=== PATIENT | female | born 1955 | race African-American/Black ===

== ENCOUNTER 2018-04-21 11:24 | Inpatient (IN) | payer OTHER ==
[2018-04-21 11:59] VITALS: BMI 33.6
[2018-04-21] MEDS ORDERED: SODIUM CHLORIDE 1,000 ML IV ONE (12:22)
--- NOTE | 2018-04-21 12:26 | PDOC ---
History of Present Illness - General History Source: Patient Exam Limitations: No Limitations - History of Present Illness Initial Comments: 04/21/18 12:44 The patient is a 63 year old female from brought in by EMS from [facility], with a past medical history of hypertension, hypothyroidism, gastroesophageal reflux disease, chronic obstructive pulmonary disease (not on oxygen), urinary tract infections, bipolar disorder, schizophrenia, pressure ulcers, and varicose veins who presents to the emergency department for evaluation of hypoxia and generalized weakness. As per EMS, patient was found to have an oxygen saturation in the 70s on room air in the field, and was subsequently given oxygen at 3L via nasal cannula. As per facility, patient has been refusing gastrostomy tube and has had worsening weakness. At presentation, patient is non-verbal. History limited secondary to current clinical condition. Allergies: Haloperidol, sulfacetamide sodium Social History: No reported alcohol, cigarette, or drug use. PCP: Dr. Julio César Pereira ([phone]) <Olivia Vallejo - Last Filed: 04/21/18 14:46> <Jan Vanegas - Last Filed: 04/21/18 16:35> - General Chief Complaint: Shortness of Breath Stated Complaint: Shortness of Breath Time Seen by Provider: 04/21/18 11:50 Past History <Olivia Vallejo - Last Filed: 04/21/18 14:46> - Past Medical History COPD: No CHF: No GI Disorders: Yes (reflux, obesity) HTN: Yes Psychiatric Problems: Yes (bipolar,schizo, depression extrapyramidal and movement disorder) Thyroid Disease: Yes (hypo) - Surgical History Orthopedic Surgery: Yes (left knee replacement) - Suicide/Smoking/Psychosocial Hx Smoking History: Unknown if ever smoked Have you smoked in the past 12 months: No Information on smoking cessation initiated: No Hx Alcohol Use: No Drug/Substance Use Hx: No <Jan Vanegas - Last Filed: 04/21/18 16:35> - Past Medical History Allergies/Adverse Reactions: Allergies Allergy/AdvReac Type Severity Reaction Status Date / Time haloperidol Allergy Unknown Verified 04/21/18 11:38 sulfacetamide sodium Allergy Unknown Verified 04/21/18 11:38 [From Sulfamide] Home Medications: Ambulatory Orders Acetaminophen [Non-Aspirin Pain Relief] 650 mg PO BID 01/14/15 Albuterol 0.083% Nebulizer Renuka [Ventolin 0.083% Nebulizer Soln -] 1 neb NEB Q6H PRN 01/14/15 Benztropine Mesylate 1 mg PO BID 01/14/15 Depakote ER 1,000 mg PO BID 01/14/15 Divalproex [Depakote -] 250 mg PO BID 01/14/15 Docusate Sodium [Colace -] 100 mg PO DAILY 01/14/15 Folic Acid 1 mg PO DAILY 01/14/15 Furosemide [Lasix -] 40 mg PO BID 01/14/15 Gabapentin [Neurontin -] 300 mg PO Q8H 01/14/15 Lamotrigine 200 mg PO BID 01/14/15 Levetiracetam [Keppra] 1,000 mg PO BID 01/14/15 Levothyroxine [Synthroid -] 75 mcg PO DAILY 01/14/15 Metoprolol Tartrate 25 mg PO BID 01/14/15 Olanzapine [Zyprexa] 20 mg PO HS 01/14/15 Risperidone [Risperdal] 1 mg PO HS 01/14/15 Risperidone [Risperdal] 2 mg PO DAILY 01/14/15 Review of Systems - Review of Systems Able to Perform ROS?: No (nonverbal) <Jan Vanegas - Last Filed: 04/21/18 16:35> *Physical Exam - Vital Signs Last Vital Signs Temp Pulse Resp BP Pulse Ox 98.4 F 88 24 H 92/50 L 96 04/21/18 11:25 04/21/18 11:25 04/21/18 11:25 04/21/18 11:25 04/21/18 11:25 - Physical Exam Comments: GENERAL: (+)Asleep, responds to verbal stimuli. Obeys commands, nonverbal ? baseline. HEAD: Normal with no signs of trauma. EYES: Pupils equal, round and reactive to light, extraocular movements intact, sclera anicteric, conjunctiva clear with no pallor. ENT: Ears normal, nares patent. NECK: Normal range of motion, supple without lymphadenopathy, JVD, or masses. LUNGS: (+)decreased breath sounds at bases, left worse than right. No wheeze/ crackles. HEART: Regular rate and rhythm, normal S1 and S2 without murmur or rub. ABDOMEN: Soft, non distended, no guarding, rebound, or grimace upon palpation. GENITOURINARY: (+)Peralta placed with cloudy urine. EXTREMITIES: (+)edema to dorsum of feet bilaterally. (+)Chronic venous stasis, hyperpigmentation in both lower extremities. Normal range of motion, no edema. No clubbing or cyanosis. No cords, erythema, or tenderness. SKIN: Warm, Dry, normal turgor, no rashes or lesions noted. <Olivia Vallejo - Last Filed: 04/21/18 14:46> - Vital Signs Last Vital Signs Temp Pulse Resp BP Pulse Ox 98.4 F 88 24 H 92/50 L 96 04/21/18 11:25 04/21/18 11:25 04/21/18 11:25 04/21/18 11:25 04/21/18 11:25 <Jan Vanegas - Last Filed: 04/21/18 16:35> Moderate Sedation - Procedure Monitoring Vital Signs: Procedure Monitoring Vital Signs Temperature 98.4 F 04/21/18 11:25 Pulse Rate 88 04/21/18 11:25 Respiratory Rate 24 H 04/21/18 11:25 Blood Pressure 92/50 L 04/21/18 11:25 O2 Sat by Pulse Oximetry (%) 96 04/21/18 11:25 <Olivia Vallejo - Last Filed: 04/21/18 14:46> - Procedure Monitoring Vital Signs: Procedure Monitoring Vital Signs Temperature 98.4 F 04/21/18 11:25 Pulse Rate 88 04/21/18 11:25 Respiratory Rate 24 H 04/21/18 11:25 Blood Pressure 92/50 L 04/21/18 11:25 O2 Sat by Pulse Oximetry (%) 96 04/21/18 11:25 <Jan Vanegas - Last Filed: 04/21/18 16:35> Heart Score/ECG Review #1 ECG reviewed & interpreted by me at: 12:02 General ECG Interpretation: Sinus Rhythm, Normal Rate (85), Normal Intervals ( RBBB, LAFB, QTC 502), No acute ischemic changes <Jan Vanegas - Last Filed: 04/21/18 16:35> ED Treatment Course - LABORATORY CBC & Chemistry Diagram: 04/21/18 13:20 04/21/18 12:50 <[email or web address] - Last Filed: 04/21/18 14:46> - LABORATORY CBC & Chemistry Diagram: 04/21/18 13:20 04/21/18 12:50 - RADIOLOGY Radiology Studies Ordered: Category Date Time Status CHEST X-RAY PORTABLE* [RAD] Stat Radiology 04/21/18 12:13 Ordered <Jan Vanegas - Last Filed: 04/21/18 16:35> Medical Decision Making - Medical Decision Making 04/21/18 14:[address] Chavez at 14:44 <Olivia Vallejo - Last Filed: 04/21/18 14:46> - Critical Care Time Total Critical Care Time (minutes): 75 Critical Care Statement: The care of this patient involved high complexity decision making to prevent further life threatening deterioration of the patient 's condition and/or to evaluate & treat vital organ system(s) failure or risk of failure. - Medical Decision Making 04/21/18 12:24 63-year-old female with history of hypertension, bipolar/schizophrenia from [facility] with worsening generalized weakness and failure to thrive and acute hypoxia noted today. EMS found patient setting in the 70s, improved on nasal cannula and without. Blood pressure was 80s systolic in the field improved to 116 systolic after IV fluids. Patient presents here with acute hypoxia improving with nonrebreather, satting 96%. Afebrile here but borderline blood pressure, suggestive of SIRS/sepsis. Sepsis protocol initiated IV fluid resuscitation Chest x-ray, EKG Admission - mental status improved with oxygenation, protecting airway, no indication for emergent intubation 04/21/18 14:32 hyper-Na, slight Cr elevation 1.4. CBC wnl with wbc 9.9 and normal diff. Awaiting baseline labs from [place]. UA with evidence of infection, empirically covered with vanco/ceftriaxone for sepsis and presumed UTI. CXR without clear infiltrate. Given acute hypoxia and no obvious pneumonia, will perform CTA chest to r/o PE despite slight Cr bump given high risk for PE. On bedside sono, no notable RV dilatation or strain. on review of recent labs, pt has had progressive hyper-Na: 155 on 04/04, 151 on . baseline Cr normal at 1, suggestive of slight EVIN. Will proceed with admission. Accepted for inpatient tele by Dr. Chavez, covering regency. 04/21/18 15:00 sister discussed case with [facility], expressed request for G-tube for feeding. Aware of admission and agrees. Michelle Alan, can be reached at [phone] or [phone]. 04/21/18 16:34 much more alert and still following commands with improved oxygenation/ respirations, but required ativan for CTA. awaiting admission bed <Jan Vanegas - Last Filed: 04/21/18 16:35> *DC/Admit/Observation/Transfer - Attestations Scribe Attestion: Documentation prepared by Olivia Vallejo, acting as emergency medical technician basic for Jan Vanegas MD. <Olivia Vallejo - Last Filed: 04/21/18 14:46> - Discharge Dispostion Decision to Admit order: Yes <Jan Vanegas - Last Filed: 04/21/18 16:35> Diagnosis at time of Disposition: Acute respiratory failure with hypoxia, Hypernatremia UTI (urinary tract infection) Qualifiers: Urinary tract infection type: site unspecified Hematuria presence: without hematuria Qualified Code(s): N39.0 - Urinary tract infection, site not specified - Discharge Dispostion Condition at time of disposition: Fair
[2018-04-21 13:30] LABS: BASO % 0.2 % (0-2.0); HEMATOCRIT 33.7 % (32.4-45.2); HEMOGLOBIN 10.5 GM/dL (10.7-15.3); MCH 33.4 pg (25.7-33.7); MCHC 31.3 g/dl (32.0-36.0); MEAN CELL VOLUME 106.7 fl (80-96); MEAN PLT VOLUME 7.2 fl (7.5-11.1); MONO % 5.5 % (3.8-10.2); NEUT % 69.3 % (42.8-82.8); PLATELET COUNT 144 K/MM3 (134-434); RBC 3.16 M/mm3 (3.60-5.2); RDW 17.5 % (11.6-15.6); WHITE BLOOD COUNT 9.9 K/mm3 (4.0-10.0)
[2018-04-21 13:36] LABS: VENOUS PC02 68.4 mmHg (38-52); VENOUS PH 7.37 (7.32-7.42); VENOUS PO2 34.6 mmHg (28-48)
[2018-04-21 13:42] LABS: ALBUMIN 2.3 g/dl (3.4-5.0); ALK PHOS 102 U/L (45-117); ANION GAP 3 MMOL/L (8-16); BILIRUBIN,TOTAL 0.4 mg/dL (0.2-1); BLOOD UREA NITROGEN 35 mg/dL (7-18); CALCIUM 9.1 mg/dL (8.5-10.1); CHLORIDE 124 mmol/L (98-107); CO2 39 mmol/L (21-32); CREATININE 1.4 mg/dL (0.55-1.3); GLUCOSE,RANDOM 85 mg/dL (74-106); POTASSIUM 4.3 mmol/L (3.5-5.1); SGOT/AST 9 U/L (15-37); SGPT/ALT 7 U/L (13-61); TOT PROT 7.2 g/dl (6.4-8.2)
[2018-04-21 13:43] LABS: URINE APPEARANCE TURBID; URINE BILIRUBIN NEGATIVE (<2.0 mg/dL); URINE COLOR AMBER; URINE GLUCOSE (UA) NEGATIVE (NEGATIVE); URINE KETONE TRACE (NEGATIVE); URINE LEUK ESTERASE 2+ (NEGATIVE); URINE NITRITE POSITIVE (NEGATIVE); URINE PROTEIN 2+ (NEGATIVE); URINE UROBILINOGEN 4.0 E.U/dl mg/dL (0.2-1.0)
[2018-04-21 13:43] LABS: INR 1.04 (0.83-1.09); PROTHROMBIN TIME (PATIENT) 12.3 SEC (9.7-13.0)
[2018-04-21 13:46] LABS: ACTIVATED PTT 30.5 SECONDS (25.2-36.5)
[2018-04-21 13:54] LABS: SODIUM 165 mmol/L (136-145)
[2018-04-21 14:02] LABS: EPI CELLS FEW /HPF (FEW); URINE BACTERIA MANY /hpf (NONE SEEN); URINE MUCUS RARE
[2018-04-21] MEDS ORDERED: VANCOMYCIN 1 GM in D5W (PRE-DOCKED) 1,000 MG/250 ML IVPB ONE (14:09)
[2018-04-21] MEDS ORDERED: CEFTRIAXONE 1,000 MG in DEXTROSE 5%-WATER - 50 ML IVPB ONE (14:09)
[2018-04-21] MEDS ORDERED: LORazepam 2 MG/ML SDV VIAL ONE ×2 (14:33→15:08)
[2018-04-21] MEDS ORDERED: VANCOMYCIN 1 GRAM (PRE-DOCKED) 1,000 MG/250 ML BAG IVPB ONE (14:33)
[2018-04-21] MEDS ORDERED: CEFTRIAXONE 1 GM/50 ML BAG ONE (14:34)
[2018-04-21 15:55] LABS: ANISOCYTOSIS 1+; MACROCYTOSIS 1+; PLATELET ESTIMATE DECREASED
[2018-04-21] MEDS ORDERED: ALBUTEROL SO4 0.083% IH SOL 2.5 MG/3 ML VIAL.NEB. NEB PRN (21:37)
--- NOTE | 2018-04-21 22:13 | HP ---
CHIEF COMPLAINT: Hypoxia, Generalized Weakness, Failure to Thrive PCP: Dr. Julio César Pereira ([facility]) HISTORY OF PRESENT ILLNESS: This is a 63 y/o woman from [facility] with a past medical history of : Hypertension, Hypothyroidism, GERD, COPD (not on O2), frequent UTIs, Bipolar Disorder, Schizophrenia, Pressure Ulcers, Varicose Veins. Who presents to the ED for evaluation of hypoxia, generalized weakness and failure to thrive. Per ED and SNF records- patient was found with a Spo2 in 70's placed on 3LNC and transported to the ED. Per SNF records, patient has been refusing GT placement and has been increasing weak. ER course was notable for: (1) Na 165 (2) BUN 35, Cr 1.4 (3) UA- +2 protein, +2 blood, +2 leukocyte esterase, +nitrate, 627 WBC (4) CT Chest- atelectasis with consolidation, probable pneumonia LLL Recent Travel: None PAST MEDICAL HISTORY: See HPI PAST SURGICAL HISTORY: Social History: Smoking: Unknown Alcohol: Unknown Drugs: Unknown Resides in [facility] Family History: Unable to Obtain Allergies haloperidol Allergy (Unknown, Verified 04/21/18 11:38) sulfacetamide sodium [From Sulfamide] Allergy (Unknown, Verified 04/21/18 11:38) HOME MEDICATIONS: Home Medications Medication Instructions Recorded Acetaminophen [Non-Aspirin Pain 650 mg PO BID 01/14/15 Relief] Albuterol 0.083% Nebulizer Renuka 1 neb NEB Q6H PRN 01/14/15 [Ventolin 0.083% Nebulizer Soln -] Benztropine Mesylate 1 mg PO BID 01/14/15 Depakote ER 1,000 mg PO BID 01/14/15 Divalproex [Depakote -] 250 mg PO BID 01/14/15 Docusate Sodium [Colace -] 100 mg PO DAILY 01/14/15 Folic Acid 1 mg PO DAILY 01/14/15 Furosemide [Lasix -] 40 mg PO BID 01/14/15 Gabapentin [Neurontin -] 300 mg PO Q8H 01/14/15 Lamotrigine 200 mg PO BID 01/14/15 Levetiracetam [Keppra] 1,000 mg PO BID 01/14/15 Levothyroxine [Synthroid -] 75 mcg PO DAILY 01/14/15 Metoprolol Tartrate 25 mg PO BID 01/14/15 Olanzapine [Zyprexa] 20 mg PO HS 01/14/15 Risperidone [Risperdal] 1 mg PO HS 01/14/15 Risperidone [Risperdal] 2 mg PO DAILY 01/14/15 REVIEW OF SYSTEMS Non-Verbal CONSTITUTIONAL: Absent: fever, chills, diaphoresis, generalized weakness, malaise, loss of appetite, weight change HEENT: Absent: rhinorrhea, nasal congestion, throat pain, throat swelling, difficulty swallowing, mouth swelling, ear pain, eye pain, visual changes CARDIOVASCULAR: Absent: chest pain, syncope, palpitations, irregular heart rate, lightheadedness , peripheral edema RESPIRATORY: Absent: cough, shortness of breath, dyspnea with exertion, orthopnea, wheezing, stridor, hemoptysis GASTROINTESTINAL: Absent: abdominal pain, abdominal distension, nausea, vomiting, diarrhea, constipation, melena, hematochezia GENITOURINARY: Absent: dysuria, frequency, urgency, hesitancy, hematuria, flank pain, genital pain MUSCULOSKELETAL: Absent: myalgia, arthralgia, joint swelling, back pain, neck pain SKIN: Absent: rash, itching, pallor HEMATOLOGIC/IMMUNOLOGIC: Absent: easy bleeding, easy bruising, lymphadenopathy, frequent infections ENDOCRINE: Absent: unexplained weight gain, unexplained weight loss, heat intolerance, cold intolerance NEUROLOGIC: Absent: headache, focal weakness or paresthesias, dizziness, unsteady gait, seizure, mental status changes, bladder or bowel incontinence PSYCHIATRIC: Absent: anxiety, depression, suicidal or homicidal ideation, hallucinations. PHYSICAL EXAMINATION Vital Signs - 24 hr 04/21/18 04/21/18 04/21/18 11:25 12:00 13:40 Temperature 98.4 F 98.4 F Pulse Rate 88 Pulse Rate [ 102 H Apical] Respiratory 24 H 15 Rate Blood Pressure 92/50 L Blood Pressure 124/96 [Right Arm] O2 Sat by Pulse 96 99 Oximetry (%) 04/21/18 04/21/18 04/21/18 14:45 18:18 18: Temperature 98.1 F Pulse Rate Pulse Rate [ 88 86 Apical] Respiratory 20 24 H Rate Blood Pressure Blood Pressure 109/87 110/63 [Right Arm] O2 Sat by Pulse 99 100 95 Oximetry (%) 04/21/18 20:25 Temperature Pulse Rate Pulse Rate [ 98 H Apical] Respiratory 17 Rate Blood Pressure Blood Pressure 112/70 [Right Arm] O2 Sat by Pulse 99 Oximetry (%) GENERAL:Lethargic, minimal response to verbal/tactile stimulus, in no acute distress. HEAD: Normal with no signs of trauma. EYES: Pupils equal, round and reactive to light, sclera anicteric, conjunctiva clear. No lid lag. EARS, NOSE, THROAT: Ears normal, nares patent, oropharynx clear without exudates. Dry mucous membranes. NECK: Normal range of motion, supple without lymphadenopathy, JVD, or masses. LUNGS: Decreased breath sounds to L- base. No wheezes, and no crackles. No accessory muscle use. HEART: Regular rate and rhythm, normal S1 and S2 without murmur, rub or gallop. ABDOMEN: Soft, nontender, not distended, normoactive bowel sounds, no guarding, no rebound, no masses. No hepatomegaly or splenomegaly. MUSCULOSKELETAL: Normal range of motion at all joints. No bony deformities or tenderness. No CVA tenderness. UPPER EXTREMITIES: 2+ pulses, warm, well-perfused. No cyanosis. No clubbing. No peripheral edema. LOWER EXTREMITIES: 2+ pulses, warm, well-perfused. No calf tenderness. No peripheral edema. NEUROLOGICAL: Cranial nerves II-XII intact. Non-verbal. Gait not observed. PSYCHIATRIC: Non-verbal, lethargic unable to assess. SKIN: Poor skin turgor. Warm, dry, no rashes or lesions noted, normal capillary refill. Laboratory Results - last 24 hr 04/21/18 04/21/18 04/21/18 12:10 12:50 13:20 WBC 9.9 RBC 3.16 L Hgb 10.5 L Hct 33.7 MCV 106.7 H MCH 33.4 MCHC 31.3 L RDW 17.5 H Plt Count 144 MPV 7.2 L Absolute Neuts (auto) 6.9 Neutrophils % 69.3 Neutrophils % (Manual) 59.6 Band Neutrophils % 7.7 Lymphocytes % 25.0 Lymphocytes % (Manual) 25.0 Monocytes % 5.5 Monocytes % (Manual) 7 Eosinophils % 0.0 Eosinophils % (Manual) 0.0 Basophils % 0.2 Basophils % (Manual) 0.0 Myelocytes % (Man) 0 Promyelocytes % (Man) 0 Blast Cells % (Manual) 0 Nucleated RBC % 1 H Metamyelocytes 0 Hypochromia 0 Platelet Estimate Decreased Polychromasia 0 Poikilocytosis 0 Anisocytosis 1+ Microcytosis 0 Macrocytosis 1+ PT with INR INR PTT (Actin FS) VBG pH POC VBG pCO2 POC VBG pO2 Mixed VBG HCO3 Sodium 165 H* Potassium 4.3 Chloride 124 H Carbon Dioxide 39 H Anion Gap 3 L BUN 35 H Creatinine 1.4 H Creat Clearance w eGFR 38.23 Random Glucose 85 Lactic Acid Calcium 9.1 Total Bilirubin 0.4 AST 9 L ALT 7 L Alkaline Phosphatase 102 Troponin I Total Protein 7.2 Albumin 2.3 L Urine Color [place] Urine Appearance Turbid Urine pH 5.0 Ur Specific [place] 1.021 Urine Protein 2+ H Urine Glucose (UA) Negative Urine Ketones Trace H Urine Blood 2+ H Urine Nitrite Positive Urine Bilirubin Negative Urine Urobilinogen 4.0 e.u/dl H Ur Leukocyte Esterase 2+ H Urine WBC (Auto) 627 Urine RBC (Auto) 18 Ur Epithelial Cells Few Urine Bacteria Many Urine Mucus Rare 04/21/18 04/21/18 04/21/18 13:20 13:20 13:20 WBC RBC Hgb Hct MCV MCH MCHC RDW Plt Count MPV Absolute Neuts (auto) Neutrophils % Neutrophils % (Manual) Band Neutrophils % Lymphocytes % Lymphocytes % (Manual) Monocytes % Monocytes % (Manual) Eosinophils % Eosinophils % (Manual) Basophils % Basophils % (Manual) Myelocytes % (Man) Promyelocytes % (Man) Blast Cells % (Manual) Nucleated RBC % Metamyelocytes Hypochromia Platelet Estimate Polychromasia Poikilocytosis Anisocytosis Microcytosis Macrocytosis PT with INR 12.30 INR 1.04 PTT (Actin FS) 30.5 VBG pH 7.37 POC VBG pCO2 68.4 H* POC VBG pO2 34.6 Mixed VBG HCO3 38.7 H Sodium Potassium Chloride Carbon Dioxide Anion Gap BUN Creatinine Creat Clearance w eGFR Random Glucose Lactic Acid 1.6 Calcium Total Bilirubin AST ALT Alkaline Phosphatase Troponin I Total Protein Albumin Urine Color Urine Appearance Urine pH Ur Specific [place] Urine Protein Urine Glucose (UA) Urine Ketones Urine Blood Urine Nitrite Urine Bilirubin Urine Urobilinogen Ur Leukocyte Esterase Urine WBC (Auto) Urine RBC (Auto) Ur Epithelial Cells Urine Bacteria Urine Mucus 04/21/18 13:20 WBC RBC Hgb Hct MCV MCH MCHC RDW Plt Count MPV Absolute Neuts (auto) Neutrophils % Neutrophils % (Manual) Band Neutrophils % Lymphocytes % Lymphocytes % (Manual) Monocytes % Monocytes % (Manual) Eosinophils % Eosinophils % (Manual) Basophils % Basophils % (Manual) Myelocytes % (Man) Promyelocytes % (Man) Blast Cells % (Manual) Nucleated RBC % Metamyelocytes Hypochromia Platelet Estimate Polychromasia Poikilocytosis Anisocytosis Microcytosis Macrocytosis PT with INR INR PTT (Actin FS) VBG pH POC VBG pCO2 POC VBG pO2 Mixed VBG HCO3 Sodium Potassium Chloride Carbon Dioxide Anion Gap BUN Creatinine Creat Clearance w eGFR Random Glucose Lactic Acid Calcium Total Bilirubin AST ALT Alkaline Phosphatase Troponin I < 0.02 Total Protein Albumin Urine Color Urine Appearance Urine pH Ur Specific [place] Urine Protein Urine Glucose (UA) Urine Ketones Urine Blood Urine Nitrite Urine Bilirubin Urine Urobilinogen Ur Leukocyte Esterase Urine WBC (Auto) Urine RBC (Auto) Ur Epithelial Cells Urine Bacteria Urine Mucus ASSESSMENT/PLAN: This is a 63 y/o from [facility] PMHx of: HTN, Hypothyroidism, GERD, COPD, UTI, Bipolar Disorder, Schizophrenia, Pressure Ulcers. Admitted ti Telemetry for Acute Respiratory Failure with Hypoxia, Hypernatremia, Pneumonia, UTI, and Failure to Thrive for further evaluation of their emergent condition. Plan: See Problem List FEN D51/2NS@42ml/hr Replete lytes prn Na, Diabetic Diet DVT ppx OOB SCDs Heparin SQ Code Status: Full Code Dispo: Requires Inpatient Care Addendum Was notified at 21:30 by RN, that the patient was on the floor without orders. Decision to admit had been placed at 14:46. [facility] [place] was not aware of admission until 21:30. Problem List - Problem (1) Acute respiratory failure with hypoxia Assessment/Plan: Likely secondary to Pneumonia CT Chest-atelectasis with consolidationn probable LLL Pneumonia O2 Appreciate Pulmonology consult Duonebs Code(s): J96.01 - ACUTE RESPIRATORY FAILURE WITH HYPOXIA (2) Hypernatremia Assessment/Plan: Likely secondary to Dehydration Cardiac monitoring Na 165 Serial BMPs Free water deficit 7.9L stat BMP Appreciate Nephrology consult- discussed with Dr. Montgomery Will start D51/2NS Seizure Precautions Fall Precautions Code(s): E87.0 - HYPEROSMOLALITY AND HYPERNATREMIA (3) Pneumonia Assessment/Plan: Likely Aspirate vs HAP CURB65 Score 3 CT Chest- consolidation, probable LLL pneumonia Blood Cultures-pending Given Vancomycin, Ceftriaxone in ED Will continue Zosyn for HAP Appreciate ID consult Monitor CBC Monitor vitals Aspiration Precautions Code(s): J18.9 - PNEUMONIA, UNSPECIFIED ORGANISM (4) UTI (urinary tract infection) Assessment/Plan: UA- +nitrate, +2 leukocyte esterase, +2 blood, 627 WBC, +2 protein, +trace ketones Urine Culture-pending Ceftriaxone given in ED Will start Zosyn for UTI and HAP Monitor CBC Monitor vitals Code(s): N39.0 - URINARY TRACT INFECTION, SITE NOT SPECIFIED Qualifiers: Urinary tract infection type: site unspecified Hematuria presence: without hematuria Qualified Code(s): N39.0 - Urinary tract infection, site not specified (5) Adult failure to thrive Assessment/Plan: Albumin 2.3 Would benefit with PEG Consider IR consult RD Consult Primary team should f/u with pt's family for discussion Continue gentle IVF Monitor CBC, BMP Monitor INOs Monitor vitals Code(s): R62.7 - ADULT FAILURE TO THRIVE (6) HTN (hypertension) Assessment/Plan: Hold BP meds secondary to hypotension Monitor BP Monitor renal function Code(s): I10 - ESSENTIAL (PRIMARY) HYPERTENSION (7) Hypothyroidism Assessment/Plan: continue Levothyroxine Code(s): E03.9 - HYPOTHYROIDISM, UNSPECIFIED (8) GERD (gastroesophageal reflux disease) Assessment/Plan: Continue PPI Code(s): K21.9 - GASTRO-ESOPHAGEAL REFLUX DISEASE WITHOUT ESOPHAGITIS (9) COPD (chronic obstructive pulmonary disease) Assessment/Plan: stable No acute flares Continue home meds Code(s): J44.9 - CHRONIC OBSTRUCTIVE PULMONARY DISEASE, UNSPECIFIED (10) Bipolar disorder Assessment/Plan: Continue home med Code(s): F31.9 - BIPOLAR DISORDER, UNSPECIFIED (11) Schizophrenia Assessment/Plan: Continue home med Code(s): F20.9 - SCHIZOPHRENIA, UNSPECIFIED Visit type - Emergency Visit Emergency Visit: Yes ED Registration Date: 04/21/18 Care time: The patient presented to the Emergency Department on the above date and was hospitalized for further evaluation of their emergent condition. - New Patient This patient is new to me today: Yes Date on this admission: 04/21/18 - Critical Care Critical Care patient: No
[2018-04-21 23:10] LABS: ALBUMIN 2.4 g/dl (3.4-5.0); ALK PHOS 110 U/L (45-117); ANION GAP 4 MMOL/L (8-16); BILIRUBIN,TOTAL 0.3 mg/dL (0.2-1); BLOOD UREA NITROGEN 33 mg/dL (7-18); CHLORIDE 122 mmol/L (98-107); CO2 38 mmol/L (21-32); CREATININE 1.3 mg/dL (0.55-1.3); GLUCOSE,RANDOM 78 mg/dL (74-106); MAGNESIUM 3.5 mg/dL (1.8-2.4); POTASSIUM 4.1 mmol/L (3.5-5.1); SGOT/AST 11 U/L (15-37); SGPT/ALT < 6 U/L (13-61); TOT PROT 7.4 g/dl (6.4-8.2)
[2018-04-21 23:18] LABS: SODIUM 164 mmol/L (136-145)
[2018-04-21] MEDS ORDERED: DEXTROSE 5%-0.45% SALINE 1,000 ML IV SCH (23:45)
[2018-04-22] MEDS: METOPROLOL TARTRATE 25 MG TABLET (FP) PO SCH ×3 (01:30→13:51)
[2018-04-22 07:01] LABS: BASO % 0.3 % (0-2.0); HEMATOCRIT 31.4 % (32.4-45.2); HEMOGLOBIN 9.5 GM/dL (10.7-15.3); LYMPH % 18.3 % (8-40); MCH 32.6 pg (25.7-33.7); MCHC 30.2 g/dl (32.0-36.0); MEAN CELL VOLUME 107.8 fl (80-96); MEAN PLT VOLUME 7.4 fl (7.5-11.1); MONO % 5.5 % (3.8-10.2); NEUT % 75.9 % (42.8-82.8); PLATELET COUNT 122 K/MM3 (134-434); RBC 2.91 M/mm3 (3.60-5.2); RDW 18.1 % (11.6-15.6); WHITE BLOOD COUNT 11.4 K/mm3 (4.0-10.0)
[2018-04-22 07:30] LABS: ALBUMIN 2.2 g/dl (3.4-5.0); ALK PHOS 101 U/L (45-117); ANION GAP 5 MMOL/L (8-16); BILIRUBIN,TOTAL 0.2 mg/dL (0.2-1); BLOOD UREA NITROGEN 31 mg/dL (7-18); CALCIUM 8.7 mg/dL (8.5-10.1); CHLORIDE 123 mmol/L (98-107); CO2 39 mmol/L (21-32); CREATININE 1.2 mg/dL (0.55-1.3); GLUCOSE,RANDOM 88 mg/dL (74-106); POTASSIUM 3.8 mmol/L (3.5-5.1); SGOT/AST 6 U/L (15-37); SGPT/ALT < 6 U/L (13-61)
[2018-04-22 07:49] LABS: SODIUM 167 mmol/L (136-145)
[2018-04-22] MEDS ORDERED: PIPERACILLIN/TAZOBACTAM 4.5 GM VIAL IVPB ONE ×2 (09:11→17:20)
[2018-04-22] MEDS ORDERED: DEXTROSE 5%-WATER 100 ML IVPB ONE ×2 (09:11→17:20)
[2018-04-22] MEDS: PIPERACILLIN/TAZOB 4.5 GM 4.5 GM in DEXTROSE 5%-WATER 100 ML IVPB SCH ×2 (09:25→15:34)
[2018-04-22] MEDS ORDERED: ALBUTEROL SO4 0.083% IH SOL 2.5 MG/3 ML VIAL.NEB. NEB PRN (11:22)
[2018-04-22] MEDS ORDERED: DEXTROSE 5%-0.45% SALINE 1,000 ML IV SCH (11:22)
[2018-04-22 11:25] LABS: ANISOCYTOSIS 1+; MACROCYTOSIS 1+; PLATELET ESTIMATE DECREASED
--- NOTE | 2018-04-22 12:06 | CONSULT ---
Consult Consult Specialty:: Nephrology Referred by:: Марина Alvarez Reason for Consultation:: Hypernatremia - History of Present Illness Chief Complaint: Generalized weakness History of Present Illness: The Pt is a 63 y/o F from [facility] with a PMHx of HTN, Hypothyroidism, GERD, COPD (not on O2), frequent UTIs, Bipolar Disorder (not on lithium), Schizophrenia, Pressure Ulcers, Varicose Vein, presenting with hypoxia, generalized weakness poor intake and failure to thrive and found to be hypernatremic 165 >>167, positive UA for infection with likely PNA. Pt's baseline difficult to assess. Pt denies hematuria, flank pain.n/v. - History Source History Provided By: Patient, Medical Record Limitations to Obtaining History: Poor Historian - Alcohol/Substance Use Hx Alcohol Use: No - Smoking History Smoking history: Unknown if ever smoked Have you smoked in the past 12 months: No Home Medications - Allergies Allergies/Adverse Reactions: Allergies Allergy/AdvReac Type Severity Reaction Status Date / Time haloperidol Allergy Unknown Verified 04/21/18 11:38 sulfacetamide sodium Allergy Unknown Verified 04/21/18 11:38 [From Sulfamide] - Home Medications Home Medications: Ambulatory Orders Acetaminophen [Non-Aspirin Pain Relief] 650 mg PO Q6H PRN 01/14/15 Albuterol 0.083% Nebulizer Renuka [Ventolin 0.083% Nebulizer Soln -] 1 neb NEB Q6H PRN 01/14/15 Benztropine Mesylate 1 mg PO TID 01/14/15 Divalproex [Depakote -] 250 mg PO BID 01/14/15 Lamotrigine 200 mg PO BID 01/14/15 Levetiracetam [Keppra] 1,000 mg PO BID 01/14/15 Levothyroxine [Synthroid -] 75 mcg PO DAILY 01/14/15 Metoprolol Tartrate 25 mg PO BID 01/14/15 Ammonium Lactate Cream [Lac-Hydrin 12% *Cream*] 1 applic TP BID 04/22/18 Aripiprazole [Abilify] 20 mg PO DAILY 04/22/18 Aspirin [ASA -] 81 mg PO DAILY 04/22/18 Carbidopa/Levodopa [Sinemet -] 1 each PO BID 04/22/18 Magnesium Hydroxide [Milk of Magnesia] 400 mg PO Q48H PRN 04/22/18 Mineral Oil/Pet Hy-Phl [Aquaphor] 1 applic TP BID 04/22/18 Vit A/Vitamin D3/E/Aloe V/Zinc [Periguard Ointment] 15 gm TP BID 04/22/18 Family Disease History - Family Disease History Family History: Unable to Obtain Physical Exam Vital Signs: Vital Signs Temperature 98.2 F 04/22/18 02:00 Pulse Rate 86 04/22/18 06:00 Respiratory Rate 20 04/22/18 10:00 Blood Pressure 92/46 L 04/22/18 06:00 O2 Sat by Pulse Oximetry (%) 96 04/22/18 09:00 Constitutional: Yes: Calm, Obese Eyes: Yes: EOM Intact HENT: Yes: Atraumatic, Other (Dry mucous mebranes) Neck: Yes: Supple Cardiovascular: Yes: Regular Rate and Rhythm, S1, S2 Respiratory: Yes: CTA Bilaterally Gastrointestinal: Yes: Abdomen, Obese Renal/: Yes: [place] Present Edema: No Neurological: Yes: Alert, Oriented Psychiatric: Yes: Alert Labs: CBC, BMP 04/22/18 05:30 04/22/18 05:30 Assessment/Plan The Pt is a 63 y/o F from [facility] with a PMHx of HTN, Hypothyroidism, GERD, COPD (not on O2), frequent UTIs, Bipolar Disorder (not on lithium), Schizophrenia, Pressure Ulcers, Varicose Vein, presenting with hypoxia, generalized weakness poor intake and failure to thrive and found to be hypernatremic 165 >>167, positive UA for infection with likely PNA. HTN, Hypothyroidism, GERD, COPD (not on O2), frequent UTIs, Bipolar Disorder (not on lithium), Schizophrenia, Pressure Ulcers, Varicose Vein, hypoxia, generalized weakness, poor intake failure to thrive hypernatremic 165 >>167, positive UA likely PNA. Plan: Hypernatremia likely due to poor oral intake, with dry mucous membranes and pt altered at baseline Total free water deficit is 8.5L Free water deficit- 2.8L to bring sodium from 167 to 157 in 24hrs 116cc/hr will cont D5 @100cc/hr Urinary and plasma osmoles Follow BMP Avoid nephrotoxic drugs Free water per mouth D/W Dr Montgomery Visit type - Emergency Visit Emergency Visit: Yes ED Registration Date: 04/21/18 Care time: The patient presented to the Emergency Department on the above date and was hospitalized for further evaluation of their emergent condition. - New Patient This patient is new to me today: Yes Date on this admission: 04/22/18 - Critical Care Critical Care patient: No
--- NOTE | 2018-04-22 12:24 | PN ---
Progress Note (short form) - Note Progress Note: PULMONARY CONSULTATION DICTATED 04/22/18 IMP ACUTE HYPOXEMIC RESPIRATORY FAILURE ACUTE ON CHRONIC HYPERCAPNEIC RESPIRATORY FAILURE LLL PNEUMONIA COPD HYPERNATREMIA HTN HLD BIPOLAR SCHIZOPHRENIA PLAN IVF ABX INHALED BRONCHODILATORS SUPPLEMENTAL O2 MONITOR EMERY PEÑALOZA F/U CHEST X-RAYS LEGIONELLA URINARY ANTIGEN DR TEIXEIRA Problem List - Problems (1) Acute and chronic respiratory failure with hypercapnia Code(s): J96.22 - ACUTE AND CHRONIC RESPIRATORY FAILURE WITH HYPERCAPNIA (2) Acute respiratory failure with hypoxia Code(s): J96.01 - ACUTE RESPIRATORY FAILURE WITH HYPOXIA (3) Bipolar disorder Code(s): F31.9 - BIPOLAR DISORDER, UNSPECIFIED (4) COPD (chronic obstructive pulmonary disease) Code(s): J44.9 - CHRONIC OBSTRUCTIVE PULMONARY DISEASE, UNSPECIFIED (5) GERD (gastroesophageal reflux disease) Code(s): K21.9 - GASTRO-ESOPHAGEAL REFLUX DISEASE WITHOUT ESOPHAGITIS (6) Hypernatremia Code(s): E87.0 - HYPEROSMOLALITY AND HYPERNATREMIA (7) Pneumonia Code(s): J18.9 - PNEUMONIA, UNSPECIFIED ORGANISM (8) Schizophrenia Code(s): F20.9 - SCHIZOPHRENIA, UNSPECIFIED (9) UTI (urinary tract infection) Code(s): N39.0 - URINARY TRACT INFECTION, SITE NOT SPECIFIED Qualifiers: Urinary tract infection type: site unspecified Hematuria presence: without hematuria Qualified Code(s): N39.0 - Urinary tract infection, site not specified
[2018-04-22] MEDS: LEVOTHYROXINE NA 75 MCG TABLET (FP) PO SCH ×2 (12:29→12:43)
[2018-04-22] MEDS: levETIRAcetam 500 MG TABLET (FP) PO SCH ×3 (12:30→22:35)
--- NOTE | 2018-04-22 12:34 | PN ---
Progress Note (short form) - Note Progress Note: Awake agitated at times poor oral intake Vital Signs - 24 hr 04/21/18 04/21/18 04/21/18 13:40 14:45 18:18 Temperature 98.1 F Pulse Rate Pulse Rate [ 102 H 88 86 Apical] Respiratory 15 20 24 H Rate Blood Pressure Blood Pressure 124/96 109/87 110/63 [Right Arm] O2 Sat by Pulse 99 100 Oximetry (%) 04/21/18 04/21/18 04/21/18 18:19 20:25 20:30 Temperature 98.3 F Pulse Rate 96 H Pulse Rate [ 98 H Apical] Respiratory 17 20 Rate Blood Pressure 112/58 L Blood Pressure 112/70 [Right Arm] O2 Sat by Pulse 95 99 96 Oximetry (%) 04/22/18 04/22/18 04/22/18 02:00 06:00 09:00 Temperature 98.2 F Pulse Rate 88 86 Pulse Rate [ Apical] Respiratory 20 20 20 Rate Blood Pressure 126/54 L 92/46 L Blood Pressure [Right Arm] O2 Sat by Pulse 96 Oximetry (%) 04/22/18 10:00 Temperature Pulse Rate Pulse Rate [ Apical] Respiratory 20 Rate Blood Pressure Blood Pressure [Right Arm] O2 Sat by Pulse Oximetry (%) Current Medications Generic Name Dose Route Start Last Admin Trade Name Freq PRN Reason Stop Dose Admin Albuterol Sulfate 1 amp 04/21/18 21:37 Ventolin 0.083% Nebulizer Soln - NEB Q6H PRN SHORT OF BREATH/WHEEZING Arformoterol Tartrate 1 amp 04/22/18 20:00 Brovana (Restricted To Pulmonology/Resp) - NEB RBID ANNA Carbidopa/Levodopa 1 each 04/22/18 11:30 Sinemet 10/100 - PO BID ANNA Divalproex Sodium 250 mg 04/22/18 11:30 Depakote - PO BID ANNA Piperacillin Sod/Tazobactam 100 mls @ 200 mls/hr 04/23/18 09:00 Sod 4.5 gm/ Dextrose IVPB Q6H-IV ANNA Protocol Piperacillin Sod/Tazobactam 100 mls @ 200 mls/hr 04/22/18 09:00 04/22/18 09: 25 Sod 4.5 gm/ Dextrose IVPB 04/23/18 03:29 200 mls/hr Q6H-IV ANNA Administration Protocol Dextrose/Sodium Chloride 1,000 mls @ 100 mls/hr 04/22/18 11:22 04/22/18 11:30 D5-1/2ns - IV 100 mls/hr ASDIR ANNA Administration Lamotrigine 200 mg 04/22/18 11:30 Lamictal - PO BID ANNA Levetiracetam 1,000 mg 04/22/18 11:30 04/22/18 12:30 Keppra - PO 1,000 mg BID ANNA Administration Levothyroxine Sodium 75 mcg 04/22/18 11:30 04/22/18 12:29 Synthroid - PO 75 mcg 0700 ANNA Administration Metoprolol Tartrate 25 mg 04/22/18 11:30 04/22/18 12:30 Lopressor - PO 25 mg BID ANNA Administration Laboratory Results - last 24 hr 04/21/18 04/21/18 04/21/18 12:10 12:50 13:20 WBC 9.9 RBC 3.16 L Hgb 10.5 L Hct 33.7 MCV 106.7 H MCH 33.4 MCHC 31.3 L RDW 17.5 H Plt Count 144 MPV 7.2 L Absolute Neuts (auto) 6.9 Neutrophils % 69.3 Neutrophils % (Manual) 59.6 Band Neutrophils % 7.7 Lymphocytes % 25.0 Lymphocytes % (Manual) 25.0 Monocytes % 5.5 Monocytes % (Manual) 7 Eosinophils % 0.0 Eosinophils % (Manual) 0.0 Basophils % 0.2 Basophils % (Manual) 0.0 Myelocytes % (Man) 0 Promyelocytes % (Man) 0 Blast Cells % (Manual) 0 Nucleated RBC % 1 H Metamyelocytes 0 Hypochromia 0 Platelet Estimate Decreased Polychromasia 0 Poikilocytosis 0 Anisocytosis 1+ Microcytosis 0 Macrocytosis 1+ Stomatocytes PT with INR INR PTT (Actin FS) VBG pH POC VBG pCO2 POC VBG pO2 Mixed VBG HCO3 Sodium 165 H* Potassium 4.3 Chloride 124 H Carbon Dioxide 39 H Anion Gap 3 L BUN 35 H Creatinine 1.4 H Creat Clearance w eGFR 38.23 Random Glucose 85 Lactic Acid Calcium 9.1 Phosphorus Magnesium Total Bilirubin 0.4 AST 9 L ALT 7 L Alkaline Phosphatase 102 Troponin I Total Protein 7.2 Albumin 2.3 L Urine Color [place] Urine Appearance Turbid Urine pH 5.0 Ur Specific [place] 1.021 Urine Protein 2+ H Urine Glucose (UA) Negative Urine Ketones Trace H Urine Blood 2+ H Urine Nitrite Positive Urine Bilirubin Negative Urine Urobilinogen 4.0 e.u/dl H Ur Leukocyte Esterase 2+ H Urine WBC (Auto) 627 Urine RBC (Auto) 18 Ur Epithelial Cells Few Urine Bacteria Many Urine Mucus Rare 04/21/18 04/21/18 04/21/18 13:20 13:20 13:20 WBC RBC Hgb Hct MCV MCH MCHC RDW Plt Count MPV Absolute Neuts (auto) Neutrophils % Neutrophils % (Manual) Band Neutrophils % Lymphocytes % Lymphocytes % (Manual) Monocytes % Monocytes % (Manual) Eosinophils % Eosinophils % (Manual) Basophils % Basophils % (Manual) Myelocytes % (Man) Promyelocytes % (Man) Blast Cells % (Manual) Nucleated RBC % Metamyelocytes Hypochromia Platelet Estimate Polychromasia Poikilocytosis Anisocytosis Microcytosis Macrocytosis Stomatocytes PT with INR 12.30 INR 1.04 PTT (Actin FS) 30.5 VBG pH 7.37 POC VBG pCO2 68.4 H* POC VBG pO2 34.6 Mixed VBG HCO3 38.7 H Sodium Potassium Chloride Carbon Dioxide Anion Gap BUN Creatinine Creat Clearance w eGFR Random Glucose Lactic Acid 1.6 Calcium Phosphorus Magnesium Total Bilirubin AST ALT Alkaline Phosphatase Troponin I Total Protein Albumin Urine Color Urine Appearance Urine pH Ur Specific [place] Urine Protein Urine Glucose (UA) Urine Ketones Urine Blood Urine Nitrite Urine Bilirubin Urine Urobilinogen Ur Leukocyte Esterase Urine WBC (Auto) Urine RBC (Auto) Ur Epithelial Cells Urine Bacteria Urine Mucus 04/21/18 04/21/18 04/22/18 13:20 22:09 05:30 WBC 11.4 H RBC 2.91 L Hgb 9.5 L Hct 31.4 L MCV 107.8 H MCH 32.6 MCHC 30.2 L RDW 18.1 H Plt Count 122 L MPV 7.4 L Absolute Neuts (auto) 8.6 H Neutrophils % 75.9 Neutrophils % (Manual) 61.2 Band Neutrophils % 5.8 Lymphocytes % 18.3 D Lymphocytes % (Manual) 23.3 Monocytes % 5.5 Monocytes % (Manual) 5 Eosinophils % 0.0 Eosinophils % (Manual) 0.0 Basophils % 0.3 Basophils % (Manual) 1.0 D Myelocytes % (Man) 4 H D Promyelocytes % (Man) 0 Blast Cells % (Manual) 0 Nucleated RBC % 0 Metamyelocytes 0 Hypochromia 0 Platelet Estimate Decreased Polychromasia 0 Poikilocytosis 1+ Anisocytosis 1+ Microcytosis 0 Macrocytosis 1+ Stomatocytes 2+ PT with INR INR PTT (Actin FS) VBG pH POC VBG pCO2 POC VBG pO2 Mixed VBG HCO3 Sodium 164 H* Potassium 4.1 Chloride 122 H Carbon Dioxide 38 H Anion Gap 4 L BUN 33 H Creatinine 1.3 Creat Clearance w eGFR 41.64 Random Glucose 78 Lactic Acid Calcium 9.0 Phosphorus 4.0 Magnesium 3.5 H Total Bilirubin 0.3 AST 11 L ALT < 6 L Alkaline Phosphatase 110 Troponin I < 0.02 Total Protein 7.4 Albumin 2.4 L Urine Color Urine Appearance Urine pH Ur Specific [place] Urine Protein Urine Glucose (UA) Urine Ketones Urine Blood Urine Nitrite Urine Bilirubin Urine Urobilinogen Ur Leukocyte Esterase Urine WBC (Auto) Urine RBC (Auto) Ur Epithelial Cells Urine Bacteria Urine Mucus 04/22/18 05:30 WBC RBC Hgb Hct MCV MCH MCHC RDW Plt Count MPV Absolute Neuts (auto) Neutrophils % Neutrophils % (Manual) Band Neutrophils % Lymphocytes % Lymphocytes % (Manual) Monocytes % Monocytes % (Manual) Eosinophils % Eosinophils % (Manual) Basophils % Basophils % (Manual) Myelocytes % (Man) Promyelocytes % (Man) Blast Cells % (Manual) Nucleated RBC % Metamyelocytes Hypochromia Platelet Estimate Polychromasia Poikilocytosis Anisocytosis Microcytosis Macrocytosis Stomatocytes PT with INR INR PTT (Actin FS) VBG pH POC VBG pCO2 POC VBG pO2 Mixed VBG HCO3 Sodium 167 H* Potassium 3.8 Chloride 123 H Carbon Dioxide 39 H Anion Gap 5 L BUN 31 H Creatinine 1.2 Creat Clearance w eGFR 45.67 Random Glucose 88 Lactic Acid Calcium 8.7 Phosphorus Magnesium Total Bilirubin 0.2 AST 6 L ALT < 6 L Alkaline Phosphatase 101 Troponin I Total Protein 7.0 Albumin 2.2 L Urine Color Urine Appearance Urine pH Ur Specific [place] Urine Protein Urine Glucose (UA) Urine Ketones Urine Blood Urine Nitrite Urine Bilirubin Urine Urobilinogen Ur Leukocyte Esterase Urine WBC (Auto) Urine RBC (Auto) Ur Epithelial Cells Urine Bacteria Urine Mucus S1 s2 RRR Lungs decreased Abd- soft, obese, NT rt arm edema-- iv infiltrated No leg edema PLAN IV fluids increased encourage po restart psych meds ID and renal consult ativan prn Problem List - Problems (1) Acute and chronic respiratory failure with hypercapnia Code(s): J96.22 - ACUTE AND CHRONIC RESPIRATORY FAILURE WITH HYPERCAPNIA (2) Acute respiratory failure with hypoxia Code(s): J96.01 - ACUTE RESPIRATORY FAILURE WITH HYPOXIA (3) Adult failure to thrive Code(s): R62.7 - ADULT FAILURE TO THRIVE (4) Bipolar disorder Code(s): F31.9 - BIPOLAR DISORDER, UNSPECIFIED (5) COPD (chronic obstructive pulmonary disease) Code(s): J44.9 - CHRONIC OBSTRUCTIVE PULMONARY DISEASE, UNSPECIFIED (6) GERD (gastroesophageal reflux disease) Code(s): K21.9 - GASTRO-ESOPHAGEAL REFLUX DISEASE WITHOUT ESOPHAGITIS (7) HTN (hypertension) Code(s): I10 - ESSENTIAL (PRIMARY) HYPERTENSION (8) Hypernatremia Code(s): E87.0 - HYPEROSMOLALITY AND HYPERNATREMIA (9) Hypothyroidism Code(s): E03.9 - HYPOTHYROIDISM, UNSPECIFIED (10) Schizophrenia Code(s): F20.9 - SCHIZOPHRENIA, UNSPECIFIED
--- NOTE | 2018-04-22 12:59 | CONS ---
DATE OF CONSULTATION: 04/22/2018 REFERRING PHYSICIAN: Debora Osei MD The patient is a 63-year-old black female, resident of [facility], with a past medical history significant for hypothyroidism, hypertension, gastroesophageal reflux, COPD, not on O2, recurrent UTIs, bipolar, schizophrenia, pressure ulcers, varicose veins, admitted to [facility] with generalized weakness and hypoxemia. Apparently EMS was called to [facility] with the above complaints. She was noted to have O2 saturation of 70s on room air in the field, placed on supplemental O2. Patient presented to the emergency room with the above. In the ER, she underwent a CTA of the chest, revealed no evidence of pulmonary emboli but left lower lobe consolidation. She was started on antibiotic therapy. She was also noted to be hyponatremic, with a serum sodium of 165. No further history is available at this time. Patient is a poor historian. Past medical history, again, includes hypertension, hypothyroidism, schizophrenia, bipolar, gastroesophageal reflux disease, COPD, UTIs, pressure ulcers, varicose veins. Apparently the patient has decreased p.o. intake, has been refusing GT tube. Current medications include Zosyn, Depakote, Lamictal, Keppra, albuterol, Lopressor, normal saline, D5 half normal 100 mL an hour, Sinemet, and Synthroid. PHYSICAL EXAMINATION: General: The patient is a well-developed, well-nourished female, awake, nonverbal, in no acute distress. Vital Signs: She is afebrile. Blood pressure is 92/46. Respiratory rate 20. O2 saturation is 96% on 2 L. HEENT: Normocephalic, atraumatic. Neck: Supple. Heart: Regular, S1, S2. Chest: Diminished breath sounds bilaterally, a few crackles at the left base. Abdomen: Soft. Bowel sounds positive. Extremities: No cyanosis, edema. LABORATORY DATA: WBC is 11.4, hemoglobin 9.5, hematocrit 31.4, with platelet count of 122,000. INR is 1.04. Venous blood gas: pH 7.37, pCO2 of 68, a pO2 of 34, bicarbonate of 38. Sodium is 167, BUN 31, creatinine 1.2. Chest CT: Left basal consolidation, no pulmonary emboli. IMPRESSION: Acute on chronic hypoxemic hypercapnic respiratory failure, likely secondary to: 1. Pneumonia, left lower lobe. 2. Chronic obstructive pulmonary disease. 3. Hypernatremia. 4. Schizophrenia. 5. Bipolar. 6. Hypothyroidism. 7. Hypertension. PLAN: IV antibiotics, inhaled bronchodilators, supplemental O2. Check arterial blood gas. Obtain cultures. IV fluids. Monitor serum sodium. ELODIA TEIXEIRA M.D. [id number]
[2018-04-22 13:25] LABS: ALBUMIN 2.2 g/dl (3.4-5.0); ALK PHOS 102 U/L (45-117); ANION GAP 2 MMOL/L (8-16); BILIRUBIN,TOTAL 0.3 mg/dL (0.2-1); BLOOD UREA NITROGEN 32 mg/dL (7-18); CALCIUM 8.8 mg/dL (8.5-10.1); CHLORIDE 122 mmol/L (98-107); CO2 41 mmol/L (21-32); CREATININE 1.3 mg/dL (0.55-1.3); GLUCOSE,RANDOM 93 mg/dL (74-106); POTASSIUM 3.8 mmol/L (3.5-5.1); SGOT/AST 9 U/L (15-37); SGPT/ALT < 6 U/L (13-61); TOT PROT 7.1 g/dl (6.4-8.2)
[2018-04-22 13:44] LABS: SODIUM 165 mmol/L (136-145)
[2018-04-22] MEDS: DIVALPROEX SODIUM 250 MG TABLET E.C. PO SCH ×2 (13:50→22:25)
[2018-04-22] MEDS: lamoTRIgine 100 MG TABLET (FP) PO SCH ×2 (13:51→22:35)
[2018-04-22] MEDS: CARBIDOPA/LEVODOPA 10/100 TABLET (FP) PO SCH ×2 (13:51→22:35)
[2018-04-22 14:03] LABS: RATIO URIN PROTEIN/URIN CREAT 1.46 MG/DL
[2018-04-22 14:08] LABS: ARTERIAL BLD GAS O2 SATURATION 90.2 % (90-98.9); ARTERIAL BLOOD GAS BASE EXCESS 11.5 meq/l (-2-2)
[2018-04-22 14:14] LABS: ALLENS TEST POSITIVE
[2018-04-22] MEDS: LORazepam 2 MG/ML SDV VIAL IVPUSH PRN (14:20)
--- NOTE | 2018-04-22 16:55 | EKG ---
Test Reason : Blood Pressure : / mmHG Vent. Rate : 085 BPM Atrial Rate : 085 BPM P-R Int : 146 ms QRS Dur : 138 ms QT Int : 422 ms P-R-T Axes : 067 -52 115 degrees QTc Int : 502 ms NORMAL SINUS RHYTHM RIGHT BUNDLE BRANCH BLOCK LEFT ANTERIOR FASCICULAR BLOCK BIFASCICULAR BLOCK T WAVE ABNORMALITY, CONSIDER LATERAL ISCHEMIA ABNORMAL ECG NO PREVIOUS ECGS AVAILABLE Confirmed by MD LUDIN, JEMIMA ([id number]) on 04/22/2018 4:55:00 PM Referred By: Confirmed By:JEMIMA NOLAND MD
--- NOTE | 2018-04-22 17:15 | PN ---
Teaching Attending Note Name of Resident: Sabiha Love (Nephrology) ATTENDING PHYSICIAN STATEMENT I saw and evaluated the patient. I reviewed the resident's note and discussed the case with the resident. I agree with the resident's findings and plan as documented. Nephrology Pt is a 63 year old female with pmhx of HTN, hypothyroidism, GERD, copd, pressure ulcers and bipolar who was sent in for weakness and fatigue. She was also found to be hypoxinc. Pt was found to be hypernatremic and I was called to evalaute her. She has had poor po intake. Pt is not able to give much history. pmhx htn bipolar hypothyroid gerd allergies haloperidol, sulfacetamide sodium social lives in wa ros see hpi Current Medications Generic Name Dose Route Start Last Admin Trade Name Freq PRN Reason Stop Dose Admin Albuterol Sulfate 1 amp 04/21/18 21:37 Ventolin 0.083% Nebulizer Soln - NEB Q6H PRN SHORT OF BREATH/WHEEZING Arformoterol Tartrate 1 amp 04/22/18 20:00 Brovana (Restricted To Pulmonology/Resp) - NEB RBID ANNA Carbidopa/Levodopa 1 each 04/22/18 11:30 04/22/18 13:51 Sinemet 10/100 - PO Not Given BID ANNA Divalproex Sodium 250 mg 04/22/18 11:30 04/22/18 13:50 Depakote - PO Not Given BID ANNA Piperacillin Sod/Tazobactam 100 mls @ 200 mls/hr 04/23/18 09:00 Sod 4.5 gm/ Dextrose IVPB Q6H-IV ANNA Protocol Piperacillin Sod/Tazobactam 100 mls @ 200 mls/hr 04/22/18 09:00 04/22/18 09: 25 Sod 4.5 gm/ Dextrose IVPB 04/23/18 03:29 200 mls/hr Q6H-IV ANNA Administration Protocol Dextrose/Sodium Chloride 1,000 mls @ 100 mls/hr 04/22/18 11:22 04/22/18 11:30 D5-1/2ns - IV 100 mls/hr ASDIR ANNA Administration Lamotrigine 200 mg 04/22/18 11:30 04/22/18 13:51 Lamictal - PO Not Given BID ANNA Levetiracetam 1,000 mg 04/22/18 11:30 04/22/18 13:50 Keppra - PO Not Given BID [facility] Levothyroxine Sodium 75 mcg 04/22/18 11:30 04/22/18 12:43 Synthroid - PO Not Given 0700 [facility] Lorazepam 1 mg 04/22/18 12:37 04/22/18 14:20 Ativan Injection - IVPUSH 1 mg Q6H PRN Administration ANXIETY Metoprolol Tartrate 25 mg 04/22/18 11:30 04/22/18 13:51 Lopressor - PO Not Given BID [facility] Laboratory Tests 04/21/18 04/21/18 04/21/18 12:10 13:20 22:09 WBC Hgb 10.5 L ABG pH Sodium 164 H* Serum Osmolality Urine Protein 2+ H Urine Blood 2+ H Urine Osmolality 04/22/18 04/22/18 04/22/18 05:30 05:30 12:00 WBC 11.4 H Hgb 9.5 L ABG pH Sodium 167 H* Serum Osmolality Urine Protein Urine Blood Urine Osmolality 637 04/22/18 04/22/18 04/22/18 12:20 12:20 13:58 WBC Hgb ABG pH 7.40 Sodium 165 H* Serum Osmolality 352 H Urine Protein Urine Blood Urine Osmolality Last Vital Signs Temp Pulse Resp BP Pulse Ox 98.0 F 98 H 20 101/63 96 04/22/18 14:00 04/22/18 14:00 04/22/18 10:00 04/22/18 14:00 04/22/18 09:00 cardio s1s2 reg pulm decreased at base gi soft ext right arm edema neuro confused skin neg rash Imperssion 1. hypernatremia 2. bipilar 3. azotemia 4. htn 5. hypothyroidism 6. copd 7. gerd Plan - change fluids to d5w - pt has a total free water deficit of about 8.7 liters - avoid a change of greater than 10meq - monitor serium sodium - monitor mental statu - monitor urine ouput - will follow Dr Montgomery
[2018-04-22] MEDS ORDERED: DEXTROSE 5%-WATER - 1,000 ML IV SCH ×2 (17:30→21:00)
[2018-04-22 19:41] LABS: ALK PHOS 97 U/L (45-117); ANION GAP 5 MMOL/L (8-16); BILIRUBIN,TOTAL 0.9 mg/dL (0.2-1); BLOOD UREA NITROGEN 31 mg/dL (7-18); CALCIUM 8.7 mg/dL (8.5-10.1); CHLORIDE 123 mmol/L (98-107); CO2 39 mmol/L (21-32); CREATININE 1.4 mg/dL (0.55-1.3); GLUCOSE,RANDOM 91 mg/dL (74-106); POTASSIUM 3.8 mmol/L (3.5-5.1); SGOT/AST 8 U/L (15-37); SGPT/ALT < 6 U/L (13-61); TOT PROT 6.6 g/dl (6.4-8.2)
[2018-04-22 19:44] LABS: SODIUM 167 mmol/L (136-145)
--- NOTE | 2018-04-22 19:47 | PN ---
Progress Note (short form) - Note Progress Note: ID CONSULT DICTATED UTI/POSSIBLE SEPSIS SECONDARY TO UTI LLL PNEUMONIA +BC GPCCL X 1 BOTTLE ? SIGNIFICANCE REPEAT BC VANCOMYCIN X1 CONTINUE ZOSYN
[2018-04-22] MEDS: ARFORMOTEROL TARTRATE 15 MCG/2 ML VIAL NEB SCH (21:10)
[2018-04-23] MEDS ORDERED: DEXTROSE 5%-WATER - 50 ML IVPB ONE ×2 (02:14→11:57)
[2018-04-23] MEDS ORDERED: PIPERACILLIN/TAZOBACTAM 3.375 GM VIAL IVPB ONE ×2 (02:14→11:57)
[2018-04-23] MEDS: PIPERACILLIN/TAZOB 3.375 GM 3.375 GM in DEXTROSE 5%-WATER - 50 ML IVPB SCH ×2 (02:21→12:02)
--- NOTE | 2018-04-23 03:20 | HOSP ---
Subjective - Review of Symptoms Events since last encounter: Hospitalist Encounter Notified by the primary RN, that he was unsuccessful with NGT placement Subjective: Arrived to bedside, patient is lethargic but arousable to verbal and painful stimulus. Patient is non-verbal at baseline 16Fr NGT placed in R- Nare Patient was agitated attempting to pull out NGT, but tolerated placement. No respiratory distress, Spo2 96% on 3LNC NGT, confirmed with swoosh of air in all abdominal quadrants Plan Chest Xray- pending Wrist restraints Continue with current regimen Physical Examination Vital Signs: Vital Signs Temperature 98.1 F 04/23/18 02:00 Pulse Rate 85 04/23/18 02:00 Respiratory Rate 20 04/23/18 02:00 Blood Pressure 105/68 04/23/18 02:00 O2 Sat by Pulse Oximetry (%) 96 04/22/18 21:00 Constitutional: Yes: No Distress, Calm, Obese Eyes: Yes: Conjunctiva Clear, PERRL HENT: Yes: WNL, Atraumatic, Normocephalic Neck: Yes: WNL, Supple, Trachea Midline Cardiovascular: Yes: Regular Rate and Rhythm, S1, S2 Respiratory: Yes: Diminished, On Nasal O2. No: SOB, SOB on Exertion, Tachypnea Gastrointestinal: Yes: Normal Bowel Sounds, Soft, Abdomen, Obese Peripheral Pulses WNL: Yes Neurological: Yes: Lethargy ...Motor Strength: WNL Psychiatric: Yes: Agitated Labs: CBC, BMP 04/22/18 05:30 04/22/18 18:40
[2018-04-23 06:38] LABS: BASO % 0.5 % (0-2.0); HEMATOCRIT 26.8 % (32.4-45.2); HEMOGLOBIN 8.4 GM/dL (10.7-15.3); LYMPH % 33.5 % (8-40); MCH 33.4 pg (25.7-33.7); MCHC 31.4 g/dl (32.0-36.0); MEAN CELL VOLUME 106.4 fl (80-96); MEAN PLT VOLUME 7.5 fl (7.5-11.1); MONO % 5.3 % (3.8-10.2); NEUT % 60.7 % (42.8-82.8); PLATELET COUNT 117 K/MM3 (134-434); RBC 2.52 M/mm3 (3.60-5.2); RDW 17.4 % (11.6-15.6); WHITE BLOOD COUNT 8.2 K/mm3 (4.0-10.0)
[2018-04-23 08:02] LABS: ALK PHOS 92 U/L (45-117); ANION GAP 6 MMOL/L (8-16); BILIRUBIN,TOTAL 0.4 mg/dL (0.2-1); BLOOD UREA NITROGEN 30 mg/dL (7-18); CALCIUM 8.6 mg/dL (8.5-10.1); CHLORIDE 119 mmol/L (98-107); CO2 36 mmol/L (21-32); CREATININE 1.4 mg/dL (0.55-1.3); GLUCOSE,RANDOM 99 mg/dL (74-106); POTASSIUM 3.5 mmol/L (3.5-5.1); SGOT/AST 7 U/L (15-37); SGPT/ALT < 6 U/L (13-61); TOT PROT 6.4 g/dl (6.4-8.2)
[2018-04-23] MEDS: ARFORMOTEROL TARTRATE 15 MCG/2 ML VIAL NEB SCH ×2 (08:08→20:54)
[2018-04-23 08:37] LABS: SODIUM 161 mmol/L (136-145)
[2018-04-23] MEDS ORDERED: PIPERACILLIN/TAZOB 4.5 GM 4.5 GM in DEXTROSE 5%-WATER 100 ML IVPB SCH (09:00)
--- NOTE | 2018-04-23 10:15 | PN ---
Physical Exam: SUBJECTIVE: Patient seen and examined. Per nurse, more awake today. Able to obey simple commands. Pt started on D5W OBJECTIVE: Vital Signs Period Temp Pulse Resp BP Sys/Meyers Pulse Ox Last 24 Hr 98.0 F-98.3 F 78-98 20-20 101-120/40-70 96 Vital Signs Temp 98.1 F 04/23/18 09:20 Pulse 85 04/23/18 09:20 Resp 20 04/23/18 09:20 BP 106/40 L 04/23/18 09:20 Pulse Ox 96 04/22/18 21:00 Intake & Output 04/22/18 04/22/18 04/23/18 11:59 23:59 11:59 Intake Total 252 1325 925 Output Total 500 400 300 Balance -248 925 625 Intake: IV 252 1200 875 D5-1/2Ns - 1,000 ml @ 100 1200 875 mls/hr IV ASDIR ANNA Rx#: [id number] D5-1/2Ns - 1,000 ml @ 42 252 mls/hr IV ASDIR ANNA Rx#: [id number] IVPB 100 50 Oral 0 25 Output: Urine 500 400 300 Peralta 500 400 300 Other: Voiding Method Indwelling Catheter Indwelling Catheter Bowel Movement No No GENERAL: The patient is awake, obeys commands. ENT: Dry mucous membranes, NC. LUNGS: Breath sounds equal, clear to auscultation bilaterally HEART: Regular rate and rhythm, S1, S2 ABDOMEN: Soft, nontender, nondistended, normoactive bowel sounds, EXTREMITIES: 2+ pulses, warm, well-perfused, no edema. NEUROLOGICAL: Cranial nerves II through XII grossly intact. gait not observed. CBC, BMP 04/23/18 05:30 04/23/18 05:30 Laboratory Results - last 24 hr 04/22/18 04/22/18 04/22/18 05:30 12:00 12:00 WBC RBC Hgb Hct MCV MCH MCHC RDW Plt Count MPV Absolute Neuts (auto) Neutrophils % Neutrophils % (Manual) 61.2 Band Neutrophils % 5.8 Lymphocytes % Lymphocytes % (Manual) 23.3 Monocytes % Monocytes % (Manual) 5 Eosinophils % Eosinophils % (Manual) 0.0 Basophils % Basophils % (Manual) 1.0 D Myelocytes % (Man) 4 H D Promyelocytes % (Man) 0 Blast Cells % (Manual) 0 Nucleated RBC % Metamyelocytes 0 Hypochromia 0 Platelet Estimate Decreased Polychromasia 0 Poikilocytosis 1+ Anisocytosis 1+ Microcytosis 0 Macrocytosis 1+ Stomatocytes 2+ Puncture Site ABG pH ABG pCO2 at Pt Temp ABG pO2 at Pt Temp ABG HCO3 ABG O2 Sat (Measured) ABG O2 Content ABG Base Excess Wei Test O2 Delivery Device Oxygen Flow Rate Sodium Potassium Chloride Carbon Dioxide Anion Gap BUN Creatinine Creat Clearance w eGFR Random Glucose Serum Osmolality Calcium Total Bilirubin AST ALT Alkaline Phosphatase Total Protein Albumin TSH Urine Osmolality U Random Total Protein Ur Random Sodium Cancelled Ur Random Potassium Cancelled Ur Random Chloride Cancelled Urine Creatinine Cancelled Protein/Creatinin Ratio 04/22/18 04/22/18 04/22/18 12:00 12:00 12:00 WBC RBC Hgb Hct MCV MCH MCHC RDW Plt Count MPV Absolute Neuts (auto) Neutrophils % Neutrophils % (Manual) Band Neutrophils % Lymphocytes % Lymphocytes % (Manual) Monocytes % Monocytes % (Manual) Eosinophils % Eosinophils % (Manual) Basophils % Basophils % (Manual) Myelocytes % (Man) Promyelocytes % (Man) Blast Cells % (Manual) Nucleated RBC % Metamyelocytes Hypochromia Platelet Estimate Polychromasia Poikilocytosis Anisocytosis Microcytosis Macrocytosis Stomatocytes Puncture Site ABG pH ABG pCO2 at Pt Temp ABG pO2 at Pt Temp ABG HCO3 ABG O2 Sat (Measured) ABG O2 Content ABG Base Excess Wei Test O2 Delivery Device Oxygen Flow Rate Sodium Potassium Chloride Carbon Dioxide Anion Gap BUN Creatinine Creat Clearance w eGFR Random Glucose Serum Osmolality Calcium Total Bilirubin AST ALT Alkaline Phosphatase Total Protein Albumin TSH Urine Osmolality 637 U Random Total Protein 228.8 H 219.4 H Ur Random Sodium 36 L Ur Random Potassium 40.0 Ur Random Chloride 39 L Urine Creatinine 156.0 H 157.0 H Protein/Creatinin Ratio 1.460 04/22/18 04/22/18 04/22/18 12:20 12:20 13:58 WBC RBC Hgb Hct MCV MCH MCHC RDW Plt Count MPV Absolute Neuts (auto) Neutrophils % Neutrophils % (Manual) Band Neutrophils % Lymphocytes % Lymphocytes % (Manual) Monocytes % Monocytes % (Manual) Eosinophils % Eosinophils % (Manual) Basophils % Basophils % (Manual) Myelocytes % (Man) Promyelocytes % (Man) Blast Cells % (Manual) Nucleated RBC % Metamyelocytes Hypochromia Platelet Estimate Polychromasia Poikilocytosis Anisocytosis Microcytosis Macrocytosis Stomatocytes Puncture Site Right radial ABG pH 7.40 ABG pCO2 at Pt Temp 63.0 H* ABG pO2 at Pt Temp 63.0 L ABG HCO3 38.0 H ABG O2 Sat (Measured) 90.2 ABG O2 Content 12.4 L ABG Base Excess 11.5 H Wei Test Positive O2 Delivery Device Nasal cannula Oxygen Flow Rate 3l Sodium 165 H* Potassium 3.8 Chloride 122 H Carbon Dioxide 41 H Anion Gap 2 L BUN 32 H Creatinine 1.3 Creat Clearance w eGFR 41.64 Random Glucose 93 Serum Osmolality 352 H Calcium 8.8 Total Bilirubin 0.3 AST 9 L ALT < 6 L Alkaline Phosphatase 102 Total Protein 7.1 Albumin 2.2 L TSH Urine Osmolality U Random Total Protein Ur Random Sodium Ur Random Potassium Ur Random Chloride Urine Creatinine Protein/Creatinin Ratio 04/22/18 04/23/18 04/23/18 18:40 05:30 05:30 WBC 8.2 RBC 2.52 L Hgb 8.4 L Hct 26.8 L MCV 106.4 H MCH 33.4 MCHC 31.4 L RDW 17.4 H Plt Count 117 L MPV 7.5 Absolute Neuts (auto) 5.0 Neutrophils % 60.7 D Neutrophils % (Manual) Band Neutrophils % Lymphocytes % 33.5 D Lymphocytes % (Manual) Monocytes % 5.3 Monocytes % (Manual) Eosinophils % 0.0 Eosinophils % (Manual) Basophils % 0.5 Basophils % (Manual) Myelocytes % (Man) Promyelocytes % (Man) Blast Cells % (Manual) Nucleated RBC % 0 Metamyelocytes Hypochromia Platelet Estimate Polychromasia Poikilocytosis Anisocytosis Microcytosis Macrocytosis Stomatocytes Puncture Site ABG pH ABG pCO2 at Pt Temp ABG pO2 at Pt Temp ABG HCO3 ABG O2 Sat (Measured) ABG O2 Content ABG Base Excess Wei Test O2 Delivery Device Oxygen Flow Rate Sodium 167 H* 161 H* Potassium 3.8 3.5 Chloride 123 H 119 H Carbon Dioxide 39 H 36 H Anion Gap 5 L 6 L BUN 31 H 30 H Creatinine 1.4 H 1.4 H Creat Clearance w eGFR 38.23 38.23 Random Glucose 91 99 Serum Osmolality Calcium 8.7 8.6 Total Bilirubin 0.9 0.4 AST 8 L 7 L ALT < 6 L < 6 L Alkaline Phosphatase 97 92 Total Protein 6.6 6.4 Albumin 2.0 L 2.0 L TSH 0.94 Urine Osmolality U Random Total Protein Ur Random Sodium Ur Random Potassium Ur Random Chloride Urine Creatinine Protein/Creatinin Ratio Active Medications Generic Name Dose Route Start Last Admin Trade Name Freq PRN Reason Stop Dose Admin Albuterol Sulfate 1 amp 04/21/18 21:37 Ventolin 0.083% Nebulizer Soln - NEB Q6H PRN SHORT OF BREATH/WHEEZING Arformoterol Tartrate 1 amp 04/22/18 20:00 04/23/18 08:08 Brovana (Restricted To Pulmonology/Resp) - NEB 1 amp RBID ANNA Administration Carbidopa/Levodopa 1 each 04/22/18 11:30 04/22/18 22:35 Sinemet 10/100 - PO Not Given BID ANNA Divalproex Sodium 250 mg 04/22/18 11:30 04/22/18 22:25 Depakote - PO Not Given BID ANNA Piperacillin Sod/Tazobactam 50 mls @ 100 mls/hr 04/23/18 02:00 04/23/18 02:21 Sod 3.375 gm/ Dextrose IVPB 100 mls/hr Q8H-IV ANNA Administration Protocol Dextrose 1,000 mls @ 125 mls/hr 04/22/18 21:00 04/22/18 21:30 D5w - IV Not Given ASDIR ANNA Lamotrigine 200 mg 04/22/18 11:30 04/22/18 22:35 Lamictal - PO Not Given BID ANNA Levetiracetam 1,000 mg 04/22/18 11:30 04/22/18 22:35 Keppra - PO Not Given BID ANNA Levothyroxine Sodium 75 mcg 04/22/18 11:30 04/22/18 12:43 Synthroid - PO Not Given 0700 ANNA Lorazepam 1 mg 04/22/18 12:37 04/22/18 14:20 Ativan Injection - IVPUSH 1 mg Q6H PRN Administration ANXIETY Metoprolol Tartrate 25 mg 04/22/18 11:30 04/22/18 13:51 Lopressor - PO Not Given BID [facility] ASSESSMENT/PLAN: The Pt is a 63 y/o F from [facility] with a PMHx of HTN, Hypothyroidism, GERD, COPD (not on O2), frequent UTIs, Bipolar Disorder (not on lithium), Schizophrenia, Pressure Ulcers, Varicose Vein, presenting with hypoxia, generalized weakness poor intake and failure to thrive and found to be hypernatremic 165 >>167, positive UA for infection with likely PNA. HTN, Hypothyroidism, GERD, COPD (not on O2), frequent UTIs, Bipolar Disorder (not on lithium), Schizophrenia, Pressure Ulcers, Varicose Vein, hypoxia, generalized weakness, poor intake failure to thrive hypernatremic 165 >>167, positive UA likely PNA. Plan: Hypernatremia likely due to poor oral intake, with dry mucous membranes and pt altered at baseline Total free water deficit is 8.5L Free water deficit- 2.8L to bring sodium from 167 to 157 in 24hrs (numbers today 161) will decrease to D5 @75/hr FenA-0.2% Urinary and plasma osmoles- Uosm-637, Sosm-352 (likely dehydration) Follow BMP Avoid nephrotoxic drugs Free water per mouth-250ml Q4H D/W Dr Montgomery Visit type - Emergency Visit Emergency Visit: Yes ED Registration Date: 04/21/18 Care time: The patient presented to the Emergency Department on the above date and was hospitalized for further evaluation of their emergent condition. - New Patient This patient is new to me today: No - Critical Care Critical Care patient: No - Discharge Referral Referred to [facility] No
--- NOTE | 2018-04-23 10:24 | CONSULT ---
Admitting History and Physical - Primary Care Physician PCP: Sheila Chavez - Admission History of Present Illness: Per EMR: The Pt is a 63 y/o F from [facility] with a PMHx of HTN, Hypothyroidism, GERD, COPD (not on O2), frequent UTIs, Bipolar Disorder (not on lithium), Schizophrenia, Pressure Ulcers, Varicose Vein, presenting with hypoxia, generalized weakness poor intake and failure to thrive and found to be hypernatremic 165 >>167, positive UA for infection with likely PNA. HTN, Hypothyroidism, GERD, COPD (not on O2), frequent UTIs, Bipolar Disorder (not on lithium), Schizophrenia, Pressure Ulcers, Varicose Vein, hypoxia, generalized weakness, poor intake failure to thrive hypernatremic 165 >>167, positive UA likely PNA. Per transfer summary, o2 sats dropping, failure to thrive, refusing to eat, weight loss, Refused PEG insertion. Pureed diet/thin? liquid diet at [place]. Out pt MBS was ordered at [facility] and scheduled, however pt has been admitted. This is my first consult with this pt. History Source: Medical Record Limitations to Obtaining History: Poor Historian - Smoking History Smoking history: Unknown if ever smoked Have you smoked in the past 12 months: No - Alcohol/Substance Use Hx Alcohol Use: No History - Admission Reason For Visit: ACUTE RESP FAILURE W HYPOXIA,HYPERNATREMIA - Diagnostics X-ray: Report Reviewed - General Mental Status: Awake and Alert, Able to Follow Commands, Confused Attention: Distractible, Mild Impairment Ability to Follow Directions: Fair (simple) Head/Neck Control: Needs Assist - Hearing Hearing: Normal Speech Evaluation - Communication Primary Language: ITALIAN Communication: Yes: Simple Responses (When alert and responsive, pt was vocal.Impaired intelligibilty with occasional intelligible words.) - Speech Production Able to Make Needs Known: Yes: Severely Impaired Intelligibility: Yes: Moderately Impaired, Severely Impaired - Speech Characteristics Voice Loudness: Normal Voice Pitch: Yes: Normal Voice Phonatory-based Quality: Yes: Hoarse Speech Pattern: Impaired Speech Clarity: < 25% Nasal Resonance: Normal Articulation: Yes: Imprecise - Language/Auditory Comprehension Observation: Able to respond to yes/no queries: Yes (intermittent), Comprehends Conversational Speech: Yes (Social speech.possibly simple.), Benefits from Slow Speech: Yes, Benefits from Repetiton: Yes - Language/Verbal Expression Able to Communicate Wants and Needs: Yes: Severely Impaired - Swallow Evaluation/Bedside Assessment Current Nutritional Intake: Dysphagia Pureed, [place] Textured Liquids, NG Tube Oral Secretions: Yes: WFL Dentition: Yes: Edentulous Lingual Movement: Symmetric Lingual Movement Characteristics: Apraxic Laryngeal Elevation: Impaired Rate of Intake: Slow/Holding Labial Seal: Impaired Bilaterally Oral Prep Time: Increased A-P Transit: Impaired Coughing/Throat Clear: Yes (delayed, after sips of nectar thick via straw) Recommendations - Speech Evaluation, Impression/Plan Impression: Initially during assessment, pt was awake, alert, following simple directives, y/n headshake, said her name. Unable to close lips/swallow with nectar thick pouring out of left side of mouth (leaning to her left). Staff told me that this am she pulled from a straw and coughed on nectar thick liquid. Initially she could not suck from a straw for me with open mouth posture /apraxia. I reassessed a few minutes later-alert/y/n heads shake, good eye contact,, sucked from a straw delayed cough after sips of nectar thick via straw. This was followed by closing eyes, not as responsive, o2 sat 93-95, not following commands.Facial twitching of mouth,nose,forehead? Nursing aware, reporting waivering in [place], ability to engage varying. Likely aspirating. High risk of malnutrition/dehydration at present. What is pt's baseline? related to sepsis/unable to receive medication orally with deterioration in function? NGT in place- may improve with a/b tx and consistency of meds? Would probably benefit from GT for consistency of hydration.nutrition, meds, with possible PO trials in future if pt improves. Pt's wishes? - Disposition Discharge to: To be Determined - Dysphagia Impressions/Plan Swallowing Skills: Impaired Dysphagia Impressions: Ongoing Evaluation *Silent aspiration: cannot be R/O at bedside Recommendations: Palliative Care (Pt has 2 sisters listed in Demographic page. Pt is a full code. End of life wishes?), Other (NGT feedings/meds when medically appropriate) - Recommendations Diet Consistency: NPO Liquids: NPO
--- NOTE | 2018-04-23 10:33 | PN ---
Teaching Attending Note Name of Resident: Sabiha Love (Nephrology) ATTENDING PHYSICIAN STATEMENT I saw and evaluated the patient. I reviewed the resident's note and discussed the case with the resident. I agree with the resident's findings and plan as documented. Renal Pt seen and examined at bedside. She is more awake and alert today. She had an NG tube placed. Current Medications Generic Name Dose Route Start Last Admin Trade Name Freq PRN Reason Stop Dose Admin Albuterol Sulfate 1 amp 04/21/18 21:37 Ventolin 0.083% Nebulizer Soln - NEB Q6H PRN SHORT OF BREATH/WHEEZING Arformoterol Tartrate 1 amp 04/22/18 20:00 04/23/18 08:08 Brovana (Restricted To Pulmonology/Resp) - NEB 1 amp RBID ANNA Administration Carbidopa/Levodopa 1 each 04/22/18 11:30 04/22/18 22:35 Sinemet 10/100 - PO Not Given BID ANNA Divalproex Sodium 250 mg 04/22/18 11:30 04/22/18 22:25 Depakote - PO Not Given BID ANNA Piperacillin Sod/Tazobactam 50 mls @ 100 mls/hr 04/23/18 02:00 04/23/18 02:21 Sod 3.375 gm/ Dextrose IVPB 100 mls/hr Q8H-IV ANNA Administration Protocol Dextrose 1,000 mls @ 75 mls/hr 04/23/18 10:12 D5w - IV ASDIR ANNA Lamotrigine 200 mg 04/22/18 11:30 04/22/18 22:35 Lamictal - PO Not Given BID ANNA Levetiracetam 1,000 mg 04/22/18 11:30 04/22/18 22:35 Keppra - PO Not Given BID ANNA Levothyroxine Sodium 75 mcg 04/22/18 11:30 04/22/18 12:43 Synthroid - PO Not Given 0700 ANNA Lorazepam 1 mg 04/22/18 12:37 04/22/18 14:20 Ativan Injection - IVPUSH 1 mg Q6H PRN Administration ANXIETY Metoprolol Tartrate 25 mg 04/22/18 11:30 04/22/18 13:51 Lopressor - PO Not Given BID ANNA Laboratory Tests 04/23/18 05:30 Sodium 161 H* Creatinine 1.4 H cardio s1s2 reg pulm decreased at base gi soft ext right arm edema neuro confused skin neg rash Imperssion 1. hypernatremia 2. bipilar 3. azotemia 4. htn 5. hypothyroidism 6. copd 7. gerd Plan - sodium is improving - avoid a change of greater than 10 meq in 24 hours - can start free water and feeds once ng tube placement conformed - monitor sodium - monitor renal function - mental status is improving - will follow Dr Montgomery
[2018-04-23] MEDS ORDERED: PT OWN MED DRAWER 7, Y5N ONE (10:46)
--- NOTE | 2018-04-23 11:07 | PN ---
Progress Note, Physician History of Present Illness: PULMONARY MORE ALERT TODAY,SPEAKING,-RESP DISTRESS - Current Medication List Current Medications: Active Medications Albuterol Sulfate (Ventolin 0.083% Nebulizer Soln -) 1 amp NEB Q6H PRN PRN Reason: SHORT OF BREATH/WHEEZING Arformoterol Tartrate (Brovana (Restricted To Pulmonology/Resp) -) 1 amp NEB RBID [facility] Last Admin: 04/23/18 08:08 Dose: 1 amp Carbidopa/Levodopa (Sinemet 10/100 -) 1 each PO BID [facility] Last Admin: 04/22/18 22:35 Dose: Not Given Divalproex Sodium (Depakote -) 250 mg PO BID [facility] Last Admin: 04/22/18 22:25 Dose: Not Given Piperacillin Sod/Tazobactam (Sod 3.375 gm/ Dextrose) 50 mls @ 100 mls/hr IVPB Q8H-IV ANNA; Protocol Last Admin: 04/23/18 02:21 Dose: 100 mls/hr Dextrose (D5w -) 1,000 mls @ 75 mls/hr IV ASDIR [facility] Lamotrigine (Lamictal -) 200 mg PO BID [facility] Last Admin: 04/22/18 22:35 Dose: Not Given Levetiracetam (Keppra -) 1,000 mg PO BID [facility] Last Admin: 04/22/18 22:35 Dose: Not Given Levothyroxine Sodium (Synthroid -) 75 mcg PO 0700 [facility] Last Admin: 04/22/18 12:43 Dose: Not Given Lorazepam (Ativan Injection -) 1 mg IVPUSH Q6H PRN PRN Reason: ANXIETY Last Admin: 04/22/18 14:20 Dose: 1 mg Metoprolol Tartrate (Lopressor -) 25 mg PO BID [facility] Last Admin: 04/22/18 13:51 Dose: Not Given - Objective Vital Signs: Vital Signs Temperature 98.1 F 04/23/18 09:20 Pulse Rate 85 04/23/18 09:20 Respiratory Rate 20 04/23/18 09:20 Blood Pressure 106/40 L 04/23/18 09:20 O2 Sat by Pulse Oximetry (%) 96 04/22/18 21:00 Constitutional: Yes: Well Nourished, Calm Eyes: Yes: WNL HENT: Yes: WNL Neck: Yes: WNL Cardiovascular: Yes: Regular Rate and Rhythm, S1, S2 Respiratory: Yes: Rhonchi (FEW SCATTERED RHONCHI) Gastrointestinal: Yes: Normal Bowel Sounds, Soft Extremities: Yes: WNL Edema: No Labs: CBC, BMP 04/23/18 05:30 04/23/18 05:30 INR, PTT INR 1.04 (0.83-1.09) 04/21/18 13:20 Laboratory Tests 04/22/18 13:58 ABG pH 7.40 ABG pCO2 at Pt Temp 63.0 H* ABG pO2 at Pt Temp 63.0 L ABG HCO3 38.0 H ABG O2 Sat (Measured) 90.2 Oxygen Flow Rate 3l Problem List - Problems (1) Acute and chronic respiratory failure with hypercapnia Code(s): J96.22 - ACUTE AND CHRONIC RESPIRATORY FAILURE WITH HYPERCAPNIA (2) Acute respiratory failure with hypoxia Code(s): J96.01 - ACUTE RESPIRATORY FAILURE WITH HYPOXIA (3) Bipolar disorder Code(s): F31.9 - BIPOLAR DISORDER, UNSPECIFIED (4) COPD (chronic obstructive pulmonary disease) Code(s): J44.9 - CHRONIC OBSTRUCTIVE PULMONARY DISEASE, UNSPECIFIED (5) GERD (gastroesophageal reflux disease) Code(s): K21.9 - GASTRO-ESOPHAGEAL REFLUX DISEASE WITHOUT ESOPHAGITIS (6) Hypernatremia Code(s): E87.0 - HYPEROSMOLALITY AND HYPERNATREMIA (7) Pneumonia Code(s): J18.9 - PNEUMONIA, UNSPECIFIED ORGANISM (8) Schizophrenia Code(s): F20.9 - SCHIZOPHRENIA, UNSPECIFIED (9) UTI (urinary tract infection) Code(s): N39.0 - URINARY TRACT INFECTION, SITE NOT SPECIFIED Qualifiers: Urinary tract infection type: site unspecified Hematuria presence: without hematuria Qualified Code(s): N39.0 - Urinary tract infection, site not specified Assessment/Plan IMP ACUTE HYPOXEMIC RESPIRATORY FAILURE ACUTE ON CHRONIC HYPERCAPNEIC RESPIRATORY FAILURE LLL PNEUMONIA COPD HYPERNATREMIA HTN HLD BIPOLAR SCHIZOPHRENIA ANEMIA PLAN IVF ABX INHALED BRONCHODILATORS SUPPLEMENTAL O2 MONITOR EMERY PEÑALOZA F/U CHEST X-RAYS DR TEIXEIRA Problem List - Problems (1) Acute and chronic respiratory failure with hypercapnia Code(s): J96.22 - ACUTE AND CHRONIC RESPIRATORY FAILURE WITH HYPERCAPNIA (2) Acute respiratory failure with hypoxia Code(s): J96.01 - ACUTE RESPIRATORY FAILURE WITH HYPOXIA (3) Bipolar disorder Code(s): F31.9 - BIPOLAR DISORDER, UNSPECIFIED (4) COPD (chronic obstructive pulmonary disease) Code(s): J44.9 - CHRONIC OBSTRUCTIVE PULMONARY DISEASE, UNSPECIFIED (5) GERD (gastroesophageal reflux disease) Code(s): K21.9 - GASTRO-ESOPHAGEAL REFLUX DISEASE WITHOUT ESOPHAGITIS (6) Hypernatremia Code(s): E87.0 - HYPEROSMOLALITY AND HYPERNATREMIA (7) Pneumonia Code(s): J18.9 - PNEUMONIA, UNSPECIFIED ORGANISM (8) Schizophrenia Code(s): F20.9 - SCHIZOPHRENIA, UNSPECIFIED (9) UTI (urinary tract infection) Code(s): N39.0 - URINARY TRACT INFECTION, SITE NOT SPECIFIED Qualifiers: Urinary tract infection type: site unspecified Hematuria presence: without hematuria Qualified Code(s): N39.0 - Urinary tract infection, site not specified
[2018-04-23] MEDS: LEVOTHYROXINE NA 75 MCG TABLET (FP) PO SCH (12:00)
[2018-04-23] MEDS: levETIRAcetam 500 MG TABLET (FP) PO SCH (12:01)
[2018-04-23] MEDS: DIVALPROEX SODIUM 250 MG TABLET E.C. PO SCH (12:01)
[2018-04-23] MEDS: METOPROLOL TARTRATE 25 MG TABLET (FP) PO SCH ×2 (12:01→21:54)
[2018-04-23] MEDS: lamoTRIgine 100 MG TABLET (FP) PO SCH ×2 (12:01→21:54)
--- NOTE | 2018-04-23 12:01 | PN ---
Progress Note (short form) - Note Progress Note: Awake agitated at times poor oral intake NG tube in place for free water peterson+ Vital Signs - 24 hr 04/22/18 04/22/18 04/22/18 14:00 21:00 22:00 Temperature 98.0 F 98.2 F Pulse Rate 98 H 78 Respiratory 20 Rate Blood Pressure 101/63 104/70 O2 Sat by Pulse 96 Oximetry (%) 04/23/18 04/23/18 04/23/18 01:53 02:00 05:55 Temperature 98.1 F 98.1 F 98.3 F Pulse Rate 85 85 89 Respiratory 20 20 20 Rate Blood Pressure 105/68 105/68 120/68 O2 Sat by Pulse Oximetry (%) 04/23/18 09:20 Temperature 98.1 F Pulse Rate 85 Respiratory 20 Rate Blood Pressure 106/40 L O2 Sat by Pulse Oximetry (%) Current Medications Generic Name Dose Route Start Last Admin Trade Name Freq PRN Reason Stop Dose Admin Albuterol Sulfate 1 amp 04/21/18 21:37 Ventolin 0.083% Nebulizer Soln - NEB Q6H PRN SHORT OF BREATH/WHEEZING Arformoterol Tartrate 1 amp 04/22/18 20:00 04/23/18 08:08 Brovana (Restricted To Pulmonology/Resp) - NEB 1 amp RBID ANNA Administration Carbidopa/Levodopa 1 each 04/22/18 11:30 04/23/18 12:02 Sinemet 10/100 - PO 1 each BID ANNA Administration Divalproex Sodium 250 mg 04/22/18 11:30 04/23/18 12:01 Depakote - PO Not Given BID ANNA Piperacillin Sod/Tazobactam 50 mls @ 100 mls/hr 04/23/18 02:00 04/23/18 12:02 Sod 3.375 gm/ Dextrose IVPB 100 mls/hr Q8H-IV ANNA Administration Protocol Dextrose 1,000 mls @ 75 mls/hr 04/23/18 10:12 04/23/18 12:02 D5w - IV 75 mls/hr ASDIR ANNA Administration Lamotrigine 200 mg 04/22/18 11:30 04/23/18 12:01 Lamictal - PO 200 mg BID ANNA Administration Levetiracetam 1,000 mg 04/22/18 11:30 04/23/18 12:01 Keppra - PO Not Given BID ANNA Levothyroxine Sodium 75 mcg 04/22/18 11:30 04/23/18 12:00 Synthroid - PO 75 mcg 0700 ANNA Administration Lorazepam 1 mg 04/22/18 12:37 04/22/18 14:20 Ativan Injection - IVPUSH 1 mg Q6H PRN Administration ANXIETY Metoprolol Tartrate 25 mg 04/22/18 11:30 04/23/18 12:01 Lopressor - PO 25 mg BID ANNA Administration Laboratory Results - last 24 hr 04/22/18 04/22/18 04/22/18 12:00 12:00 12:00 WBC RBC Hgb Hct MCV MCH MCHC RDW Plt Count MPV Absolute Neuts (auto) Neutrophils % Lymphocytes % Monocytes % Eosinophils % Basophils % Nucleated RBC % Puncture Site ABG pH ABG pCO2 at Pt Temp ABG pO2 at Pt Temp ABG HCO3 ABG O2 Sat (Measured) ABG O2 Content ABG Base Excess Wei Test O2 Delivery Device Oxygen Flow Rate Sodium Potassium Chloride Carbon Dioxide Anion Gap BUN Creatinine Creat Clearance w eGFR Random Glucose Serum Osmolality Calcium Total Bilirubin AST ALT Alkaline Phosphatase Total Protein Albumin TSH Urine Osmolality U Random Total Protein 228.8 H Ur Random Sodium Cancelled Ur Random Potassium Cancelled Ur Random Chloride Cancelled Urine Creatinine Cancelled 156.0 H Protein/Creatinin Ratio 1.460 04/22/18 04/22/18 04/22/18 12:00 12:00 12:20 WBC RBC Hgb Hct MCV MCH MCHC RDW Plt Count MPV Absolute Neuts (auto) Neutrophils % Lymphocytes % Monocytes % Eosinophils % Basophils % Nucleated RBC % Puncture Site ABG pH ABG pCO2 at Pt Temp ABG pO2 at Pt Temp ABG HCO3 ABG O2 Sat (Measured) ABG O2 Content ABG Base Excess Wei Test O2 Delivery Device Oxygen Flow Rate Sodium 165 H* Potassium 3.8 Chloride 122 H Carbon Dioxide 41 H Anion Gap 2 L BUN 32 H Creatinine 1.3 Creat Clearance w eGFR 41.64 Random Glucose 93 Serum Osmolality Calcium 8.8 Total Bilirubin 0.3 AST 9 L ALT < 6 L Alkaline Phosphatase 102 Total Protein 7.1 Albumin 2.2 L TSH Urine Osmolality 637 U Random Total Protein 219.4 H Ur Random Sodium 36 L Ur Random Potassium 40.0 Ur Random Chloride 39 L Urine Creatinine 157.0 H Protein/Creatinin Ratio 04/22/18 04/22/18 04/22/18 12:20 13:58 18:40 WBC RBC Hgb Hct MCV MCH MCHC RDW Plt Count MPV Absolute Neuts (auto) Neutrophils % Lymphocytes % Monocytes % Eosinophils % Basophils % Nucleated RBC % Puncture Site Right radial ABG pH 7.40 ABG pCO2 at Pt Temp 63.0 H* ABG pO2 at Pt Temp 63.0 L ABG HCO3 38.0 H ABG O2 Sat (Measured) 90.2 ABG O2 Content 12.4 L ABG Base Excess 11.5 H Wei Test Positive O2 Delivery Device Nasal cannula Oxygen Flow Rate 3l Sodium 167 H* Potassium 3.8 Chloride 123 H Carbon Dioxide 39 H Anion Gap 5 L BUN 31 H Creatinine 1.4 H Creat Clearance w eGFR 38.23 Random Glucose 91 Serum Osmolality 352 H Calcium 8.7 Total Bilirubin 0.9 AST 8 L ALT < 6 L Alkaline Phosphatase 97 Total Protein 6.6 Albumin 2.0 L TSH Urine Osmolality U Random Total Protein Ur Random Sodium Ur Random Potassium Ur Random Chloride Urine Creatinine Protein/Creatinin Ratio 04/23/18 04/23/18 05:30 05:30 WBC 8.2 RBC 2.52 L Hgb 8.4 L Hct 26.8 L MCV 106.4 H MCH 33.4 MCHC 31.4 L RDW 17.4 H Plt Count 117 L MPV 7.5 Absolute Neuts (auto) 5.0 Neutrophils % 60.7 D Lymphocytes % 33.5 D Monocytes % 5.3 Eosinophils % 0.0 Basophils % 0.5 Nucleated RBC % 0 Puncture Site ABG pH ABG pCO2 at Pt Temp ABG pO2 at Pt Temp ABG HCO3 ABG O2 Sat (Measured) ABG O2 Content ABG Base Excess Wei Test O2 Delivery Device Oxygen Flow Rate Sodium 161 H* Potassium 3.5 Chloride 119 H Carbon Dioxide 36 H Anion Gap 6 L BUN 30 H Creatinine 1.4 H Creat Clearance w eGFR 38.23 Random Glucose 99 Serum Osmolality Calcium 8.6 Total Bilirubin 0.4 AST 7 L ALT < 6 L Alkaline Phosphatase 92 Total Protein 6.4 Albumin 2.0 L TSH 0.94 Urine Osmolality U Random Total Protein Ur Random Sodium Ur Random Potassium Ur Random Chloride Urine Creatinine Protein/Creatinin Ratio S1 s2 RRR Lungs decreased Abd- soft, obese, NT rt arm edema-- iv infiltrated No leg edema NG+ Peterson+ PLAN IV fluids increased on free water via NG encourage po restart psych meds ID and renal consult noted left infiltrate on CT swallow eval noted ativan prn Problem List - Problems (1) Acute and chronic respiratory failure with hypercapnia Code(s): J96.22 - ACUTE AND CHRONIC RESPIRATORY FAILURE WITH HYPERCAPNIA (2) Acute respiratory failure with hypoxia Code(s): J96.01 - ACUTE RESPIRATORY FAILURE WITH HYPOXIA (3) Adult failure to thrive Code(s): R62.7 - ADULT FAILURE TO THRIVE (4) Bipolar disorder Code(s): F31.9 - BIPOLAR DISORDER, UNSPECIFIED (5) COPD (chronic obstructive pulmonary disease) Code(s): J44.9 - CHRONIC OBSTRUCTIVE PULMONARY DISEASE, UNSPECIFIED (6) GERD (gastroesophageal reflux disease) Code(s): K21.9 - GASTRO-ESOPHAGEAL REFLUX DISEASE WITHOUT ESOPHAGITIS (7) HTN (hypertension) Code(s): I10 - ESSENTIAL (PRIMARY) HYPERTENSION (8) Hypernatremia Code(s): E87.0 - HYPEROSMOLALITY AND HYPERNATREMIA (9) Hypothyroidism Code(s): E03.9 - HYPOTHYROIDISM, UNSPECIFIED (10) Schizophrenia Code(s): F20.9 - SCHIZOPHRENIA, UNSPECIFIED
[2018-04-23] MEDS: CARBIDOPA/LEVODOPA 10/100 TABLET (FP) PO SCH ×2 (12:02→21:54)
[2018-04-23] MEDS: DEXTROSE 5%-WATER - 1,000 ML IV SCH (12:02)
[2018-04-23 12:51] LABS: ANISOCYTOSIS 2+; MACROCYTOSIS 2+; PLATELET ESTIMATE DECREASED
--- NOTE | 2018-04-23 12:51 | CONS ---
DATE OF CONSULTATION: DATE OF DICTATION: 04/23/2018 HISTORY OF PRESENT ILLNESS: The patient is a 63-year-old female who Is evaluated for sepsis. History was obtained from the chart as she cannot give a history secondary to her mental status. [facility] the [facility] the patient was noted to have generalized weakness and dyspnea. She was found to be hypoxemic and hypotensive. The patient was taken by ambulance to the emergency room. EMS reported her O2 saturations in the 70s. She was evaluated in the emergency room where she was noted to be dehydrated with hypernatremia. A CAT scan of the chest was performed and shows a left lower lobe consolidation. She was also noted to have pyuria. Cultures were obtained. She was empirically treated with Zosyn. Patient offers no focal complaint. She is very lethargic. No reports of high-grade fever, shaking chills, cough, sputum production, vomiting, diarrhea or grossly purulent urine. According to the note she had been refusing a G tube insertion and had recently had failure to thrive. PAST MEDICAL HISTORY: Positive for bipolar disorder, schizophrenia,. hypertension, hypothyroidism, gastroesophageal reflux, COPD, urinary tract infections. ALLERGIES: HALDOL and SULFACETAMIDE. MEDICATIONS: Tylenol; albuterol; amlodipine; Eliquis; aspirin; Neurontin; losartan; Protonix; prednisone. SOCIAL HISTORY: She resides in a correction facility. Positive tobacco use history. LABORATORY DATA: White count 11.4, hematocrit 31.4, platelet count 122. BUN 31, creatinine 1.4, the sodium 167. Urinalysis: White cells 627. Cultures are pending. PHYSICAL EXAMINATION: General: Patient is poorly responsive. Vital Signs: Temperature 98 and blood pressure 101/63, pulse 98, regular, respirations 20 per minute. HEENT: Sclerae are anicteric.Cardiac: Heart sounds S1, S2. Lungs: Diminished breath sounds in the bases. Abdomen: Obese, soft, nontender. Extremities: Positive for edema. IMPRESSION: 1. Urinary tract infection, possible sepsis secondary to urinary tract infection. 2. Left lower lobe pneumonia. 3. Probable toxic metabolic encephalopathy superimposed on baseline bipolar disorder and schizophrenia. 4. Positive blood culture, gram-positive cocci in clusters in 1 bottle of unclear significance. RECOMMENDATIONS: Repeat blood cultures were ordered. Stat dose vancomycin. Pending cultures. Empiric antibiotic coverage for possible sepsis secondary to UTI versus pneumonia with Zosyn. Empiric coverage for healthcare-acquired pathogens. Further recommendations pending culture results. Will follow. Thank you for the kind referral. JULIO C SANDOVAL M.D. [id number]
[2018-04-23] MEDS ORDERED: DIVALPROEX SODIUM 125 MG SPRINKLE CAPS NGT SCH (13:00)
--- NOTE | 2018-04-23 13:14 | PN ---
Progress Note, Physician History of Present Illness: More awake and alert Offers no complaints Breatning non-labored Peralta catheter in place Afebrile WBC WNL BC SCN Urine c/s E coli - Current Medication List Current Medications: Active Medications Albuterol Sulfate (Ventolin 0.083% Nebulizer Soln -) 1 amp NEB Q6H PRN PRN Reason: SHORT OF BREATH/WHEEZING Arformoterol Tartrate (Brovana (Restricted To Pulmonology/Resp) -) 1 amp NEB RBID [facility] Last Admin: 04/23/18 08:08 Dose: 1 amp Carbidopa/Levodopa (Sinemet 10/100 -) 1 each PO BID [facility] Last Admin: 04/23/18 12:02 Dose: 1 each Divalproex Sodium (Depakote Sprinkle Caps -) 250 mg NGT BID [facility] Piperacillin Sod/Tazobactam (Sod 3.375 gm/ Dextrose) 50 mls @ 100 mls/hr IVPB Q8H-IV ANNA; Protocol Last Admin: 04/23/18 12:02 Dose: 100 mls/hr Dextrose (D5w -) 1,000 mls @ 75 mls/hr IV ASDIR [facility] Last Admin: 04/23/18 12:02 Dose: 75 mls/hr Lamotrigine (Lamictal -) 200 mg PO BID [facility] Last Admin: 04/23/18 12:01 Dose: 200 mg Levetiracetam (Keppra Oral Solution -) 1,000 mg NGT BID [facility] Levothyroxine Sodium (Synthroid -) 75 mcg PO 0700 [facility] Last Admin: 04/23/18 12:00 Dose: 75 mcg Lorazepam (Ativan Injection -) 1 mg IVPUSH Q6H PRN PRN Reason: ANXIETY Last Admin: 04/22/18 14:20 Dose: 1 mg Metoprolol Tartrate (Lopressor -) 25 mg PO BID [facility] Last Admin: 04/23/18 12:01 Dose: 25 mg - Objective Vital Signs: Vital Signs Temperature 98.1 F 04/23/18 09:20 Pulse Rate 85 04/23/18 09:20 Respiratory Rate 20 04/23/18 09:20 Blood Pressure 106/40 L 04/23/18 09:20 O2 Sat by Pulse Oximetry (%) 96 04/22/18 21:00 Constitutional: Yes: No Distress, Obese Eyes: Yes: Conjunctiva Clear Cardiovascular: Yes: Regular Rate and Rhythm, S1, S2 Respiratory: Yes: Diminished Gastrointestinal: Yes: Normal Bowel Sounds, Soft. No: Tenderness Edema: Yes Labs: CBC, BMP 04/23/18 05:30 04/23/18 05:30 INR, PTT INR 1.04 (0.83-1.09) 04/21/18 13:20 Assessment/Plan UTI R/O SEPSIS SECONDARY TO UTI LLL PNEUMONIA TOXIC METABOLIC ENCEPHALOPATHY- IMPROVED +BC = CONTAMINANT SUBSTITUTE CEFTRIAXONE FOR TX UTI/ PNEUMONIA
[2018-04-23] MEDS ORDERED: CEFTRIAXONE 2 GM-D5W BAG 2 GM/50 ML BAG IVPB SCH (13:30)
[2018-04-23] MEDS: levETIRAcetam 500 MG/5 ML ORAL SOLUTION (UNIT-DOSE CUPS) NGT SCH ×2 (14:58→21:53)
[2018-04-24] MEDS: LEVOTHYROXINE NA 75 MCG TABLET (FP) PO SCH (06:01)
[2018-04-24] MEDS: ARFORMOTEROL TARTRATE 15 MCG/2 ML VIAL NEB SCH ×2 (08:28→20:44)
[2018-04-24 08:46] LABS: ANION GAP 5 MMOL/L (8-16); BLOOD UREA NITROGEN 23 mg/dL (7-18); CALCIUM 8.6 mg/dL (8.5-10.1); CHLORIDE 111 mmol/L (98-107); CO2 36 mmol/L (21-32); CREATININE 1.1 mg/dL (0.55-1.3); GLUCOSE,RANDOM 90 mg/dL (74-106); MAGNESIUM 3.1 mg/dL (1.8-2.4); PHOSPHOROUS 2.9 mg/dL (2.5-4.9); POTASSIUM 3.7 mmol/L (3.5-5.1); SODIUM 152 mmol/L (136-145)
--- NOTE | 2018-04-24 10:43 | PN ---
Progress Note (short form) - Note Progress Note: Sleeping but arousable. Breathing non-labored. No acute events overnight. Intake & Output 04/21/18 04/22/18 04/23/18 04/24/18 23:59 23:59 23:59 23:59 Intake Total 1577 3200 1400 Output Total 900 1000 300 Balance 677 2200 1100 Weight 215 lb 215 lb Last Vital Signs Temp Pulse Resp BP Pulse Ox 97.4 F L 78 20 108/88 93 L 04/24/18 08:59 04/24/18 08:59 04/24/18 08:59 04/24/18 08:59 04/24/18 08:59 Active Medications Albuterol Sulfate (Ventolin 0.083% Nebulizer Soln -) 1 amp NEB Q6H PRN PRN Reason: SHORT OF BREATH/WHEEZING Arformoterol Tartrate (Brovana (Restricted To Pulmonology/Resp) -) 1 amp NEB RBID [facility] Last Admin: 04/24/18 08:28 Dose: 1 amp Carbidopa/Levodopa (Sinemet 10/100 -) 1 each PO BID [facility] Last Admin: 04/23/18 21:54 Dose: 1 each Dextrose (D5w -) 1,000 mls @ 75 mls/hr IV ASDIR [facility] Last Admin: 04/23/18 12:02 Dose: 75 mls/hr Ceftriaxone Sodium 2 gm/ (Dextrose) 100 mls @ 100 mls/hr IVPB DAILY [facility]; Protocol Lamotrigine (Lamictal -) 200 mg PO BID [facility] Last Admin: 04/23/18 21:54 Dose: 200 mg Levetiracetam (Keppra Oral Solution -) 1,000 mg NGT BID [facility] Last Admin: 04/23/18 21:53 Dose: 1,000 mg Levothyroxine Sodium (Synthroid -) 75 mcg PO 0700 [facility] Last Admin: 04/24/18 06:01 Dose: 75 mcg Lorazepam (Ativan Injection -) 1 mg IVPUSH Q6H PRN PRN Reason: ANXIETY Last Admin: 04/22/18 14:20 Dose: 1 mg Metoprolol Tartrate (Lopressor -) 25 mg PO BID [facility] Last Admin: 04/23/18 21:54 Dose: 25 mg Constitutional: Yes: NAD Eyes: Yes: WNL HENT: Yes: WNL Neck: Yes: WNL Cardiovascular: Yes: Regular Rate and Rhythm, S1, S2 Respiratory: Yes: Few scattered Rhonchi Gastrointestinal: Yes: Normal Bowel Sounds, Soft Extremities: Yes: WNL Edema: No Labs: Laboratory Results - last 24 hr 04/23/18 04/24/18 05:30 08:00 Neutrophils % (Manual) 53.5 Band Neutrophils % 2.0 Lymphocytes % (Manual) 37.4 D Monocytes % (Manual) 4 Eosinophils % (Manual) 0.0 Basophils % (Manual) 0.0 Myelocytes % (Man) 2 D Promyelocytes % (Man) 0 Blast Cells % (Manual) 0 Metamyelocytes 1 D Hypochromia 0 Platelet Estimate Decreased Polychromasia 1+ Poikilocytosis 0 Anisocytosis 2+ Microcytosis 0 Macrocytosis 2+ Stomatocytes 1+ Sodium 152 H Potassium 3.7 Chloride 111 H Carbon Dioxide 36 H Anion Gap 5 L BUN 23 H Creatinine 1.1 Creat Clearance w eGFR 50.50 Random Glucose 90 Calcium 8.6 Phosphorus 2.9 Magnesium 3.1 H Problem List - Problems (1) Acute and chronic respiratory failure with hypercapnia Code(s): J96.22 - ACUTE AND CHRONIC RESPIRATORY FAILURE WITH HYPERCAPNIA (2) Acute respiratory failure with hypoxia Code(s): J96.01 - ACUTE RESPIRATORY FAILURE WITH HYPOXIA (3) Bipolar disorder Code(s): F31.9 - BIPOLAR DISORDER, UNSPECIFIED (4) COPD (chronic obstructive pulmonary disease) Code(s): J44.9 - CHRONIC OBSTRUCTIVE PULMONARY DISEASE, UNSPECIFIED (5) GERD (gastroesophageal reflux disease) Code(s): K21.9 - GASTRO-ESOPHAGEAL REFLUX DISEASE WITHOUT ESOPHAGITIS (6) Hypernatremia Code(s): E87.0 - HYPEROSMOLALITY AND HYPERNATREMIA (7) Pneumonia Code(s): J18.9 - PNEUMONIA, UNSPECIFIED ORGANISM (8) Schizophrenia Code(s): F20.9 - SCHIZOPHRENIA, UNSPECIFIED (9) UTI (urinary tract infection) Code(s): N39.0 - URINARY TRACT INFECTION, SITE NOT SPECIFIED Qualifiers: Urinary tract infection type: site unspecified Hematuria presence: without hematuria Qualified Code(s): N39.0 - Urinary tract infection, site not specified Assessment/Plan IMP ACUTE HYPOXEMIC RESPIRATORY FAILURE ACUTE ON CHRONIC HYPERCAPNEIC RESPIRATORY FAILURE LLL PNEUMONIA COPD HYPERNATREMIA HTN HLD BIPOLAR SCHIZOPHRENIA ANEMIA PLAN BD TX ABX PER ID INHALED BRONCHODILATORS SUPPLEMENTAL O2 MONITOR EMERY PEÑALOZA DR
[2018-04-24] MEDS ORDERED: DEXTROSE 5%-WATER 100 ML IVPB ONE (11:27)
[2018-04-24] MEDS ORDERED: PT OWN MED DRAWER 7, Y5N ONE ×2 (11:38→20:58)
[2018-04-24] MEDS: levETIRAcetam 500 MG/5 ML ORAL SOLUTION (UNIT-DOSE CUPS) NGT SCH ×2 (11:43→21:52)
[2018-04-24] MEDS: METOPROLOL TARTRATE 25 MG TABLET (FP) PO SCH ×2 (11:46→21:49)
[2018-04-24] MEDS: lamoTRIgine 100 MG TABLET (FP) PO SCH ×2 (11:46→21:49)
[2018-04-24] MEDS: CEFTRIAXONE 2 GM in DEXTROSE 5%-WATER 100 ML IVPB SCH (11:47)
[2018-04-24] MEDS: CARBIDOPA/LEVODOPA 10/100 TABLET (FP) PO SCH ×2 (11:47→21:50)
[2018-04-24] MEDS: DEXTROSE 5%-WATER - 1,000 ML IV SCH (11:47)
--- NOTE | 2018-04-24 11:54 | PN ---
Physical Exam: SUBJECTIVE: Patient seen and examined. More alert than yesterday. Mouthing and able to communicate more clearly. Pt asking for food. OBJECTIVE: Vital Signs Period Temp Pulse Resp BP Sys/Meyers Pulse Ox Last 24 Hr 97.4 F-98.4 F 67-83 18-20 108-137/54-88 93-96 Vital Signs Temp 97.4 F L 04/24/18 08:59 Pulse 78 04/24/18 08:59 Resp 20 04/24/18 08:59 BP 108/88 04/24/18 08:59 Pulse Ox 93 L 04/24/18 08:59 Intake & Output 04/23/18 04/23/18 04/24/18 11:59 23:59 11:59 Intake Total 925 2275 1400 Output Total 300 700 300 Balance 625 1575 1100 Weight 97.522 kg Intake: IV 875 1225 900 D5-1/2Ns - 1,000 ml @ 100 875 mls/hr IV ASDIR ANNA Rx#: [id number] D5w - 1,000 ml @ 125 mls/ 625 hr IV ASDIR ANNA Rx#: [id number] D5w - 1,000 ml @ 75 mls/ 600 900 hr IV ASDIR ANNA Rx#: [id number] IVPB 50 50 Oral 0 Tube Irrigant 1000 500 Output: Urine 300 700 300 Peralta 300 700 300 Other: Voiding Method Indwelling Catheter Indwelling Catheter Indwelling Catheter Bowel Movement No No No Height 1.7 m Body Mass Index (BMI) 33.6 GENERAL: The patient is awake, alert, NGT in place, NC ENT: Dry mucous membranes. LUNGS: Breath sounds equal, clear to auscultation bilaterally, no wheezes, no crackles HEART: Regular rate and rhythm, S1, S2 ABDOMEN: Obese, Soft, nontender, nondistended, normoactive bowel sounds EXTREMITIES: 2+ pulses, warm, well-perfused, no edema. NEUROLOGICAL: Slightly agitated on restraints. Alert, able to move all limbs. Mouthing with intermittently clear speech. gait not observed. CBC, BMP 04/23/18 05:30 04/24/18 08:00 Laboratory Results - last 24 hr 04/23/18 04/24/18 05:30 08:00 Neutrophils % (Manual) 53.5 Band Neutrophils % 2.0 Lymphocytes % (Manual) 37.4 D Monocytes % (Manual) 4 Eosinophils % (Manual) 0.0 Basophils % (Manual) 0.0 Myelocytes % (Man) 2 D Promyelocytes % (Man) 0 Blast Cells % (Manual) 0 Metamyelocytes 1 D Hypochromia 0 Platelet Estimate Decreased Polychromasia 1+ Poikilocytosis 0 Anisocytosis 2+ Microcytosis 0 Macrocytosis 2+ Stomatocytes 1+ Sodium 152 H Potassium 3.7 Chloride 111 H Carbon Dioxide 36 H Anion Gap 5 L BUN 23 H Creatinine 1.1 Creat Clearance w eGFR 50.50 Random Glucose 90 Calcium 8.6 Phosphorus 2.9 Magnesium 3.1 H Active Medications Generic Name Dose Route Start Last Admin Trade Name Freq PRN Reason Stop Dose Admin Albuterol Sulfate 1 amp 04/21/18 21:37 Ventolin 0.083% Nebulizer Soln - NEB Q6H PRN SHORT OF BREATH/WHEEZING Arformoterol Tartrate 1 amp 04/22/18 20:00 04/24/18 08:28 Brovana (Restricted To Pulmonology/Resp) - NEB 1 amp RBID ANNA Administration Carbidopa/Levodopa 1 each 04/22/18 11:30 04/24/18 11:47 Sinemet 10/100 - PO 1 each BID ANNA Administration Dextrose 1,000 mls @ 75 mls/hr 04/23/18 10:12 04/24/18 11:47 D5w - IV Not Given ASDIR ANNA Ceftriaxone Sodium 2 gm/ 100 mls @ 100 mls/hr 04/23/18 13:30 04/24/18 11:47 Dextrose IVPB 100 mls/hr DAILY ANNA Administration Protocol Lamotrigine 200 mg 04/22/18 11:30 04/24/18 11:46 Lamictal - PO 200 mg BID ANNA Administration Levetiracetam 1,000 mg 04/23/18 13:00 04/24/18 11:43 Keppra Oral Solution - NGT 1,000 mg BID ANNA Administration Levothyroxine Sodium 75 mcg 04/22/18 11:30 04/24/18 06:01 Synthroid - PO 75 mcg 0700 ANNA Administration Lorazepam 1 mg 04/22/18 12:37 04/22/18 14:20 Ativan Injection - IVPUSH 1 mg Q6H PRN Administration ANXIETY Metoprolol Tartrate 25 mg 04/22/18 11:30 04/24/18 11:46 Lopressor - PO 25 mg BID ANNA Administration ASSESSMENT/PLAN: The Pt is a 63 y/o F from [facility] with a PMHx of HTN, Hypothyroidism, GERD, COPD (not on O2), frequent UTIs, Bipolar Disorder (not on lithium), Schizophrenia, Pressure Ulcers, Varicose Vein, presenting with hypoxia, generalized weakness poor intake and failure to thrive and found to be hypernatremic 165 >>167, positive UA for infection with likely PNA. HTN, Hypothyroidism, GERD, COPD (not on O2), frequent UTIs, Bipolar Disorder (not on lithium), Schizophrenia, Pressure Ulcers, Varicose Vein, hypoxia, generalized weakness, poor intake failure to thrive hypernatremic 165 >>167, positive UA likely PNA. Plan: Hypernatremia likely due to poor oral intake, FenA-0.2% Urinary and plasma osmoles- Uosm-637, Sosm-352 (likely dehydration) Mental status improving Hypernatremia correction <10/24hrs Total free water deficit was 8.5L (sodium of 167) Free water deficit- 3.1L to bring sodium from 152 to 142 in 24hrs Continue D5W @75/hr Free water via NGT-250ml Q4H Would benefit from speech and swallow assessment Follow BMP Avoid nephrotoxic drugs Visit type - Emergency Visit Emergency Visit: Yes ED Registration Date: 04/21/18 Care time: The patient presented to the Emergency Department on the above date and was hospitalized for further evaluation of their emergent condition. - New Patient This patient is new to me today: No - Critical Care Critical Care patient: No - Discharge Referral Referred to [facility] No
--- NOTE | 2018-04-24 12:13 | PN ---
Progress Note, HOT BLASTER - Note Progress Note: More alert, some intelligible verbalizations, agreed to PO trials. NGT in place for free water/meds. Accepted several tsp of honey thick liquid, coughed with first trial, but rest seemed tolerated overtly. Swallow onset is delayed, fair elevation/depression. Silent aspiration can not be r/o at bedside. Reportedly, family agreed to PEG insertion during meeting at [place] before admission. Suggest trial of dys puree/honey thick liquid on tsp, with NGT in place. If tolerates and accepts well, d/v NGT and continue PO, mobnitoring pulm/ nutritional status. Consider PEG for consistency of hydration, meds, and possibly to supplement PO intake.
--- NOTE | 2018-04-24 12:36 | PN ---
Progress Note (short form) - Note Progress Note: pt seen/ examined chart reviewed awake and comfortable Has periods of agitation calm at present Don't feel hungry Vital Signs Temp 97.4 F L 04/24/18 08:59 Pulse 78 04/24/18 08:59 Resp 20 04/24/18 08:59 BP 108/88 04/24/18 08:59 Pulse Ox 93 L 04/24/18 08:59 Intake & Output 04/23/18 04/24/18 04/24/18 23:59 11:59 23:59 Intake Total 2275 1400 Output Total 700 300 Balance 1575 1100 Weight 215 lb Intake: IV 1225 900 D5w - 1,000 ml @ 125 mls/ 625 hr IV ASDIR ANNA Rx#: [id number] D5w - 1,000 ml @ 75 mls/ 600 900 hr IV ASDIR ANNA Rx#: [id number] IVPB 50 Oral 0 Tube Irrigant 1000 500 Output: Urine 700 300 Peralta 700 300 Other: Voiding Method Indwelling Catheter Indwelling Catheter Bowel Movement No No Height 5 ft 7 in Body Mass Index (BMI) 33.6 Active Medications Albuterol Sulfate (Ventolin 0.083% Nebulizer Soln -) 1 amp NEB Q6H PRN PRN Reason: SHORT OF BREATH/WHEEZING Arformoterol Tartrate (Brovana (Restricted To Pulmonology/Resp) -) 1 amp NEB RBID [facility] Last Admin: 04/24/18 08:28 Dose: 1 amp Carbidopa/Levodopa (Sinemet 10/100 -) 1 each PO BID [facility] Last Admin: 04/24/18 11:47 Dose: 1 each Dextrose (D5w -) 1,000 mls @ 75 mls/hr IV ASDIR [facility] Last Admin: 04/24/18 11:47 Dose: Not Given Ceftriaxone Sodium 2 gm/ (Dextrose) 100 mls @ 100 mls/hr IVPB DAILY [facility]; Protocol Last Admin: 04/24/18 11:47 Dose: 100 mls/hr Lamotrigine (Lamictal -) 200 mg PO BID [facility] Last Admin: 04/24/18 11:46 Dose: 200 mg Levetiracetam (Keppra Oral Solution -) 1,000 mg NGT BID [facility] Last Admin: 04/24/18 11:43 Dose: 1,000 mg Levothyroxine Sodium (Synthroid -) 75 mcg PO 0700 [facility] Last Admin: 04/24/18 06:01 Dose: 75 mcg Lorazepam (Ativan Injection -) 1 mg IVPUSH Q6H PRN PRN Reason: ANXIETY Last Admin: 04/22/18 14:20 Dose: 1 mg Metoprolol Tartrate (Lopressor -) 25 mg PO BID [facility] Last Admin: 04/24/18 11:46 Dose: 25 mg CBC, BMP 04/23/18 05:30 04/24/18 08:00 Microbiology 04/22/18 21:15 Blood Culture - Preliminary Blood - Peripheral Venous NO GROWTH OBTAINED AFTER 24 HOURS, INCUBATION TO CONTINUE FOR 4 DAYS. 04/22/18 21:15 Blood Culture - Preliminary Blood - Peripheral Venous NO GROWTH OBTAINED AFTER 24 HOURS, INCUBATION TO CONTINUE FOR 4 DAYS. 04/21/18 13:20 Blood Culture - Preliminary Blood - Peripheral Venous NO GROWTH OBTAINED AFTER 48 HOURS, INCUBATION TO CONTINUE FOR 3 DAYS. 04/21/18 12:10 Urine Culture - Final Urine - Urine - Catheterized Escherichia Coli Escherichia Coli#2 04/21/18 13:20 Blood Culture - Preliminary Blood - Peripheral Venous Staphylococcus Coagulase Neg Physical exam S1 s2 RRR Lungs decreased Abd- soft, obese, NT No leg edema NG+ Peralta+ awake and comfortable PLAN IV fluids on free water via NG encourage po start on diet Antibiotics Monitor labs Swallowing evaluation noted Will consult GI--- for PEG placement Will follow restrains For safety labs added dvt prophylaxis discussed with nursing staff also
[2018-04-24] MEDS: HEPARIN NA (PORCINE) 5,000 UNITS/ML 1ML VIAL SQ SCH ×2 (14:25→22:05)
--- NOTE | 2018-04-24 15:12 | CON.GI ---
Consult Consult Specialty:: GI Referred by:: Dr. Jamila Chavez Reason for Consultation:: Dysphagia - History of Present Illness Chief Complaint: patient fdoes not give a chief complaint History of Present Illness: 63F admitted to [facility] for evaluation of weakness. Noted to have LLL PNA, UTI. Apparently a feeding tube was discussed with the patient and her family. She demonstrated poor PO intake and sporadic compliance with medical therapy. - History Source History Provided By: Family Member, Medical Record Limitations to Obtaining History: Poor Historian - Past Medical History Cardio/Vascular: Yes: HTN Pulmonary: Yes: COPD Gastrointestinal: Yes: GERD Endocrine: Yes: Hypothyroidism - Past Surgical History Additional Surgical History: No abdominal surgeries per patient's sister - Alcohol/Substance Use Hx Alcohol Use: No - Smoking History Smoking history: Unknown if ever smoked Have you smoked in the past 12 months: No - Social History ADL: Support Services Place of : [facility] History of Recent Travel: No Home Medications - Allergies Allergies/Adverse Reactions: Allergies Allergy/AdvReac Type Severity Reaction Status Date / Time haloperidol Allergy Unknown Verified 04/21/18 11:38 sulfacetamide sodium Allergy Unknown Verified 04/21/18 11:38 [From Sulfamide] - Home Medications Home Medications: Ambulatory Orders Acetaminophen [Non-Aspirin Pain Relief] 650 mg PO Q6H PRN 01/14/15 Albuterol 0.083% Nebulizer Renuka [Ventolin 0.083% Nebulizer Soln -] 1 neb NEB Q6H PRN 01/14/15 Benztropine Mesylate 1 mg PO TID 01/14/15 Divalproex [Depakote -] 250 mg PO BID 01/14/15 Lamotrigine 200 mg PO BID 01/14/15 Levetiracetam [Keppra] 1,000 mg PO BID 01/14/15 Levothyroxine [Synthroid -] 75 mcg PO DAILY 01/14/15 Metoprolol Tartrate 25 mg PO BID 01/14/15 Ammonium Lactate Cream [Lac-Hydrin 12% *Cream*] 1 applic TP BID 04/22/18 Aripiprazole [Abilify] 20 mg PO DAILY 04/22/18 Aspirin [ASA -] 81 mg PO DAILY 04/22/18 Carbidopa/Levodopa [Sinemet -] 1 each PO BID 04/22/18 Magnesium Hydroxide [Milk of Magnesia] 400 mg PO Q48H PRN 04/22/18 Mineral Oil/Pet Hy-Phl [Aquaphor] 1 applic TP BID 04/22/18 Vit A/Vitamin D3/E/Aloe V/Zinc [Periguard Ointment] 15 gm TP BID 04/22/18 Family Disease History - Family Disease History Family History: Unable to Obtain Review of Systems Unable to obtain ROS, reason: Non verbal Physical Exam-GI Vital Signs: Vital Signs Temperature 97.4 F L 04/24/18 08:59 Pulse Rate 78 04/24/18 08:59 Respiratory Rate 20 04/24/18 08:59 Blood Pressure 108/88 04/24/18 08:59 O2 Sat by Pulse Oximetry (%) 93 L 04/24/18 08:59 Constitutional: Yes: Calm Eyes: No: Sclera Icterus Cardiovascular: Yes: Regular Rate and Rhythm Respiratory: Yes: Diminished (at bases with poor insp effort) Gastrointestinal Inspection: No: Distention ...Auscultate: Yes: Normoactive Bowel Sounds ...Palpate: No: Tenderness (No grimacing upon palpation) ...Percussion: No: Tympanitic Edema: No (No LE edema) Neurological: Yes: Alert Labs: CBC, BMP 04/23/18 05:30 04/24/18 08:00 INR, PTT INR 1.04 (0.83-1.09) 04/21/18 13:20 Problem List - Problems (1) Adult failure to thrive Assessment/Plan: 63F admitted to [facility] for evaluation of weakness. Noted to have LLL PNA, UTI. Apparently a feeding tube was discussed with the patient and her family. She demonstrated poor PO intake and sporadic compliance with medical therapy. Per the chart, the patient has refused a feeding tube. I attempted to discuss the potential plan for feeding tube with the patient and her nurse present. I was not confident that Ms. Mendez undertood what I was taling about as she gave neither verbal or physical cues (nodding yes/no) of comprehension. I spoke with her sister Ara Martinez [phone]. I attempted to explain ways of placing a gastrostomy. I attempted to explain PEG, radiographically placed gastrostomy tube and surgically placed G-tube (last resort as it is the most invasive). I attempted to discuss potential risks of PEG. I also explained that regardless of how the gastrostomy tube was placed, premature dislodgement of the tube could lead to a life threatening infection called peritonitis and that it apperars as though Ms. Mendez would be at a higher risk to attempt to pull on the G-Tube. Ms. Martinez cut me off and explained that she wants the "feeding tube with the cap" that was explained to her at [facility]. She states that this was discussed with her by Nurse practitioner Macrela. I called [facility] to discuss further with T[employer]CH CUTTER Giuliana. I was transferred to each individual floor by each floor as each floor told me she worked on a different floor. Eventually a 4th floor nurse told me she may have left. They could not give me a contact number to discuss things with her. I gave them my office number. I'm not sure the patient's sister understood the explanation of g-tube placement. She would feel more comfortable discussing in person. I explained that I would be in the hospital tomorrow and to let her nurse contact me through the office when she arrives. Code(s): R62.7 - ADULT FAILURE TO THRIVE
--- NOTE | 2018-04-24 18:38 | PN ---
Teaching Attending Note Name of Resident: Sabiha Love (Nephrology) ATTENDING PHYSICIAN STATEMENT I saw and evaluated the patient. I reviewed the resident's note and discussed the case with the resident. I agree with the resident's findings and plan as documented. Renal Pt seen and examined at bedside. She is more awake today. Current Medications Generic Name Dose Route Start Last Admin Trade Name Freq PRN Reason Stop Dose Admin Albuterol Sulfate 1 amp 04/21/18 21:37 Ventolin 0.083% Nebulizer Soln - NEB Q6H PRN SHORT OF BREATH/WHEEZING Arformoterol Tartrate 1 amp 04/22/18 20:00 04/24/18 08:28 Brovana (Restricted To Pulmonology/Resp) - NEB 1 amp RBID ANNA Administration Carbidopa/Levodopa 1 each 04/22/18 11:30 04/24/18 11:47 Sinemet 10/100 - PO 1 each BID ANNA Administration Heparin Sodium (Porcine) 5,000 unit 04/24/18 12:45 04/24/18 14:25 Heparin - SQ 5,000 unit BID ANNA Administration Dextrose 1,000 mls @ 75 mls/hr 04/23/18 10:12 04/24/18 11:47 D5w - IV Not Given ASDIR NANA Ceftriaxone Sodium 2 gm/ 100 mls @ 100 mls/hr 04/23/18 13:30 04/24/18 11:47 Dextrose IVPB 100 mls/hr DAILY ANNA Administration Protocol Lamotrigine 200 mg 04/22/18 11:30 04/24/18 11:46 Lamictal - PO 200 mg BID ANNA Administration Levetiracetam 1,000 mg 04/23/18 13:00 04/24/18 11:43 Keppra Oral Solution - NGT 1,000 mg BID ANNA Administration Levothyroxine Sodium 75 mcg 04/22/18 11:30 04/24/18 06:01 Synthroid - PO 75 mcg 0700 ANNA Administration Lorazepam 1 mg 04/22/18 12:37 04/22/18 14:20 Ativan Injection - IVPUSH 1 mg Q6H PRN Administration ANXIETY Metoprolol Tartrate 25 mg 04/22/18 11:30 04/24/18 11:46 Lopressor - PO 25 mg BID ANNA Administration Last Vital Signs Temp Pulse Resp BP Pulse Ox 97.5 F L 76 20 123/76 93 L 04/24/18 14:00 04/24/18 14:00 04/24/18 08:59 04/24/18 14:00 04/24/18 08:59 Laboratory Tests 04/24/18 08:00 Sodium 152 H Creatinine 1.1 cardio s1s2 reg pulm decreased at base gi soft ext right arm edema neuro confused skin neg rash Imperssion 1. hypernatremia 2. bipolar 3. azotemia 4. htn 5. hypothyroidism 6. copd 7. gerd Plan - sodium is improving - cont free water - decrease rate of fluids - monitor sodium level - avoid a change of greater than 10 meq in [address] Montgomery
[2018-04-24] MEDS ORDERED: DEXTROSE 5%-WATER - 1,000 ML IV SCH (18:45)
[2018-04-25] MEDS: LEVOTHYROXINE NA 75 MCG TABLET (FP) PO SCH (06:47)
[2018-04-25 06:55] LABS: BASO % 0.5 % (0-2.0); EOS % 0.6 % (0-4.5); MCH 33.6 pg (25.7-33.7); MCHC 33.3 g/dl (32.0-36.0); MEAN CELL VOLUME 101.1 fl (80-96); MEAN PLT VOLUME 6.9 fl (7.5-11.1); MONO % 6.2 % (3.8-10.2); NEUT % 45.7 % (42.8-82.8); PLATELET COUNT 125 K/MM3 (134-434); RBC 2.38 M/mm3 (3.60-5.2); RDW 15.8 % (11.6-15.6); WHITE BLOOD COUNT 5.6 K/mm3 (4.0-10.0)
[2018-04-25] MEDS: ARFORMOTEROL TARTRATE 15 MCG/2 ML VIAL NEB SCH ×2 (07:40→21:35)
[2018-04-25 08:01] LABS: ALBUMIN 1.9 g/dl (3.4-5.0); ALK PHOS 94 U/L (45-117); ANION GAP 4 MMOL/L (8-16); BILIRUBIN,TOTAL 0.3 mg/dL (0.2-1); BLOOD UREA NITROGEN 19 mg/dL (7-18); CALCIUM 7.8 mg/dL (8.5-10.1); CHLORIDE 104 mmol/L (98-107); CO2 36 mmol/L (21-32); GLUCOSE,RANDOM 89 mg/dL (74-106); MAGNESIUM 2.7 mg/dL (1.8-2.4); PHOSPHOROUS 3.2 mg/dL (2.5-4.9); POTASSIUM 3.3 mmol/L (3.5-5.1); SGOT/AST 11 U/L (15-37); SGPT/ALT < 6 U/L (13-61); SODIUM 144 mmol/L (136-145)
[2018-04-25] MEDS ORDERED: POTASSIUM CHLORIDE ORAL LIQUID 20 MEQ/15 ML PO ONE (10:30)
--- NOTE | 2018-04-25 11:28 | PN ---
GI Progress Note Subjective: No acute events Sister present at bedside: Describes Ms. Mendez having significant weight loss over last few months with poor PO intake - Objective Vital Signs: Vital Signs Temperature 98.1 F 04/25/18 02:00 Pulse Rate 73 04/25/18 02:00 Respiratory Rate 17 04/25/18 02:00 Blood Pressure 116/57 L 04/25/18 02:00 O2 Sat by Pulse Oximetry (%) 93 L 04/24/18 21:00 Constitutional: Calm Eyes: No: Sclera Icterus Cardiovascular: Yes: Regular Rate and Rhythm Respiratory: Yes: Diminished (at bases, poor insp effort) Gastrointestinal Inspection: No: Distention ...Auscultate: Yes: Normoactive Bowel Sounds ...Palpate: No: Hepatomegaly, Splenomegaly, Tenderness ...Percussion: No: Tympanitic Edema: No (No LE edema) Labs: CBC, BMP 04/25/18 05:30 04/25/18 06:00 INR, PTT INR 1.04 (0.83-1.09) 04/21/18 13:20 Problem List - Problems (1) Adult failure to thrive Assessment/Plan: Discussed feeding tube placement with Davey Hernandez's sister. explained that EGD could also help evaluate for intraluminal upper GI pathology that could be ontributing to weight loss and diminished appetite. Discussed alternative, potential risks of the procedure like bit not limited to bleeding, perfortion requiring surgery to repair, infection, sedation medication effects, perotinitis if the tube was prematurely dislodged, all of which could be potentially life threatening. She has agreed to the procedure. In the interim: Consider psych eval. ? if meds need to be adjusted ? trial of appetite stimulant Heme consulted: marcocytic anemia / thrombocytopenia with normal b12/Folate. ? if underlying hematologic d/o contributing to weight loss. Possible PEG 04/28 Start tube feeds via NGT. Aspiration precautions Code(s): R62.7 - ADULT FAILURE TO THRIVE
--- NOTE | 2018-04-25 11:48 | PN ---
Progress Note (short form) - Note Progress Note: pt seen/ examined sister at bedside-- discussed pt comfortable denies pain gi f/u noted and discussed peg scheduled for saturday Vital Signs Temp 98.1 F 04/25/18 02:00 Pulse 73 04/25/18 02:00 Resp 17 04/25/18 02:00 BP 116/57 L 04/25/18 02:00 Pulse Ox 93 L 04/24/18 21:00 Intake & Output 04/24/18 04/24/18 04/25/18 11:59 23:59 11:59 Intake Total 1400 1440 1220 Output Total 300 450 400 Balance 1100 990 820 Intake: IV 900 600 720 D5w - 1,000 ml @ 60 mls/ 720 hr IV ASDIR ANNA Rx#: [id number] D5w - 1,000 ml @ 75 mls/ 900 600 hr IV ASDIR ANNA Rx#: [id number] IVPB 100 Oral 0 240 Tube Irrigant 500 500 500 Output: Urine 300 450 400 Peralta 300 450 400 Other: Voiding Method Indwelling Catheter Indwelling Catheter Indwelling Catheter Bowel Movement No Yes Yes # Bowel Movements 1 Body Mass Index (BMI) 33.6 Active Medications Albuterol Sulfate (Ventolin 0.083% Nebulizer Soln -) 1 amp NEB Q6H PRN PRN Reason: SHORT OF BREATH/WHEEZING Arformoterol Tartrate (Brovana (Restricted To Pulmonology/Resp) -) 1 amp NEB RBID [facility] Last Admin: 04/25/18 07:40 Dose: 1 amp Carbidopa/Levodopa (Sinemet 10/100 -) 1 each PO BID [facility] Last Admin: 04/24/18 21:50 Dose: 1 each Heparin Sodium (Porcine) (Heparin -) 5,000 unit SQ BID [facility] Last Admin: 04/24/18 22:05 Dose: 5,000 unit Ceftriaxone Sodium 2 gm/ (Dextrose) 100 mls @ 100 mls/hr IVPB DAILY [facility]; Protocol Last Admin: 04/24/18 11:47 Dose: 100 mls/hr Lamotrigine (Lamictal -) 200 mg PO BID [facility] Last Admin: 04/24/18 21:49 Dose: 200 mg Levetiracetam (Keppra Oral Solution -) 1,000 mg NGT BID [facility] Last Admin: 04/24/18 21:52 Dose: 1,000 mg Levothyroxine Sodium (Synthroid -) 75 mcg PO 0700 ANNA Last Admin: 04/25/18 06:47 Dose: 75 mcg Lorazepam (Ativan Injection -) 1 mg IVPUSH Q6H PRN PRN Reason: ANXIETY Last Admin: 04/22/18 14:20 Dose: 1 mg Metoprolol Tartrate (Lopressor -) 25 mg PO BID ANNA Last Admin: 04/24/18 21:49 Dose: 25 mg CBC, BMP 04/25/18 05:30 04/25/18 06:00 Microbiology 04/21/18 13:20 Blood Culture - Final Blood - Peripheral Venous Staphylococcus Haemolyticus 04/22/18 21:15 Blood Culture - Preliminary Blood - Peripheral Venous NO GROWTH OBTAINED AFTER 48 HOURS, INCUBATION TO CONTINUE FOR 3 DAYS. 04/22/18 21:15 Blood Culture - Preliminary Blood - Peripheral Venous NO GROWTH OBTAINED AFTER 48 HOURS, INCUBATION TO CONTINUE FOR 3 DAYS. 04/21/18 13:20 Blood Culture - Preliminary Blood - Peripheral Venous NO GROWTH OBTAINED AFTER 72 HOURS, INCUBATION TO CONTINUE FOR 2 DAYS. Physical exam S1 s2 RRR Lungs decreased Abd- soft, obese, NT No leg edema NG+ Peralta+ awake and comfortable PLAN IV fluids on free water via NG encourage po start on ng feed Antibiotics Monitor labs discussed with nursing staff also. pts sister signed dnr/ di will follow
--- NOTE | 2018-04-25 11:58 | PN ---
Physical Exam: SUBJECTIVE: Patient seen and examined. No new C/o OBJECTIVE: Vital Signs Period Temp Pulse Resp BP Sys/Meyers Pulse Ox Last 24 Hr 97.2 F-98.1 F 73-76 17-20 92-123/57-76 93 Vital Signs Temp 98.1 F 04/25/18 02:00 Pulse 73 04/25/18 02:00 Resp 17 04/25/18 02:00 BP 116/57 L 04/25/18 02:00 Pulse Ox 93 L 04/24/18 21:00 Intake & Output 04/24/18 04/24/18 04/25/18 11:59 23:59 11:59 Intake Total 1400 1440 1220 Output Total 300 450 400 Balance 1100 990 820 Intake: IV 900 600 720 D5w - 1,000 ml @ 60 mls/ 720 hr IV ASDIR ANNA Rx#: [id number] D5w - 1,000 ml @ 75 mls/ 900 600 hr IV ASDIR ANNA Rx#: [id number] IVPB 100 Oral 0 240 Tube Irrigant 500 500 500 Output: Urine 300 450 400 Peralta 300 450 400 Other: Voiding Method Indwelling Catheter Indwelling Catheter Indwelling Catheter Bowel Movement No Yes Yes # Bowel Movements 1 Body Mass Index (BMI) 33.6 GENERAL: The patient is awake, alert, NGT in place LUNGS: Breath sounds equal, clear to auscultation bilaterally, no wheezes, no crackles HEART: Regular rate and rhythm, S1, S2 ABDOMEN: Obese, Soft, nontender, nondistended, normoactive bowel sounds EXTREMITIES: 2+ pulses, warm, well-perfused, no edema. NEUROLOGICAL: Slightly agitated on restraints. Alert, able to move all limbs. Mouthing with intermittently clear speech. gait not observed. Laboratory Results - last 24 hr 04/25/18 04/25/18 04/25/18 05:30 05:30 06:00 WBC 5.6 RBC 2.38 L Hgb 8.0 L Hct 24.0 L MCV 101.1 H MCH 33.6 MCHC 33.3 RDW 15.8 H Plt Count 125 L MPV 6.9 L Absolute Neuts (auto) 2.6 Neutrophils % 45.7 D Lymphocytes % 47.0 H D Monocytes % 6.2 Eosinophils % 0.6 D Basophils % 0.5 Nucleated RBC % 0 Sodium 144 Potassium 3.3 L Chloride 104 Carbon Dioxide 36 H Anion Gap 4 L BUN 19 H Creatinine 1.0 Creat Clearance w eGFR 56.37 Random Glucose 89 Calcium 7.8 L Phosphorus 3.2 Magnesium 2.7 H Total Bilirubin 0.3 AST 11 L ALT < 6 L Alkaline Phosphatase 94 Total Protein 6.0 L Albumin 1.9 L Vitamin B12 1563 H Serum Folate 4 Active Medications Generic Name Dose Route Start Last Admin Trade Name Freq PRN Reason Stop Dose Admin Albuterol Sulfate 1 amp 04/21/18 21:37 Ventolin 0.083% Nebulizer Soln - NEB Q6H PRN SHORT OF BREATH/WHEEZING Arformoterol Tartrate 1 amp 04/22/18 20:00 04/25/18 07:40 Brovana (Restricted To Pulmonology/Resp) - NEB 1 amp RBID ANNA Administration Carbidopa/Levodopa 1 each 04/22/18 11:30 04/24/18 21:50 Sinemet 10/100 - PO 1 each BID ANNA Administration Heparin Sodium (Porcine) 5,000 unit 04/24/18 12:45 04/24/18 22:05 Heparin - SQ 5,000 unit BID ANNA Administration Ceftriaxone Sodium 2 gm/ 100 mls @ 100 mls/hr 04/23/18 13:30 04/24/18 11:47 Dextrose IVPB 100 mls/hr DAILY ANNA Administration Protocol Lamotrigine 200 mg 04/22/18 11:30 04/24/18 21:49 Lamictal - PO 200 mg BID ANNA Administration Levetiracetam 1,000 mg 04/23/18 13:00 04/24/18 21:52 Keppra Oral Solution - NGT 1,000 mg BID ANNA Administration Levothyroxine Sodium 75 mcg 04/22/18 11:30 04/25/18 06:47 Synthroid - PO 75 mcg 0700 ANNA Administration Lorazepam 1 mg 04/22/18 12:37 04/22/18 14:20 Ativan Injection - IVPUSH 1 mg Q6H PRN Administration ANXIETY Metoprolol Tartrate 25 mg 04/22/18 11:30 04/24/18 21:49 Lopressor - PO 25 mg BID ANNA Administration ASSESSMENT/PLAN: The Pt is a 63 y/o F from [facility] with a PMHx of HTN, Hypothyroidism, GERD, COPD (not on O2), frequent UTIs, Bipolar Disorder (not on lithium), Schizophrenia, Pressure Ulcers, Varicose Vein, presenting with hypoxia, generalized weakness poor intake and failure to thrive and found to be hypernatremic 165 >>167, positive UA for infection with likely PNA. HTN, Hypothyroidism, GERD, COPD (not on O2), frequent UTIs, Bipolar Disorder (not on lithium), Schizophrenia, Pressure Ulcers, Varicose Vein, hypoxia, generalized weakness, poor intake failure to thrive hypernatremic 165 >>167, positive UA likely PNA. Plan: Hypernatremia likely due to poor oral intake, FenA-0.2% Urinary and plasma osmoles- Uosm-637, Sosm-352 (likely dehydration) Mental status improving Hypernatremia correction <10/24hrs Total free water deficit was 8.5L (sodium of 167) Sodium back to nl range Stop D5W @75/hr Cont Free water via NGT-250ml Q6H Follow BMP Avoid nephrotoxic drugs Visit type - Emergency Visit Emergency Visit: Yes ED Registration Date: 04/21/18 Care time: The patient presented to the Emergency Department on the above date and was hospitalized for further evaluation of their emergent condition. - New Patient This patient is new to me today: No - Critical Care Critical Care patient: No - Discharge Referral Referred to [facility] Med P.C.: No
--- NOTE | 2018-04-25 12:13 | PN ---
Progress Note, INSURANCE ASSOCIATE - Note Progress Note: ngt feeding.PEG pending. For possible pleasure feeds to supplement PEG in future.
[2018-04-25 12:15] LABS: ANISOCYTOSIS 1+; MACROCYTOSIS 1+; PLATELET ESTIMATE DECREASED
[2018-04-25] MEDS: METOPROLOL TARTRATE 25 MG TABLET (FP) PO SCH (13:00)
--- NOTE | 2018-04-25 13:05 | PN ---
Teaching Attending Note Name of Resident: Sabiha Love (Nephrology) ATTENDING PHYSICIAN STATEMENT I saw and evaluated the patient. I reviewed the resident's note and discussed the case with the resident. I agree with the resident's findings and plan as documented. Renal Pt seen and examined at bedside. She is now in the medical mejia. Current Medications Generic Name Dose Route Start Last Admin Trade Name Freq PRN Reason Stop Dose Admin Albuterol Sulfate 1 amp 04/21/18 21:37 Ventolin 0.083% Nebulizer Soln - NEB Q6H PRN SHORT OF BREATH/WHEEZING Arformoterol Tartrate 1 amp 04/22/18 20:00 04/25/18 07:40 Brovana (Restricted To Pulmonology/Resp) - NEB 1 amp RBID ANNA Administration Carbidopa/Levodopa 1 each 04/22/18 11:30 04/24/18 21:50 Sinemet 10/100 - PO 1 each BID ANNA Administration Heparin Sodium (Porcine) 5,000 unit 04/24/18 12:45 04/24/18 22:05 Heparin - SQ 5,000 unit BID ANNA Administration Ceftriaxone Sodium 2 gm/ 100 mls @ 100 mls/hr 04/23/18 13:30 04/24/18 11:47 Dextrose IVPB 100 mls/hr DAILY ANNA Administration Protocol Lamotrigine 200 mg 04/22/18 11:30 04/24/18 21:49 Lamictal - PO 200 mg BID ANNA Administration Levetiracetam 1,000 mg 04/23/18 13:00 04/24/18 21:52 Keppra Oral Solution - NGT 1,000 mg BID ANNA Administration Levothyroxine Sodium 75 mcg 04/22/18 11:30 04/25/18 06:47 Synthroid - PO 75 mcg 0700 ANNA Administration Lorazepam 1 mg 04/22/18 12:37 04/22/18 14:20 Ativan Injection - IVPUSH 1 mg Q6H PRN Administration ANXIETY Metoprolol Tartrate 25 mg 04/22/18 11:30 04/24/18 21:49 Lopressor - PO 25 mg BID ANNA Administration Laboratory Tests 04/25/18 06:00 Sodium 144 Potassium 3.3 L Creatinine 1.0 Magnesium 2.7 H Last Vital Signs Temp Pulse Resp BP Pulse Ox 98.1 F 73 17 116/57 L 93 L 04/25/18 02:00 04/25/18 02:00 04/25/18 02:00 04/25/18 02:00 04/24/18 21:00 cardio s1s2 reg pulm decreased at base gi soft ext right arm edema neuro confused skin neg rash Imperssion 1. hypernatremia 2. bipolar 3. azotemia 4. htn 5. hypothyroidism 6. copd 7. gerd 8. hypokalemia Plan - pt started on tube feeds - replace potassium - sodium is stable - can stop IV fluids
[2018-04-25] MEDS ORDERED: DEXTROSE 5%-WATER 100 ML IVPB ONE (13:07)
[2018-04-25] MEDS ORDERED: PT OWN MED DRAWER 7, Y5N ONE (13:40)
--- NOTE | 2018-04-25 14:42 | PN ---
Progress Note (short form) - Note Progress Note: PULMONARY NGT/AROUSABLE Constitutional: Yes: NAD Eyes: Yes: WNL HENT: Yes: WNL Neck: Yes: WNL Cardiovascular: Yes: Regular Rate and Rhythm, S1, S2 Respiratory: Yes: Few scattered Rhonchi Gastrointestinal: Yes: Normal Bowel Sounds, Soft Extremities: Yes: WNL Edema: No Labs: REVIEWED Problem List - Problems (1) Acute and chronic respiratory failure with hypercapnia Code(s): J96.22 - ACUTE AND CHRONIC RESPIRATORY FAILURE WITH HYPERCAPNIA (2) Acute respiratory failure with hypoxia Code(s): J96.01 - ACUTE RESPIRATORY FAILURE WITH HYPOXIA (3) Bipolar disorder Code(s): F31.9 - BIPOLAR DISORDER, UNSPECIFIED (4) COPD (chronic obstructive pulmonary disease) Code(s): J44.9 - CHRONIC OBSTRUCTIVE PULMONARY DISEASE, UNSPECIFIED (5) GERD (gastroesophageal reflux disease) Code(s): K21.9 - GASTRO-ESOPHAGEAL REFLUX DISEASE WITHOUT ESOPHAGITIS (6) Hypernatremia Code(s): E87.0 - HYPEROSMOLALITY AND HYPERNATREMIA (7) Pneumonia Code(s): J18.9 - PNEUMONIA, UNSPECIFIED ORGANISM (8) Schizophrenia Code(s): F20.9 - SCHIZOPHRENIA, UNSPECIFIED (9) UTI (urinary tract infection) Code(s): N39.0 - URINARY TRACT INFECTION, SITE NOT SPECIFIED Qualifiers: Urinary tract infection type: site unspecified Hematuria presence: without hematuria Qualified Code(s): N39.0 - Urinary tract infection, site not specified Assessment/Plan IMP ACUTE HYPOXEMIC RESPIRATORY FAILURE ACUTE ON CHRONIC HYPERCAPNEIC RESPIRATORY FAILURE LLL PNEUMONIA COPD HYPERNATREMIA HTN HLD BIPOLAR SCHIZOPHRENIA ANEMIA PLAN BD TX ABX PER ID/ANTI SEIZURE INHALED BRONCHODILATORS SUPPLEMENTAL O2 MONITOR EMERY PEÑALOZA MD
[2018-04-25] MEDS: levETIRAcetam 500 MG/5 ML ORAL SOLUTION (UNIT-DOSE CUPS) NGT SCH (15:23)
[2018-04-25] MEDS: lamoTRIgine 100 MG TABLET (FP) PO SCH (15:23)
[2018-04-25] MEDS: HEPARIN NA (PORCINE) 5,000 UNITS/ML 1ML VIAL SQ SCH ×2 (15:23→23:18)
[2018-04-25] MEDS: CARBIDOPA/LEVODOPA 10/100 TABLET (FP) PO SCH (15:23)
[2018-04-25] MEDS: CEFTRIAXONE 2 GM in DEXTROSE 5%-WATER 100 ML IVPB SCH (15:24)
--- NOTE | 2018-04-25 15:28 | CONSULT ---
Consult Consult Specialty:: Hematology and Oncology Referred by:: Dr. Avila Reason for Consultation:: macrocytic anemia - History of Present Illness History of Present Illness: 63 y/o F from [facility] h/o HTN, Hypothyroidism, GERD, COPD, frequent UTIs, Bipolar Disorder, Schizophrenia BIBEMS for hypoxia and failure to thrive. She's then found to be have severe hypernatremia likely due to poor PO intake. UA is positive for UTI and CXR is positive for PNA. Hemonc is consulted for macrocytic anemia and lymphocytosis. - History Source Limitations to Obtaining History: Other (non-verbal) - Past Medical History Cardio/Vascular: Yes: HTN Pulmonary: Yes: COPD Gastrointestinal: Yes: GERD Endocrine: Yes: Hypothyroidism - Past Surgical History Additional Surgical History: No abdominal surgeries per patient's sister - Alcohol/Substance Use Hx Alcohol Use: No - Smoking History Smoking history: Unknown if ever smoked Have you smoked in the past 12 months: No - Social History ADL: Support Services History of Recent Travel: No Home Medications - Allergies Allergies/Adverse Reactions: Allergies Allergy/AdvReac Type Severity Reaction Status Date / Time haloperidol Allergy Unknown Verified 04/21/18 11:38 sulfacetamide sodium Allergy Unknown Verified 04/21/18 11:38 [From Sulfamide] - Home Medications Home Medications: Ambulatory Orders Acetaminophen [Non-Aspirin Pain Relief] 650 mg PO Q6H PRN 01/14/15 Albuterol 0.083% Nebulizer Renuka [Ventolin 0.083% Nebulizer Soln -] 1 neb NEB Q6H PRN 01/14/15 Benztropine Mesylate 1 mg PO TID 01/14/15 Divalproex [Depakote -] 250 mg PO BID 01/14/15 Lamotrigine 200 mg PO BID 01/14/15 Levetiracetam [Keppra] 1,000 mg PO BID 01/14/15 Levothyroxine [Synthroid -] 75 mcg PO DAILY 01/14/15 Metoprolol Tartrate 25 mg PO BID 01/14/15 Ammonium Lactate Cream [Lac-Hydrin 12% *Cream*] 1 applic TP BID 04/22/18 Aripiprazole [Abilify] 20 mg PO DAILY 04/22/18 Aspirin [ASA -] 81 mg PO DAILY 04/22/18 Carbidopa/Levodopa 10/100 [Sinemet 10/100 -] 1 each PO BID 04/22/18 Magnesium Hydroxide [Milk of Magnesia] 400 mg PO Q48H PRN 04/22/18 Mineral Oil/Pet Hy-Phl [Aquaphor] 1 applic TP BID 04/22/18 Vit A/Vitamin D3/E/Aloe V/Zinc [Periguard Ointment] 15 gm TP BID 04/22/18 Review of Systems Unable to obtain ROS, reason: non-verbal Physical Exam Vital Signs: Vital Signs Temperature 97.3 F L 04/25/18 15:13 Pulse Rate 72 04/25/18 15:13 Respiratory Rate 18 04/25/18 15:13 Blood Pressure 96/56 L 04/25/18 15:13 O2 Sat by Pulse Oximetry (%) 93 L 04/24/18 21:00 Constitutional: Yes: Pallor, Poor Hygeine, Thin Cardiovascular: Yes: Regular Rate and Rhythm, S1, S2 Respiratory: Yes: CTA Bilaterally Gastrointestinal: Yes: Normal Bowel Sounds, Soft. No: Tenderness Edema: No Neurological: Yes: Alert, Confusion, Other (non-verbal). No: Oriented Labs: CBC, BMP 04/25/18 05:30 04/25/18 06:00 Assessment/Plan 63 y/o F from [facility] h/o HTN, Hypothyroidism, GERD, COPD, frequent UTIs, Bipolar Disorder, Schizophrenia BIBEMS for hypoxia and failure to thrive, now being evaluated for macrocytic anemia and lymphocytosis. Assessment: Schizophrenia bipolar disorder UTI PNA Poor PO intake failure to thrive acute on chronic hypoxemic respiratory failure Macrocytic anemia w/ lymphocytosis Plan: macrocytic anemia likely medication induced including AED, 2nd generation anti- psychotic and sinemet no intervention for now, cont. to monitor h/h, normal transfusion threshold Erick Stearns PGY3 Visit type - Emergency Visit Emergency Visit: No - New Patient This patient is new to me today: Yes Date on this admission: 04/25/18 - Critical Care Critical Care patient: No
[2018-04-25] MEDS: LORazepam 2 MG/ML SDV VIAL IVPUSH PRN (23:18)
[2018-04-25] MEDS ORDERED: METOPROLOL TARTRATE 5 MG/5 ML VIAL IVPUSH PRN (23:36)
[2018-04-26] MEDS: lamoTRIgine 100 MG TABLET (FP) PO SCH ×3 (00:04→22:43)
[2018-04-26] MEDS: CARBIDOPA/LEVODOPA 10/100 TABLET (FP) PO SCH ×3 (00:04→22:43)
[2018-04-26] MEDS: levETIRAcetam 500 MG/5 ML INJECTION VIAL IVPB SCH ×2 (00:05→10:03)
--- NOTE | 2018-04-26 00:45 | PN ---
Teaching Attending Note Name of Resident: Erick Stearns ATTENDING PHYSICIAN STATEMENT I saw and evaluated the patient. I reviewed the resident's note and discussed the case with the resident. I agree with the resident's findings and plan as documented. ASSESSMENT AND PLAN: 63 [facility] F [facility] HTN, Hypothyroidism, GERD, COPD, frequent UTIs, Bipolar Disorder, Schizophrenia . ? cognitive impairmenr BIBEMS for hypoxia and failure to thrive, now being evaluated for macrocytic anemia Assessment: Schizophrenia bipolar disorder UTI PNA Poor PO intake acute on chronic hypoxemic respiratory failure Macrocytic anemia macrocytic anemia likely medication induced including AED, 2nd generation anti- psychotic and sinemet check B12/folate/TSH/U/S liver/spleen/SPEP/UPEP Cehck stool occult/iron studies Monitor for now Transfusion as necessary
[2018-04-26] MEDS: levETIRAcetam 500 MG/5 ML ORAL SOLUTION (UNIT-DOSE CUPS) NGT SCH (01:15)
[2018-04-26] MEDS: METOPROLOL TARTRATE 25 MG TABLET (FP) PO SCH (01:15)
[2018-04-26] MEDS: LEVOTHYROXINE NA 75 MCG TABLET (FP) PO SCH (06:04)
[2018-04-26] MEDS: ARFORMOTEROL TARTRATE 15 MCG/2 ML VIAL NEB SCH ×2 (07:20→20:30)
[2018-04-26 07:36] LABS: BASO % 0.3 % (0-2.0); EOS % 0.7 % (0-4.5); HEMATOCRIT 27.3 % (32.4-45.2); HEMOGLOBIN 9.2 GM/dL (10.7-15.3); LYMPH % 41.6 % (8-40); MCH 33.9 pg (25.7-33.7); MCHC 33.9 g/dl (32.0-36.0); MEAN CELL VOLUME 100.2 fl (80-96); MEAN PLT VOLUME 6.8 fl (7.5-11.1); MONO % 5.7 % (3.8-10.2); NEUT % 51.7 % (42.8-82.8); PLATELET COUNT 152 K/MM3 (134-434); RBC 2.73 M/mm3 (3.60-5.2); RDW 15.4 % (11.6-15.6); WHITE BLOOD COUNT 6.1 K/mm3 (4.0-10.0)
[2018-04-26 08:52] LABS: ALBUMIN 2.1 g/dl (3.4-5.0); ALK PHOS 123 U/L (45-117); ANION GAP 5 MMOL/L (8-16); BILIRUBIN,TOTAL 0.3 mg/dL (0.2-1); BLOOD UREA NITROGEN 16 mg/dL (7-18); CALCIUM 8.1 mg/dL (8.5-10.1); CHLORIDE 105 mmol/L (98-107); CO2 35 mmol/L (21-32); CREATININE 0.9 mg/dL (0.55-1.3); GLUCOSE,RANDOM 80 mg/dL (74-106); POTASSIUM 4.3 mmol/L (3.5-5.1); SGOT/AST 17 U/L (15-37); SGPT/ALT < 6 U/L (13-61); SODIUM 145 mmol/L (136-145); TOT PROT 6.8 g/dl (6.4-8.2)
[2018-04-26] MEDS ORDERED: DEXTROSE 5%-WATER 100 ML IVPB ONE (09:50)
[2018-04-26] MEDS: CEFTRIAXONE 2 GM in DEXTROSE 5%-WATER 100 ML IVPB SCH (10:03)
[2018-04-26] MEDS: HEPARIN NA (PORCINE) 5,000 UNITS/ML 1ML VIAL SQ SCH ×2 (10:04→22:43)
[2018-04-26 11:00] LABS: ANISOCYTOSIS 0; MACROCYTOSIS 0; PLATELET ESTIMATE DECREASED
[2018-04-26] MEDS: AMINO ACIDS 4.25%/D5W 1,000 ML IV SCH (11:37)
--- NOTE | 2018-04-26 12:40 | PN ---
Progress Note (short form) - Note Progress Note: Awake agitated at times poor oral intake ng removed by pt she is asking for food peterson+ Vital Signs - 24 hr 04/25/18 04/25/18 04/25/18 15:13 18:30 21:00 Temperature 97.3 F L 98.1 F Pulse Rate 72 71 Respiratory 18 18 Rate Blood Pressure 96/56 L 109/67 O2 Sat by Pulse 95 Oximetry (%) 04/26/18 04/26/18 05:55 09:12 Temperature 98.5 F 98.5 F Pulse Rate 77 91 H Respiratory 18 20 Rate Blood Pressure 104/62 146/98 O2 Sat by Pulse Oximetry (%) Current Medications Generic Name Dose Route Start Last Admin Trade Name Freq PRN Reason Stop Dose Admin Albuterol Sulfate 1 amp 04/21/18 21:37 Ventolin 0.083% Nebulizer Soln - NEB Q6H PRN SHORT OF BREATH/WHEEZING Arformoterol Tartrate 1 amp 04/22/18 20:00 04/26/18 07:20 Brovana (Restricted To Pulmonology/Resp) - NEB 1 amp RBID ANNA Administration Carbidopa/Levodopa 1 each 04/22/18 11:30 04/26/18 10:04 Sinemet 10/100 - PO Not Given BID ANNA Heparin Sodium (Porcine) 5,000 unit 04/24/18 12:45 04/26/18 10:04 Heparin - SQ 5,000 unit BID ANNA Administration Ceftriaxone Sodium 2 gm/ 100 mls @ 100 mls/hr 04/23/18 13:30 04/26/18 10:03 Dextrose IVPB 100 mls/hr DAILY ANNA Administration Protocol Amino Acids 1,000 mls @ 84 mls/hr 04/26/18 11:00 04/26/18 11:37 Clinimix - IV 84 mls/hr Q12H ANNA Administration Lamotrigine 200 mg 04/22/18 11:30 04/26/18 10:04 Lamictal - PO Not Given BID ANNA Levetiracetam 1,000 mg 04/25/18 23:45 04/26/18 10:03 Keppra Injection - IVPB 1,000 mg BID ANNA Administration Levothyroxine Sodium 75 mcg 04/22/18 11:30 04/26/18 06:04 Synthroid - PO Not Given 0700 ANNA Lorazepam 1 mg 04/22/18 12:37 04/25/18 23:18 Ativan Injection - IVPUSH 1 mg Q6H PRN Administration ANXIETY Metoprolol Tartrate 5 mg 04/25/18 23:36 Lopressor Injection - IVPUSH Q6H PRN HYPERTENSION Laboratory Results - last 24 hr 04/26/18 04/26/18 04/26/18 06:00 06:00 06:25 WBC 6.1 RBC 2.73 L Hgb 9.2 L Hct 27.3 L MCV 100.2 H MCH 33.9 H MCHC 33.9 RDW 15.4 Plt Count 152 D MPV 6.8 L Absolute Neuts (auto) 3.2 Neutrophils % 51.7 Neutrophils % (Manual) 46.0 Band Neutrophils % 1.0 Lymphocytes % 41.6 H Lymphocytes % (Manual) 35.0 Monocytes % 5.7 Monocytes % (Manual) 9 D Eosinophils % 0.7 Eosinophils % (Manual) 0.0 Basophils % 0.3 Basophils % (Manual) 0.0 Myelocytes % (Man) 4 H D Promyelocytes % (Man) 0 Blast Cells % (Manual) 0 Nucleated RBC % 0 Metamyelocytes 3 H D Hypochromia 0 Platelet Estimate Decreased Polychromasia 0 Poikilocytosis 0 Anisocytosis 0 Microcytosis 0 Macrocytosis 0 Sodium 145 Potassium 4.3 Chloride 105 Carbon Dioxide 35 H Anion Gap 5 L BUN 16 Creatinine 0.9 Creat Clearance w eGFR > 60 POC Glucometer 85 Random Glucose 80 Calcium 8.1 L Total Bilirubin 0.3 AST 17 ALT < 6 L Alkaline Phosphatase 123 H Total Protein 6.8 Albumin 2.1 L S1 s2 RRR Lungs decreased Abd- soft, obese, NT rt arm edema-- iv infiltrated No leg edema NG+ Peterson+ PLAN IV fluids pt is awake , more alert iv antibiotics PEg tube saturday left infiltrate on CT Problem List - Problems (1) Acute and chronic respiratory failure with hypercapnia Code(s): J96.22 - ACUTE AND CHRONIC RESPIRATORY FAILURE WITH HYPERCAPNIA (2) Acute respiratory failure with hypoxia Code(s): J96.01 - ACUTE RESPIRATORY FAILURE WITH HYPOXIA (3) Adult failure to thrive Code(s): R62.7 - ADULT FAILURE TO THRIVE (4) Bipolar disorder Code(s): F31.9 - BIPOLAR DISORDER, UNSPECIFIED (5) COPD (chronic obstructive pulmonary disease) Code(s): J44.9 - CHRONIC OBSTRUCTIVE PULMONARY DISEASE, UNSPECIFIED (6) GERD (gastroesophageal reflux disease) Code(s): K21.9 - GASTRO-ESOPHAGEAL REFLUX DISEASE WITHOUT ESOPHAGITIS (7) HTN (hypertension) Code(s): I10 - ESSENTIAL (PRIMARY) HYPERTENSION (8) Hypernatremia Code(s): E87.0 - HYPEROSMOLALITY AND HYPERNATREMIA (9) Hypothyroidism Code(s): E03.9 - HYPOTHYROIDISM, UNSPECIFIED (10) Schizophrenia Code(s): F20.9 - SCHIZOPHRENIA, UNSPECIFIED
--- NOTE | 2018-04-26 14:22 | PN ---
Progress Note (short form) - Note Progress Note: PULMONARY LESS CONFUSED VSS Constitutional: Yes: NAD Eyes: Yes: WNL HENT: Yes: WNL Neck: Yes: WNL Cardiovascular: Yes: Regular Rate and Rhythm, S1, S2 Respiratory: Yes: Few scattered Rhonchi Gastrointestinal: Yes: Normal Bowel Sounds, Soft Extremities: Yes: WNL Edema: No Labs: REVIEWED Problem List - Problems (1) Acute and chronic respiratory failure with hypercapnia Code(s): J96.22 - ACUTE AND CHRONIC RESPIRATORY FAILURE WITH HYPERCAPNIA (2) Acute respiratory failure with hypoxia Code(s): J96.01 - ACUTE RESPIRATORY FAILURE WITH HYPOXIA (3) Bipolar disorder Code(s): F31.9 - BIPOLAR DISORDER, UNSPECIFIED (4) COPD (chronic obstructive pulmonary disease) Code(s): J44.9 - CHRONIC OBSTRUCTIVE PULMONARY DISEASE, UNSPECIFIED (5) GERD (gastroesophageal reflux disease) Code(s): K21.9 - GASTRO-ESOPHAGEAL REFLUX DISEASE WITHOUT ESOPHAGITIS (6) Hypernatremia Code(s): E87.0 - HYPEROSMOLALITY AND HYPERNATREMIA (7) Pneumonia Code(s): J18.9 - PNEUMONIA, UNSPECIFIED ORGANISM (8) Schizophrenia Code(s): F20.9 - SCHIZOPHRENIA, UNSPECIFIED (9) UTI (urinary tract infection) Code(s): N39.0 - URINARY TRACT INFECTION, SITE NOT SPECIFIED Qualifiers: Urinary tract infection type: site unspecified Hematuria presence: without hematuria Qualified Code(s): N39.0 - Urinary tract infection, site not specified Assessment/Plan IMP ACUTE HYPOXEMIC RESPIRATORY FAILURE ACUTE ON CHRONIC HYPERCAPNEIC RESPIRATORY FAILURE LLL PNEUMONIA COPD HYPERNATREMIA HTN HLD BIPOLAR SCHIZOPHRENIA ANEMIA PLAN BD TX ABX PER ID/ANTI SEIZURE INHALED BRONCHODILATORS SUPPLEMENTAL O2 MONITOR EMERY PEÑALOZA MD
[2018-04-27] MEDS: levETIRAcetam 500 MG/5 ML INJECTION VIAL IVPB SCH ×3 (00:18→22:55)
[2018-04-27] MEDS: AMINO ACIDS 4.25%/D5W 1,000 ML IV SCH ×4 (00:19→22:54)
[2018-04-27] MEDS: LEVOTHYROXINE NA 75 MCG TABLET (FP) PO SCH (06:40)
[2018-04-27] MEDS: ARFORMOTEROL TARTRATE 15 MCG/2 ML VIAL NEB SCH ×2 (07:24→20:20)
[2018-04-27] MEDS ORDERED: DEXTROSE 5%-WATER 100 ML IVPB ONE (10:06)
[2018-04-27] MEDS: CARBIDOPA/LEVODOPA 10/100 TABLET (FP) PO SCH ×2 (10:14→22:57)
[2018-04-27] MEDS: lamoTRIgine 100 MG TABLET (FP) PO SCH ×2 (10:14→22:56)
[2018-04-27] MEDS: CEFTRIAXONE 2 GM in DEXTROSE 5%-WATER 100 ML IVPB SCH (10:14)
[2018-04-27] MEDS: HEPARIN NA (PORCINE) 5,000 UNITS/ML 1ML VIAL SQ SCH ×2 (10:14→22:55)
--- NOTE | 2018-04-27 11:24 | PN ---
Progress Note (short form) - Note Progress Note: Awake wants to eat she ate applesauce and drank thickened liquids without any difficulty Vital Signs - 24 hr 04/26/18 04/26/18 04/26/18 14:21 18:00 21:00 Temperature 97.7 F 98.1 F Pulse Rate 75 69 Respiratory 20 20 20 Rate Blood Pressure 117/60 125/56 L O2 Sat by Pulse 97 Oximetry (%) 04/27/18 04/27/18 04/27/18 02:00 06:00 09:22 Temperature 98.7 F 98.5 F 98.3 F Pulse Rate 78 82 83 Respiratory 20 20 20 Rate Blood Pressure 127/66 114/70 124/53 L O2 Sat by Pulse Oximetry (%) Current Medications Generic Name Dose Route Start Last Admin Trade Name Freq PRN Reason Stop Dose Admin Arformoterol Tartrate 1 amp 04/22/18 20:00 04/27/18 07:24 Brovana (Restricted To Pulmonology/Resp) - NEB 1 amp RBID ANNA Administration Carbidopa/Levodopa 1 each 04/22/18 11:30 04/27/18 10:14 Sinemet 10/100 - PO Not Given BID ANNA Heparin Sodium (Porcine) 5,000 unit 04/24/18 12:45 04/27/18 10:14 Heparin - SQ 5,000 unit BID ANNA Administration Ceftriaxone Sodium 2 gm/ 100 mls @ 100 mls/hr 04/23/18 13:30 04/27/18 10:14 Dextrose IVPB 100 mls/hr DAILY ANNA Administration Protocol Amino Acids 1,000 mls @ 84 mls/hr 04/26/18 11:00 04/27/18 10:15 Clinimix - IV Not Given Q12H ANNA Lamotrigine 200 mg 04/22/18 11:30 04/27/18 10:14 Lamictal - PO Not Given BID ANNA Levetiracetam 1,000 mg 04/25/18 23:45 04/27/18 10:14 Keppra Injection - IVPB 1,000 mg BID ANNA Administration Levothyroxine Sodium 75 mcg 04/22/18 11:30 04/27/18 06:40 Synthroid - PO Not Given 0700 ANNA Metoprolol Tartrate 5 mg 04/25/18 23:36 Lopressor Injection - IVPUSH Q6H PRN HYPERTENSION Laboratory Results - last 24 hr 04/27/18 06:00 Vitamin B12 1521 H TSH 6.57 H Free T4 1.17 S1 s2 RRR Lungs decreased Abd- soft, obese, NT rt arm edema-- iv infiltrated No leg edema NG+ Peterson+ PLAN IV fluids pt is awake , more alert iv antibiotics will try diet if she is eating well, may defer peg tube- spoke with GI dc peterson left infiltrate on CT Problem List - Problems (1) Acute and chronic respiratory failure with hypercapnia Code(s): J96.22 - ACUTE AND CHRONIC RESPIRATORY FAILURE WITH HYPERCAPNIA (2) Acute respiratory failure with hypoxia Code(s): J96.01 - ACUTE RESPIRATORY FAILURE WITH HYPOXIA (3) Adult failure to thrive Code(s): R62.7 - ADULT FAILURE TO THRIVE (4) Bipolar disorder Code(s): F31.9 - BIPOLAR DISORDER, UNSPECIFIED (5) COPD (chronic obstructive pulmonary disease) Code(s): J44.9 - CHRONIC OBSTRUCTIVE PULMONARY DISEASE, UNSPECIFIED (6) GERD (gastroesophageal reflux disease) Code(s): K21.9 - GASTRO-ESOPHAGEAL REFLUX DISEASE WITHOUT ESOPHAGITIS (7) HTN (hypertension) Code(s): I10 - ESSENTIAL (PRIMARY) HYPERTENSION (8) Hypernatremia Code(s): E87.0 - HYPEROSMOLALITY AND HYPERNATREMIA (9) Hypothyroidism Code(s): E03.9 - HYPOTHYROIDISM, UNSPECIFIED (10) Schizophrenia Code(s): F20.9 - SCHIZOPHRENIA, UNSPECIFIED
--- NOTE | 2018-04-27 13:26 | PN ---
Progress Note (short form) - Note Progress Note: PULMONARY UPSET OVER NOT BEING CHANGED WANTS TO GO HOME HAS PULLED OUT NGT VSS Constitutional: Yes: NAD Eyes: Yes: WNL HENT: Yes: WNL Neck: Yes: WNL Cardiovascular: Yes: Regular Rate and Rhythm, S1, S2 Respiratory: Yes: Few scattered Rhonchi Gastrointestinal: Yes: Normal Bowel Sounds, Soft Extremities: Yes: WNL Edema: No Labs: REVIEWED Problem List - Problems (1) Acute and chronic respiratory failure with hypercapnia Code(s): J96.22 - ACUTE AND CHRONIC RESPIRATORY FAILURE WITH HYPERCAPNIA (2) Acute respiratory failure with hypoxia Code(s): J96.01 - ACUTE RESPIRATORY FAILURE WITH HYPOXIA (3) Bipolar disorder Code(s): F31.9 - BIPOLAR DISORDER, UNSPECIFIED (4) COPD (chronic obstructive pulmonary disease) Code(s): J44.9 - CHRONIC OBSTRUCTIVE PULMONARY DISEASE, UNSPECIFIED (5) GERD (gastroesophageal reflux disease) Code(s): K21.9 - GASTRO-ESOPHAGEAL REFLUX DISEASE WITHOUT ESOPHAGITIS (6) Hypernatremia Code(s): E87.0 - HYPEROSMOLALITY AND HYPERNATREMIA (7) Pneumonia Code(s): J18.9 - PNEUMONIA, UNSPECIFIED ORGANISM (8) Schizophrenia Code(s): F20.9 - SCHIZOPHRENIA, UNSPECIFIED (9) UTI (urinary tract infection) Code(s): N39.0 - URINARY TRACT INFECTION, SITE NOT SPECIFIED Qualifiers: Urinary tract infection type: site unspecified Hematuria presence: without hematuria Qualified Code(s): N39.0 - Urinary tract infection, site not specified Assessment/Plan IMP ACUTE HYPOXEMIC RESPIRATORY FAILURE ACUTE ON CHRONIC HYPERCAPNEIC RESPIRATORY FAILURE LLL PNEUMONIA COPD HYPERNATREMIA HTN HLD BIPOLAR SCHIZOPHRENIA ANEMIA PLAN BD TX ABX PER ID/ANTI SEIZURE INHALED BRONCHODILATORS SUPPLEMENTAL O2 MONITOR EMERY PEÑALOZA MD
[2018-04-27] MEDS ORDERED: PT OWN MED DRAWER 7, Y5N ONE (23:53)
[2018-04-28] MEDS: LEVOTHYROXINE NA 75 MCG TABLET (FP) PO SCH ×2 (06:15→06:22)
[2018-04-28] MEDS: ARFORMOTEROL TARTRATE 15 MCG/2 ML VIAL NEB SCH ×2 (07:42→20:51)
[2018-04-28] MEDS ORDERED: DEXTROSE 5%-WATER 100 ML IVPB ONE (08:57)
[2018-04-28] MEDS: levETIRAcetam 500 MG/5 ML INJECTION VIAL IVPB SCH ×2 (09:30→22:19)
[2018-04-28] MEDS: CARBIDOPA/LEVODOPA 10/100 TABLET (FP) PO SCH ×2 (09:37→22:20)
[2018-04-28] MEDS: lamoTRIgine 100 MG TABLET (FP) PO SCH ×2 (09:37→22:20)
--- NOTE | 2018-04-28 10:54 | PN ---
Progress Note (short form) - Note Progress Note: PULMONARY Denies shortness of breath or cough. Vital Signs Period Temp Pulse Resp BP Sys/Meyers Pulse Ox Last 24 Hr 98.0 F-98.9 F 75-97 20-20 109-141/44-73 93 Gen: NAD at rest Heart: RRR Lung: decreased breath sounds at the bases Abd: soft, nontender Ext: no edema CBC, BMP 04/26/18 06:00 04/26/18 06:00 Active Medications Arformoterol Tartrate (Brovana (Restricted To Pulmonology/Resp) -) 1 amp NEB RBID [facility] Last Admin: 04/28/18 07:42 Dose: 1 amp Carbidopa/Levodopa (Sinemet 10/100 -) 1 each PO BID [facility] Last Admin: 04/28/18 09:37 Dose: 1 each Heparin Sodium (Porcine) (Heparin -) 5,000 unit SQ BID [facility] Last Admin: 04/27/18 22:55 Dose: 5,000 unit Ceftriaxone Sodium 2 gm/ (Dextrose) 100 mls @ 100 mls/hr IVPB DAILY [facility]; Protocol Last Admin: 04/27/18 10:14 Dose: 100 mls/hr Amino Acids (Clinimix -) 1,000 mls @ 84 mls/hr IV Q12H ANNA Last Admin: 04/27/18 22:54 Dose: 84 mls/hr Lamotrigine (Lamictal -) 200 mg PO BID ANNA Last Admin: 04/28/18 09:37 Dose: 200 mg Levetiracetam (Keppra Injection -) 1,000 mg IVPB BID ANNA Last Admin: 04/28/18 09:30 Dose: 1,000 mg Levothyroxine Sodium (Synthroid -) 75 mcg PO 0700 [facility] Last Admin: 04/28/18 06:22 Dose: Not Given Metoprolol Tartrate (Lopressor Injection -) 5 mg IVPUSH Q6H PRN PRN Reason: HYPERTENSION A/P Acute on Chronic Hypoxic and Hypercapneic Respiratory Failure Pneumonia COPD HTN Hyperlipidemia Bipolar Disorder Schizophrenia - complete antibiotics - inhaled bronchodilators - O2 to keep SpO2 >90% - outpt f/u of chest imaging to ensure resolution of infiltrate - DVT prophylaxis
--- NOTE | 2018-04-28 10:59 | PN ---
Progress Note (short form) - Note Progress Note: pt seen/ examined chart reviewed Vital Signs Temp 98.3 F 04/28/18 08:30 Pulse 75 04/28/18 08:30 Resp 20 04/28/18 08:30 BP 137/51 L 04/28/18 08:30 Pulse Ox 93 L 04/27/18 21:00 Intake & Output 04/27/18 04/27/18 04/28/18 11:59 23:59 11:59 Intake Total 200 100 0 Output Total 500 500 Balance -300 -400 0 Intake: IVPB 200 Oral 100 0 Output: Urine 500 500 Peralta 500 250 Void 250 Other: Voiding Method Indwelling Catheter Incontinent Incontinent # Unmeasured Voids Void 1 3 Bowel Movement Yes Yes # Bowel Movements 1 Active Medications Arformoterol Tartrate (Brovana (Restricted To Pulmonology/Resp) -) 1 amp NEB RBID [facility] Last Admin: 04/28/18 07:42 Dose: 1 amp Carbidopa/Levodopa (Sinemet 10/100 -) 1 each PO BID [facility] Last Admin: 04/28/18 09:37 Dose: 1 each Heparin Sodium (Porcine) (Heparin -) 5,000 unit SQ BID [facility] Last Admin: 04/27/18 22:55 Dose: 5,000 unit Ceftriaxone Sodium 2 gm/ (Dextrose) 100 mls @ 100 mls/hr IVPB DAILY [facility]; Protocol Last Admin: 04/27/18 10:14 Dose: 100 mls/hr Amino Acids (Clinimix -) 1,000 mls @ 84 mls/hr IV Q12H [facility] Last Admin: 04/27/18 22:54 Dose: 84 mls/hr Lamotrigine (Lamictal -) 200 mg PO BID [facility] Last Admin: 04/28/18 09:37 Dose: 200 mg Levetiracetam (Keppra Injection -) 1,000 mg IVPB BID [facility] Last Admin: 04/28/18 09:30 Dose: 1,000 mg Levothyroxine Sodium (Synthroid -) 75 mcg PO 0700 [facility] Last Admin: 04/28/18 06:22 Dose: Not Given Metoprolol Tartrate (Lopressor Injection -) 5 mg IVPUSH Q6H PRN PRN Reason: HYPERTENSION CBC, BMP 04/26/18 06:00 04/26/18 06:00 Microbiology 04/22/18 21:15 Blood Culture - Final Blood - Peripheral Venous NO GROWTH AFTER 5 DAYS INCUBATION 04/22/18 21:15 Blood Culture - Final Blood - Peripheral Venous NO GROWTH AFTER 5 DAYS INCUBATION Physical exam S1 s2 RRR Lungs decreased Abd- soft, obese, NT awake and comfortable PLAN clinically stable Eating very well today Defer PEG----discussed with GI also today Continue antibiotics--today If stable will discharge to correction tomorrow Follow-up chest x-ray--- in 4 weeks--document resolution of infiltrate. Will follow Discussed with nursing staff also.
[2018-04-28] MEDS: CEFTRIAXONE 2 GM in DEXTROSE 5%-WATER 100 ML IVPB SCH (11:22)
--- NOTE | 2018-04-28 13:02 | PN ---
Progress Note, SOLAR TECHNICIAN - Note Progress Note: Selected Entries 04/27/18 04/27/18 04/27/18 02:00 06:00 09:22 Breakfast Temperature 98.7 F 98.5 F 98.3 F 04/27/18 04/27/18 04/27/18 09:57 14:07 18:00 Breakfast NPO Temperature 98.1 F 98.2 F 04/27/18 04/28/18 04/28/18 23:00 01:58 06:00 Breakfast Temperature 98.4 F 98.9 F 98.0 F 04/28/18 04/28/18 08:30 10:47 Breakfast 75% Temperature 98.3 F Soft diet/nectar thick liquid ordered yesterday. Pt more verbal, rambles. Tolerating very soft easy to chew foods such as cake, lasagne, with TELEVISION [employer]INTENA[employer]CE MAN holding melted cheese, string beans as pt is edentulous. Refused trial of thin water from mo, in order to possibly upgrade liquid consistency. Doing quite well. REC: RD consult, to provide very soft, easy to chew foods, maybe with pureed vegetables. Supplements b/n meals. Monitor tolerance. Defer PEG
--- NOTE | 2018-04-28 17:08 | PN ---
Progress Note, Physician History of Present Illness: Pt seen and examined. Her appetite is improved. - Current Medication List Current Medications: Active Medications Arformoterol Tartrate (Brovana (Restricted To Pulmonology/Resp) -) 1 amp NEB RBID [facility] Last Admin: 04/28/18 07:42 Dose: 1 amp Carbidopa/Levodopa (Sinemet 10/100 -) 1 each PO BID [facility] Last Admin: 04/28/18 09:37 Dose: 1 each Heparin Sodium (Porcine) (Heparin -) 5,000 unit SQ BID [facility] Last Admin: 04/27/18 22:55 Dose: 5,000 unit Ceftriaxone Sodium 2 gm/ (Dextrose) 100 mls @ 100 mls/hr IVPB DAILY [facility]; Protocol Last Admin: 04/28/18 11:22 Dose: 100 mls/hr Lamotrigine (Lamictal -) 200 mg PO BID [facility] Last Admin: 04/28/18 09:37 Dose: 200 mg Levetiracetam (Keppra Injection -) 1,000 mg IVPB BID [facility] Last Admin: 04/28/18 09:30 Dose: 1,000 mg Levothyroxine Sodium (Synthroid -) 75 mcg PO 0700 [facility] Last Admin: 04/28/18 06:22 Dose: Not Given Metoprolol Tartrate (Lopressor Injection -) 5 mg IVPUSH Q6H PRN PRN Reason: HYPERTENSION - Objective Vital Signs: Vital Signs Temperature 98.3 F 04/28/18 08:30 Pulse Rate 75 04/28/18 08:30 Respiratory Rate 20 04/28/18 09:00 Blood Pressure 137/51 L 04/28/18 08:30 O2 Sat by Pulse Oximetry (%) 93 L 04/28/18 09:00 Constitutional: Yes: Calm Eyes: Yes: Conjunctiva Clear HENT: Yes: Atraumatic Cardiovascular: Yes: S1, S2 Respiratory: Yes: CTA Bilaterally Gastrointestinal: Yes: Normal Bowel Sounds, Soft Genitourinary: Yes: Incontinence Musculoskeletal: Yes: WNL Edema: No Neurological: Yes: Confusion Labs: CBC, BMP 04/26/18 06:00 04/26/18 06:00 INR, PTT INR 1.04 (0.83-1.09) 04/21/18 13:20 Assessment/Plan Current Medications Generic Name Dose Route Start Last Admin Trade Name Freq PRN Reason Stop Dose Admin Arformoterol Tartrate 1 amp 04/22/18 20:00 04/28/18 07:42 Brovana (Restricted To Pulmonology/Resp) - NEB 1 amp RBID ANNA Administration Carbidopa/Levodopa 1 each 04/22/18 11:30 04/28/18 09:37 Sinemet 10/100 - PO 1 each BID ANNA Administration Heparin Sodium (Porcine) 5,000 unit 04/24/18 12:45 04/27/18 22:55 Heparin - SQ 5,000 unit BID ANNA Administration Ceftriaxone Sodium 2 gm/ 100 mls @ 100 mls/hr 04/23/18 13:30 04/28/18 11:22 Dextrose IVPB 100 mls/hr DAILY ANNA Administration Protocol Lamotrigine 200 mg 04/22/18 11:30 04/28/18 09:37 Lamictal - PO 200 mg BID ANNA Administration Levetiracetam 1,000 mg 04/25/18 23:45 04/28/18 09:30 Keppra Injection - IVPB 1,000 mg BID ANNA Administration Levothyroxine Sodium 75 mcg 04/22/18 11:30 04/28/18 06:22 Synthroid - PO Not Given 0700 ANNA Metoprolol Tartrate 5 mg 04/25/18 23:36 Lopressor Injection - IVPUSH Q6H PRN HYPERTENSION Impression 1. hypernatremia 2. bipolar 3. azotemia 4. htn 5. hypothyroidism 6. copd 7. gerd 8. hypokalemia Plan - pt tolerating feeds - check bmp - will follow pt -
[2018-04-29] MEDS: LEVOTHYROXINE NA 75 MCG TABLET (FP) PO SCH (06:10)
[2018-04-29 07:13] LABS: ANION GAP 6 MMOL/L (8-16); BLOOD UREA NITROGEN 10 mg/dL (7-18); CALCIUM 8.5 mg/dL (8.5-10.1); CHLORIDE 110 mmol/L (98-107); CO2 32 mmol/L (21-32); CREATININE 0.6 mg/dL (0.55-1.3); GLUCOSE,RANDOM 88 mg/dL (74-106); POTASSIUM 3.4 mmol/L (3.5-5.1); SODIUM 148 mmol/L (136-145)
[2018-04-29] MEDS: ARFORMOTEROL TARTRATE 15 MCG/2 ML VIAL NEB SCH (07:30)
[2018-04-29] MEDS ORDERED: DEXTROSE 5%-WATER 100 ML IVPB ONE (08:48)
[2018-04-29] MEDS: CEFTRIAXONE 2 GM in DEXTROSE 5%-WATER 100 ML IVPB SCH (10:04)
[2018-04-29] MEDS: lamoTRIgine 100 MG TABLET (FP) PO SCH (10:05)
[2018-04-29] MEDS: HEPARIN NA (PORCINE) 5,000 UNITS/ML 1ML VIAL SQ SCH (10:05)
[2018-04-29] MEDS: levETIRAcetam 500 MG/5 ML INJECTION VIAL IVPB SCH (10:05)
[2018-04-29] MEDS: CARBIDOPA/LEVODOPA 10/100 TABLET (FP) PO SCH (10:06)
--- NOTE | 2018-04-29 10:45 | PN ---
Progress Note (short form) - Note Progress Note: PULMONARY Denies shortness of breath or cough. No fevers or chills. Vital Signs Period Temp Pulse Resp BP Sys/Meyers Pulse Ox Last 24 Hr 98.3 F-98.8 F 87-95 20-20 114-148/50-67 95 Gen: NAD at rest Heart: RRR Lung: decreased breath sounds at the bases Abd: soft, nontender Ext: no edema CBC, BMP 04/26/18 06:00 04/29/18 06:30 Active Medications Arformoterol Tartrate (Brovana (Restricted To Pulmonology/Resp) -) 1 amp NEB RBID [facility] Last Admin: 04/28/18 20:51 Dose: 1 amp Carbidopa/Levodopa (Sinemet -) 1 each PO BID [facility] Last Admin: 04/29/18 10:06 Dose: 1 each Heparin Sodium (Porcine) (Heparin -) 5,000 unit SQ BID [facility] Last Admin: 04/29/18 10:05 Dose: 5,000 unit Ceftriaxone Sodium 2 gm/ (Dextrose) 100 mls @ 100 mls/hr IVPB DAILY [facility]; Protocol Last Admin: 04/29/18 10:04 Dose: 100 mls/hr Lamotrigine (Lamictal -) 200 mg PO BID [facility] Last Admin: 04/29/18 10:05 Dose: 200 mg Levetiracetam (Keppra Injection -) 1,000 mg IVPB BID [facility] Last Admin: 04/29/18 10:05 Dose: 1,000 mg Levothyroxine Sodium (Synthroid -) 75 mcg PO 0700 [facility] Last Admin: 04/29/18 06:10 Dose: 75 mcg Metoprolol Tartrate (Lopressor Injection -) 5 mg IVPUSH Q6H PRN PRN Reason: HYPERTENSION A/P Acute on Chronic Hypoxic and Hypercapneic Respiratory Failure improving Pneumonia COPD HTN Hyperlipidemia Bipolar Disorder Schizophrenia - complete antibiotics - increase free water - replete lytes - inhaled bronchodilators - O2 to keep SpO2 >90% - outpt f/u of chest imaging to ensure resolution of infiltrate - DVT prophylaxis
[2018-04-29] MEDS ORDERED: POTASSIUM CHLORIDE ORAL LIQUID 20 MEQ/15 ML PO ONE (11:45)
--- NOTE | 2018-04-29 11:51 | DS ---
Physical Examination Vital Signs: Vital Signs Temperature 98.6 F 04/29/18 10:00 Pulse Rate 86 04/29/18 10:00 Respiratory Rate 20 04/29/18 10:00 Blood Pressure 141/92 04/29/18 10:00 O2 Sat by Pulse Oximetry (%) 96 04/29/18 09:00 Constitutional: Yes: No Distress, Calm Cardiovascular: Yes: Regular Rate and Rhythm Respiratory: Yes: Diminished Gastrointestinal: Yes: Normal Bowel Sounds, Soft. No: Tenderness Edema: No Labs: CBC, BMP 04/26/18 06:00 04/29/18 06:30 Discharge Summary Reason For Visit: ACUTE RESP FAILURE W HYPOXIA,HYPERNATREMIA Current Active Problems Acute and chronic respiratory failure with hypercapnia (Acute) Acute respiratory failure with hypoxia (Acute) Adult failure to thrive (Acute) Bipolar disorder (Acute) COPD (chronic obstructive pulmonary disease) (Acute) GERD (gastroesophageal reflux disease) (Acute) HTN (hypertension) (Acute) Hypernatremia (Acute) Hypothyroidism (Acute) Pneumonia (Acute) Schizophrenia (Acute) UTI (urinary tract infection) (Acute) Hospital Course: Admitted for respiratory failure, lethargy, toxic metabolic encephalopathy- acute renal failure with hypernatremia, severe dehydration Found to have UTI, sepsis and left lower lobe pneumonia Seen by Renal , ID, Pulmonary She was on iv fluids vigorous , iv antibiotics electrolytes better Her psych meds adjusted -- she is more awake and cooperative Calm She was evaluated by swallow therapist and GI for feeding tube-- she initially had NG tube placed for free water administration-- but pulled it out She is eating chopped diet with nectar thick liquids without difficulties Deferred Peg tube placement as she was eating she will need to be fed meals that are chopped- snacks and juice, supplements stable for dc to NH on po antibiotics Condition: Fair - Instructions Referrals: Julio César Pereira MD [Primary Care Provider] - Disposition: [facility]ILITY - Home Medications Comprehensive Discharge Medication List: Ambulatory Orders Acetaminophen [Non-Aspirin Pain Relief] 650 mg PO Q6H PRN 01/14/15 Albuterol 0.083% Nebulizer Renuka [Ventolin 0.083% Nebulizer Soln -] 1 neb NEB Q6H PRN 01/14/15 Benztropine Mesylate 1 mg PO TID 01/14/15 Divalproex [Depakote -] 250 mg PO BID 01/14/15 Lamotrigine 200 mg PO BID 01/14/15 Levetiracetam [Keppra] 1,000 mg PO BID 01/14/15 Levothyroxine [Synthroid -] 75 mcg PO DAILY 01/14/15 Metoprolol Tartrate 25 mg PO BID 01/14/15 Ammonium Lactate Cream [Lac-Hydrin 12% *Cream*] 1 applic TP BID 04/22/18 Aripiprazole [Abilify] 20 mg PO DAILY 04/22/18 Aspirin [ASA -] 81 mg PO DAILY 04/22/18 Carbidopa/Levodopa [Sinemet -] 1 each PO BID 04/22/18 Magnesium Hydroxide [Milk of Magnesia] 400 mg PO Q48H PRN 04/22/18 Mineral Oil/Pet Hy-Phl [Aquaphor] 1 applic TP BID 04/22/18 Vit A/Vitamin D3/E/Aloe V/Zinc [Periguard Ointment] 15 gm TP BID 04/22/18
--- NOTE | 2018-04-29 12:53 | PN ---
Progress Note, PAN SHAKER - Note Progress Note: Selected Entries 04/27/18 04/27/18 04/27/18 02:00 06:00 09:22 Breakfast Temperature 98.7 F 98.5 F 98.3 F 04/27/18 04/27/18 04/27/18 09:57 14:07 18:00 Breakfast NPO Temperature 98.1 F 98.2 F 04/27/18 04/28/18 04/28/18 23:00 01:58 06:00 Breakfast Temperature 98.4 F 98.9 F 98.0 F 04/28/18 04/28/18 08:30 10:47 Breakfast 75% Temperature 98.3 F Selected Entries 04/28/18 04/28/18 04/28/18 01:58 06:00 08:30 Breakfast Lunch Supper Temperature 98.9 F 98.0 F 98.3 F 04/28/18 04/28/18 04/28/18 10:47 14:11 18:00 Breakfast 100% Lunch 75% Supper Temperature 98.3 F 04/28/18 04/28/18 04/29/18 19:16 22:00 01:56 Breakfast Lunch Supper 50% Temperature 98.6 F 98.8 F 04/29/18 04/29/18 06:00 10:00 Breakfast Lunch Supper Temperature 98.4 F 98.6 F Laboratory Tests 04/26/18 06:00 WBC 6.1 Doing quite well. Given mainly very soft mashed foods with extra gravy, avoiding beans, corn, etc on tray. Pt did quite well initially last night, completing meal and supplement with a lot of encouragement. however, staff felt she was too full,and then vomited 50%. Overtly tolerating food without cough. Pending d/c to NH Suggest chopped food, extra gravy. Feed slowly, alternating food with liquid. Allow time to digest Consider several smaller meals throughout the day Supplements b/n meals. HOB elevated for meals and for atleast an hour after meals Monitor tolerance. Defer PEG
--- NOTE | 2018-04-29 14:10 | PN ---
Progress Note, Physician History of Present Illness: Pt seen and examined at bedside. She is awake but confused. - Current Medication List Current Medications: Active Medications Arformoterol Tartrate (Brovana (Restricted To Pulmonology/Resp) -) 1 amp NEB RBID [facility] Last Admin: 04/29/18 07:30 Dose: 1 amp Carbidopa/Levodopa (Sinemet 10/ -) 1 each PO BID [facility] Last Admin: 04/29/18 10:06 Dose: 1 each Heparin Sodium (Porcine) (Heparin -) 5,000 unit SQ BID [facility] Last Admin: 04/29/18 10:05 Dose: 5,000 unit Ceftriaxone Sodium 2 gm/ (Dextrose) 100 mls @ 100 mls/hr IVPB DAILY [facility]; Protocol Last Admin: 04/29/18 10:04 Dose: 100 mls/hr Lamotrigine (Lamictal -) 200 mg PO BID [facility] Last Admin: 04/29/18 10:05 Dose: 200 mg Levetiracetam (Keppra Injection -) 1,000 mg IVPB BID [facility] Last Admin: 04/29/18 10:05 Dose: 1,000 mg Levothyroxine Sodium (Synthroid -) 75 mcg PO 0700 [facility] Last Admin: 04/29/18 06:10 Dose: 75 mcg Metoprolol Tartrate (Lopressor Injection -) 5 mg IVPUSH Q6H PRN PRN Reason: HYPERTENSION - Objective Vital Signs: Vital Signs Temperature 98.6 F 04/29/18 10:00 Pulse Rate 86 04/29/18 10:00 Respiratory Rate 20 04/29/18 10:00 Blood Pressure 141/92 04/29/18 10:00 O2 Sat by Pulse Oximetry (%) 96 04/29/18 09:00 Constitutional: Yes: Calm Eyes: Yes: Conjunctiva Clear HENT: Yes: Atraumatic Cardiovascular: Yes: S1, S2 Respiratory: Yes: CTA Bilaterally Gastrointestinal: Yes: Soft, Abdomen, Obese Genitourinary: Yes: Incontinence Musculoskeletal: Yes: WNL Edema: Yes Edema: LLE: Trace, RLE: Trace Neurological: Yes: Confusion Labs: CBC, BMP 04/26/18 06:00 04/29/18 06:30 INR, PTT INR 1.04 (0.83-1.09) 04/21/18 13:20 Assessment/Plan Current Medications Generic Name Dose Route Start Last Admin Trade Name Freq PRN Reason Stop Dose Admin Arformoterol Tartrate 1 amp 04/22/18 20:00 04/29/18 07:30 Brotuan (Restricted To Pulmonology/Resp) - NEB 1 amp RBID [facility] Administration Carbidopa/Levodopa 1 each 04/22/18 11:30 04/29/18 10:06 Sinemet 10/100 - PO 1 each BID [facility] Administration Heparin Sodium (Porcine) 5,000 unit 04/24/18 12:45 04/29/18 10:05 Heparin - SQ 5,000 unit BID [facility] Administration Ceftriaxone Sodium 2 gm/ 100 mls @ 100 mls/hr 04/23/18 13:30 04/29/18 10:04 Dextrose IVPB 100 mls/hr DAILY [facility] Administration Protocol Lamotrigine 200 mg 04/22/18 11:30 04/29/18 10:05 Lamictal - PO 200 mg BID [facility] Administration Levetiracetam 1,000 mg 04/25/18 23:45 04/29/18 10:05 Keppra Injection - IVPB 1,000 mg BID [facility] Administration Levothyroxine Sodium 75 mcg 04/22/18 11:30 04/29/18 06:10 Synthroid - PO 75 mcg 0700 [facility] Administration Metoprolol Tartrate 5 mg 04/25/18 23:36 Lopressor Injection - IVPUSH Q6H PRN HYPERTENSION Impression 1. hypernatremia 2. bipolar 3. azotemia 4. htn 5. hypothyroidism 6. copd 7. gerd 8. hypokalemia Plan - encourage free water intake as sodium is riding - potassium replaced - encourage PO intake - will need to monitor lytes in NH -
[2018-04-29 15:45] VITALS: BP 100/50; PULSE 85; TEMP 98.2
== END 2018-04-29 17:53 | DRG 133 ==
LOC: JER 11:24 → JERBED 14:46 → J4W 20:48 → J7W 04-25 10:27
PROVIDERS: ADMIT Internal Medicine; ATTEND Internal Medicine
DX: J96.21 Acute and chronic respiratory failure with hypoxia (principal); N39.0 Urinary tract infection, site not specified; R62.7 Adult failure to thrive; I10 Essential (primary) hypertension; E03.9 Hypothyroidism, unspecified; K21.9 Gastro-esophageal reflux disease without esophagitis; J96.22 Acute and chronic respiratory failure with hypercapnia; J44.9 Chronic obstructive pulmonary disease, unspecified; E86.0 Dehydration; G93.41 Metabolic encephalopathy; E87.0 Hyperosmolality and hypernatremia; J69.0 Pneumonitis due to inhalation of food and vomit; E87.6 Hypokalemia; E78.5 Hyperlipidemia, unspecified; D64.9 Anemia, unspecified; F20.89 Other schizophrenia; F31.89 Other bipolar disorder; E87.5 Hyperkalemia
CPT/HCPCS: 36415; 36600; 71045-TC-FY; 71275-TC; 80048; 80053; 81003; 81015; 82436; 82570; 82607; 82746; 82747; 82803; 82962; 83605; 83735; 83930; 83935; 84100; 84133; 84156; 84300; 84439; 84443; 84484; 85014; 85025; 85610; 85730; 87040; 87086; 87186; 93005; 93010; 94640; 99285-25; J1644; J7030

== ENCOUNTER 2018-05-01 20:51 | Inpatient (IN) | payer OTHER ==
--- NOTE | 2018-05-01 21:02 | PDOC ---
History of Present Illness - General Stated Complaint: Seizure Time Seen by Provider: 05/01/18 21:02 - History of Present Illness Initial Comments: 63 year old woman from [facility] with a PMH of Hypertension, Hypothyroidism, GERD, COPD (not on O2), frequent UTIs, BPD, Schizophrenia, Pressure Ulcers, varicose veins, and recent admission for acute respiratory failure (UTI, sepsis, and left lower lobe pneumonia trated with IV abx 04/21-04/28 ) presennting for 05/01/18 21:04 Past History - Past Medical History Allergies/Adverse Reactions: Allergies Allergy/AdvReac Type Severity Reaction Status Date / Time haloperidol Allergy Unknown Verified 04/21/18 11:38 sulfacetamide sodium Allergy Unknown Verified 04/21/18 11:38 [From Sulfamide] Home Medications: Ambulatory Orders Acetaminophen [Non-Aspirin Pain Relief] 650 mg PO Q6H PRN 01/14/15 Albuterol 0.083% Nebulizer Renuka [Ventolin 0.083% Nebulizer Soln -] 1 neb NEB Q6H PRN 01/14/15 Lamotrigine 200 mg PO BID 01/14/15 Levetiracetam [Keppra] 1,000 mg PO BID 01/14/15 Levothyroxine [Synthroid -] 75 mcg PO DAILY 01/14/15 Metoprolol Tartrate 25 mg PO BID 01/14/15 Carbidopa/Levodopa [Sinemet -] 1 each PO BID 04/22/18 Acidoph/L.bulg/Bif.b/S.thermop [Bacid Caplet] 1 each PO BID #30 tablet 04/29/18 Cefuroxime Axetil [Ceftin -] 500 mg PO Q12H #10 tablet 04/29/18 Heparin - 5,000 unit SQ BID vial 04/29/18 COPD: Yes CHF: No GI Disorders: Yes (reflux, obesity) HTN: Yes Psychiatric Problems: Yes (bipolar,schizo, depression extrapyramidal and movement disorder) Thyroid Disease: Yes (hypo) - Surgical History Orthopedic Surgery: Yes (left knee replacement) - Suicide/Smoking/Psychosocial Hx Smoking History: Unknown if ever smoked Have you smoked in the past 12 months: No Hx Alcohol Use: No Drug/Substance Use Hx: No *DC/Admit/Observation/Transfer - Referrals Referrals: Julio César Pereira MD [Primary Care Provider] - - Patient Instructions - Post Discharge Activity
[2018-05-01] MEDS ORDERED: RAPID SEQUENCE INTUBATION KIT NR ONE (21:11)
[2018-05-01] MEDS ORDERED: SODIUM CHLORIDE 0.9% 500 ML INFUS.BAG IV ONE (21:47)
--- NOTE | 2018-05-01 21:49 | PDOC ---
History of Present Illness - General Chief Complaint: Seizure Stated Complaint: Seizure Time Seen by Provider: 05/01/18 21:02 History Source: EMS Exam Limitations: Clinical Condition, Unresponsive - History of Present Illness Initial Comments: 05/01/18 21:49 63 year old woman from [facility] with a PMH of seizure disorder (on Keppra), Hypertension, Hypothyroidism, GERD, COPD (not on O2), frequent UTIs, BPD, Schizophrenia, Pressure Ulcers, varicose veins, and recent admission for acute respiratory failure (UTI, sepsis, and left lower lobe pneumonia treated with IV abx 04/21-04/28) presenting for status epilepticus. [facility] staff note that she was last seen normal at about 5 pm, had her normal Keppra dose, and then was found unresponsive with seizure-like jerking movements at 10:14pm at the facility. She stopped the jerking movements several times for a minute at a time, but never returned to baseline, per [facility] staff. EMS notes that they gave her 5 mg Versed. Past History - Past Medical History Allergies/Adverse Reactions: Allergies Allergy/AdvReac Type Severity Reaction Status Date / Time haloperidol Allergy Unknown Verified 05/01/18 21:27 sulfacetamide sodium Allergy Unknown Verified 05/01/18 21:27 [From Sulfamide] Home Medications: Ambulatory Orders Acetaminophen [Non-Aspirin Pain Relief] 650 mg PO Q6H PRN 01/14/15 Albuterol 0.083% Nebulizer Renuka [Ventolin 0.083% Nebulizer Soln -] 1 neb NEB Q6H PRN 01/14/15 Levothyroxine [Synthroid -] 75 mcg PO DAILY 01/14/15 Metoprolol Tartrate 25 mg PO BID 01/14/15 Heparin - 5,000 unit SQ BID vial 04/29/18 Aspirin [ASA -] 81 mg PO DAILY 05/02/18 Carbidopa/Levodopa 25/100 [Sinemet 25/100 -] 1 each PO BID 05/02/18 Acetylcysteine Po/INH 20% [Mucomyst 20 Oral / INH Use Only*] 200 mg NEB RQID # 60 vial 05/10/18 Divalproex Sprinkle [Depakote Sprinkle -] 1,000 mg PO BID #60 cap.sprink Lacosamide [Vimpat -] 100 mg PO BID #60 tab MDD 2 05/10/18 COPD: Yes CHF: No GI Disorders: Yes (reflux, obesity) HTN: Yes Psychiatric Problems: Yes (bipolar,schizo, depression extrapyramidal and movement disorder) Thyroid Disease: Yes (hypo) - Surgical History Orthopedic Surgery: Yes (left knee replacement) - Suicide/Smoking/Psychosocial Hx Smoking History: Unknown if ever smoked Have you smoked in the past 12 months: No Information on smoking cessation initiated: No Hx Alcohol Use: No Drug/Substance Use Hx: No Review of Systems - Review of Systems Able to Perform ROS?: No (unresponsive) *Physical Exam - Vital Signs Last Vital Signs Temp Pulse Resp BP Pulse Ox 140 H 12 188/65 H 88 L 05/01/18 20:55 05/01/18 20:55 05/01/18 20:55 05/01/18 20:55 - Physical Exam Comments: GENERAL: rhythmic jerking movements head, LUE, and LLE, unresponsive to nailbed pressure and sternal rub, morbidly obese HEENT: sustained left lateral deviation NECK/BACK: no spinal stepoff or deformity, no hematoma, neck supple CARDIOVASCULAR: tachycardic, normal S1S2, no MGR, capillary refill <2 seconds, extremities wwp, no edema LUNGS/RESPIRATORY: sonorous respirations, on non-rebreather initially, coarse breath sounds bilaterally with R>L GI/ABDOMEN: symmetric [id number], soft, no midline pulsatile masses : normal external appearance, no lesions, no swelling, non-malodorous EXTREMITIES: no muscle atrophy, no acute deformity, no edema SKIN: warm and dry, no pallor, no jaundice, no rash, no bruising, no skin breakdown, no cuts NEUROLOGICAL: GCS is 3 initially, no obvious facial droop, otherwise patient is unable to participate in exam Moderate Sedation - Procedure Monitoring Vital Signs: Procedure Monitoring Vital Signs Temperature Pulse Rate 140 H 05/01/18 20:55 Respiratory Rate 12 05/01/18 20:55 Blood Pressure 188/65 H 05/01/18 20:55 O2 Sat by Pulse Oximetry (%) 88 L 05/01/18 20:55 Procedures - Intubation Intubation Method: orotracheal Blade used: Mac Tube Size (Fr): 7.5 Medications: Etomidate, Rocuronium Tube position confirmed by: Direct visualization, CO2 detector, Chest x-ray, Breath sounds Breath Sounds after Intubation: equal Intubation Complications: no complications Post Intubation Xray: Yes Heart Score/ECG Review #1 Sinus rhythm, rate 81, left axis deviation, RBBB, TWI in II, III, aVF, and all precordial leads, no other ST-T changes ED Treatment Course - LABORATORY CBC & Chemistry Diagram: 05/09/18 09:32 05/09/18 09:32 - RADIOLOGY Radiology Studies Ordered: Category Date Time Status HEAD CT WITHOUT CONTRAST [CT] Stat CT Scan 05/01/18 21:41 Ordered Medical Decision Making - Medical Decision Making [id number] with seizure disorder p/w apparent status epilepticus refractory to versed. Initial Vital Signs Pulse Resp BP Pulse Ox 140 H 12 188/65 H 88 L 05/01/18 20:55 05/01/18 20:55 05/01/18 20:55 05/01/18 20:55 Exam: As noted in Physical Exam section. DDX IBNLT: status epilepticus (sz lasting 5-10 minutes, or repeated sz without regaining consciousness inbetween), seizure (myoclonic, tonic-clonic/grand mal, atonic, absence/petit mal) vs. syncope, VS abnormalities (e.g. fever), structural (e.g. epilepsy, CVA/TIA), infectious (e.g. UTI, PNA, meningitis), trauma, toxic-metabolic (e.g. medications, medication withdrawal, street drugs, street drug withdrawal, EtOH, EtOH withdrawal, electrolytes, thyroid), brain lesion (e.g. tumor), stroke, TTP (HUS with AMS, fever, poss seizure), idiopathic , psychiatric (e.g. pseudoseizure), eclampsia, etc. W/U ordered: Labs as noted below, EKG CXR TX ordered: IVF EKG: Reviewed; results as noted in ECG Review section. CXR: ETT in good position above telly, left lower hemithorax without PTX. Laboratory Tests 05/01/18 05/01/18 05/01/18 05:45 23:58 23:58 WBC RBC Hgb Hct MCV MCH MCHC RDW Plt Count MPV Absolute Neuts (auto) Neutrophils % Lymphocytes % Monocytes % Eosinophils % Basophils % Nucleated RBC % PT with INR INR Anticoagulation Therapy No Result Required. Puncture Site Right radial ABG pH 7.45 ABG pCO2 at Pt Temp 42.5 D ABG pO2 at Pt Temp 169.0 H* ABG HCO3 28.8 H ABG O2 Sat (Measured) 99.0 H ABG O2 Content 10.8 L ABG Base Excess 4.8 H Wei Test No Result Required. Carboxyhemoglobin 0.2 L Methemoglobin 0.2 L O2 Delivery Device M.vent Oxygen Flow Rate 100 Vent Mode A/c Vent Rate 12 Mechanical Rate Yes PEEP 5.0 Pressure Support Vent 400 Sodium Potassium Chloride Carbon Dioxide Anion Gap BUN Creatinine Creat Clearance w eGFR Random Glucose Calcium Total Bilirubin AST ALT Alkaline Phosphatase Creatine Kinase Troponin I Total Protein Albumin Urine Color Yellow Urine Appearance Slcloudy Urine pH 7.0 D Ur Specific [place] 1.014 Urine Protein 1+ H Urine Glucose (UA) Negative Urine Ketones Negative Urine Blood 2+ H Urine Nitrite Negative Urine Bilirubin Negative Urine Urobilinogen Negative Ur Leukocyte Esterase Negative Urine WBC (Auto) 9 Urine RBC (Auto) 7 Ur Epithelial Cells Rare Urine Mucus Rare Blood Type Antibody Screen Crossmatch 05/02/18 05/02/18 05/02/18 00:30 00:30 00:30 WBC 4.4 RBC 2.84 L Hgb 9.5 L Hct 28.0 L MCV 98.6 H MCH 33.5 MCHC 34.0 RDW 15.4 Plt Count 344 D MPV 6.5 L Absolute Neuts (auto) 3.1 Neutrophils % 71.2 D Lymphocytes % 21.7 D Monocytes % 6.3 Eosinophils % 0.1 D Basophils % 0.7 Nucleated RBC % 1 H PT with INR 13.30 H INR 1.13 H Anticoagulation Therapy Puncture Site ABG pH ABG pCO2 at Pt Temp ABG pO2 at Pt Temp ABG HCO3 ABG O2 Sat (Measured) ABG O2 Content ABG Base Excess Wei Test Carboxyhemoglobin Methemoglobin O2 Delivery Device Oxygen Flow Rate Vent Mode Vent Rate Mechanical Rate PEEP Pressure Support Vent Sodium 145 Potassium 4.2 Chloride 110 H Carbon Dioxide 32 Anion Gap 3 L BUN 12 Creatinine 0.9 Creat Clearance w eGFR > 60 Random Glucose 89 Calcium 8.0 L Total Bilirubin 0.3 AST 18 ALT 6 L Alkaline Phosphatase 120 H Creatine Kinase 38 Troponin I 0.29 H Total Protein 7.0 Albumin 2.4 L Urine Color Urine Appearance Urine pH Ur Specific [place] Urine Protein Urine Glucose (UA) Urine Ketones Urine Blood Urine Nitrite Urine Bilirubin Urine Urobilinogen Ur Leukocyte Esterase Urine WBC (Auto) Urine RBC (Auto) Ur Epithelial Cells Urine Mucus Blood Type Antibody Screen Crossmatch 05/02/18 00:30 WBC RBC Hgb Hct MCV MCH MCHC RDW Plt Count MPV Absolute Neuts (auto) Neutrophils % Lymphocytes % Monocytes % Eosinophils % Basophils % Nucleated RBC % PT with INR INR Anticoagulation Therapy Puncture Site ABG pH ABG pCO2 at Pt Temp ABG pO2 at Pt Temp ABG HCO3 ABG O2 Sat (Measured) ABG O2 Content ABG Base Excess Wei Test Carboxyhemoglobin Methemoglobin O2 Delivery Device Oxygen Flow Rate Vent Mode Vent Rate Mechanical Rate PEEP Pressure Support Vent Sodium Potassium Chloride Carbon Dioxide Anion Gap BUN Creatinine Creat Clearance w eGFR Random Glucose Calcium Total Bilirubin AST ALT Alkaline Phosphatase Creatine Kinase Troponin I Total Protein Albumin Urine Color Urine Appearance Urine pH Ur Specific [place] Urine Protein Urine Glucose (UA) Urine Ketones Urine Blood Urine Nitrite Urine Bilirubin Urine Urobilinogen Ur Leukocyte Esterase Urine WBC (Auto) Urine RBC (Auto) Ur Epithelial Cells Urine Mucus Blood Type O POSITIVE Antibody Screen Negative Crossmatch See Detail RIJ CVC is placed without complication as noted in Procedures section. Repeat CXR: RIJ CVC in good position. Patient on propofol drip, also required multiple push doses Versed and fentanyl. She has been given Phenytoin as well. 05/02/18 02:00 The Pt is unsafe for discharge at this time. They require further hospital management, observation, workup, and treatment. Microblog has been sent to [facility] for admission. Blank Decision to Admit order has been placed. Patient has been accepted to ICU - I have spoken with ICU resident. Consult order placed. Patient's care endorsed to Dr. Reid at the end of my shift. Pending conversation with [facility], head CT (respiratory is in the department taking patient to CT with RN). *DC/Admit/Observation/Transfer Diagnosis at time of Disposition: Status epilepticus - Discharge Dispostion Condition at time of disposition: Guarded Decision to Admit order: Yes - Prescriptions - Referrals - Patient Instructions - Post Discharge Activity
--- NOTE | 2018-05-01 21:50 | PDOC ---
Attending Attestation - HPI HPI: 05/01/18 22:39 The patient is a 63 year old female with a significant past medical history of HTN, hypothyroidism, COPD, BPD, GERD, schizophrenia, varicose veins, pressure ulcers, acute respiratory failure (recent admission 04/21-04/28) who was BIBA for evaluation of a seizure for unsure amount of time. Patient is unresponsive and can not provide history. As per nurse Taylor at [facility], the patient began showing rhythmic jerking and uncontrolled muscle spasms at around 8:14pm, intermittent episodes lasting about 5 min. She noted that at 5pm the patient took her dose of Keppra and was seen to be normal at that time. Allergies: haloperidol, sulfacetamide sodium PCP: Dr. Pereira. - Medical Decision Making 05/01/18 22:39 Call placed to [facility] and discussed with nurse Taylor. <Mariola Velasquez - Last Filed: 05/01/18 22:39> - Resident Resident Name: Yumiko Cooper - ED Attending Attestation I have performed the following: I have examined & evaluated the patient, The case was reviewed & discussed with the resident, I agree w/resident's findings & plan, Exceptions are as noted - HPI HPI: 05/01/18 22:40 Patient was not observed to return to baseline between witnessed episodes of seizure. EMS states that they gave her a single 5mg dose of IM versed w/o interruption of seizures. Per timeline given by ND, patient has been in status for at least 50 minutes. - Physicial Exam PE: 05/01/18 22:41 Agree with exam as documented by resident Actively seizing on presentation, non-verbal - Medical Decision Making 05/01/18 22:42 Status epilepticus required intubation f/u labs, imaging admit <Angel Beck - Last Filed: 05/01/18 22:43> Attestations - Attestations 05/01/18 22:39 Documentation prepared by Mariola Velasquez, acting as medical editor for Angel Beck MD. <Mariola Velasquez - Last Filed: 05/01/18 22:39>
[2018-05-01] MEDS ORDERED: MIDAZOLAM HCL 2 MG/2 ML SINGLE DOSE VIAL IVPUSH ONE ×2 (22:25→23:27)
[2018-05-01] MEDS ORDERED: PHENYTOIN SODIUM 100 MG/2 ML VIAL IVPB ONE (22:26)
[2018-05-01] MEDS ORDERED: MIDAZOLAM HCL 2 MG/2 ML SINGLE DOSE VIAL ONE ×3 (22:27→23:27)
[2018-05-01] MEDS: MIDAZOLAM HCL 2 MG/2 ML SINGLE DOSE VIAL IVPUSH ONE ×2 (22:45→22:53)
--- NOTE | 2018-05-02 | PDOC ---
*Physical Exam - Vital Signs Last Vital Signs Temp Pulse Resp BP Pulse Ox 113 H 16 188/65 H 96 05/01/18 21:39 05/01/18 21:39 05/01/18 20:55 05/01/18 21:39 ED Treatment Course - Medications Given in the ED: ED Medications Discontinued Medications Generic Name Dose Route Start Last Admin Trade Name Kajal PRN Reason Stop Dose Admin Midazolam HCl 4 mg 05/01/18 22:25 05/01/18 22:53 Versed - IVPUSH 05/01/18 22:26 4 mg ONCE ONE Administration Midazolam HCl 4 mg 05/01/18 23:27 05/01/18 23:41 Versed - IVPUSH 05/01/18 23:28 4 mg ONCE ONE Administration Phenytoin Sodium 1,500 mg 05/01/18 22:26 05/01/18 23:04 Dilantin Injection - IVPB 05/01/18 22:27 1,500 mg ONCE ONE Administration Sodium Chloride 500 ml 05/01/18 21:47 05/01/18 22:15 Normal Saline - IV 05/01/18 21:48 500 ml ONCE ONE Administration *DC/Admit/Observation/Transfer Diagnosis at time of Disposition: Seizure - Referrals Referrals: Julio César Pereira MD [Primary Care Provider] - - Patient Instructions - Post Discharge Activity Procedures - Central Line Central Line Lumen: triple Central Line Position: internal jugular (R) Anesthesia: 1% Lidocaine Amount of anesthesia (ccs): 10 Complications: none Post Central Line Insertion: sutured, good blood return, position confirmed w/ CXR
[2018-05-02] MEDS ORDERED: PROPOFOL 1,000,000 MCG/100 ML VIAL ONE (00:06)
[2018-05-02] MEDS: PROPOFOL 1,000,000 MCG/100 ML VIAL IVPB SCH ×2 (00:22→07:10)
[2018-05-02 00:24] LABS: ARTERIAL BLOOD GAS BASE EXCESS 4.8 meq/l (-2-2); ARTERIAL BLOOD GAS PCO2 42.5 mmHg (35-45); ARTERIAL BLOOD GAS pH 7.45 (7.35-7.45)
[2018-05-02 00:25] LABS: CARBOXYHEMOGLOBIN 0.2 gm% (0.5-2.0)
[2018-05-02 01:03] LABS: BASO % 0.7 % (0-2.0); EOS % 0.1 % (0-4.5); HEMOGLOBIN 9.5 GM/dL (10.7-15.3); LYMPH % 21.7 % (8-40); MCH 33.5 pg (25.7-33.7); MEAN CELL VOLUME 98.6 fl (80-96); MEAN PLT VOLUME 6.5 fl (7.5-11.1); MONO % 6.3 % (3.8-10.2); NEUT % 71.2 % (42.8-82.8); PLATELET COUNT 344 K/MM3 (134-434); RBC 2.84 M/mm3 (3.60-5.2); RDW 15.4 % (11.6-15.6); WHITE BLOOD COUNT 4.4 K/mm3 (4.0-10.0)
[2018-05-02 01:14] LABS: INR 1.13 (0.83-1.09); PROTHROMBIN TIME (PATIENT) 13.3 SEC (9.7-13.0)
[2018-05-02] MEDS: FENTANYL INJECTION 500 MCG in DEXTROSE 5%-WATER - 90 ML IVPB SCH (01:16)
[2018-05-02 01:33] LABS: ALBUMIN 2.4 g/dl (3.4-5.0); ALK PHOS 120 U/L (45-117); ANION GAP 3 MMOL/L (8-16); BILIRUBIN,TOTAL 0.3 mg/dL (0.2-1); BLOOD UREA NITROGEN 12 mg/dL (7-18); CHLORIDE 110 mmol/L (98-107); CO2 32 mmol/L (21-32); CREATININE 0.9 mg/dL (0.55-1.3); GLUCOSE,RANDOM 89 mg/dL (74-106); POTASSIUM 4.2 mmol/L (3.5-5.1); SGOT/AST 18 U/L (15-37); SGPT/ALT 6 U/L (13-61); SODIUM 145 mmol/L (136-145)
[2018-05-02] MEDS ORDERED: SODIUM CHLORIDE 0.9% 500 ML INFUS.BAG IV ONE ×2 (02:01→10:43)
--- NOTE | 2018-05-02 02:32 | PN ---
Teaching Attending Note Name of Resident: Yamileth Araujo ATTENDING PHYSICIAN STATEMENT I saw and evaluated the patient. I reviewed the resident's note and discussed the case with the resident. I agree with the resident's findings and plan as documented. SUBJECTIVE: Patient is a 63 year old woman from [facility] with a PMH of seizure disorder (on Keppra), Hypertension, Hypothyroidism, GERD, COPD (not on O2), frequent UTIs, BPD, Schizophrenia, Pressure Ulcers, varicose veins, and recent admission for acute respiratory failure (UTI, sepsis, and left lower lobe pneumonia treated with IV abx 04/21-04/28) presenting for status epilepticus. [facility] staff note that she was last seen normal at about 5 pm, had her normal Keppra dose, and then was found unresponsive with seizure-like jerking movements at 10:14pm at the facility. She stopped the jerking movements several times for a minute at a time, but never returned to baseline, per [facility] staff. EMS notes that they gave her 5 mg Versed, and she had about a 2 minute period OBJECTIVE: Sedated and intubated Vital Signs Period Temp Pulse Resp BP Sys/Meyers Pulse Ox Last 24 Hr 113-140 12-16 188/65 88-98 HEENT: No Jaundice, eye redness or discharge, PERRLA, EOMI. Normocephalic, atraumatic. External ears are normal and hearing is grossly intact. No nasal discharge. Neck: Supple, nontender. No palpable adenopathy or thyromegaly. No JVD Chest: Good effort. Clear to auscultation and percussion. Heart: Regular. No S3, rub or murmur Abdomen: Not distended, soft, nontender and no HSM. No rebound or guarding. Normoactive bowel sounds. Ext: Peripheral pulses intact. No leg edema. Skin: Warm and dry. No petechiae, rash or ecchymosis. Neuro: Sedated. Ventilator dependent. Withdraws to pain.. Sensation grossly intact in all four extremities and DTR are symmetric. Current Medications Generic Name Dose Route Start Last Admin Trade Name Freq PRN Reason Stop Dose Admin Propofol 1,000,000 mcg in 100 mls @ 3.402 mls/hr 05/01/18 21:45 05/02/18 00: 22 Diprivan - IVPB 5 mcg/kg/min TITR ANNA 3.402 mls/hr Administration Protocol 5 MCG/KG/MIN Fentanyl 500 mcg/ Dextrose 100 mls @ 5 mls/hr 05/02/18 00:45 05/02/18 01:16 IVPB 25 mcg/hr TITR ANNA 5 mls/hr Administration 25 MCG/HR Home Medications Medication Instructions Recorded Acetaminophen [Non-Aspirin Pain 650 mg PO Q6H PRN 01/14/15 Relief] Albuterol 0.083% Nebulizer Renuka 1 neb NEB Q6H PRN 01/14/15 [Ventolin 0.083% Nebulizer Soln -] Lamotrigine 200 mg PO BID 01/14/15 Levetiracetam [Keppra] 1,000 mg PO BID 01/14/15 Levothyroxine [Synthroid -] 75 mcg PO DAILY 01/14/15 Metoprolol Tartrate 25 mg PO BID 01/14/15 Carbidopa/Levodopa [Sinemet 1 each PO BID 04/22/18 -] Acidoph/L.bulg/Bif.b/S.thermop 1 each PO BID #30 tablet 04/29/18 [Bacid Caplet] Cefuroxime Axetil [Ceftin -] 500 mg PO Q12H #10 tablet 04/29/18 Heparin - 5,000 unit SQ BID vial 04/29/18 Abnormal Lab Results 05/01/18 05/01/18 05/02/18 23:58 23:58 00:30 RBC 2.84 L Hgb 9.5 L Hct 28.0 L MCV 98.6 H MPV 6.5 L Nucleated RBC % 1 H PT with INR INR ABG pO2 at Pt Temp 169.0 H* ABG HCO3 28.8 H ABG O2 Sat (Measured) 99.0 H ABG O2 Content 10.8 L ABG Base Excess 4.8 H Carboxyhemoglobin 0.2 L Methemoglobin 0.2 L Chloride Anion Gap Calcium ALT Alkaline Phosphatase Troponin I Albumin 05/02/18 05/02/18 00:30 00:30 RBC Hgb Hct MCV MPV Nucleated RBC % PT with INR 13.30 H INR 1.13 H ABG pO2 at Pt Temp ABG HCO3 ABG O2 Sat (Measured) ABG O2 Content ABG Base Excess Carboxyhemoglobin Methemoglobin Chloride 110 H Anion Gap 3 L Calcium 8.0 L ALT 6 L Alkaline Phosphatase 120 H Troponin I 0.29 H Albumin 2.4 L ASSESSMENT AND PLAN: 1. Status Epilepticus - Precipitating factor for status epilepticus is unclear. Head CT scan pending. Being treated with IV fentanyl drip and propofol. Will check keppra level and urine toxicology. No acute abnormality on CXR. EKG shows nonspecific T wave changes. Elevated troponin likely due to demand ischemia, but will rule out ACS in the ICU. Continue ventilator support. Consult Neurology. 2. Hypoalbuminemia - Possibly due to combined effects of malnutrition and inflammation associated with comorbid chronic conditions. Will ensure adequate dietary protein intake and also consult foundry technician. 3. Anemia - Likely multifactorial. Will do basic anemia work up including serial stool guaiacs, reticulocyte count and iron studies. 4. Obesity - Will provide patient all the necessary assistance, counseling and positive reinforcement to facilitate weight loss. Consult foundry technician. 5. DVT prophylaxis - Lovenox 40 mg SQ q 24 hours. 6. Advance directives - Full code
--- NOTE | 2018-05-02 02:43 | PDOC ---
*Physical Exam - Vital Signs Last Vital Signs Temp Pulse Resp BP Pulse Ox 113 H 14 188/65 H 96 05/01/18 21:39 05/02/18 00:51 05/01/18 20:55 05/01/18 21:39 ED Treatment Course - LABORATORY CBC & Chemistry Diagram: 05/02/18 00:30 05/02/18 00:30 - ADDITIONAL ORDERS Additional order review: Laboratory Results 05/02/18 05/02/18 05/02/18 00:30 00:30 00:30 PT with INR 13.30 H INR 1.13 H Anticoagulation Therapy Puncture Site ABG pH ABG pCO2 at Pt Temp ABG pO2 at Pt Temp ABG HCO3 ABG O2 Sat (Measured) ABG O2 Content ABG Base Excess Wei Test Carboxyhemoglobin Methemoglobin O2 Delivery Device Oxygen Flow Rate Vent Mode Vent Rate Mechanical Rate PEEP Pressure Support Vent Sodium 145 Potassium 4.2 Chloride 110 H Carbon Dioxide 32 Anion Gap 3 L BUN 12 Creatinine 0.9 Creat Clearance w eGFR > 60 Random Glucose 89 Calcium 8.0 L Total Bilirubin 0.3 AST 18 ALT 6 L Alkaline Phosphatase 120 H Creatine Kinase 38 Troponin I 0.29 H Total Protein 7.0 Albumin 2.4 L Blood Type O POSITIVE Antibody Screen Negative 05/01/18 05/01/18 23:58 23:58 PT with INR INR Anticoagulation Therapy No Result Required. Puncture Site Right radial ABG pH 7.45 ABG pCO2 at Pt Temp 42.5 D ABG pO2 at Pt Temp 169.0 H* ABG HCO3 28.8 H ABG O2 Sat (Measured) 99.0 H ABG O2 Content 10.8 L ABG Base Excess 4.8 H Wei Test No Result Required. Carboxyhemoglobin 0.2 L Methemoglobin 0.2 L O2 Delivery Device M.vent Oxygen Flow Rate 100 Vent Mode A/c Vent Rate 12 Mechanical Rate Yes PEEP 5.0 Pressure Support Vent 400 Sodium Potassium Chloride Carbon Dioxide Anion Gap BUN Creatinine Creat Clearance w eGFR Random Glucose Calcium Total Bilirubin AST ALT Alkaline Phosphatase Creatine Kinase Troponin I Total Protein Albumin Blood Type Antibody Screen 05/02/18 00:30 RBC 2.84 L MCV 98.6 H MCHC 34.0 RDW 15.4 MPV 6.5 L Neutrophils % 71.2 D Lymphocytes % 21.7 D Monocytes % 6.3 Eosinophils % 0.1 D Basophils % 0.7 - Medications Given in the ED: ED Medications Discontinued Medications Generic Name Dose Route Start Last Admin Trade Name Kajal PRN Reason Stop Dose Admin Midazolam HCl 4 mg 05/01/18 22:25 05/01/18 22:53 Versed - IVPUSH 05/01/18 22:26 4 mg ONCE ONE Administration Midazolam HCl 4 mg 05/01/18 22:40 05/01/18 22:45 Versed - IVPUSH 05/01/18 22:41 4 mg ONCE ONE Administration Midazolam HCl 4 mg 05/01/18 23:27 05/01/18 23:41 Versed - IVPUSH 05/01/18 23:28 4 mg ONCE ONE Administration Phenytoin Sodium 1,500 mg 05/01/18 22:26 05/01/18 23:04 Dilantin Injection - IVPB 05/01/18 22:27 1,500 mg ONCE ONE Administration Sodium Chloride 500 ml 05/01/18 21:47 05/01/18 22:15 Normal Saline - IV 05/01/18 21:48 500 ml ONCE ONE Administration Sodium Chloride 500 ml 05/02/18 02:01 05/02/18 02:10 Normal Saline - IV 05/02/18 02:02 500 ml ONCE ONE Administration Medical Decision Making - Medical Decision Making 05/02/18 02:42 Received sign out from Dr Bob. Kim Mendez is a 63yo woman with a PMH of seizure disorder (on Keppra), HTN , hypothyroidism, GERD, COPD, frequent UTI, bipolar, schizophrenia, varicose veins, recent admission for acute respiratory failure secondary to sepsis (UTI and LLL pneumonia), discharged 04/28, who presented from [facility] in status epilepticus. Per EMS, she had had multiple seizures over an hour without return to baseline, and she was actively seizing on arrival in the ED. - ED course notable for intubation after arrival - Accepted for ICU admission (discussed with Dr Bob), pending admission to hospitalist service - Will go for CT head prior to transfer to ICU - Admission to hospitalist service discussed with Dr Reynolds. Will see Ms Mendez for admission Jessie Reid PGY1 *DC/Admit/Observation/Transfer Diagnosis at time of Disposition: Status epilepticus - Discharge Dispostion Condition at time of disposition: Guarded - Referrals Referrals: Julio César Pereira MD [Primary Care Provider] - - Patient Instructions - Post Discharge Activity
[2018-05-02] MEDS ORDERED: ALBUTEROL SO4 0.083% IH SOL 2.5 MG/3 ML VIAL.NEB. NEB PRN (04:09)
[2018-05-02] MEDS ORDERED: RAPID SEQUENCE INTUBATION KIT NR ONE (04:22)
[2018-05-02] MEDS ORDERED: MIDAZOLAM HCL 2 MG/2 ML SINGLE DOSE VIAL IVPUSH STA (04:24)
--- NOTE | 2018-05-02 05:10 | CONSULT ---
Consult Consult Specialty:: ICU Referred by:: Allison Reason for Consultation:: status epilepticus - History of Present Illness Chief Complaint: seizure History of Present Illness: pt is intubated for airway protection and sedated, unable to provide hpi. chart reviewed for hpi. 63 yr old woman with hypothyroidism, GERD, HTN, bipolar d/o, Schizoaffective d/o , Extrapyramidal and movement d/o, COPD, hx of recurrent UTI's, recurrent falls , Generalized idiopathic epilepsy bibems from [facility] for intractable seizures. She was seizing in the ambulance and upon arrival in the ED, requiring intubation for airway protection and became hypotensive. IO and central line were placed for access. patient was recently dc'd from [facility], she was treated for respiratory distress and evaluated for PEG tube due to poor po intake/dysphagia and vomiting and failure to thrive. At dc her breathing had improved and she was taking po adequately. She was to complete cefuroxime 500mg tab bid for 5 days (from 2018) Contact; Klaus Bullock [phone] sister. SindiSonia diaz [phone], sister. - History Source History Provided By: Medical Record - Past Medical History Cardio/Vascular: Yes: HTN Pulmonary: Yes: COPD Gastrointestinal: Yes: GERD Endocrine: Yes: Hypothyroidism - Alcohol/Substance Use Hx Alcohol Use: No - Smoking History Smoking history: Unknown if ever smoked Have you smoked in the past 12 months: No - Social History ADL: Support Services History of Recent Travel: No Home Medications - Allergies Allergies/Adverse Reactions: Allergies Allergy/AdvReac Type Severity Reaction Status Date / Time haloperidol Allergy Unknown Verified 05/01/18 21:27 sulfacetamide sodium Allergy Unknown Verified 05/01/18 21:27 [From Sulfamide] - Home Medications Home Medications: Ambulatory Orders Acetaminophen [Non-Aspirin Pain Relief] 650 mg PO Q6H PRN 01/14/15 Albuterol 0.083% Nebulizer Renuka [Ventolin 0.083% Nebulizer Soln -] 1 neb NEB Q6H PRN 01/14/15 Lamotrigine 200 mg PO BID 01/14/15 Levetiracetam [Keppra] 1,000 mg PO BID 01/14/15 Levothyroxine [Synthroid -] 75 mcg PO DAILY 01/14/15 Metoprolol Tartrate 25 mg PO BID 01/14/15 Acidoph/L.bulg/Bif.b/S.thermop [Bacid Caplet] 1 each PO BID #30 tablet 04/29/18 Cefuroxime Axetil [Ceftin -] 500 mg PO Q12H #10 tablet 04/29/18 Heparin - 5,000 unit SQ BID vial 04/29/18 Aspirin [ASA -] 81 mg PO DAILY 05/02/18 Carbidopa/Levodopa 25/100 [Sinemet 25/100 -] 1 each PO BID 05/02/18 Review of Systems Unable to obtain ROS, reason: unable to obtain Physical Exam Vital Signs: Vital Signs Temperature Pulse Rate 113 H 05/01/18 21:39 Respiratory Rate 12 05/02/18 04:55 Blood Pressure 188/65 H 05/01/18 20:55 O2 Sat by Pulse Oximetry (%) 96 05/01/18 21:39 Constitutional: Yes: Anxious Eyes: Yes: Conjunctiva Clear HENT: Yes: Atraumatic, Normocephalic Neck: Yes: Supple, Trachea Midline Cardiovascular: Yes: Regular Rate and Rhythm. No: Murmur Respiratory: Yes: Intubated, Rales (basilar) Gastrointestinal: Yes: Normal Bowel Sounds, Soft, Abdomen, Obese ...Rectal Exam: No: Hemorrhoids/External Renal/: Yes: Peralta Present. No: Hematuria Extremities: Yes: Cool Edema: Yes (trace b/l LE) Peripheral Pulses WNL: Yes Integumentary: Yes: Pressure Ulcer (stage 2 right butt), Other (left knee with weel healed vertical scar) Neurological: Yes: Tremors Labs: CBC, BMP 05/02/18 00:30 05/02/18 00:30 Assessment/Plan 63 yr old woman with hx of epilepsy, HTN, hypothyroidism, schizophrenia admitted to ICU intubated and sedated due to gran mal seizures. not following commands in the ICU -to continue intubation and sedation w fentanyl until reassesment in the AM. +cough with suctioning, +HECTOR, Neuro - on fentanyl due to hypotension on propofol - keppra 1gm BID IVPB - keppra level pending - pt has a hx of known seizure, unclear trigger for breakthrough seizure, check utox, u/a for infectious cause or drug use that may have instigated event, head CT pending - required versed and phenytoin to decr seizure activity CV - hold oral anti-HTN while BP is low, NG tube placed for restarting oral medications once stable IVF bolus on fentanyl for sedation as pt bp was sensitive to propofol levophed for pressure support Pulm: vented rate 12/vt 400/Fio2 60 - can likely be extubated in the am if seizure like activity resolves and pt appears to be protecting her airway Endo - hypothyroid - levothyroxine ID discuss continued treatment with ceftin with ID vs intiating broad spec coverage ceftin has no significant seizure associations GI - ng tube placed - pt has a hx of poor po intake requiring NG tube placement and clinimix during last admission, if able to take po with pureed and nectar thick, can remove ng tube VTE: lovenox GI: pepcid
[2018-05-02] MEDS ORDERED: MIDAZOLAM HCL 2 MG/2 ML SINGLE DOSE VIAL IVPUSH ONE (05:20)
[2018-05-02] MEDS ORDERED: MIDAZOLAM 0 MG/0 ML MG IVPB ONE (05:41)
[2018-05-02] MEDS ORDERED: SODIUM CHLORIDE 1,000 ML IV STA ×2 (05:58→07:09)
[2018-05-02 06:05] LABS: BASO % 0.7 % (0-2.0); HEMATOCRIT 21.9 % (32.4-45.2); HEMOGLOBIN 7.2 GM/dL (10.7-15.3); LYMPH % 29.2 % (8-40); MCH 32.2 pg (25.7-33.7); MCHC 32.9 g/dl (32.0-36.0); MEAN CELL VOLUME 97.8 fl (80-96); MEAN PLT VOLUME 6.6 fl (7.5-11.1); MONO % 8.5 % (3.8-10.2); NEUT % 61.6 % (42.8-82.8); PLATELET COUNT 342 K/MM3 (134-434); RBC 2.24 M/mm3 (3.60-5.2); WHITE BLOOD COUNT 6.4 K/mm3 (4.0-10.0)
[2018-05-02 06:31] LABS: ANION GAP 3 MMOL/L (8-16); BLOOD UREA NITROGEN 12 mg/dL (7-18); CALCIUM 7.7 mg/dL (8.5-10.1); CHLORIDE 112 mmol/L (98-107); CO2 30 mmol/L (21-32); CREATININE 0.8 mg/dL (0.55-1.3); GLUCOSE,RANDOM 111 mg/dL (74-106); MAGNESIUM 2.1 mg/dL (1.8-2.4); PHOSPHOROUS 2.8 mg/dL (2.5-4.9); POTASSIUM 3.8 mmol/L (3.5-5.1); SODIUM 145 mmol/L (136-145)
[2018-05-02 06:32] LABS: INR 1.16 (0.83-1.09); PROTHROMBIN TIME (PATIENT) 13.7 SEC (9.7-13.0)
[2018-05-02 06:34] LABS: ACTIVATED PTT 33.2 SECONDS (25.2-36.5)
[2018-05-02] MEDS: NOREPINEPHRINE BITARTRATE 4,000 MCG in DEXTROSE 5%-WATER - 496 ML IV SCH (07:10)
[2018-05-02] MEDS ORDERED: NOREPINEPHRINE BITARTRATE 4 MG/4 ML ML IV ONE (07:23)
[2018-05-02] MEDS ORDERED: fentaNYL CITRATE 250 MCG/5 ML VIAL ONE (08:19)
--- NOTE | 2018-05-02 09:00 | PN ---
Physical Exam: SUBJECTIVE: Patient seen and examined this morning in ICU. Remains Intubated and sedated. OBJECTIVE: Vital Signs Period Temp Pulse Resp BP Sys/Meyers Pulse Ox Last 24 Hr 99.7 F-99.7 F 77-140 12-22 91-188/41-96 88-100 GENERAL: Intubated and Sedated HEAD: NCAT EYES: PERRL ENT: Moist mucous membranes NECK: Supple LUNGS: Mechanically ventilated, Diminished breath sounds at the bases, no wheezes, no crackles HEART: Regular rate and rhythm, S1, S2 without murmur ABDOMEN: Obese, Soft, nontender, nondistended, + bowel sounds, no guarding EXTREMITIES: Trace edema. NEUROLOGICAL: Sedated SKIN: Warm, dry. Lower extremity skin discoloration Laboratory Last Values WBC 6.4 K/mm3 (4.0-10.0) 05/02/18 05:30 RBC 2.24 M/mm3 (3.60-5.2) L 05/02/18 05:30 Hgb 7.2 GM/dL (10.7-15.3) L 05/02/18 05:30 Hct 21.9 % (32.4-45.2) L D 05/02/18 05:30 MCV 97.8 fl (80-96) H 05/02/18 05:30 MCH 32.2 pg (25.7-33.7) 05/02/18 05:30 MCHC 32.9 g/dl (32.0-36.0) 05/02/18 05:30 RDW 16.0 % (11.6-15.6) H 05/02/18 05:30 Plt Count 342 K/MM3 (134-434) 05/02/18 05:30 MPV 6.6 fl (7.5-11.1) L 05/02/18 05:30 Absolute Neuts (auto) 3.9 K/mm3 (1.5-8.0) 05/02/18 05:30 Neutrophils % 61.6 % (42.8-82.8) 05/02/18 05:30 Lymphocytes % 29.2 % (8-40) D 05/02/18 05:30 Monocytes % 8.5 % (3.8-10.2) 05/02/18 05:30 Eosinophils % 0.0 % (0-4.5) D 05/02/18 05:30 Basophils % 0.7 % (0-2.0) 05/02/18 05:30 Nucleated RBC % 0 % (0-0) 05/02/18 05:30 PT with INR 13.70 SEC (9.7-13.0) H 05/02/18 05:30 INR 1.16 (0.83-1.09) H 05/02/18 05:30 PTT (Actin FS) 33.2 SECONDS (25.2-36.5) 05/02/18 05:30 Anticoagulation Therapy No Result Required. 05/01/18 23:58 Puncture Site Right radial 05/01/18 23:58 ABG pH 7.45 (7.35-7.45) 05/01/18 23:58 ABG pCO2 at Pt Temp 42.5 mmHg (35-45) D 05/01/18 23:58 ABG pO2 at Pt Temp 169.0 mmHg (80-100) H* 05/01/18 23:58 ABG HCO3 28.8 meq/L (22-26) H 05/01/18 23:58 ABG O2 Sat (Measured) 99.0 % (90-98.9) H 05/01/18 23:58 ABG O2 Content 10.8 % vol (15-22) L 05/01/18 23:58 ABG Base Excess 4.8 meq/l (-2-2) H 05/01/18 23:58 Wei Test No Result Required. 05/01/18 23:58 Carboxyhemoglobin 0.2 gm% (0.5-2.0) L 05/01/18 23:58 Methemoglobin 0.2 % (0.4-1.5) L 05/01/18 23:58 O2 Delivery Device M.vent 05/01/18 23:58 Oxygen Flow Rate 100 05/01/18 23:58 Vent Mode A/c 05/01/18 23:58 Vent Rate 12 05/01/18 23:58 Mechanical Rate Yes 05/01/18 23:58 PEEP 5.0 cmH2O 05/01/18 23:58 Pressure Support Vent 400 05/01/18 23:58 Sodium 145 mmol/L (136-145) 05/02/18 05:30 Potassium 3.8 mmol/L (3.5-5.1) 05/02/18 05:30 Chloride 112 mmol/L (98-107) H 05/02/18 05:30 Carbon Dioxide 30 mmol/L (21-32) 05/02/18 05:30 Anion Gap 3 MMOL/L (8-16) L 05/02/18 05:30 BUN 12 mg/dL (7-18) 05/02/18 05:30 Creatinine 0.8 mg/dL (0.55-1.3) 05/02/18 05:30 Creat Clearance w eGFR > 60 (>60) 05/02/18 05:30 Random Glucose 111 mg/dL (74-106) H 05/02/18 05:30 Lactic Acid 1.0 mmol/L (0.4-2.0) 05/02/18 05:30 Calcium 7.7 mg/dL (8.5-10.1) L 05/02/18 05:30 Phosphorus 2.8 mg/dL (2.5-4.9) 05/02/18 05:30 Magnesium 2.1 mg/dL (1.8-2.4) 05/02/18 05:30 Total Bilirubin 0.3 mg/dL (0.2-1) 05/02/18 00:30 AST 18 U/L (15-37) 05/02/18 00:30 ALT 6 U/L (13-61) L 05/02/18 00:30 Alkaline Phosphatase 120 U/L (45-117) H 05/02/18 00:30 Creatine Kinase 38 U/L (26-192) 05/02/18 00:30 Troponin I 0.60 ng/ml (0.00-0.05) H 05/02/18 05:30 Total Protein 7.0 g/dl (6.4-8.2) 05/02/18 00:30 Albumin 2.4 g/dl (3.4-5.0) L 05/02/18 00:30 TSH 2.23 uIU/ml (0.358-3.74) 05/02/18 05:30 Blood Type O POSITIVE 05/02/18 00:30 Antibody Screen Negative 05/02/18 00:30 Active Medications Albuterol Sulfate (Ventolin 0.083% Nebulizer Soln -) 1 amp NEB Q6H PRN PRN Reason: SHORT OF BREATH/WHEEZING Chlorhexidine Gluconate (Hibiclens For Decolonization -) 1 applic TP HS [facility] Enoxaparin Sodium (Lovenox -) 40 mg SQ DAILY [facility] Propofol (Diprivan -) 1,000,000 mcg in 100 mls @ 3.402 mls/hr IVPB TITR ANNA; Protocol Last Admin: 05/02/18 07:10 Dose: 15 mcg/kg/min, 10.206 mls/hr Fentanyl 500 mcg/ Dextrose 100 mls @ 5 mls/hr IVPB TITR ANNA Last Admin: 05/02/18 01:16 Dose: 25 mcg/hr, 5 mls/hr Famotidine/Sodium Chloride (Pepcid 20 Mg Premixed Ivpb -) 20 mg in 50 mls @ 100 mls/hr IVPB BID [facility] Norepinephrine Bitartrate 4, (000 mcg/ Dextrose) 500 mls @ 37.5 mls/hr IV TITR ANNA; Protocol Last Admin: 05/02/18 07:10 Dose: 2 mcg/min, 15 mls/hr Levetiracetam (Keppra Injection -) 1,000 mg IVPB BID [facility] Mupirocin (Bactroban Ointment (For Decolonization) -) 1 applic NS BID [facility] Stop: 05/07/18 09:59 ASSESSMENT/PLAN: 63 y/o F with PMHx of Epilepsy, HTN, Hypothyroidism, GERD, COPD (not on Home O2) , Frequent UTIs, Bipolar Disorder, Schizophrenia, Varicose Veins, who was recently discharged from [facility] (Treated for PNA, UTI with cefuroxime), was BIBEMS from [facility] s/p Convulsion, was intubated and Sedated in the ED and will be monitored in ICU. #Neuro Status Epilepticus Hx of Epiepsy, Bipolar Disorder, Schizophrenia -Unclear Etiology however will need to r/o Structural brain injury, Infection, Medication non-compliance, Metabolic abnormalities, Substance abuse -UA and Keppra level pending -UTox positive for benzo's; Patient given Versed -Head CT: No evidence of acute intracranial hemorrhage, edema, midline shift, mass effect, or skull fracture. No CT evidence of acute territorial infarction. Markedly thickened calvarium with extensive hyperostosis frontalis interna -Given Phenytoin 1500mg x1, Versed 4mg x4 in ED -Sedated on Propofol, Fentanyl -Keppra 1000mg IV BID -Neurology (Dr. Kim) consulted -Neurochecks Q4H -Aspiration precautions -NPO -Will need outpatient follow up for tighter seizure control #Cardio Shock Tropinemia, Likely due to Demand Ischemia Hx of HTN -Currently on Levophed, Titrate to maintain MAP > 65 -S/P 3L NS; Will Bolus 1L now -Trop 0.6, Trend -EKG: RBBB, LAD, QTc 462 -Hold home dose Anti-HTN meds -Monitor I&Os, peterson in place #Pulm Acute Respiratory Failure Hx of COPD (not on Home O2) -Intubated; Vent Settings 12/400/40%/+5 -Albuterol Nebulizer -CXR: Status post right central line placement, no pneumothorax is seen -Supplemental O2 PRN to maintain SpO2 > 88% #GI Elevated Alk phos Hx of GERD -Continue Famotidine -Recheck Alk Phos #Renal -No active issues, continue to monitor #Endocrine Hx of Hypothyroidism Elevated BG -TSH 2.23 -Restart home dose Levothyroxine -Check A1c #Heme/Onc Anemia -Hgb 9.5 --> 7.2 -Will check CBC now -FOBT -B12 (04/27) 1521, Folate (04/26) 979 #ID Hx of Frequent UTIs -Recently discharged from [facility] (Treated for PNA, UTI with cefuroxime) -No lactic acidosis -UA: 1+ protein, 2+ Blood -Blood and Urine Cx Pending -Prior Urine Cx grew E. Coli -ID (Dr. Montgomery) Consulted -Will give one dose Vanco 1g, Zosyn 3.375; Further Rec's as per ID #[id number] -1L NS Bolus Now -Lytes WNL -NPO while intubated #PPx -DVT: Lovenox -GI: Famotidine #LTD -Intubated on 05/01 -R IJ on 05/01 -R IO on 05/01; Removed on 05/02 -Peterson placed on 05/01 Code Status: Full Code; Spoke with Sister, Aileen, who would like to rescind the MOLST form at this time Dispo: Continue to monitor in ICU Visit type - Emergency Visit Emergency Visit: Yes ED Registration Date: 05/02/18 Care time: The patient presented to the Emergency Department on the above date and was hospitalized for further evaluation of their emergent condition. - New Patient This patient is new to me today: Yes Date on this admission: 05/03/18 - Critical Care Critical Care patient: Yes Total Critical Care Time (in minutes): 50 Critical Care Statement: The care of this patient involved high complexity decision making to prevent further life threatening deterioration of the patient 's condition and/or to evaluate & treat vital organ system(s) failure or risk of failure.
--- NOTE | 2018-05-02 09:02 | HP ---
CHIEF COMPLAINT: Status epilepticus PCP: Dr. Chavez HISTORY OF PRESENT ILLNESS: The patient is a 62-year-old female with a past medical history of seizure disorder hypertension hyperthyroidism and COPD who was BIBEMS from [facility] after she was found to have seizure activity. The patient was last seen well by [facility] staff at approximately 5 PM. At this point she was given her p.m. Keppra dose. At approximately 10:15 PM the patient was seen to have seizure like movements. When the patient continued to seize and not return to baseline, [facility] staff activated EMS. Per ER records, the patient was given a possibly 5 mg of Versed in the field with no effect. The patient was in status epilepticus for approximately one hour prior to arrival in the ED. Upon arrival at the ED, the patient was intubated for airway protection and placed on propofol and Fentanyl drips. 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 PAST SURGICAL HISTORY: left TKR Social History: Smoking: none Alcohol: none Drugs: none Family History: non-contributory Allergies haloperidol Allergy (Unknown, Verified 05/01/18 21:27) sulfacetamide sodium [From Sulfamide] Allergy (Unknown, Verified 05/01/18 21:27) HOME MEDICATIONS: Home Medications Medication Instructions Recorded Acetaminophen [Non-Aspirin Pain 650 mg PO Q6H PRN 01/14/15 Relief] Albuterol 0.083% Nebulizer Renuka 1 neb NEB Q6H PRN 01/14/15 [Ventolin 0.083% Nebulizer Soln -] Lamotrigine 200 mg PO BID 01/14/15 Levetiracetam [Keppra] 1,000 mg PO BID 01/14/15 Levothyroxine [Synthroid -] 75 mcg PO DAILY 01/14/15 Metoprolol Tartrate 25 mg PO BID 01/14/15 Acidoph/L.bulg/Bif.b/S.thermop 1 each PO BID #30 tablet 04/29/18 [Bacid Caplet] Cefuroxime Axetil [Ceftin -] 500 mg PO Q12H #10 tablet 04/29/18 Heparin - 5,000 unit SQ BID vial 04/29/18 Aspirin [ASA -] 81 mg PO DAILY 05/02/18 Carbidopa/Levodopa 25/100 [Sinemet 1 each PO BID 05/02/18 -] REVIEW OF SYSTEMS unable to obtain PHYSICAL EXAMINATION GENERAL: Intubated and sedated. Not reactive to verbal commands. HEAD: Normal with no signs of trauma. EYES: Pupils equal, dilated round and reactive to light, sclera anicteric LUNGS: coarse breath sounds b/l 2/2 mechanical ventilation. No wheezes, and no crackles. No accessory muscle use. HEART: Regular rate and rhythm, normal S1 and S2 without murmur, rub or gallop. ABDOMEN: Soft, nontender, not distended, normoactive bowel sounds, no guarding, no rebound, no masses. No hepatomegaly or splenomegaly. LOWER EXTREMITIES: 2+ pulses, warm, well-perfused. No calf tenderness. 1+ peripheral edema. NEUROLOGICAL: limited exam. Patient withdraws from pain and to physical stimuli. SKIN: Warm, dry, normal turgor, no rashes or lesions noted, normal capillary refill. Laboratory Results - last 24 hr 05/01/18 05/01/18 05/02/18 23:58 23:58 00:30 WBC 4.4 RBC 2.84 L Hgb 9.5 L Hct 28.0 L MCV 98.6 H MCH 33.5 MCHC 34.0 RDW 15.4 Plt Count 344 D MPV 6.5 L Absolute Neuts (auto) 3.1 Neutrophils % 71.2 D Lymphocytes % 21.7 D Monocytes % 6.3 Eosinophils % 0.1 D Basophils % 0.7 Nucleated RBC % 1 H PT with INR INR PTT (Actin FS) Anticoagulation Therapy No Result Required. Puncture Site Right radial ABG pH 7.45 ABG pCO2 at Pt Temp 42.5 D ABG pO2 at Pt Temp 169.0 H* ABG HCO3 28.8 H ABG O2 Sat (Measured) 99.0 H ABG O2 Content 10.8 L ABG Base Excess 4.8 H Wei Test No Result Required. Carboxyhemoglobin 0.2 L Methemoglobin 0.2 L O2 Delivery Device M.vent Oxygen Flow Rate 100 Vent Mode A/c Vent Rate 12 Mechanical Rate Yes PEEP 5.0 Pressure Support Vent 400 Sodium Potassium Chloride Carbon Dioxide Anion Gap BUN Creatinine Creat Clearance w eGFR Random Glucose Lactic Acid Calcium Phosphorus Magnesium Total Bilirubin AST ALT Alkaline Phosphatase Creatine Kinase Troponin I Total Protein Albumin TSH Blood Type Antibody Screen 05/02/18 05/02/18 05/02/18 00:30 00:30 00:30 WBC RBC Hgb Hct MCV MCH MCHC RDW Plt Count MPV Absolute Neuts (auto) Neutrophils % Lymphocytes % Monocytes % Eosinophils % Basophils % Nucleated RBC % PT with INR 13.30 H INR 1.13 H PTT (Actin FS) Anticoagulation Therapy Puncture Site ABG pH ABG pCO2 at Pt Temp ABG pO2 at Pt Temp ABG HCO3 ABG O2 Sat (Measured) ABG O2 Content ABG Base Excess Wei Test Carboxyhemoglobin Methemoglobin O2 Delivery Device Oxygen Flow Rate Vent Mode Vent Rate Mechanical Rate PEEP Pressure Support Vent Sodium 145 Potassium 4.2 Chloride 110 H Carbon Dioxide 32 Anion Gap 3 L BUN 12 Creatinine 0.9 Creat Clearance w eGFR > 60 Random Glucose 89 Lactic Acid Calcium 8.0 L Phosphorus Magnesium Total Bilirubin 0.3 AST 18 ALT 6 L Alkaline Phosphatase 120 H Creatine Kinase 38 Troponin I 0.29 H Total Protein 7.0 Albumin 2.4 L TSH Blood Type O POSITIVE Antibody Screen Negative 05/02/18 05/02/18 05/02/18 05:30 05:30 05:30 WBC 6.4 RBC 2.24 L Hgb 7.2 L Hct 21.9 L D MCV 97.8 H MCH 32.2 MCHC 32.9 RDW 16.0 H Plt Count 342 MPV 6.6 L Absolute Neuts (auto) 3.9 Neutrophils % 61.6 Lymphocytes % 29.2 D Monocytes % 8.5 Eosinophils % 0.0 D Basophils % 0.7 Nucleated RBC % 0 PT with INR 13.70 H INR 1.16 H PTT (Actin FS) 33.2 Anticoagulation Therapy Puncture Site ABG pH ABG pCO2 at Pt Temp ABG pO2 at Pt Temp ABG HCO3 ABG O2 Sat (Measured) ABG O2 Content ABG Base Excess Wei Test Carboxyhemoglobin Methemoglobin O2 Delivery Device Oxygen Flow Rate Vent Mode Vent Rate Mechanical Rate PEEP Pressure Support Vent Sodium 145 Potassium 3.8 Chloride 112 H Carbon Dioxide 30 Anion Gap 3 L BUN 12 Creatinine 0.8 Creat Clearance w eGFR > 60 Random Glucose 111 H Lactic Acid Calcium 7.7 L Phosphorus 2.8 Magnesium 2.1 Total Bilirubin AST ALT Alkaline Phosphatase Creatine Kinase Troponin I Total Protein Albumin TSH Blood Type Antibody Screen 05/02/18 05/02/18 05:30 05:30 WBC RBC Hgb Hct MCV MCH MCHC RDW Plt Count MPV Absolute Neuts (auto) Neutrophils % Lymphocytes % Monocytes % Eosinophils % Basophils % Nucleated RBC % PT with INR INR PTT (Actin FS) Anticoagulation Therapy Puncture Site ABG pH ABG pCO2 at Pt Temp ABG pO2 at Pt Temp ABG HCO3 ABG O2 Sat (Measured) ABG O2 Content ABG Base Excess Wei Test Carboxyhemoglobin Methemoglobin O2 Delivery Device Oxygen Flow Rate Vent Mode Vent Rate Mechanical Rate PEEP Pressure Support Vent Sodium Potassium Chloride Carbon Dioxide Anion Gap BUN Creatinine Creat Clearance w eGFR Random Glucose Lactic Acid 1.0 Calcium Phosphorus Magnesium Total Bilirubin AST ALT Alkaline Phosphatase Creatine Kinase Troponin I 0.60 H Total Protein Albumin TSH 2.23 Blood Type Antibody Screen ASSESSMENT/PLAN: The patient is a 62-year-old female from [facility] and a past medical history of seizure disorders who was brought into the ED in status epilepticus. #Status epilepticus, ideology unclear -s/p 1.5 g Keppra in ED -will obtain UTOX -will obtain keppra lvl -neurology evaluation in a.m. -follow-up UA, urine culture and blood culture. -Follow-up CT head -consider pressors if MAP consistently below 65 -NPO -continue with home Keppra 1 g BID -home lamotrigine cannot be converted to IV -further antiepileptics as per neuro #Troponemia likely secondary to demand ischemia in the setting of seizure activity -trend trop in AM -trend EKG in AM #FEN -no fluids indicated -lytes WNL -NPO #Prophy -Lovenox 40mg SQ daily #dispo -admit ICU -home medications verified w/ NH records -holding PO meds as patient intubated. Visit type - Emergency Visit Emergency Visit: Yes ED Registration Date: 05/02/18 Care time: The patient presented to the Emergency Department on the above date and was hospitalized for further evaluation of their emergent condition. - New Patient This patient is new to me today: Yes Date on this admission: 05/02/18 - Critical Care Critical Care patient: Yes Total Critical Care Time (in minutes): 60 Critical Care Statement: The care of this patient involved high complexity decision making to prevent further life threatening deterioration of the patient 's condition and/or to evaluate & treat vital organ system(s) failure or risk of failure.
[2018-05-02 09:33] LABS: COCAINE, UR NEGATIVE ng/ml (CUTOFF=300); METHADONE, UR NEGATIVE ng/ml (CUTOFF=300); OPIATES, URI NEGATIVE ng/ml (CUTOFF=300); PHENCYCLIDINE,URINE NEGATIVE ng/ml (CUTOFF=25); URINE AMPHETAMINES NEGATIVE ng/ml (CUTOFF=500); URINE BARBITURATES NEGATIVE ng/ml (CUTOFF=200)
[2018-05-02 09:41] LABS: URINE BENZODIAZEPINES POSITIVE ng/ml (CUTOFF=200)
--- NOTE | 2018-05-02 09:52 | PN ---
Progress Note, Physician History of Present Illness: pt seen/ examined in icu events noted/ chart reviewed well known to me from recent admission intubated/ sedated hypotensive- on pressor support. - Current Medication List Current Medications: Active Medications Albuterol Sulfate (Ventolin 0.083% Nebulizer Soln -) 1 amp NEB Q6H PRN PRN Reason: SHORT OF BREATH/WHEEZING Chlorhexidine Gluconate (Hibiclens For Decolonization -) 1 applic TP HS [facility] Enoxaparin Sodium (Lovenox -) 40 mg SQ DAILY [facility] Propofol (Diprivan -) 1,000,000 mcg in 100 mls @ 3.402 mls/hr IVPB TITR ANNA; Protocol Last Admin: 05/02/18 07:10 Dose: 15 mcg/kg/min, 10.206 mls/hr Fentanyl 500 mcg/ Dextrose 100 mls @ 5 mls/hr IVPB TITR ANNA Last Admin: 05/02/18 01:16 Dose: 25 mcg/hr, 5 mls/hr Famotidine/Sodium Chloride (Pepcid 20 Mg Premixed Ivpb -) 20 mg in 50 mls @ 100 mls/hr IVPB BID [facility] Norepinephrine Bitartrate 4, (000 mcg/ Dextrose) 500 mls @ 37.5 mls/hr IV TITR ANNA; Protocol Last Admin: 05/02/18 07:10 Dose: 2 mcg/min, 15 mls/hr Levetiracetam (Keppra Injection -) 1,000 mg IVPB BID [facility] Mupirocin (Bactroban Ointment (For Decolonization) -) 1 applic NS BID [facility] Stop: 05/07/18 09:59 - Objective Vital Signs: Vital Signs Temperature 99.7 F H 05/02/18 05:00 Pulse Rate 78 05/02/18 07:10 Respiratory Rate 22 H 05/02/18 08:11 Blood Pressure 88/39 L 05/02/18 07:10 O2 Sat by Pulse Oximetry (%) 100 05/02/18 07:00 Constitutional: Yes: Other (intubated/ sedated) Neck: Yes: Supple, Other (orally intubated) Cardiovascular: Yes: Regular Rate and Rhythm Respiratory: Yes: CTA Bilaterally Gastrointestinal: Yes: Soft Edema: LLE: Trace, RLE: Trace Neurological: Yes: Other (sedated) Labs: CBC, BMP 05/02/18 05:30 05/02/18 05:30 INR, PTT INR 1.16 (0.83-1.09) H 05/02/18 05:30 - ....Imaging Chest X-ray: Image Reviewed EKG: Report Reviewed, Image Reviewed Problem List - Problems (1) Status epilepticus Code(s): G40.901 - EPILEPSY, UNSP, NOT INTRACTABLE, WITH STATUS EPILEPTICUS (2) Bipolar disorder Code(s): F31.9 - BIPOLAR DISORDER, UNSPECIFIED (3) COPD (chronic obstructive pulmonary disease) Code(s): J44.9 - CHRONIC OBSTRUCTIVE PULMONARY DISEASE, UNSPECIFIED (4) UTI (urinary tract infection) Code(s): N39.0 - URINARY TRACT INFECTION, SITE NOT SPECIFIED Qualifiers: Urinary tract infection type: site unspecified Hematuria presence: without hematuria Qualified Code(s): N39.0 - Urinary tract infection, site not specified Assessment/Plan Intubated/ sedated meds reviewed weaning as tolerated . repeat cbc transfuse if hb < 7 check keppra level dvt prophylaxis elevated troponins-- likely demand ischemia ekg ok observe off abx will follow discussed with icu team discussed with sister also. will follow cc time 40 min
[2018-05-02] MEDS ORDERED: levETIRAcetam 500 MG/5 ML INJECTION VIAL IVPB SCH (10:00)
[2018-05-02] MEDS: FAMOTIDINE 20 MG/50 ML IVPB 20 MG/50 ML MG IVPB SCH ×2 (10:07→22:27)
[2018-05-02] MEDS: ENOXAPARIN NA (PORCINE) 40 MG/0.4 ML DISP.SYRIN SQ SCH (10:07)
[2018-05-02 10:38] LABS: URINE APPEARANCE SLCLOUDY; URINE BILIRUBIN NEGATIVE (<2.0 mg/dL); URINE COLOR YELLOW; URINE GLUCOSE (UA) NEGATIVE (NEGATIVE); URINE KETONE NEGATIVE (NEGATIVE); URINE LEUK ESTERASE NEGATIVE (NEGATIVE); URINE NITRITE NEGATIVE (NEGATIVE); URINE PROTEIN 1+ (NEGATIVE); URINE UROBILINOGEN NEGATIVE mg/dL (0.2-1.0)
[2018-05-02] MEDS ORDERED: VANCOMYCIN 1 GRAM (PRE-DOCKED) 1,000 MG/250 ML BAG IVPB ONE (10:44)
[2018-05-02] MEDS ORDERED: PIPERACILLIN/TAZOB 3.375 GM 3.375 GM in DEXTROSE 5%-WATER - 50 ML IVPB SCH (10:45)
[2018-05-02 10:47] LABS: EPI CELLS RARE /HPF (FEW); URINE MUCUS RARE
--- NOTE | 2018-05-02 10:52 | PN ---
Teaching Attending Note Name of Resident: Dolores Chavez ATTENDING PHYSICIAN STATEMENT I saw and evaluated the patient. I reviewed the resident's note and discussed the case with the resident. I agree with the resident's findings and plan as documented. SUBJECTIVE: Patient seen and examined this morning in ICU. Remains Intubated and sedated. Hypotensive on 2 mcq NE. No clear source of infection (?) LLL No further seizure activity. OBJECTIVE: Intake & Output 04/29/18 04/30/18 05/01/18 05/02/18 23:59 23:59 23:59 23:59 Intake Total 1020 Output Total 250 Balance 770 Weight 214 lb 4 oz Last Vital Signs Temp Pulse Resp BP Pulse Ox 99.7 F H 78 13 88/39 L 100 05/02/18 05:00 05/02/18 07:10 05/02/18 10:33 05/02/18 07:10 05/02/18 07:00 Active Medications Albuterol Sulfate (Ventolin 0.083% Nebulizer Soln -) 1 amp NEB Q6H PRN PRN Reason: SHORT OF BREATH/WHEEZING Chlorhexidine Gluconate (Hibiclens For Decolonization -) 1 applic TP HS [facility] Enoxaparin Sodium (Lovenox -) 40 mg SQ DAILY [facility] Last Admin: 05/02/18 10:07 Dose: 40 mg Propofol (Diprivan -) 1,000,000 mcg in 100 mls @ 3.402 mls/hr IVPB TITR ANNA; Protocol Last Admin: 05/02/18 07:10 Dose: 15 mcg/kg/min, 10.206 mls/hr Fentanyl 500 mcg/ Dextrose 100 mls @ 5 mls/hr IVPB TITR ANNA Last Admin: 05/02/18 01:16 Dose: 25 mcg/hr, 5 mls/hr Famotidine/Sodium Chloride (Pepcid 20 Mg Premixed Ivpb -) 20 mg in 50 mls @ 100 mls/hr IVPB BID [facility] Last Admin: 05/02/18 10:07 Dose: 100 mls/hr Norepinephrine Bitartrate 4, (000 mcg/ Dextrose) 500 mls @ 37.5 mls/hr IV TITR ANNA; Protocol Last Admin: 05/02/18 07:10 Dose: 2 mcg/min, 15 mls/hr Vancomycin HCl 1,000 mg/ (Dextrose) 250 mls @ 166.667 mls/hr IVPB ONCE ONE; Protocol Stop: 05/02/18 12:13 Piperacillin Sod/Tazobactam (Sod 3.375 gm/ Dextrose) 50 mls @ 100 mls/hr IVPB Q8H-IV ANNA; Protocol Stop: 05/03/18 10:44 Levetiracetam (Keppra Injection -) 1,000 mg IVPB BID [facility] Last Admin: 05/02/18 10:07 Dose: 1,000 mg Mupirocin (Bactroban Ointment (For Decolonization) -) 1 applic NS BID [facility] Stop: 05/07/18 09:59 Sodium Chloride (Normal Saline -) 1,000 ml IV ONCE ONE Stop: 05/02/18 10:44 GENERAL: Intubated and Sedated HEAD: NCAT EYES: PERRL ENT: Moist mucous membranes NECK: Supple LUNGS: Bibasilar rales HEART: Regular rate and rhythm, S1, S2 without murmur ABDOMEN: Obese, Soft, nontender, nondistended, + bowel sounds, no guarding EXTREMITIES: (+) edema. NEUROLOGICAL: Confused, non-focal SKIN: Warm, dry. Lower extremity skin discoloration Laboratory Last Values WBC 6.4 K/mm3 (4.0-10.0) 05/02/18 05:30 RBC 2.24 M/mm3 (3.60-5.2) L 05/02/18 05:30 Hgb 7.2 GM/dL (10.7-15.3) L 05/02/18 05:30 Hct 21.9 % (32.4-45.2) L D 05/02/18 05:30 MCV 97.8 fl (80-96) H 05/02/18 05:30 MCH 32.2 pg (25.7-33.7) 05/02/18 05:30 MCHC 32.9 g/dl (32.0-36.0) 05/02/18 05:30 RDW 16.0 % (11.6-15.6) H 05/02/18 05:30 Plt Count 342 K/MM3 (134-434) 05/02/18 05:30 MPV 6.6 fl (7.5-11.1) L 05/02/18 05:30 Absolute Neuts (auto) 3.9 K/mm3 (1.5-8.0) 05/02/18 05:30 Neutrophils % 61.6 % (42.8-82.8) 05/02/18 05:30 Lymphocytes % 29.2 % (8-40) D 05/02/18 05:30 Monocytes % 8.5 % (3.8-10.2) 05/02/18 05:30 Eosinophils % 0.0 % (0-4.5) D 05/02/18 05:30 Basophils % 0.7 % (0-2.0) 05/02/18 05:30 Nucleated RBC % 0 % (0-0) 05/02/18 05:30 PT with INR 13.70 SEC (9.7-13.0) H 05/02/18 05:30 INR 1.16 (0.83-1.09) H 05/02/18 05:30 PTT (Actin FS) 33.2 SECONDS (25.2-36.5) 05/02/18 05:30 Anticoagulation Therapy No Result Required. 05/01/18 23:58 Puncture Site Right radial 05/01/18 23:58 ABG pH 7.45 (7.35-7.45) 05/01/18 23:58 ABG pCO2 at Pt Temp 42.5 mmHg (35-45) D 05/01/18 23:58 ABG pO2 at Pt Temp 169.0 mmHg (80-100) H* 05/01/18 23:58 ABG HCO3 28.8 meq/L (22-26) H 05/01/18 23:58 ABG O2 Sat (Measured) 99.0 % (90-98.9) H 05/01/18 23:58 ABG O2 Content 10.8 % vol (15-22) L 05/01/18 23:58 ABG Base Excess 4.8 meq/l (-2-2) H 05/01/18 23:58 Wei Test No Result Required. 05/01/18 23:58 Carboxyhemoglobin 0.2 gm% (0.5-2.0) L 05/01/18 23:58 Methemoglobin 0.2 % (0.4-1.5) L 05/01/18 23:58 O2 Delivery Device M.vent 05/01/18 23:58 Oxygen Flow Rate 100 05/01/18 23:58 Vent Mode A/c 05/01/18 23:58 Vent Rate 12 05/01/18 23:58 Mechanical Rate Yes 05/01/18 23:58 PEEP 5.0 cmH2O 05/01/18 23:58 Pressure Support Vent 400 05/01/18 23:58 Sodium 145 mmol/L (136-145) 05/02/18 05:30 Potassium 3.8 mmol/L (3.5-5.1) 05/02/18 05:30 Chloride 112 mmol/L (98-107) H 05/02/18 05:30 Carbon Dioxide 30 mmol/L (21-32) 05/02/18 05:30 Anion Gap 3 MMOL/L (8-16) L 05/02/18 05:30 BUN 12 mg/dL (7-18) 05/02/18 05:30 Creatinine 0.8 mg/dL (0.55-1.3) 05/02/18 05:30 Creat Clearance w eGFR > 60 (>60) 05/02/18 05:30 Random Glucose 111 mg/dL (74-106) H 05/02/18 05:30 Lactic Acid 1.0 mmol/L (0.4-2.0) 05/02/18 05:30 Calcium 7.7 mg/dL (8.5-10.1) L 05/02/18 05:30 Phosphorus 2.8 mg/dL (2.5-4.9) 05/02/18 05:30 Magnesium 2.1 mg/dL (1.8-2.4) 05/02/18 05:30 Total Bilirubin 0.3 mg/dL (0.2-1) 05/02/18 00:30 AST 18 U/L (15-37) 05/02/18 00:30 ALT 6 U/L (13-61) L 05/02/18 00:30 Alkaline Phosphatase 120 U/L (45-117) H 05/02/18 00:30 Creatine Kinase 38 U/L (26-192) 05/02/18 00:30 Troponin I 0.60 ng/ml (0.00-0.05) H 05/02/18 05:30 Total Protein 7.0 g/dl (6.4-8.2) 05/02/18 00:30 Albumin 2.4 g/dl (3.4-5.0) L 05/02/18 00:30 TSH 2.23 uIU/ml (0.358-3.74) 05/02/18 05:30 Blood Type O POSITIVE 05/02/18 00:30 Antibody Screen Negative 05/02/18 00:30 ASSESSMENT/PLAN: Acute Respiratory Failure R/O PNA (LLL) Septic Shock Status epilepticus HTN Hypothyroidism GERD COPD Frequent UTIs Bipolar Disorder Schizophrenia Varicose Veins Recent PNA / UTI IVF Pressors to maintain MAP > 65 Neurology evaluation VTE prophylaxis Keppra Strict I & O William-culture Aspiration precautions BD TX PRN No indication for systemic steroids Start Eneteral feeds ICU monitoring Dr Mcdonald Critical care time spent in reviewing chart, evaluating patient and formulating plan - 36 minutes.
[2018-05-02] MEDS ORDERED: PIPERACILLIN/TAZOBACTAM 3.375 GM VIAL IVPB ONE (11:02)
[2018-05-02] MEDS ORDERED: DEXTROSE 5%-WATER - 50 ML IVPB ONE (11:02)
--- NOTE | 2018-05-02 11:41 | EKG ---
Test Reason : Blood Pressure : / mmHG Vent. Rate : 082 BPM Atrial Rate : 082 BPM P-R Int : 146 ms QRS Dur : 128 ms QT Int : 396 ms P-R-T Axes : 064 -43 -46 degrees QTc Int : 462 ms NORMAL SINUS RHYTHM LEFT AXIS DEVIATION RIGHT BUNDLE BRANCH BLOCK MODERATE VOLTAGE CRITERIA FOR LVH, MAY BE NORMAL VARIANT T WAVE ABNORMALITY, CONSIDER INFEROLATERAL ISCHEMIA ABNORMAL ECG WHEN COMPARED WITH ECG OF 21-APR-2018 12:02, T WAVE INVERSION NOW EVIDENT IN INFERIOR LEADS T WAVE INVERSION LESS EVIDENT IN LATERAL LEADS Confirmed by WILLIS NUR MD ([id number]) on 05/02/2018 11:40:58 AM Referred By: Confirmed By:WILLIS NUR MD
--- NOTE | 2018-05-02 11:50 | EKG ---
Test Reason : Blood Pressure : / mmHG Vent. Rate : 070 BPM Atrial Rate : 070 BPM P-R Int : 150 ms QRS Dur : 128 ms QT Int : 428 ms P-R-T Axes : 079 -30 -32 degrees QTc Int : 462 ms NORMAL SINUS RHYTHM LEFT AXIS DEVIATION RIGHT BUNDLE BRANCH BLOCK MINIMAL VOLTAGE CRITERIA FOR LVH, MAY BE NORMAL VARIANT ABNORMAL ECG WHEN COMPARED WITH ECG OF 02-MAY-2018 00:54, NO SIGNIFICANT CHANGE WAS FOUND Confirmed by WILLIS NUR MD ([id number]) on 05/02/2018 11:50:17 AM Referred By: Confirmed By:WILLIS NUR MD
[2018-05-02 11:57] LABS: BASO % 0.6 % (0-2.0); EOS % 0.1 % (0-4.5); HEMATOCRIT 20.1 % (32.4-45.2); LYMPH % 35.9 % (8-40); MCH 32.8 pg (25.7-33.7); MEAN CELL VOLUME 99.4 fl (80-96); MEAN PLT VOLUME 6.5 fl (7.5-11.1); MONO % 6.9 % (3.8-10.2); NEUT % 56.5 % (42.8-82.8); PLATELET COUNT 330 K/MM3 (134-434); RBC 2.02 M/mm3 (3.60-5.2); RDW 15.8 % (11.6-15.6); WHITE BLOOD COUNT 5.6 K/mm3 (4.0-10.0)
[2018-05-02] MEDS: MUPIROCIN 2% TOPICAL OINTMENT FOR DECOLONIZATION NS SCH ×2 (12:00→22:26)
[2018-05-02 12:12] LABS: HEMOGLOBIN 6.6 GM/dL (10.7-15.3)
--- NOTE | 2018-05-02 14:44 | PN ---
Progress Note (short form) - Note Progress Note: ID CONSULT DICTATED STATUS EPILEPTICUS SEPSIS R/O SEPTIC SHOCK ? ASP PNEUMONIA CONTINUE VENTILATORY/ HEMODYNAMIC SUPPORT EMPIRIC VANCOMYCIN/ CEFTRIAXONE
[2018-05-02] MEDS ORDERED: CEFTRIAXONE 2 GM in DEXTROSE 5%-WATER 100 ML IVPB SCH (14:45)
--- NOTE | 2018-05-02 16:41 | CON.NEURO ---
Consult Consult Specialty:: Judy neurology - History of Present Illness History of Present Illness: 63 years old woman with PMH hypothyroidism, GERD, HTN, bipolar d/o, Schizoaffective d/o, Extrapyramidal and movement d/o, COPD, hx of recurrent UTI's, recurrent falls, Generalized idiopathic epilepsy Patient came in this am 4 am according to er Last seen normal was 5pm 05/01/2018 Patient with pysch disorder and hx of seziure Seen in [facility] MICU No clinical seziure Patient was moaning not giving any hsitory. Patient was intubated and given Keppra Patient was hemodymncally unstable with Po2 75 - History Source History Provided By: Medical Record Limitations to Obtaining History: Clinical Condition - Past Medical History Cardio/Vascular: Yes: HTN Pulmonary: Yes: COPD Gastrointestinal: Yes: GERD Endocrine: Yes: Hypothyroidism - Alcohol/Substance Use Hx Alcohol Use: No - Smoking History Smoking history: Unknown if ever smoked Have you smoked in the past 12 months: No - Social History ADL: Support Services History of Recent Travel: No Home Medications - Allergies Allergies/Adverse Reactions: Allergies Allergy/AdvReac Type Severity Reaction Status Date / Time haloperidol Allergy Unknown Verified 05/01/18 21:27 sulfacetamide sodium Allergy Unknown Verified 05/01/18 21:27 [From Sulfamide] - Home Medications Home Medications: Ambulatory Orders Acetaminophen [Non-Aspirin Pain Relief] 650 mg PO Q6H PRN 01/14/15 Albuterol 0.083% Nebulizer Renuka [Ventolin 0.083% Nebulizer Soln -] 1 neb NEB Q6H PRN 01/14/15 Lamotrigine 200 mg PO BID 01/14/15 Levetiracetam [Keppra] 1,000 mg PO BID 01/14/15 Levothyroxine [Synthroid -] 75 mcg PO DAILY 01/14/15 Metoprolol Tartrate 25 mg PO BID 01/14/15 Acidoph/L.bulg/Bif.b/S.thermop [Bacid Caplet] 1 each PO BID #30 tablet 04/29/18 Cefuroxime Axetil [Ceftin -] 500 mg PO Q12H #10 tablet 04/29/18 Heparin - 5,000 unit SQ BID vial 04/29/18 Aspirin [ASA -] 81 mg PO DAILY 05/02/18 Carbidopa/Levodopa 25/100 [Sinemet 25/100 -] 1 each PO BID 05/02/18 Family Disease History - Family Disease History Family History: Unable to Obtain Review of Systems Unable to obtain ROS, reason: + Physical Exam-Neuro Vital Signs: Vital Signs Temperature 97.7 F 05/02/18 11:00 Pulse Rate 82 05/02/18 14:00 Respiratory Rate 19 05/02/18 14:00 Blood Pressure 111/52 L 05/02/18 14:00 O2 Sat by Pulse Oximetry (%) 100 05/02/18 07:00 Constitutional: Yes: Well Nourished, Anxious, Moderate Distress Labs: CBC, BMP 05/02/18 11:25 05/02/18 05:30 INR, PTT INR 1.16 (0.83-1.09) H 05/02/18 05:30 - Neuro Exam Level Of Consciousness: Yes: Obtunded Eyes: Yes: PERRLA Speech: Garbled Dominant Hand: Right Cranial Nerves II-XII Intact: No Gag: Present DTR's: 1+ Left Bicep, 1+ Right Bicep Motor Strength: 2/5: Right Leg (pulls to paina nd moans allover ) Imaging - Results Cat Scan: Report Reviewed Problem List - Problems (1) Status epilepticus Assessment/Plan: PATIENT IS NOT IN CLINICAL STATUS KEPPRA IN THE SETTING OF SCHIZOAFFECTIVE DISORDER IS DANGEROUS COMBO 1. Neuro checks 2. Follow up with pulmonary for the hypoxia 3. Seziure precautions 4. Taper Keppra 5. Start Depakote 6. Check Lamictel level Thank you Code(s): G40.901 - EPILEPSY, UNSP, NOT INTRACTABLE, WITH STATUS EPILEPTICUS
[2018-05-02] MEDS ORDERED: ALBUTEROL SO4 2.5/IPRATROPIUM 0.5 INH SOL 3 ML VIAL.NEB. NEB PRN (17:01)
[2018-05-02] MEDS ORDERED: DEXTROSE 5%-WATER 100 ML IVPB ONE (17:11)
--- NOTE | 2018-05-02 17:26 | CONS ---
DATE OF CONSULTATION: DATE OF DICTATION: 05/02/2018 HISTORY: The patient is a 63-year-old female who was evaluated for sepsis. History was obtained from the chart as she is presently intubated. She was recently hospitalized at [facility] from April 21 through April 29 and treated for left lower quadrant pneumonia and urinary tract infection. [facility] the penitentiary, the patient had generalized seizure activity and was subsequently found to be in status epilepticus. She was evaluated in the emergency room where she was prophylactically intubated. At the present time, she is intubated on mechanical ventilation in the intensive care unit. She is sedated on the ventilator. She is hypotensive on pressors. Her course has been complicated by low-grade fever. Cultures were obtained. She was empirically treated with vancomycin and Zosyn. At the present time, she is awake, however, sedated on the ventilator. PAST MEDICAL HISTORY: Positive for recent left lower lobe pneumonia, urinary tract infection, bipolar disorder, schizophrenia, hypertension, hypothyroidism, gastroesophageal reflux, COPD. PAST SURGICAL HISTORY: Status post left total knee replacement. ALLERGIES: HALDOL. LABORATORY DATA: White count 5.6, hematocrit 20.1, platelet count 330, creatinine 0.8. Urinalysis negative. Chest x-ray shows opacified left lower hemothorax. PHYSICAL EXAMINATION: Vital Signs: She is sedated on the ventilator. Temperature 97.7, T-max 99.7, blood pressure 91/51, pulse 79 and regular, respirations 14 per minute. General: The patient is orally intubated. HEENT: Sclerae anicteric. Neck: Supple. Heart: S1, S2. Lungs: Air entry bilaterally. Abdomen: Obese. No tenderness elicited. Extremities: Positive for edema. IMPRESSION: 1. Status epilepticus. 2. Sepsis, rule out septic shock. 3. Possible aspiration pneumonia. Continue ventilatory and hemodynamic support. Await cultures. Empiric antibiotic coverage for possible aspiration with vancomycin and ceftriaxone. Would avoid Carbapenems in light of seizure activity. Prognosis is guarded. Thank you for the kind referral. JULIO C SANDOVAL M.D. [id number]
[2018-05-02 17:51] LABS: ARTERIAL BLD GAS O2 SATURATION 94.6 % (90-98.9); ARTERIAL BLOOD GAS BASE EXCESS -0.3 meq/l (-2-2); ARTERIAL BLOOD GAS PCO2 43.9 mmHg (35-45); ARTERIAL BLOOD GAS PO2 77.2 mmHg (80-100); ARTERIAL BLOOD GAS pH 7.37 (7.35-7.45)
[2018-05-02 17:55] LABS: ALLENS TEST POSITIVE
[2018-05-02] MEDS ORDERED: ACETAMINOPHEN 1000 MG/100 ML VIAL (NON FORMULARY) IVPB ONE (18:14)
[2018-05-02 20:20] LABS: ARTERIAL BLOOD GAS BASE EXCESS -0.1 meq/l (-2-2); ARTERIAL BLOOD GAS PCO2 45.7 mmHg (35-45); ARTERIAL BLOOD GAS pH 7.36 (7.35-7.45)
[2018-05-02 20:22] LABS: ALLENS TEST POSITIVE
[2018-05-02 21:09] LABS: BASO % 0.7 % (0-2.0); EOS % 0.4 % (0-4.5); HEMATOCRIT 23.3 % (32.4-45.2); HEMOGLOBIN 7.8 GM/dL (10.7-15.3); LYMPH % 18.8 % (8-40); MCHC 33.6 g/dl (32.0-36.0); MEAN CELL VOLUME 95.2 fl (80-96); MEAN PLT VOLUME 6.5 fl (7.5-11.1); MONO % 6.5 % (3.8-10.2); NEUT % 73.6 % (42.8-82.8); PLATELET COUNT 290 K/MM3 (134-434); RBC 2.45 M/mm3 (3.60-5.2); RDW 18.9 % (11.6-15.6); WHITE BLOOD COUNT 5.9 K/mm3 (4.0-10.0)
[2018-05-02 21:28] LABS: ANION GAP 6 MMOL/L (8-16); BLOOD UREA NITROGEN 8 mg/dL (7-18); CALCIUM 7.7 mg/dL (8.5-10.1); CHLORIDE 115 mmol/L (98-107); CO2 28 mmol/L (21-32); CREATININE 0.6 mg/dL (0.55-1.3); GLUCOSE,RANDOM 119 mg/dL (74-106); POTASSIUM 3.6 mmol/L (3.5-5.1); SODIUM 149 mmol/L (136-145)
[2018-05-02] MEDS: CHLORHEXIDINE GLUCONATE 4% CLEANSER FOR DECOLONIZATION TP SCH (22:27)
[2018-05-02] MEDS: VALPROATE SODIUM 500 MG/5 ML VIAL IVPB SCH (22:27)
[2018-05-02] MEDS: VANCOMYCIN 1 GRAM (PRE-DOCKED) 1,000 MG/250 ML BAG IVPB SCH (23:50)
[2018-05-03 06:30] LABS: BASO % 0.5 % (0-2.0); EOS % 0.2 % (0-4.5); HEMATOCRIT 29.3 % (32.4-45.2); HEMOGLOBIN 9.9 GM/dL (10.7-15.3); LYMPH % 13.4 % (8-40); MCH 31.6 pg (25.7-33.7); MCHC 33.9 g/dl (32.0-36.0); MEAN CELL VOLUME 93.2 fl (80-96); MEAN PLT VOLUME 6.6 fl (7.5-11.1); MONO % 4.2 % (3.8-10.2); NEUT % 81.7 % (42.8-82.8); PLATELET COUNT 315 K/MM3 (134-434); RBC 3.14 M/mm3 (3.60-5.2); RDW 19.7 % (11.6-15.6); WHITE BLOOD COUNT 8.4 K/mm3 (4.0-10.0)
[2018-05-03 06:44] LABS: ARTERIAL BLD GAS O2 SATURATION 95.4 % (90-98.9); ARTERIAL BLOOD GAS BASE EXCESS -1.9 meq/l (-2-2); ARTERIAL BLOOD GAS PCO2 47.4 mmHg (35-45); ARTERIAL BLOOD GAS PO2 83.4 mmHg (80-100); ARTERIAL BLOOD GAS pH 7.32 (7.35-7.45)
[2018-05-03 06:45] LABS: ALBUMIN 1.9 g/dl (3.4-5.0); ALK PHOS 104 U/L (45-117); ANION GAP 8 MMOL/L (8-16); BILIRUBIN,TOTAL 0.2 mg/dL (0.2-1); BLOOD UREA NITROGEN 9 mg/dL (7-18); CALCIUM 7.3 mg/dL (8.5-10.1); CHLORIDE 114 mmol/L (98-107); CO2 24 mmol/L (21-32); CREATININE 0.9 mg/dL (0.55-1.3); GLUCOSE,RANDOM 83 mg/dL (74-106); MAGNESIUM 1.9 mg/dL (1.8-2.4); PHOSPHOROUS 3.9 mg/dL (2.5-4.9); POTASSIUM 3.7 mmol/L (3.5-5.1); SGOT/AST 17 U/L (15-37); SGPT/ALT 7 U/L (13-61); SODIUM 146 mmol/L (136-145); TOT PROT 6.2 g/dl (6.4-8.2)
[2018-05-03 06:47] LABS: ALBUMIN 1.9 g/dl (3.4-5.0); BILIRUBIN,DIRECT 0.1 mg/dL (0.0-0.2); BILIRUBIN,TOTAL 0.2 mg/dL (0.2-1); TOT PROT 6.2 g/dl (6.4-8.2)
[2018-05-03 07:00] LABS: ALLENS TEST POSITIVE
--- NOTE | 2018-05-03 09:12 | PN ---
Progress Note (short form) - Note Progress Note: extubated yesterday remains on bipap Vital Signs Period Temp Pulse Resp BP Sys/Meyers Pulse Ox Last 24 Hr 97.7 F-100.5 F 68-106 13-36 85-179/42-97 96-98 cor-rrr lungs decreased bs right base abd soft,nt ext +edema CBC, BMP 05/03/18 05:15 05/03/18 05:15 Microbiology 05/02/18 00:30 Blood - Peripheral Venous Blood Culture - Preliminary NO GROWTH OBTAINED AFTER 24 HOURS, INCUBATION TO CONTINUE FOR 4 DAYS. cxray diffuse right lung infiltrate a/p probable aspiration pneumonia s/p seizure switch to zosyn d/c ceftriaxone nares screen for MRSA- if negative will d/c vancomycin
--- NOTE | 2018-05-03 09:22 | PN ---
Teaching Attending Note Name of Resident: Dolores Chavez ATTENDING PHYSICIAN STATEMENT I saw and evaluated the patient. I reviewed the resident's note and discussed the case with the resident. I agree with the resident's findings and plan as documented. SUBJECTIVE: Patient seen and examined this morning in ICU. Remains extubated on NIPPV. Currently off pressors. No further seizure activity. OBJECTIVE: Intake & Output 04/30/18 05/01/18 05/02/18 05/03/18 23:59 23:59 23:59 23:59 Intake Total 1392 385 Output Total 1350 500 Balance 42 -115 Weight 214 lb 4 oz Last Vital Signs Temp Pulse Resp BP Pulse Ox 99.2 F 102 H 36 H 125/52 L 96 05/03/18 06:00 05/03/18 06:00 05/03/18 06:00 05/03/18 06:00 05/03/18 06:30 Active Medications Albuterol/Ipratropium (Duoneb -) 1 amp NEB Q4H PRN PRN Reason: SHORTNESS OF BREATH Last Admin: 05/02/18 18:42 Dose: 1 amp Chlorhexidine Gluconate (Hibiclens For Decolonization -) 1 applic TP HS ANNA Last Admin: 05/02/18 22:27 Dose: 1 applic Enoxaparin Sodium (Lovenox -) 40 mg SQ DAILY ANNA Last Admin: 05/02/18 10:07 Dose: 40 mg Propofol (Diprivan -) 1,000,000 mcg in 100 mls @ 3.402 mls/hr IVPB TITR ANNA; Protocol Last Titration: 05/02/18 13:50 Dose: 0 mcg/kg/min, 0 mls/hr Fentanyl 500 mcg/ Dextrose 100 mls @ 5 mls/hr IVPB TITR ANNA Last Titration: 05/02/18 13:50 Dose: 0 mcg/hr, 0 mls/hr Famotidine/Sodium Chloride (Pepcid 20 Mg Premixed Ivpb -) 20 mg in 50 mls @ 100 mls/hr IVPB BID ANNA Last Admin: 05/02/18 22:27 Dose: 100 mls/hr Norepinephrine Bitartrate 4, (000 mcg/ Dextrose) 500 mls @ 37.5 mls/hr IV TITR ANNA; Protocol Last Titration: 05/02/18 21:05 Dose: 2 mcg/min, 15 mls/hr Vancomycin HCl (Vancomycin (Pre-Docked)) 1,000 mg in 250 mls @ 166.667 mls/hr IVPB BID@1100,2300 [facility]; Protocol Last Admin: 05/02/18 23:50 Dose: 166.667 mls/hr Piperacillin Sod/Tazobactam (Sod 4.5 gm/ Dextrose) 100 mls @ 200 mls/hr IVPB Q8H-IV [facility]; Protocol Mupirocin (Bactroban Ointment (For Decolonization) -) 1 applic NS BID [facility] Stop: 05/07/18 09:59 Last Admin: 05/02/18 22:26 Dose: 1 applic Valproate Sodium (Depacon Injection -) 500 mg IVPB BID [facility] Last Admin: 05/02/18 22:27 Dose: 500 mg GENERAL: Extubated, awake and responsive on NIPPV HEAD: NCAT EYES: PERRL ENT: Moist mucous membranes NECK: Supple LUNGS: Coarse rhonchi on the Left HEART: Regular rate and rhythm, S1, S2 without murmur ABDOMEN: Obese, Soft, nontender, nondistended, + bowel sounds, no guarding EXTREMITIES: (+) edema. NEUROLOGICAL: Confused, non-focal SKIN: Warm, dry. Lower extremity skin discoloration Laboratory Results - last 24 hr 05/01/18 05/02/18 05/02/18 05:45 00:30 05:45 WBC RBC Hgb Hct MCV MCH MCHC RDW Plt Count MPV Absolute Neuts (auto) Neutrophils % Lymphocytes % Monocytes % Eosinophils % Basophils % Nucleated RBC % Anticoagulation Therapy Puncture Site ABG pH ABG pCO2 at Pt Temp ABG pO2 at Pt Temp ABG HCO3 ABG O2 Sat (Measured) ABG O2 Content ABG Base Excess Wei Test O2 Delivery Device Oxygen Flow Rate Vent Mode Vent Rate Mechanical Rate Pressure Support Vent Sodium Potassium Chloride Carbon Dioxide Anion Gap BUN Creatinine Creat Clearance w eGFR Random Glucose Calcium Phosphorus Magnesium Total Bilirubin Direct Bilirubin AST ALT Alkaline Phosphatase Troponin I Total Protein Albumin Urine Color Yellow Urine Appearance Slcloudy Urine pH 7.0 D Ur Specific [place] 1.014 Urine Protein 1+ H Urine Glucose (UA) Negative Urine Ketones Negative Urine Blood 2+ H Urine Nitrite Negative Urine Bilirubin Negative Urine Urobilinogen Negative Ur Leukocyte Esterase Negative Urine WBC (Auto) 9 Urine RBC (Auto) 7 Ur Epithelial Cells Rare Urine Mucus Rare Opiates Screen Negative Methadone Screen Negative Barbiturate Screen Negative Phencyclidine Screen Negative Ur Amphetamines Screen Negative MDMA (Ecstasy) Screen Negative Benzodiazepines Screen Positive A* Cocaine Screen Negative U Marijuana (THC) Screen Negative Blood Type O POSITIVE Antibody Screen Negative Crossmatch See Detail 05/02/18 05/02/18 05/02/18 08:38 11:19 11:25 WBC 5.6 RBC 2.02 L Hgb 6.6 L* Hct 20.1 L MCV 99.4 H MCH 32.8 MCHC 33.0 RDW 15.8 H Plt Count 330 MPV 6.5 L Absolute Neuts (auto) 3.1 Neutrophils % 56.5 Lymphocytes % 35.9 D Monocytes % 6.9 Eosinophils % 0.1 D Basophils % 0.6 Nucleated RBC % 0 Anticoagulation Therapy Puncture Site ABG pH ABG pCO2 at Pt Temp ABG pO2 at Pt Temp ABG HCO3 ABG O2 Sat (Measured) ABG O2 Content ABG Base Excess Wei Test O2 Delivery Device Oxygen Flow Rate Vent Mode Vent Rate Mechanical Rate Pressure Support Vent Sodium Potassium Chloride Carbon Dioxide Anion Gap BUN Creatinine Creat Clearance w eGFR Random Glucose Calcium Phosphorus Magnesium Total Bilirubin Direct Bilirubin AST ALT Alkaline Phosphatase Troponin I Total Protein Albumin Urine Color Cancelled Urine Appearance Cancelled Urine pH Cancelled Ur Specific [place] Cancelled Urine Protein Cancelled Urine Glucose (UA) Cancelled Urine Ketones Cancelled Urine Blood Cancelled Urine Nitrite Cancelled Urine Bilirubin Cancelled Urine Urobilinogen Cancelled Ur Leukocyte Esterase Cancelled Urine WBC (Auto) Urine RBC (Auto) Ur Epithelial Cells Urine Mucus Opiates Screen Methadone Screen Barbiturate Screen Phencyclidine Screen Ur Amphetamines Screen MDMA (Ecstasy) Screen Benzodiazepines Screen Cocaine Screen U Marijuana (THC) Screen Blood Type O POSITIVE Antibody Screen Crossmatch 05/02/18 05/02/18 05/02/18 12:22 17:40 20:10 WBC RBC Hgb Hct MCV MCH MCHC RDW Plt Count MPV Absolute Neuts (auto) Neutrophils % Lymphocytes % Monocytes % Eosinophils % Basophils % Nucleated RBC % Anticoagulation Therapy No Result Required. Puncture Site Right radial Right radial ABG pH 7.37 7.36 ABG pCO2 at Pt Temp 43.9 45.7 H ABG pO2 at Pt Temp 77.2 L D 207.0 H* ABG HCO3 24.6 25.0 ABG O2 Sat (Measured) 94.6 99.0 H ABG O2 Content 16.7 13.1 L ABG Base Excess -0.3 -0.1 Wei Test Positive Positive O2 Delivery Device No Result Required. Oxygen Flow Rate 50% Yes Vent Mode No Result Required. Vent Rate No Result Required. Mechanical Rate Mask No Result Required. Pressure Support Vent No Result Required. Sodium Potassium Chloride Carbon Dioxide Anion Gap BUN Creatinine Creat Clearance w eGFR Random Glucose Calcium Phosphorus Magnesium Total Bilirubin Direct Bilirubin AST ALT Alkaline Phosphatase Troponin I 0.44 H Total Protein Albumin Urine Color Urine Appearance Urine pH Ur Specific [place] Urine Protein Urine Glucose (UA) Urine Ketones Urine Blood Urine Nitrite Urine Bilirubin Urine Urobilinogen Ur Leukocyte Esterase Urine WBC (Auto) Urine RBC (Auto) Ur Epithelial Cells Urine Mucus Opiates Screen Methadone Screen Barbiturate Screen Phencyclidine Screen Ur Amphetamines Screen MDMA (Ecstasy) Screen Benzodiazepines Screen Cocaine Screen U Marijuana (THC) Screen Blood Type Antibody Screen Crossmatch 05/02/18 05/02/18 05/03/18 20:30 20:30 05:15 WBC 5.9 8.4 RBC 2.45 L 3.14 L Hgb 7.8 L 9.9 L Hct 23.3 L D 29.3 L D MCV 95.2 93.2 MCH 32.0 31.6 MCHC 33.6 33.9 RDW 18.9 H 19.7 H Plt Count 290 315 MPV 6.5 L 6.6 L Absolute Neuts (auto) 4.4 6.8 Neutrophils % 73.6 D 81.7 Lymphocytes % 18.8 D 13.4 D Monocytes % 6.5 4.2 Eosinophils % 0.4 D 0.2 Basophils % 0.7 0.5 Nucleated RBC % 0 0 Anticoagulation Therapy Puncture Site ABG pH ABG pCO2 at Pt Temp ABG pO2 at Pt Temp ABG HCO3 ABG O2 Sat (Measured) ABG O2 Content ABG Base Excess Wei Test O2 Delivery Device Oxygen Flow Rate Vent Mode Vent Rate Mechanical Rate Pressure Support Vent Sodium 149 H Potassium 3.6 Chloride 115 H Carbon Dioxide 28 Anion Gap 6 L BUN 8 Creatinine 0.6 Creat Clearance w eGFR > 60 Random Glucose 119 H Calcium 7.7 L Phosphorus Magnesium Total Bilirubin Direct Bilirubin AST ALT Alkaline Phosphatase Troponin I Total Protein Albumin Urine Color Urine Appearance Urine pH Ur Specific [place] Urine Protein Urine Glucose (UA) Urine Ketones Urine Blood Urine Nitrite Urine Bilirubin Urine Urobilinogen Ur Leukocyte Esterase Urine WBC (Auto) Urine RBC (Auto) Ur Epithelial Cells Urine Mucus Opiates Screen Methadone Screen Barbiturate Screen Phencyclidine Screen Ur Amphetamines Screen MDMA (Ecstasy) Screen Benzodiazepines Screen Cocaine Screen U Marijuana (THC) Screen Blood Type Antibody Screen Crossmatch 05/03/18 05/03/18 05/03/18 05:15 05:15 06:35 WBC RBC Hgb Hct MCV MCH MCHC RDW Plt Count MPV Absolute Neuts (auto) Neutrophils % Lymphocytes % Monocytes % Eosinophils % Basophils % Nucleated RBC % Anticoagulation Therapy No Result Required. Puncture Site Right radial ABG pH 7.32 L ABG pCO2 at Pt Temp 47.4 H ABG pO2 at Pt Temp 83.4 D ABG HCO3 23.7 ABG O2 Sat (Measured) 95.4 ABG O2 Content 12.5 L ABG Base Excess -1.9 Wei Test Positive O2 Delivery Device Bipap settings Oxygen Flow Rate 80% Vent Mode No Result Required. Vent Rate No Result Required. Mechanical Rate No Result Required. Pressure Support Vent No Result Required. Sodium 146 H Potassium 3.7 Chloride 114 H Carbon Dioxide 24 Anion Gap 8 BUN 9 Creatinine 0.9 Creat Clearance w eGFR > 60 Random Glucose 83 Calcium 7.3 L Phosphorus 3.9 Magnesium 1.9 Total Bilirubin 0.2 0.2 Direct Bilirubin 0.1 AST 17 17 ALT 7 L 9 L Alkaline Phosphatase 104 109 Troponin I Total Protein 6.2 L 6.2 L Albumin 1.9 L 1.9 L Urine Color Urine Appearance Urine pH Ur Specific [place] Urine Protein Urine Glucose (UA) Urine Ketones Urine Blood Urine Nitrite Urine Bilirubin Urine Urobilinogen Ur Leukocyte Esterase Urine WBC (Auto) Urine RBC (Auto) Ur Epithelial Cells Urine Mucus Opiates Screen Methadone Screen Barbiturate Screen Phencyclidine Screen Ur Amphetamines Screen MDMA (Ecstasy) Screen Benzodiazepines Screen Cocaine Screen U Marijuana (THC) Screen Blood Type Antibody Screen Crossmatch ASSESSMENT/PLAN: Acute Respiratory Failure R/O PNA (LLL) Septic Shock Status epilepticus HTN Hypothyroidism GERD COPD Frequent UTIs Bipolar Disorder Schizophrenia Varicose Veins Recent PNA / UTI NIPPV IVF Monitor off pressors if MAP > 65 VTE prophylaxis Keppra Strict I & O William-culture Aspiration precautions BD TX PRN No indication for systemic steroids ICU monitoring for tenuous respiratory status Dr Mcdonald Critical care time spent in reviewing chart, evaluating patient and formulating plan - 36 minutes.
[2018-05-03] MEDS ORDERED: DEXTROSE 5%-WATER 100 ML IVPB ONE ×2 (09:30→17:48)
[2018-05-03] MEDS ORDERED: PIPERACILLIN/TAZOBACTAM 4.5 GM VIAL IVPB ONE ×2 (09:30→17:48)
[2018-05-03] MEDS: ENOXAPARIN NA (PORCINE) 40 MG/0.4 ML DISP.SYRIN SQ SCH (09:44)
[2018-05-03] MEDS: FAMOTIDINE 20 MG/50 ML IVPB 20 MG/50 ML MG IVPB SCH ×2 (09:44→21:58)
[2018-05-03] MEDS: PIPERACILLIN/TAZOB 4.5 GM 4.5 GM in DEXTROSE 5%-WATER 100 ML IVPB SCH ×2 (09:45→17:45)
[2018-05-03] MEDS: VALPROATE SODIUM 500 MG/5 ML VIAL IVPB SCH ×2 (09:46→21:58)
[2018-05-03] MEDS: MUPIROCIN 2% TOPICAL OINTMENT FOR DECOLONIZATION NS SCH ×2 (10:01→21:58)
[2018-05-03] MEDS ORDERED: PT OWN MED DRAWER 7, Y5N ONE (10:21)
--- NOTE | 2018-05-03 12:41 | PN ---
Progress Note (short form) - Note Progress Note: pt seen/ examined in icu chart reviewed all f/u noted/ appreciated on bipap got 2 units prbcs yesterday low grade temp. Vital Signs Temp 99.2 F 05/03/18 06:00 Pulse 97 H 05/03/18 09:43 Resp 36 H 05/03/18 06:00 BP 100/43 L 05/03/18 09:43 Pulse Ox 97 05/03/18 10:52 Intake & Output 05/02/18 05/03/18 05/03/18 23:59 11:59 23:59 Intake Total 372 385 Output Total 1100 500 Balance -728 -115 Intake: IV 22 35 Levophed - 4,000 Mcg In 22 35 D5w - 496 ml @ 5 MCG/MIN 37.5 mls/hr IV TITR ANNA Rx#:[id number] IVPB 350 Packed Cells 350 Output: Urine 1100 500 [place] 1100 500 Other: Voiding Method Indwelling Catheter Bowel Movement No Active Medications Albuterol/Ipratropium (Duoneb -) 1 amp NEB Q4H PRN PRN Reason: SHORTNESS OF BREATH Last Admin: 05/02/18 18:42 Dose: 1 amp Chlorhexidine Gluconate (Hibiclens For Decolonization -) 1 applic TP HS ANNA Last Admin: 05/02/18 22:27 Dose: 1 applic Enoxaparin Sodium (Lovenox -) 40 mg SQ DAILY ANNA Last Admin: 05/03/18 09:44 Dose: 40 mg Propofol (Diprivan -) 1,000,000 mcg in 100 mls @ 3.402 mls/hr IVPB TITR [facility]; Protocol Last Titration: 05/02/18 13:50 Dose: 0 mcg/kg/min, 0 mls/hr Fentanyl 500 mcg/ Dextrose 100 mls @ 5 mls/hr IVPB TITR AN[facility] Last Titration: 05/02/18 13:50 Dose: 0 mcg/hr, 0 mls/hr Famotidine/Sodium Chloride (Pepcid 20 Mg Premixed Ivpb -) 20 mg in 50 mls @ 100 mls/hr IVPB BID [facility] Last Admin: 05/03/18 09:44 Dose: 100 mls/hr Norepinephrine Bitartrate 4, (000 mcg/ Dextrose) 500 mls @ 37.5 mls/hr IV TITR [facility]; Protocol Last Titration: 05/03/18 09:43 Dose: 2 mcg/min, 15 mls/hr Vancomycin HCl (Vancomycin (Pre-Docked)) 1,000 mg in 250 mls @ 166.667 mls/hr IVPB BID@1100,2300 [facility]; Protocol Last Admin: 05/02/18 23:50 Dose: 166.667 mls/hr Piperacillin Sod/Tazobactam (Sod 4.5 gm/ Dextrose) 100 mls @ 200 mls/hr IVPB Q8H-IV [facility]; Protocol Last Admin: 05/03/18 09:45 Dose: 200 mls/hr Mupirocin (Bactroban Ointment (For Decolonization) -) 1 applic NS BID [facility] Stop: 05/07/18 09:59 Last Admin: 05/03/18 10:01 Dose: 1 applic Valproate Sodium (Depacon Injection -) 500 mg IVPB BID ANNA Last Admin: 05/03/18 09:46 Dose: 500 mg CBC, BMP 05/03/18 05:15 05/03/18 05:15 Microbiology 05/01/18 05:45 Urine Culture - Final Urine - Urine - Catheterized NO GROWTH OBTAINED 05/02/18 00:30 Blood Culture - Preliminary Blood - Peripheral Venous NO GROWTH OBTAINED AFTER 24 HOURS, INCUBATION TO CONTINUE FOR 4 DAYS. Physical Exam Constitutional: Yes: Other On bipap Neck: Yes: Supple, Other (orally intubated) Cardiovascular: Yes: Regular Rate and Rhythm Respiratory: Yes: CTA Bilaterally Gastrointestinal: Yes: Soft/ non tender Edema: LLE: Trace, RLE: Trace - ....Imaging Chest X-ray: Image Reviewed EKG: Report Reviewed, Image Reviewed Assessment/Plan monitor closly abx aspiration pneumonia s/p transfusion meds reviewed need anemia work up-- out pt vs inpatient will follow discussed with icu team discussed with sister also again today who is at bedside Sister Rescended DNR will follow cc time 30 min Problem List - Problems (1) Status epilepticus Code(s): G40.901 - EPILEPSY, UNSP, NOT INTRACTABLE, WITH STATUS EPILEPTICUS (2) Bipolar disorder Code(s): F31.9 - BIPOLAR DISORDER, UNSPECIFIED (3) COPD (chronic obstructive pulmonary disease) Code(s): J44.9 - CHRONIC OBSTRUCTIVE PULMONARY DISEASE, UNSPECIFIED (4) UTI (urinary tract infection) Code(s): N39.0 - URINARY TRACT INFECTION, SITE NOT SPECIFIED Qualifiers: Urinary tract infection type: site unspecified Hematuria presence: without hematuria Qualified Code(s): N39.0 - Urinary tract infection, site not specified
[2018-05-03] MEDS: VANCOMYCIN 1 GRAM (PRE-DOCKED) 1,000 MG/250 ML BAG IVPB SCH ×2 (13:00→23:43)
--- NOTE | 2018-05-03 13:01 | PN ---
Physical Exam: SUBJECTIVE: Patient seen and examined this morning in ICU. Extubated yesterday and place on Bipap overnight. OBJECTIVE: Vital Signs Period Temp Pulse Resp BP Sys/Meyers Pulse Ox Last 24 Hr 99.0 F-100.5 F 77-106 14-36 85-179/42-97 96-99 GENERAL: Awake, Alert, NAD HEAD: NCAT EYES: PERRL, EOMI ENT: Moist mucous membranes NECK: Supple LUNGS: Diminished breath sounds at the bases, no wheezes, no crackles HEART: Regular rate and rhythm, S1, S2 without murmur ABDOMEN: Obese, Soft, nontender, nondistended, + bowel sounds, no guarding EXTREMITIES: Trace edema. NEUROLOGICAL: Confused SKIN: Warm, dry. Lower extremity skin discoloration Laboratory Last Values WBC 8.4 K/mm3 (4.0-10.0) 05/03/18 05:15 RBC 3.14 M/mm3 (3.60-5.2) L 05/03/18 05:15 Hgb 9.9 GM/dL (10.7-15.3) L 05/03/18 05:15 Hct 29.3 % (32.4-45.2) L D 05/03/18 05:15 MCV 93.2 fl (80-96) 05/03/18 05:15 MCH 31.6 pg (25.7-33.7) 05/03/18 05:15 MCHC 33.9 g/dl (32.0-36.0) 05/03/18 05:15 RDW 19.7 % (11.6-15.6) H 05/03/18 05:15 Plt Count 315 K/MM3 (134-434) 05/03/18 05:15 MPV 6.6 fl (7.5-11.1) L 05/03/18 05:15 Absolute Neuts (auto) 6.8 K/mm3 (1.5-8.0) 05/03/18 05:15 Neutrophils % 81.7 % (42.8-82.8) 05/03/18 05:15 Lymphocytes % 13.4 % (8-40) D 05/03/18 05:15 Monocytes % 4.2 % (3.8-10.2) 05/03/18 05:15 Eosinophils % 0.2 % (0-4.5) 05/03/18 05:15 Basophils % 0.5 % (0-2.0) 05/03/18 05:15 Nucleated RBC % 0 % (0-0) 05/03/18 05:15 PT with INR 13.70 SEC (9.7-13.0) H 05/02/18 05:30 INR 1.16 (0.83-1.09) H 05/02/18 05:30 PTT (Actin FS) 33.2 SECONDS (25.2-36.5) 05/02/18 05:30 Anticoagulation Therapy No Result Required. 05/03/18 06:35 Puncture Site Right radial 05/03/18 06:35 ABG pH 7.32 (7.35-7.45) L 05/03/18 06:35 ABG pCO2 at Pt Temp 47.4 mmHg (35-45) H 05/03/18 06:35 ABG pO2 at Pt Temp 83.4 mmHg (80-100) D 05/03/18 06:35 ABG HCO3 23.7 meq/L (22-26) 05/03/18 06:35 ABG O2 Sat (Measured) 95.4 % (90-98.9) 05/03/18 06:35 ABG O2 Content 12.5 % vol (15-22) L 05/03/18 06:35 ABG Base Excess -1.9 meq/l (-2-2) 05/03/18 06:35 Wei Test Positive 05/03/18 06:35 Carboxyhemoglobin 0.2 gm% (0.5-2.0) L 05/01/18 23:58 Methemoglobin 0.2 % (0.4-1.5) L 05/01/18 23:58 O2 Delivery Device Bipap settings 05/03/18 06:35 Oxygen Flow Rate 80% 05/03/18 06:35 Vent Mode No Result Required. 05/03/18 06:35 Vent Rate No Result Required. 05/03/18 06:35 Mechanical Rate No Result Required. 05/03/18 06:35 PEEP 5.0 cmH2O 05/01/18 23:58 Pressure Support Vent No Result Required. 05/03/18 06:35 Sodium 146 mmol/L (136-145) H 05/03/18 05:15 Potassium 3.7 mmol/L (3.5-5.1) 05/03/18 05:15 Chloride 114 mmol/L (98-107) H 05/03/18 05:15 Carbon Dioxide 24 mmol/L (21-32) 05/03/18 05:15 Anion Gap 8 MMOL/L (8-16) 05/03/18 05:15 BUN 9 mg/dL (7-18) 05/03/18 05:15 Creatinine 0.9 mg/dL (0.55-1.3) 05/03/18 05:15 Creat Clearance w eGFR > 60 (>60) 05/03/18 05:15 Random Glucose 83 mg/dL (74-106) 05/03/18 05:15 Lactic Acid 1.0 mmol/L (0.4-2.0) 05/02/18 05:30 Calcium 7.3 mg/dL (8.5-10.1) L 05/03/18 05:15 Phosphorus 3.9 mg/dL (2.5-4.9) 05/03/18 05:15 Magnesium 1.9 mg/dL (1.8-2.4) 05/03/18 05:15 Total Bilirubin 0.2 mg/dL (0.2-1) 05/03/18 05:15 Direct Bilirubin 0.1 mg/dL (0.0-0.2) 05/03/18 05:15 AST 17 U/L (15-37) 05/03/18 05:15 ALT 9 U/L (13-61) L 05/03/18 05:15 Alkaline Phosphatase 109 U/L (45-117) 05/03/18 05:15 Creatine Kinase 38 U/L (26-192) 05/02/18 00:30 Troponin I 0.44 ng/ml (0.00-0.05) H 05/02/18 12:22 Total Protein 6.2 g/dl (6.4-8.2) L 05/03/18 05:15 Albumin 1.9 g/dl (3.4-5.0) L 05/03/18 05:15 TSH 2.23 uIU/ml (0.358-3.74) 05/02/18 05:30 Urine Color Yellow 05/01/18 05:45 Urine Appearance Slcloudy 05/01/18 05:45 Urine pH 7.0 (5.0-8.0) D 05/01/18 05:45 Ur Specific Eugene 1.014 (1.010-1.035) 05/01/18 05:45 Urine Protein 1+ (NEGATIVE) H 05/01/18 05:45 Urine Glucose (UA) Negative (NEGATIVE) 05/01/18 05:45 Urine Ketones Negative (NEGATIVE) 05/01/18 05:45 Urine Blood 2+ (NEGATIVE) H 05/01/18 05:45 Urine Nitrite Negative (NEGATIVE) 05/01/18 05:45 Urine Bilirubin Negative (<2.0 mg/dL) 05/01/18 05:45 Urine Urobilinogen Negative mg/dL (0.2-1.0) 05/01/18 05:45 Ur Leukocyte Esterase Negative (NEGATIVE) 05/01/18 05:45 Urine WBC (Auto) 9 /hpf (3-5) 05/01/18 05:45 Urine RBC (Auto) 7 /hpf (0-3) 05/01/18 05:45 Ur Epithelial Cells Rare /HPF (FEW) 05/01/18 05:45 Urine Mucus Rare 05/01/18 05:45 Opiates Screen Negative ng/ml (KFVJDH=334) 05/02/18 05:45 Methadone Screen Negative ng/ml (UJIKGZ=322) 05/02/18 05:45 Barbiturate Screen Negative ng/ml (AAXQAD=079) 05/02/18 05:45 Phencyclidine Screen Negative ng/ml (CUTOFF=25) 05/02/18 05:45 Ur Amphetamines Screen Negative ng/ml (FRLBKE=597) 05/02/18 05:45 MDMA (Ecstasy) Screen Negative ng/ml (OZAPZR=648) 05/02/18 05:45 Benzodiazepines Screen Positive ng/ml (CATVOO=274) A* 05/02/18 05:45 Cocaine Screen Negative ng/ml (MGXWEN=349) 05/02/18 05:45 U Marijuana (THC) Screen Negative ng/ml (CUTOFF=50) 05/02/18 05:45 Blood Type O POSITIVE 05/02/18 08:38 Antibody Screen Negative 05/02/18 00:30 Crossmatch See Detail 05/02/18 00:30 Microbiology 05/01/18 05:45 Urine - Urine - Catheterized Urine Culture - Final NO GROWTH OBTAINED 05/02/18 00:30 Blood - Peripheral Venous Blood Culture - Preliminary NO GROWTH OBTAINED AFTER 24 HOURS, INCUBATION TO CONTINUE FOR 4 DAYS. Active Medications Albuterol/Ipratropium (Duoneb -) 1 amp NEB Q4H PRN PRN Reason: SHORTNESS OF BREATH Last Admin: 05/02/18 18:42 Dose: 1 amp Chlorhexidine Gluconate (Hibiclens For Decolonization -) 1 applic TP HS ANNA Last Admin: 05/02/18 22:27 Dose: 1 applic Enoxaparin Sodium (Lovenox -) 40 mg SQ DAILY ANNA Last Admin: 05/03/18 09:44 Dose: 40 mg Propofol (Diprivan -) 1,000,000 mcg in 100 mls @ 3.402 mls/hr IVPB TITR ANNA; Protocol Last Titration: 05/02/18 13:50 Dose: 0 mcg/kg/min, 0 mls/hr Fentanyl 500 mcg/ Dextrose 100 mls @ 5 mls/hr IVPB TITR ANNA Last Titration: 05/02/18 13:50 Dose: 0 mcg/hr, 0 mls/hr Famotidine/Sodium Chloride (Pepcid 20 Mg Premixed Ivpb -) 20 mg in 50 mls @ 100 mls/hr IVPB BID ANNA Last Admin: 05/03/18 09:44 Dose: 100 mls/hr Norepinephrine Bitartrate 4, (000 mcg/ Dextrose) 500 mls @ 37.5 mls/hr IV TITR ANNA; Protocol Last Titration: 05/03/18 09:43 Dose: 2 mcg/min, 15 mls/hr Vancomycin HCl (Vancomycin (Pre-Docked)) 1,000 mg in 250 mls @ 166.667 mls/hr IVPB BID@1100,2300 ANNA; Protocol Last Admin: 05/02/18 23:50 Dose: 166.667 mls/hr Piperacillin Sod/Tazobactam (Sod 4.5 gm/ Dextrose) 100 mls @ 200 mls/hr IVPB Q8H-IV ANNA; Protocol Last Admin: 05/03/18 09:45 Dose: 200 mls/hr Mupirocin (Bactroban Ointment (For Decolonization) -) 1 applic NS BID [facility] Stop: 05/07/18 09:59 Last Admin: 05/03/18 10:01 Dose: 1 applic Valproate Sodium (Depacon Injection -) 500 mg IVPB BID [facility] Last Admin: 05/03/18 09:46 Dose: 500 mg ASSESSMENT/PLAN: 63 y/o F with PMHx of Epilepsy, HTN, Hypothyroidism, GERD, COPD (not on Home O2) , Frequent UTIs, Bipolar Disorder, Schizophrenia, Varicose Veins, who was recently discharged from [facility] (Treated for PNA, UTI with cefuroxime), was BIBEMS from [facility] s/p Convulsion, was intubated and Sedated in the ED and will be monitored in ICU. #Neuro Status Epilepticus Hx of Epiepsy, Bipolar Disorder, Schizophrenia -Unclear Etiology however will need to r/o Structural brain injury, Infection, Medication non-compliance, Metabolic abnormalities, Substance abuse -Keppra level pending -UA Noted above -UTox positive for benzo's; Patient given Versed -Head CT: No evidence of acute intracranial hemorrhage, edema, midline shift, mass effect, or skull fracture. No CT evidence of acute territorial infarction. Markedly thickened calvarium with extensive hyperostosis frontalis interna -Given Phenytoin 1500mg x1, Versed 4mg x4 in ED -No longer Sedated -D/C Keppra -Valproate 500mg IV BID -Neurology (Dr. Kim) consulted; Appreciate Rec's -Neurochecks Q4H -Aspiration precautions -NPO -Will need outpatient follow up for tighter seizure control #Cardio Shock Tropinemia, Likely due to Demand Ischemia Hx of HTN -Currently on Levophed, Monitor off pressors if MAP > 65 -Trop 0.6 --> 0.44 -EKG: RBBB, LAD, QTc 462 -Hold home dose Anti-HTN meds -Monitor I&Os, peterson in place #Pulm Acute Respiratory Failure Hx of COPD (not on Home O2) -Extubated on 05/02 -Albuterol Nebulizer -CXR: Status post right central line placement, no pneumothorax is seen -Bipap PRN -Supplemental O2 PRN to maintain SpO2 > 88% #GI Elevated Alk phos, Corrected Hx of GERD -Continue Famotidine #Renal -No active issues, continue to monitor #Endocrine Hx of Hypothyroidism -TSH 2.23 -Restart home dose Levothyroxine #Heme/Onc Anemia -Hgb 9.9 s/p 2 units pRBCs -B12 (04/27) 1521, Folate (04/26) 979 #ID Hx of Frequent UTIs -Recently discharged from [facility] (Treated for PNA, UTI with cefuroxime) -No lactic acidosis -UA: 1+ protein, 2+ Blood -Blood and Urine Cx Pending -Prior Urine Cx grew E. Coli -ID (Dr. Montgomery) Consulted -Continue Vanco 1g, Zosyn 3.375 (started on 05/02) #FEN -PO Fluids -Lytes WNL -NPO #PPx -DVT: Lovenox -GI: Famotidine #LTD -R IJ on 05/01 -Peterson placed on 05/01 Code Status: Full Code; Spoke with Sister, Aileen, who would like to rescind the MOLST form Dispo: Continue to monitor in ICU Visit type - Emergency Visit Emergency Visit: Yes ED Registration Date: 05/02/18 Care time: The patient presented to the Emergency Department on the above date and was hospitalized for further evaluation of their emergent condition. - New Patient This patient is new to me today: No - Critical Care Critical Care patient: Yes Total Critical Care Time (in minutes): 36 Critical Care Statement: The care of this patient involved high complexity decision making to prevent further life threatening deterioration of the patient 's condition and/or to evaluate & treat vital organ system(s) failure or risk of failure.
--- NOTE | 2018-05-03 18:31 | PN ---
Progress Note, Physician History of Present Illness: events noted and chart reviewed seen in the medical ICU. Had 2 small seizures with left arm shaking and abnormal eye movements today. Patient is on the Depakote patient is off the Keppra. Patient is not able to take the Lamictal. Blood work is still pending. Patient still hemodynamically unstable with a PO2 satting at 100 abnormal blood test. Patient was seen on the BiPAP machine more oriented today squeeze my hand no movement in the lower extremity - Current Medication List Current Medications: Active Medications Albuterol/Ipratropium (Duoneb -) 1 amp NEB Q4H PRN PRN Reason: SHORTNESS OF BREATH Last Admin: 05/02/18 18:42 Dose: 1 amp Chlorhexidine Gluconate (Hibiclens For Decolonization -) 1 applic TP HS ANNA Last Admin: 05/02/18 22:27 Dose: 1 applic Enoxaparin Sodium (Lovenox -) 40 mg SQ DAILY ANNA Last Admin: 05/03/18 09:44 Dose: 40 mg Propofol (Diprivan -) 1,000,000 mcg in 100 mls @ 3.402 mls/hr IVPB TITR ANNA; Protocol Last Titration: 05/02/18 13:50 Dose: 0 mcg/kg/min, 0 mls/hr Fentanyl 500 mcg/ Dextrose 100 mls @ 5 mls/hr IVPB TITR ANNA Last Titration: 05/02/18 13:50 Dose: 0 mcg/hr, 0 mls/hr Famotidine/Sodium Chloride (Pepcid 20 Mg Premixed Ivpb -) 20 mg in 50 mls @ 100 mls/hr IVPB BID ANNA Last Admin: 05/03/18 09:44 Dose: 100 mls/hr Norepinephrine Bitartrate 4, (000 mcg/ Dextrose) 500 mls @ 37.5 mls/hr IV TITR ANNA; Protocol Last Titration: 05/03/18 09:43 Dose: 2 mcg/min, 15 mls/hr Vancomycin HCl (Vancomycin (Pre-Docked)) 1,000 mg in 250 mls @ 166.667 mls/hr IVPB BID@1100,2300 ANNA; Protocol Last Admin: 05/03/18 13:00 Dose: 166.667 mls/hr Piperacillin Sod/Tazobactam (Sod 4.5 gm/ Dextrose) 100 mls @ 200 mls/hr IVPB Q8H-IV ANNA; Protocol Last Admin: 05/03/18 17:45 Dose: 200 mls/hr Mupirocin (Bactroban Ointment (For Decolonization) -) 1 applic NS BID ANNA Stop: 05/07/18 09:59 Last Admin: 05/03/18 10:01 Dose: 1 applic Valproate Sodium (Depacon Injection -) 500 mg IVPB BID [facility] Last Admin: 05/03/18 09:46 Dose: 500 mg - Objective Vital Signs: Vital Signs Temperature 98.3 F 05/03/18 17:00 Pulse Rate 102 H 05/03/18 18:00 Respiratory Rate 30 H 05/03/18 18:00 Blood Pressure 122/104 H 05/03/18 18:00 O2 Sat by Pulse Oximetry (%) 97 05/03/18 16:20 Constitutional: Yes: Well Nourished Eyes: Yes: WNL Neurological: Yes: Alert, Babinski positive ...Motor Strength: LUE (2), RUE (2) Labs: CBC, BMP 05/03/18 05:15 05/03/18 05:15 INR, PTT INR 1.16 (0.83-1.09) H 05/02/18 05:30 Problem List - Problems (1) Status epilepticus Assessment/Plan: patient is not in status Increased Depakote Check Depakote level in 12 hours Seizure precautions Follow-up with pulmonology Swallowing evaluation Code(s): G40.901 - EPILEPSY, UNSP, NOT INTRACTABLE, WITH STATUS EPILEPTICUS
[2018-05-03] MEDS: CHLORHEXIDINE GLUCONATE 4% CLEANSER FOR DECOLONIZATION TP SCH (21:58)
[2018-05-03] MEDS: FENTANYL INJECTION 500 MCG in DEXTROSE 5%-WATER - 90 ML IVPB SCH (23:52)
[2018-05-03] MEDS: PROPOFOL 1,000,000 MCG/100 ML VIAL IVPB SCH (23:54)
[2018-05-04] MEDS ORDERED: LORazepam 2 MG/ML SDV VIAL IVPUSH ONE (00:03)
[2018-05-04] MEDS ORDERED: LORazepam 2 MG/ML SDV VIAL ONE ×2 (00:07→08:04)
[2018-05-04] MEDS: NOREPINEPHRINE BITARTRATE 4,000 MCG in DEXTROSE 5%-WATER - 496 ML IV SCH ×2 (00:11→10:59)
[2018-05-04] MEDS ORDERED: PIPERACILLIN/TAZOBACTAM 4.5 GM VIAL IVPB ONE ×3 (02:47→17:08)
[2018-05-04] MEDS ORDERED: DEXTROSE 5%-WATER 100 ML IVPB ONE ×3 (02:47→17:08)
[2018-05-04] MEDS: FENTANYL INJECTION 500 MCG in DEXTROSE 5%-WATER - 90 ML IVPB SCH (02:51)
[2018-05-04] MEDS: PIPERACILLIN/TAZOB 4.5 GM 4.5 GM in DEXTROSE 5%-WATER 100 ML IVPB SCH ×3 (02:51→17:42)
[2018-05-04 05:54] LABS: BASO % 0.8 % (0-2.0); EOS % 1.2 % (0-4.5); HEMATOCRIT 24.2 % (32.4-45.2); HEMOGLOBIN 8.3 GM/dL (10.7-15.3); LYMPH % 23.1 % (8-40); MCH 31.5 pg (25.7-33.7); MCHC 34.2 g/dl (32.0-36.0); MEAN CELL VOLUME 92.1 fl (80-96); MEAN PLT VOLUME 6.8 fl (7.5-11.1); MONO % 5.7 % (3.8-10.2); NEUT % 69.2 % (42.8-82.8); PLATELET COUNT 253 K/MM3 (134-434); RBC 2.63 M/mm3 (3.60-5.2); RDW 19.5 % (11.6-15.6); WHITE BLOOD COUNT 7.3 K/mm3 (4.0-10.0)
[2018-05-04 06:31] LABS: ALBUMIN 1.8 g/dl (3.4-5.0); ALK PHOS 89 U/L (45-117); ANION GAP 6 MMOL/L (8-16); BILIRUBIN,TOTAL 0.4 mg/dL (0.2-1); BLOOD UREA NITROGEN 9 mg/dL (7-18); CALCIUM 7.7 mg/dL (8.5-10.1); CHLORIDE 115 mmol/L (98-107); CO2 27 mmol/L (21-32); CREATININE 1.1 mg/dL (0.55-1.3); GLUCOSE,RANDOM 74 mg/dL (74-106); MAGNESIUM 1.7 mg/dL (1.8-2.4); PHOSPHOROUS 2.8 mg/dL (2.5-4.9); POTASSIUM 3.2 mmol/L (3.5-5.1); SGOT/AST 15 U/L (15-37); SGPT/ALT 7 U/L (13-61); SODIUM 148 mmol/L (136-145); TOT PROT 5.8 g/dl (6.4-8.2)
[2018-05-04] MEDS ORDERED: MAGNESIUM 2GM/50ML STERILE WATER IVPB IVPB ONE (07:41)
[2018-05-04] MEDS ORDERED: POTASSIUM PHOSPHATE 30 MM in SODIUM CHLORIDE 250 ML IVPB ONE (07:41)
[2018-05-04] MEDS ORDERED: POTASSIUM PHOSPHATE 30 MM in DEXTROSE 5%-WATER - 250 ML IVPB ONE (07:42)
--- NOTE | 2018-05-04 07:51 | PN ---
Progress Note (short form) - Note Progress Note: Patient seen and examined at bedside had seizure activity overnight requiring Ativan During my exam patient started to seize as well. She started to have rhythmic jerking of the left arm and there was tension of the left neck muscles thus turning the head to the right. Vital Signs Temperature 98.2 F 05/04/18 08:00 Pulse Rate 94 H 05/04/18 08:00 Respiratory Rate 18 05/04/18 08:00 Blood Pressure 144/54 L 05/04/18 08:00 O2 Sat by Pulse Oximetry (%) 100 05/04/18 08:00 General: lying in bed on BiPAP Neuro: Had rhythmic jerking of the left arm and there was tension of the left neck muscles thus turning the head to the right. Immediately after the episode patient was able to follow commands by squeezing with her left hand and was able to track me with her eyes. Patient spontaneously opens her eyes. Able to move her extremities except left arm CV: RRR S1 S2 questionable 3/6 systolic murmur heard at the upper sternal borders (difficult to hear due to loud coarse breath sounds) Resp: coarse breath sounds bilaterally ABD: Soft non tender non distended Ext: Trace non pitting edema 05/04/18 05/04/18 05:15 05:15 WBC 7.3 RBC 2.63 L Hgb 8.3 L Hct 24.2 L D MCV 92.1 MCHC 34.2 RDW 19.5 H Plt Count 253 Neutrophils % 69.2 Lymphocytes % 23.1 D Monocytes % 5.7 Eosinophils % 1.2 D Basophils % 0.8 Sodium 148 H Potassium 3.2 L Chloride 115 H Carbon Dioxide 27 Anion Gap 6 L BUN 9 Creatinine 1.1 05/02/18 00:30 Blood Culture - Preliminary Blood - Peripheral Venous NO GROWTH OBTAINED AFTER 48 HOURS, INCUBATION TO CONTINUE FOR 3 DAYS. 05/03/18 11:10 MRSA Screen - Pending Nares - Mrsa Screen - Right 05/01/18 12:20 Blood Culture - Preliminary Blood - Peripheral Venous NO GROWTH OBTAINED AFTER 24 HOURS, INCUBATION TO CONTINUE FOR 4 DAYS. 05/01/18 05:45 Urine Culture - Final Urine - Urine - Catheterized NO GROWTH OBTAINED 63 y/o F with PMHx of Epilepsy, HTN, Hypothyroidism, GERD, COPD (not on Home O2) , Frequent UTIs, Bipolar Disorder, Schizophrenia, presents with status epilepticus was intubated for airway protection now extubated on bipap Status Epilepticus Hx of Epilepsy Bipolar Disorder Schizophrenia Valproic acid level 53-WNL still having seizure like activity will give ativan PRN will have low threshold for reintubation for airway protection will reach out to neurologist again continue depakote 750mg IV BID Cardio on 2mcg/min levophed continue to keep MAP>65 wean as tolerated Pulm Acute Respiratory Failure-resolved now with aspiration pneumonitis continue vanco/zosyn Hx of Hypothyroidism continue synthroid IV for now on 75mcg at home will continue IV at 37.5mcg/day Aspiration pneumonia/pneumonitis continue vanco/Zosyn Will check vanco trough today Replete electrolytes: will give Kphos and magnesium sulfate PPx DVT: Lovenox GI Famotidine LTD R IJ on 05/01 Peralta placed on 05/01 full code CCTime 36 minutes
[2018-05-04] MEDS ORDERED: LORazepam 2 MG/ML SDV VIAL IVPUSH PRN (08:00)
--- NOTE | 2018-05-04 09:50 | PN ---
Teaching Attending Note Name of Resident: Kodak Engel ATTENDING PHYSICIAN STATEMENT I saw and evaluated the patient. I reviewed the resident's note and discussed the case with the resident. I agree with the resident's findings and plan as documented. SUBJECTIVE: Patient seen and examined this morning in ICU. Remains extubated on NIPPV. Currently 2 mcq NE for hemoidynamic support. Apparent LUE focal seizure activity x 2. CXR: Improvimh infiltrates on the right OBJECTIVE: Intake & Output 05/01/18 05/02/18 05/03/18 05/04/18 23:59 23:59 23:59 23:59 Intake Total 1392 2088 185 Output Total 1350 1650 275 Balance 42 438 -90 Weight 214 lb 4 oz 220 lb 7.396 oz Last Vital Signs Temp Pulse Resp BP Pulse Ox 98.2 F 96 H 17 134/44 L 100 05/04/18 06:00 05/04/18 06:00 05/04/18 06:00 05/04/18 06:00 05/04/18 08:35 Active Medications Albuterol/Ipratropium (Duoneb -) 1 amp NEB Q4H PRN PRN Reason: SHORTNESS OF BREATH Last Admin: 05/02/18 18:42 Dose: 1 amp Chlorhexidine Gluconate (Hibiclens For Decolonization -) 1 applic TP HS [facility] Last Admin: 05/03/18 21:58 Dose: 1 applic Enoxaparin Sodium (Lovenox -) 40 mg SQ DAILY [facility] Last Admin: 05/03/18 09:44 Dose: 40 mg Famotidine/Sodium Chloride (Pepcid 20 Mg Premixed Ivpb -) 20 mg in 50 mls @ 100 mls/hr IVPB BID [facility] Last Admin: 05/03/18 21:58 Dose: 100 mls/hr Norepinephrine Bitartrate 4, (000 mcg/ Dextrose) 500 mls @ 37.5 mls/hr IV TITR [facility]; Protocol Last Titration: 05/04/18 04:35 Dose: 2 mcg/min, 15 mls/hr Vancomycin HCl (Vancomycin (Pre-Docked)) 1,000 mg in 250 mls @ 166.667 mls/hr IVPB BID@1100,2300 [facility]; Protocol Last Admin: 05/03/18 23:43 Dose: 166.667 mls/hr Piperacillin Sod/Tazobactam (Sod 4.5 gm/ Dextrose) 100 mls @ 200 mls/hr IVPB Q8H-IV ANNA; Protocol Last Admin: 05/04/18 02:51 Dose: 200 mls/hr Potassium Phosphate 30 mm/ (Dextrose) 260 mls @ 62.5 mls/hr IVPB ONCE ONE Stop: 05/04/18 11:51 Lorazepam (Ativan Injection -) 1 mg IVPUSH Q1H PRN PRN Reason: seizure Lorazepam (Ativan Injection -) 2 mg IVPUSH Q1H PRN PRN Reason: not responding to 1mg ativan Mupirocin (Bactroban Ointment (For Decolonization) -) 1 applic NS BID [facility] Stop: 05/07/18 09:59 Last Admin: 05/03/18 21:58 Dose: 1 applic Valproate Sodium (Depacon Injection -) 750 mg IVPB BID [facility] Last Admin: 05/03/18 21:58 Dose: 750 mg GENERAL: Extubated, awake and responsive on NIPPV HEAD: NCAT EYES: PERRL ENT: Moist mucous membranes NECK: Supple LUNGS: Coarse rhonchi on the Left HEART: Regular rate and rhythm, S1, S2 without murmur ABDOMEN: Obese, Soft, nontender, nondistended, + bowel sounds, no guarding EXTREMITIES: (+) edema. NEUROLOGICAL: Mildly Confused, LUE weakness SKIN: Warm, dry. Lower extremity skin discoloration Laboratory Results - last 24 hr 05/02/18 05/04/18 05/04/18 16:36 05:15 05:15 WBC 7.3 RBC 2.63 L Hgb 8.3 L Hct 24.2 L D MCV 92.1 MCH 31.5 MCHC 34.2 RDW 19.5 H Plt Count 253 MPV 6.8 L Absolute Neuts (auto) 5.0 Neutrophils % 69.2 Lymphocytes % 23.1 D Monocytes % 5.7 Eosinophils % 1.2 D Basophils % 0.8 Nucleated RBC % 0 Sodium Potassium Chloride Carbon Dioxide Anion Gap BUN Creatinine Creat Clearance w eGFR Random Glucose Calcium Phosphorus Magnesium Total Bilirubin AST ALT Alkaline Phosphatase Total Protein Albumin Prolactin 4.3 L Valproic Acid 53.5 05/04/18 05:15 WBC RBC Hgb Hct MCV MCH MCHC RDW Plt Count MPV Absolute Neuts (auto) Neutrophils % Lymphocytes % Monocytes % Eosinophils % Basophils % Nucleated RBC % Sodium 148 H Potassium 3.2 L Chloride 115 H Carbon Dioxide 27 Anion Gap 6 L BUN 9 Creatinine 1.1 Creat Clearance w eGFR 50.50 Random Glucose 74 Calcium 7.7 L Phosphorus 2.8 Magnesium 1.7 L Total Bilirubin 0.4 AST 15 ALT 7 L Alkaline Phosphatase 89 Total Protein 5.8 L Albumin 1.8 L Prolactin Valproic Acid ASSESSMENT/PLAN: Acute Respiratory Failure R/O PNA (LLL) Septic Shock Status epilepticus HTN Hypothyroidism GERD COPD Frequent UTIs Bipolar Disorder Schizophrenia Varicose Veins Recent PNA / UTI NIPPV IVF Pressors to maintain MAP > 65 VTE prophylaxis Keppra Strict I & O William-culture Aspiration precautions BD TX PRN No indication for systemic steroids ICU monitoring for tenuous respiratory status / pressors Dr Mcdonald Critical care time spent in reviewing chart, evaluating patient and formulating plan - 36 minutes.
[2018-05-04] MEDS: FAMOTIDINE 20 MG/50 ML IVPB 20 MG/50 ML MG IVPB SCH ×2 (10:31→21:43)
[2018-05-04] MEDS: ENOXAPARIN NA (PORCINE) 40 MG/0.4 ML DISP.SYRIN SQ SCH (10:31)
[2018-05-04] MEDS: VANCOMYCIN 1 GRAM (PRE-DOCKED) 1,000 MG/250 ML BAG IVPB SCH (10:32)
[2018-05-04] MEDS: VALPROATE SODIUM 500 MG/5 ML VIAL IVPB SCH ×2 (10:32→21:43)
[2018-05-04] MEDS: MUPIROCIN 2% TOPICAL OINTMENT FOR DECOLONIZATION NS SCH ×2 (11:00→21:44)
--- NOTE | 2018-05-04 11:16 | PN ---
Progress Note (short form) - Note Progress Note: pt seen/ examined in icu chart reviewed/ all f/u noted On NIPPV on pressor support awake still having seizures-- left arm shaking Depakote increased-- Neurology following. Vital Signs Temp 98.2 F 05/04/18 06:00 Pulse 96 H 05/04/18 06:00 Resp 17 05/04/18 06:00 BP 134/44 L 05/04/18 06:00 Pulse Ox 97 05/04/18 10:55 Intake & Output 05/03/18 05/03/18 05/04/18 11:59 23:59 11:59 Intake Total 385 1703 185 Output Total 500 1150 275 Balance -115 553 -90 Weight 220 lb 7.396 oz Intake: IV 35 253 85 DIPRIVAN - 1,000,000 mcg 0 0 In 100 ml @ 5 MCG/KG/MIN 3.402 mls/hr IVPB TITR [facility] Rx#:[id number] Levophed - 4,000 Mcg In 35 233 85 D5w - 496 ml @ 5 MCG/MIN 37.5 mls/hr IV TITR [facility] Rx#:[id number] Sublimaze Injection - 500 20 0 Mcg In D5w - 90 ml @ 25 MCG/HR 5 mls/hr IVPB TITR [facility] Rx#:[id number] IVPB 1100 100 Packed Cells 350 350 Output: Urine 500 1150 275 Peralta 500 1150 275 Other: Voiding Method Indwelling Catheter Indwelling Catheter Indwelling Catheter Bowel Movement No No No Weight Measurement Method Built in [facility] Active Medications Albuterol/Ipratropium (Duoneb -) 1 amp NEB Q4H PRN PRN Reason: SHORTNESS OF BREATH Last Admin: 05/02/18 18:42 Dose: 1 amp Chlorhexidine Gluconate (Hibiclens For Decolonization -) 1 applic TP HS [facility] Last Admin: 05/03/18 21:58 Dose: 1 applic Enoxaparin Sodium (Lovenox -) 40 mg SQ DAILY [facility] Last Admin: 05/04/18 10:31 Dose: 40 mg Famotidine/Sodium Chloride (Pepcid 20 Mg Premixed Ivpb -) 20 mg in 50 mls @ 100 mls/hr IVPB BID [facility] Last Admin: 05/04/18 10:31 Dose: 100 mls/hr Norepinephrine Bitartrate 4, (000 mcg/ Dextrose) 500 mls @ 37.5 mls/hr IV TITR [facility]; Protocol Last Admin: 05/04/18 10:59 Dose: Not Given Vancomycin HCl (Vancomycin (Pre-Docked)) 1,000 mg in 250 mls @ 166.667 mls/hr IVPB BID@1100,2300 [facility]; Protocol Last Admin: 05/04/18 10:32 Dose: 166.667 mls/hr Piperacillin Sod/Tazobactam (Sod 4.5 gm/ Dextrose) 100 mls @ 200 mls/hr IVPB Q8H-IV [facility]; Protocol Last Admin: 05/04/18 10:32 Dose: 200 mls/hr Potassium Phosphate 30 mm/ (Dextrose) 260 mls @ 62.5 mls/hr IVPB ONCE ONE Stop: 05/04/18 11:51 Last Admin: 05/04/18 10:29 Dose: 62.5 mls/hr Levothyroxine Sodium (Synthroid Injection -) 37.5 mcg IVPUSH DAILY [facility] Lorazepam (Ativan Injection -) 1 mg IVPUSH Q1H PRN PRN Reason: seizure Lorazepam (Ativan Injection -) 2 mg IVPUSH Q1H PRN PRN Reason: not responding to 1mg ativan Mupirocin (Bactroban Ointment (For Decolonization) -) 1 applic NS BID [facility] Stop: 05/07/18 09:59 Last Admin: 05/04/18 11:00 Dose: 1 applic Valproate Sodium (Depacon Injection -) 750 mg IVPB BID [facility] Last Admin: 05/04/18 10:32 Dose: 750 mg CBC, BMP 05/04/18 05:15 05/04/18 05:15 Physical Exam Constitutional: Yes: Other on NIPPV Neck: Yes: Supple, nojvd Cardiovascular: Yes: Regular Rate and Rhythm Respiratory: Yes: CTA Bilaterally Gastrointestinal: Yes: Soft/ non tender. bs + Edema: LLE: Trace, RLE: Trace - ....Imaging Chest X-ray: Image Reviewed EKG: Report Reviewed, Image Reviewed Assessment/Plan seizures -- still having - small monitor closly abx aspiration pneumonia s/p transfusion meds reviewed need anemia work up-- when stable-- can be done as out pt -- medically not stable yet will follow discussed with icu team also/ nursing staff Sister Rescended DNR will follow cc time 20 min Anemia == work up needed when stable Problem List - Problems (1) Status epilepticus Code(s): G40.901 - EPILEPSY, UNSP, NOT INTRACTABLE, WITH STATUS EPILEPTICUS (2) Bipolar disorder Code(s): F31.9 - BIPOLAR DISORDER, UNSPECIFIED (3) COPD (chronic obstructive pulmonary disease) Code(s): J44.9 - CHRONIC OBSTRUCTIVE PULMONARY DISEASE, UNSPECIFIED (4) UTI (urinary tract infection) Code(s): N39.0 - URINARY TRACT INFECTION, SITE NOT SPECIFIED Qualifiers: Urinary tract infection type: site unspecified Hematuria presence: without hematuria Qualified Code(s): N39.0 - Urinary tract infection, site not specified
[2018-05-04] MEDS: LORazepam 2 MG/ML SDV VIAL IVPUSH PRN ×2 (11:39→14:17)
[2018-05-04] MEDS: LEVOTHYROXINE SODIUM 100 MCG VIAL IVPUSH SCH (12:24)
--- NOTE | 2018-05-04 13:04 | PN ---
Progress Note, Physician History of Present Illness: events noted chart reviewed Patient had multiple small seizures on the left side with the same twitching Patient still on the Depakote Levels getting up Seemed patient after Ativan was out of it - Current Medication List Current Medications: Active Medications Albuterol/Ipratropium (Duoneb -) 1 amp NEB Q4H PRN PRN Reason: SHORTNESS OF BREATH Last Admin: 05/02/18 18:42 Dose: 1 amp Chlorhexidine Gluconate (Hibiclens For Decolonization -) 1 applic TP HS [facility] Last Admin: 05/03/18 21:58 Dose: 1 applic Enoxaparin Sodium (Lovenox -) 40 mg SQ DAILY [facility] Last Admin: 05/04/18 10:31 Dose: 40 mg Famotidine/Sodium Chloride (Pepcid 20 Mg Premixed Ivpb -) 20 mg in 50 mls @ 100 mls/hr IVPB BID [facility] Last Admin: 05/04/18 10:31 Dose: 100 mls/hr Norepinephrine Bitartrate 4, (000 mcg/ Dextrose) 500 mls @ 37.5 mls/hr IV TITR [facility]; Protocol Last Admin: 05/04/18 10:59 Dose: Not Given Vancomycin HCl (Vancomycin (Pre-Docked)) 1,000 mg in 250 mls @ 166.667 mls/hr IVPB BID@1100,2300 [facility]; Protocol Last Admin: 05/04/18 10:32 Dose: 166.667 mls/hr Piperacillin Sod/Tazobactam (Sod 4.5 gm/ Dextrose) 100 mls @ 200 mls/hr IVPB Q8H-IV [facility]; Protocol Last Admin: 05/04/18 10:32 Dose: 200 mls/hr Levothyroxine Sodium (Synthroid Injection -) 37.5 mcg IVPUSH DAILY [facility] Last Admin: 05/04/18 12:24 Dose: 37.5 mcg Lorazepam (Ativan Injection -) 1 mg IVPUSH Q1H PRN PRN Reason: seizure Last Admin: 05/04/18 11:39 Dose: 1 mg Lorazepam (Ativan Injection -) 2 mg IVPUSH Q1H PRN PRN Reason: not responding to 1mg ativan Mupirocin (Bactroban Ointment (For Decolonization) -) 1 applic NS BID [facility] Stop: 05/07/18 09:59 Last Admin: 05/04/18 11:00 Dose: 1 applic Valproate Sodium (Depacon Injection -) 750 mg IVPB BID [facility] Last Admin: 05/04/18 10:32 Dose: 750 mg - Objective Vital Signs: Vital Signs Temperature 98.2 F 05/04/18 06:00 Pulse Rate 96 H 05/04/18 06:00 Respiratory Rate 17 05/04/18 06:00 Blood Pressure 134/44 L 05/04/18 06:00 O2 Sat by Pulse Oximetry (%) 95 05/04/18 12:51 Constitutional: Yes: Well Nourished Eyes: Yes: WNL HENT: Yes: WNL Neurological: Yes: Alert, Babinski positive Labs: CBC, BMP 05/04/18 05:15 05/04/18 05:15 INR, PTT INR 1.16 (0.83-1.09) H 05/02/18 05:30 Problem List - Problems (1) Status epilepticus Assessment/Plan: neuro checks every 1 hour. 2. Increase Depakote to 1000 mg twice daily. 3. Check the level XII hours. 4. Await the EEG. 5. Ativan when necessary. 6. Follow-up with the principal technical architect Code(s): G40.901 - EPILEPSY, UNSP, NOT INTRACTABLE, WITH STATUS EPILEPTICUS
[2018-05-04] MEDS: CHLORHEXIDINE GLUCONATE 4% CLEANSER FOR DECOLONIZATION TP SCH (21:43)
[2018-05-05] MEDS: VANCOMYCIN 1 GRAM (PRE-DOCKED) 1,000 MG/250 ML BAG IVPB SCH (00:37)
[2018-05-05] MEDS ORDERED: PIPERACILLIN/TAZOBACTAM 4.5 GM VIAL IVPB ONE ×3 (03:32→17:16)
[2018-05-05] MEDS ORDERED: DEXTROSE 5%-WATER 100 ML IVPB ONE ×3 (03:32→17:16)
[2018-05-05] MEDS: LORazepam 2 MG/ML SDV VIAL IVPUSH PRN (03:42)
[2018-05-05] MEDS: PIPERACILLIN/TAZOB 4.5 GM 4.5 GM in DEXTROSE 5%-WATER 100 ML IVPB SCH ×3 (03:42→18:30)
[2018-05-05 06:10] LABS: HEMATOCRIT 26.6 % (32.4-45.2); HEMOGLOBIN 9.1 GM/dL (10.7-15.3); MCH 31.5 pg (25.7-33.7); MCHC 34.1 g/dl (32.0-36.0); MEAN CELL VOLUME 92.3 fl (80-96); PLATELET COUNT 263 K/MM3 (134-434); RBC 2.88 M/mm3 (3.60-5.2); RDW 19.2 % (11.6-15.6); WHITE BLOOD COUNT 6.3 K/mm3 (4.0-10.0)
[2018-05-05 06:23] LABS: ALBUMIN 1.8 g/dl (3.4-5.0); ALK PHOS 99 U/L (45-117); ANION GAP 5 MMOL/L (8-16); BILIRUBIN,TOTAL 0.3 mg/dL (0.2-1); BLOOD UREA NITROGEN 7 mg/dL (7-18); CALCIUM 7.9 mg/dL (8.5-10.1); CHLORIDE 118 mmol/L (98-107); CO2 30 mmol/L (21-32); GLUCOSE,RANDOM 95 mg/dL (74-106); MAGNESIUM 2.4 mg/dL (1.8-2.4); PHOSPHOROUS 3.4 mg/dL (2.5-4.9); POTASSIUM 3.1 mmol/L (3.5-5.1); SGOT/AST 14 U/L (15-37); SGPT/ALT 6 U/L (13-61); SODIUM 152 mmol/L (136-145); TOT PROT 6.2 g/dl (6.4-8.2)
[2018-05-05 06:55] LABS: ARTERIAL BLD GAS O2 SATURATION 93.4 % (90-98.9); ARTERIAL BLOOD GAS pH 7.37 (7.35-7.45)
[2018-05-05 07:12] LABS: ALLENS TEST POSITIVE
[2018-05-05] MEDS: KCL 10 MEQ IVPB 10 MEQ/100 ML INFUS.BAG IVPB SCH ×3 (08:00→10:04)
[2018-05-05] MEDS: VALPROATE SODIUM 500 MG/5 ML VIAL IVPB SCH ×2 (09:23→22:14)
[2018-05-05] MEDS: FAMOTIDINE 20 MG/50 ML IVPB 20 MG/50 ML MG IVPB SCH ×2 (09:24→22:13)
[2018-05-05] MEDS: ENOXAPARIN NA (PORCINE) 40 MG/0.4 ML DISP.SYRIN SQ SCH (09:25)
--- NOTE | 2018-05-05 09:48 | PN ---
Progress Note (short form) - Note Progress Note: remains on bipap levophed restarted last night intermittent seizures persist Vital Signs Period Temp Pulse Resp BP Sys/Meyers Pulse Ox Last 24 Hr 98.2 F-99.3 F 67-116 21-32 115-152/31-55 92-99 cor-rrr lungs decreased bs at bases abd soft,nt ext no edema CBC, BMP 05/05/18 05:15 05/05/18 05:15 Microbiology 05/02/18 00:30 Blood - Peripheral Venous Blood Culture - Preliminary NO GROWTH OBTAINED AFTER 72 HOURS, INCUBATION TO CONTINUE FOR 2 DAYS. 05/01/18 12:20 Blood - Peripheral Venous Blood Culture - Preliminary NO GROWTH OBTAINED AFTER 48 HOURS, INCUBATION TO CONTINUE FOR 3 DAYS. 05/03/18 11:10 Nares - Mrsa Screen - Right MRSA Screen - Final NO MRSA ISOLATED 05/01/18 05:45 Urine - Urine - Catheterized Urine Culture - Final NO GROWTH OBTAINED Current Medications Albuterol/Ipratropium (Duoneb -) 1 amp NEB Q4H PRN PRN Reason: SHORTNESS OF BREATH Last Admin: 05/02/18 18:42 Dose: 1 amp Chlorhexidine Gluconate (Hibiclens For Decolonization -) 1 applic TP HS [facility] Last Admin: 05/04/18 21:43 Dose: 1 applic Enoxaparin Sodium (Lovenox -) 40 mg SQ DAILY [facility] Last Admin: 05/05/18 09:25 Dose: 40 mg Famotidine/Sodium Chloride (Pepcid 20 Mg Premixed Ivpb -) 20 mg in 50 mls @ 100 mls/hr IVPB BID [facility] Last Admin: 05/05/18 09:24 Dose: 100 mls/hr Norepinephrine Bitartrate 4, (000 mcg/ Dextrose) 500 mls @ 37.5 mls/hr IV TITR [facility]; Protocol Last Titration: 05/05/18 07:01 Dose: 6 mcg/min, 45 mls/hr Vancomycin HCl (Vancomycin (Pre-Docked)) 1,000 mg in 250 mls @ 166.667 mls/hr IVPB BID@1100,2300 [facility]; Protocol Last Admin: 05/05/18 00:37 Dose: 166.667 mls/hr Piperacillin Sod/Tazobactam (Sod 4.5 gm/ Dextrose) 100 mls @ 200 mls/hr IVPB Q8H-IV [facility]; Protocol Last Admin: 05/05/18 09:33 Dose: 200 mls/hr Potassium Chloride (Potassium Chloride 10 Meq Premix Ivpb -) 10 meq in 100 mls @ 100 mls/hr IVPB Q60M [facility] Stop: 05/05/18 10:44 Last Admin: 05/05/18 09:10 Dose: 100 mls/hr Lacosamide (Vimpat Injection -) 100 mg IVPB BID [facility] Levothyroxine Sodium (Synthroid Injection -) 37.5 mcg IVPUSH DAILY [facility] Last Admin: 05/04/18 12:24 Dose: 37.5 mcg Lorazepam (Ativan Injection -) 2 mg IVPUSH Q1H PRN PRN Reason: not responding to 1mg ativan Last Admin: 05/05/18 08:47 Dose: 2 mg Mupirocin (Bactroban Ointment (For Decolonization) -) 1 applic NS BID [facility] Stop: 05/07/18 09:59 Last Admin: 05/04/18 21:44 Dose: 1 applic Valproate Sodium (Depacon Injection -) 1,000 mg IVPB BID [facility] Last Admin: 05/05/18 09:23 Dose: 1,000 mg cxray with left lung whiteout a/p probable aspiration pneumonia/atelectasis right lung- chest PT s/p seizure switch to zosyn d/c vancomycin
[2018-05-05] MEDS ORDERED: PT OWN MED DRAWER 7, Y5N ONE (10:10)
--- NOTE | 2018-05-05 10:26 | PN ---
Progress Note (short form) - Note Progress Note: pt seen/ examined all f/u noted remains on pressor support . intermittent seizures. not eating. Vital Signs Temp 99.3 F 05/05/18 08:00 Pulse 94 H 05/05/18 08:00 Resp 27 H 05/05/18 08:00 BP 134/48 L 05/05/18 08:00 Pulse Ox 97 05/05/18 08:16 Intake & Output 05/04/18 05/04/18 05/05/18 11:59 23:59 11:59 Intake Total 185 1636 Output Total 275 2250 Balance -90 -614 Weight 220 lb 7.396 oz 220 lb 212 lb 11.937 oz Intake: IV 85 686 DIPRIVAN - 1,000,000 mcg 0 In 100 ml @ 5 MCG/KG/MIN 3.402 mls/hr IVPB TITR [facility] Rx#:[id number] Levophed - 4,000 Mcg In 85 686 D5w - 496 ml @ 5 MCG/MIN 37.5 mls/hr IV TITR [facility] Rx#:[id number] Sublimaze Injection - 500 0 Mcg In D5w - 90 ml @ 25 MCG/HR 5 mls/hr IVPB TITR [facility] Rx#:[id number] IVPB 100 950 Output: Urine 275 2250 Peralta 275 2250 Other: Voiding Method Indwelling Catheter Indwelling Catheter Bowel Movement No Yes # Bowel Movements 2 Height 5 ft 7 in Body Mass Index (BMI) 34.4 Weight Measurement Method Built in [facility] Active Medications Albuterol/Ipratropium (Duoneb -) 1 amp NEB Q4H PRN PRN Reason: SHORTNESS OF BREATH Last Admin: 05/02/18 18:42 Dose: 1 amp Chlorhexidine Gluconate (Hibiclens For Decolonization -) 1 applic TP HS [facility] Last Admin: 05/04/18 21:43 Dose: 1 applic Enoxaparin Sodium (Lovenox -) 40 mg SQ DAILY [facility] Last Admin: 05/05/18 09:25 Dose: 40 mg Famotidine/Sodium Chloride (Pepcid 20 Mg Premixed Ivpb -) 20 mg in 50 mls @ 100 mls/hr IVPB BID [facility] Last Admin: 05/05/18 09:24 Dose: 100 mls/hr Norepinephrine Bitartrate 4, (000 mcg/ Dextrose) 500 mls @ 37.5 mls/hr IV TITR [facility]; Protocol Last Titration: 05/05/18 07:01 Dose: 6 mcg/min, 45 mls/hr Piperacillin Sod/Tazobactam (Sod 4.5 gm/ Dextrose) 100 mls @ 200 mls/hr IVPB Q8H-IV [facility]; Protocol Last Admin: 05/05/18 09:33 Dose: 200 mls/hr Potassium Chloride (Potassium Chloride 10 Meq Premix Ivpb -) 10 meq in 100 mls @ 100 mls/hr IVPB Q60M [facility] Stop: 05/05/18 10:44 Last Admin: 05/05/18 10:04 Dose: 100 mls/hr Lacosamide (Vimpat Injection -) 100 mg IVPB BID [facility] Levothyroxine Sodium (Synthroid Injection -) 37.5 mcg IVPUSH DAILY [facility] Last Admin: 05/04/18 12:24 Dose: 37.5 mcg Lorazepam (Ativan Injection -) 2 mg IVPUSH Q1H PRN PRN Reason: not responding to 1mg ativan Last Admin: 05/05/18 08:47 Dose: 2 mg Mupirocin (Bactroban Ointment (For Decolonization) -) 1 applic NS BID [facility] Stop: 05/07/18 09:59 Last Admin: 05/04/18 21:44 Dose: 1 applic Valproate Sodium (Depacon Injection -) 1,000 mg IVPB BID [facility] Last Admin: 05/05/18 09:23 Dose: 1,000 mg CBC, BMP 05/05/18 05:15 05/05/18 05:15 Microbiology 05/02/18 00:30 Blood Culture - Preliminary Blood - Peripheral Venous NO GROWTH OBTAINED AFTER 72 HOURS, INCUBATION TO CONTINUE FOR 2 DAYS. 05/01/18 12:20 Blood Culture - Preliminary Blood - Peripheral Venous NO GROWTH OBTAINED AFTER 48 HOURS, INCUBATION TO CONTINUE FOR 3 DAYS. 05/03/18 11:10 MRSA Screen - Final Nares - Mrsa Screen - Right NO MRSA ISOLATED Physical Exam Constitutional: Yes: Other on NIPPV. Obese Neck: Yes: Supple, no jvd Cardiovascular: Yes: Regular Rate and Rhythm Respiratory: Yes: CTA Bilaterally Gastrointestinal: Yes: Soft/ non tender. bs + Edema: LLE: Trace, RLE: Trace - ....Imaging Chest X-ray: Image Reviewed EKG: Report Reviewed, Image Reviewed Assessment/Plan monitor closly abx aspiration pneumonia s/p transfusion monitor for seizures. Neurology following Consider nutrition-- meds reviewed need anemia work up-- when stable-- can be done as out pt -- medically not stable yet will follow discussed with icu team also/ nursing staff Sister Rescended DNR will follow cc time 20 min condition remains guarded Problem List - Problems (1) Status epilepticus Code(s): G40.901 - EPILEPSY, UNSP, NOT INTRACTABLE, WITH STATUS EPILEPTICUS (2) Bipolar disorder Code(s): F31.9 - BIPOLAR DISORDER, UNSPECIFIED (3) COPD (chronic obstructive pulmonary disease) Code(s): J44.9 - CHRONIC OBSTRUCTIVE PULMONARY DISEASE, UNSPECIFIED (4) UTI (urinary tract infection) Code(s): N39.0 - URINARY TRACT INFECTION, SITE NOT SPECIFIED Qualifiers: Urinary tract infection type: site unspecified Hematuria presence: without hematuria Qualified Code(s): N39.0 - Urinary tract infection, site not specified
[2018-05-05] MEDS: Lacosamide 200 MG/20 ML VIAL IVPB SCH ×2 (10:30→22:12)
[2018-05-05] MEDS: LEVOTHYROXINE SODIUM 100 MCG VIAL IVPUSH SCH (10:40)
[2018-05-05] MEDS: MUPIROCIN 2% TOPICAL OINTMENT FOR DECOLONIZATION NS SCH ×2 (10:40→22:15)
[2018-05-05] MEDS ORDERED: ACETYLCYSTEINE 20% 200MG/ML 30 ML VIAL *FOR ORAL / INH USE ONLY NEB SCH (12:00)
[2018-05-05] MEDS ORDERED: ACETYLCYSTEINE 20% 200MG/ML 4 ML VIAL *FOR ORAL / INH USE ONLY ONE (12:03)
--- NOTE | 2018-05-05 12:13 | PN ---
Teaching Attending Note Name of Resident: Dolores Chavez ATTENDING PHYSICIAN STATEMENT I saw and evaluated the patient. I reviewed the resident's note and discussed the case with the resident. I agree with the resident's findings and plan as documented. SUBJECTIVE: Pt seen and examined in the ICU. Lethargic on BiPAP. Remains on levophed gtt. AM CXR showing left opacification. OBJECTIVE: Vital Signs Period Temp Pulse Resp BP Sys/Meyers Pulse Ox Last 24 Hr 97.5 F-99.3 F 67-116 21-32 115-152/31-55 92-99 Intake & Output 05/02/18 05/03/18 05/04/18 05/05/18 23:59 23:59 23:59 23:59 Intake Total 1392 2088 1821 Output Total 1350 1650 2525 Balance 42 438 -704 Weight 99.79 kg 96.5 kg Gen: lethargic Heart: RRR Lung: scattered rhonchi Abd: soft, nontender Ext: no edema CBC, BMP 05/05/18 05:15 05/05/18 05:15 Active Medications Acetylcysteine (Mucomyst 20 Oral / Inh Use Only*) 200 mg NEB RQID [facility] Albuterol Sulfate (Ventolin 0.083% Nebulizer Soln -) 1 amp NEB Q6H PRN PRN Reason: SHORT OF BREATH/WHEEZING Chlorhexidine Gluconate (Hibiclens For Decolonization -) 1 applic TP HS [facility] Last Admin: 05/04/18 21:43 Dose: 1 applic Enoxaparin Sodium (Lovenox -) 40 mg SQ DAILY [facility] Last Admin: 05/05/18 09:25 Dose: 40 mg Famotidine/Sodium Chloride (Pepcid 20 Mg Premixed Ivpb -) 20 mg in 50 mls @ 100 mls/hr IVPB BID [facility] Last Admin: 05/05/18 09:24 Dose: 100 mls/hr Norepinephrine Bitartrate 4, (000 mcg/ Dextrose) 500 mls @ 37.5 mls/hr IV TITR [facility]; Protocol Last Titration: 05/05/18 07:01 Dose: 6 mcg/min, 45 mls/hr Piperacillin Sod/Tazobactam (Sod 4.5 gm/ Dextrose) 100 mls @ 200 mls/hr IVPB Q8H-IV [facility]; Protocol Last Admin: 05/05/18 09:33 Dose: 200 mls/hr Dextrose/Sodium Chloride (D5-1/2ns+40 Meq Kcl -) 40 meq in 1,000 mls @ 75 mls/ hr IV ASDIR [facility] Lacosamide (Vimpat Injection -) 100 mg IVPB BID [facility] Last Admin: 05/05/18 10:30 Dose: 100 mg Levothyroxine Sodium (Synthroid Injection -) 37.5 mcg IVPUSH DAILY [facility] Last Admin: 05/05/18 10:40 Dose: 37.5 mcg Lorazepam (Ativan Injection -) 2 mg IVPUSH Q1H PRN PRN Reason: not responding to 1mg ativan Last Admin: 05/05/18 08:47 Dose: 2 mg Mupirocin (Bactroban Ointment (For Decolonization) -) 1 applic NS BID [facility] Stop: 05/07/18 09:59 Last Admin: 05/05/18 10:40 Dose: 1 applic Valproate Sodium (Depacon Injection -) 1,000 mg IVPB BID [facility] Last Admin: 05/05/18 09:23 Dose: 1,000 mg ASSESSMENT AND PLAN: Acute Hypoxic Respiratory Failure Pneumonia Left Atelectasis Septic Shock Status Epilepticus HTN Hypothyroidism GERD COPD Frequent UTIs Bipolar Disorder Schizophrenia - continue antibiotics - aspiration precautions - taper FiO2 to keep Spo2 >90% - BiPAP as needed to assist in work of breathing - taper pressors to maintain MAP >65 - inhaled bronchodilators - replete lytes - start mucomyst - position right side down - chest PT/bed percussion - monitor CXR - DVT prophylaxis - continue ICU monitoring critical care time spent in reviewing chart, evaluating patient and formulating plan 35 min
[2018-05-05] MEDS: ALBUTEROL SO4 0.083% IH SOL 2.5 MG/3 ML VIAL.NEB. NEB PRN ×3 (12:17→21:00)
--- NOTE | 2018-05-05 13:20 | PN ---
Progress Note, Physician History of Present Illness: graciela noted that chart reviewed Patient still with episodes of seizure 2-3 a day Still the same localization with no spreading Ativan was used Exam was limited after the Ativan - Current Medication List Current Medications: Active Medications Acetylcysteine (Mucomyst 20 Oral / Inh Use Only*) 200 mg NEB RQID [facility] Albuterol Sulfate (Ventolin 0.083% Nebulizer Soln -) 1 amp NEB Q6H PRN PRN Reason: SHORT OF BREATH/WHEEZING Last Admin: 05/05/18 12:17 Dose: 1 amp Chlorhexidine Gluconate (Hibiclens For Decolonization -) 1 applic TP HS [facility] Last Admin: 05/04/18 21:43 Dose: 1 applic Enoxaparin Sodium (Lovenox -) 40 mg SQ DAILY [facility] Last Admin: 05/05/18 09:25 Dose: 40 mg Famotidine/Sodium Chloride (Pepcid 20 Mg Premixed Ivpb -) 20 mg in 50 mls @ 100 mls/hr IVPB BID [facility] Last Admin: 05/05/18 09:24 Dose: 100 mls/hr Norepinephrine Bitartrate 4, (000 mcg/ Dextrose) 500 mls @ 37.5 mls/hr IV TITR [facility]; Protocol Last Titration: 05/05/18 07:01 Dose: 6 mcg/min, 45 mls/hr Piperacillin Sod/Tazobactam (Sod 4.5 gm/ Dextrose) 100 mls @ 200 mls/hr IVPB Q8H-IV [facility]; Protocol Last Admin: 05/05/18 09:33 Dose: 200 mls/hr Dextrose/Sodium Chloride (D5-1/2ns+40 Meq Kcl -) 40 meq in 1,000 mls @ 75 mls/ hr IV ASDIR [facility] Lacosamide (Vimpat Injection -) 100 mg IVPB BID [facility] Last Admin: 05/05/18 10:30 Dose: 100 mg Levothyroxine Sodium (Synthroid Injection -) 37.5 mcg IVPUSH DAILY [facility] Last Admin: 05/05/18 10:40 Dose: 37.5 mcg Lorazepam (Ativan Injection -) 2 mg IVPUSH Q1H PRN PRN Reason: not responding to 1mg ativan Last Admin: 05/05/18 08:47 Dose: 2 mg Mupirocin (Bactroban Ointment (For Decolonization) -) 1 applic NS BID [facility] Stop: 05/07/18 09:59 Last Admin: 05/05/18 10:40 Dose: 1 applic Valproate Sodium (Depacon Injection -) 1,000 mg IVPB BID [facility] Last Admin: 05/05/18 09:23 Dose: 1,000 mg - Objective Vital Signs: Vital Signs Temperature 98 F 05/05/18 12:00 Pulse Rate 86 05/05/18 12:00 Respiratory Rate 24 H 05/05/18 12:00 Blood Pressure 139/48 L 05/05/18 12:00 O2 Sat by Pulse Oximetry (%) 95 05/05/18 11:25 Constitutional: Yes: Well Nourished Eyes: Yes: WNL Labs: CBC, BMP 05/05/18 05:15 05/05/18 05:15 INR, PTT INR 1.16 (0.83-1.09) H 05/02/18 05:30 Problem List - Problems (1) Status epilepticus Assessment/Plan: 1. Depakote level was 77 2. Add Vimpat 100 mg IV. 3. Follow-up EEG results Code(s): G40.901 - EPILEPSY, UNSP, NOT INTRACTABLE, WITH STATUS EPILEPTICUS
--- NOTE | 2018-05-05 13:59 | CONSULT ---
Admitting History and Physical - Primary Care Physician PCP: Sheila Chavez - Admission History of Present Illness: 63 years old woman with PMH hypothyroidism, GERD, HTN, bipolar d/o, Schizoaffective d/o, Extrapyramidal and movement d/o, COPD, hx of recurrent UTI' s, recurrent falls, Generalized idiopathic epilepsy, admitted 05/02/18 through er , intubated and given Keppra .Extubated 05/03. Per id-05/03 cxr diffuse right lung infiltrate probable aspiration pneumonia s/p seizure 05/05 cxray with left lung whiteout probable aspiration pneumonia/atelectasis right lung- chest PT s/p seizure Per Neurology 05/05/18- Patient still with episodes of seizure 2-3 a day Still the same localization with no spreading Ativan was used Exam was limited after the Ativan Pt NPO since admission. On BIPAP. Acute Hypoxic Respiratory Failure Pneumonia Left Atelectasis Septic Shock Status Epilepticus HTN Hypothyroidism GERD COPD Frequent UTIs Bipolar Disorder Schizophrenia Known to me from recent admission, initially quite lethargic, with poor functional orion-pharyngeal swallow. PEG was being considered, however, pt became much more alert and began tolerating PO diet. She was verbal, confused, language of confusion sec to Schizophrenia. Last seen on 04/29/18-Doing quite well. Given mainly very soft mashed foods with extra gravy, avoiding beans, corn, etc on tray. Pt did quite well initially last night, completing meal and supplement with a lot of encouragement. however, staff felt she was too full,and then vomited 50%. Overtly tolerating food without cough. Pending d/c to [place] Suggest chopped food, extra gravy. Feed slowly, alternating food with liquid. Allow time to digest Consider several smaller meals throughout the day Supplements b/n meals. HOB elevated for meals and for atleast an hour after meals Monitor tolerance. Defer PEG On 05/01 Per EMR, [facility] staff note that she was last seen normal at about 5 pm , had her normal Keppra dose, and then was found unresponsive with seizure-like jerking movements at 10:14pm at the facility. She stopped the jerking movements several times for a minute at a time, but never returned to baseline, per [facility] staff. History Source: Medical Record Limitations to Obtaining History: Clinical Condition (lethargic, on BIPAP. Desaturates.) - Past Medical History Cardiovascular: Yes: HTN Pulmonary: Yes: COPD Gastrointestinal: Yes: GERD Endocrine: Yes: Hypothyroidism - Smoking History Smoking history: Unknown if ever smoked Have you smoked in the past 12 months: No - Alcohol/Substance Use Hx Alcohol Use: No - Social History ADL: Support Services History of Recent Travel: No History - Admission Reason For Visit: Seizure - Diagnostics X-ray: Report Reviewed - General Mental Status: Lethargic Speech Evaluation - Communication Primary Language: INDONESIAN Communication: Yes: Non-Communicable - Speech Characteristics Articulation: Yes: Imprecise - Language/Auditory Comprehension Observation: Comprehends Conversational Speech: Yes (Social speech.possibly simple.) - Swallow Evaluation/Bedside Assessment Current Nutritional Intake: NPO A-P Transit: Impaired Recommendations - Speech Evaluation, Impression/Plan Impression: Lethargic, still with seizures per staff, on BIPAP. Can not tolerate PO trials. Pt is a full code. Prognosis regarding seizures? Will pt benefit from PEG for consistency of receiving seizure medication, hydration, nutrition? - Dysphagia Impressions/Plan Dysphagia Impressions: Risk of Aspiration, Ongoing Evaluation, Too Lethargic to Assess *Silent aspiration: cannot be R/O at bedside Recommendations: Neuro Consult (f/u regarding prognosis), Palliative Care, Other (NGT/PEG/alternate means of nutrition? Pt's wishes?) - Recommendations Diet Consistency: NPO Liquids: NPO
[2018-05-05] MEDS: D5-1/2NS+40 MEQ KCL - 40 MEQ/1,000 ML INFUS.BAG IV SCH (14:00)
--- NOTE | 2018-05-05 15:25 | PN ---
Physical Exam: SUBJECTIVE: Patient seen and examined this morning in ICU. Continues to tolerate Bipap. Continues to have rhythmic jerking of upper extremities requiring ativan overnight. OBJECTIVE: Vital Signs Period Temp Pulse Resp BP Sys/Meyers Pulse Ox Last 24 Hr 97.5 F-99.3 F 67-116 21-32 119-152/31-55 92-98 GENERAL: Awake, Alert, On Bipap HEAD: NCAT EYES: PERRL ENT: Moist mucous membranes NECK: Supple LUNGS: Diminished breath sounds at the bases, no wheezes, no crackles HEART: Regular rate and rhythm, S1, S2 without murmur ABDOMEN: Obese, Soft, nontender, nondistended, + bowel sounds, no guarding EXTREMITIES: Trace edema. NEUROLOGICAL: Confused, Rhythimic jerking of b/l Upper extremities that last for ~30 sec's, Patient able to perform Handgrip after SKIN: Warm, dry. Lower extremity skin discoloration Laboratory Results - last 24 hr 05/02/18 05/04/18 05/05/18 00:30 23:00 05:15 WBC 6.3 RBC 2.88 L Hgb 9.1 L Hct 26.6 L MCV 92.3 MCH 31.5 MCHC 34.1 RDW 19.2 H Plt Count 263 MPV 7.0 L Anticoagulation Therapy Puncture Site ABG pH ABG pCO2 at Pt Temp ABG pO2 at Pt Temp ABG HCO3 ABG O2 Sat (Measured) ABG O2 Content ABG Base Excess Wei Test O2 Delivery Device Oxygen Flow Rate Vent Mode Vent Rate Mechanical Rate Pressure Support Vent Sodium Potassium Chloride Carbon Dioxide Anion Gap BUN Creatinine Creat Clearance w eGFR Random Glucose Calcium Phosphorus Magnesium Total Bilirubin AST ALT Alkaline Phosphatase Total Protein Albumin Vancomycin Pre-Dose 22.2 Valproic Acid Blood Type O POSITIVE Antibody Screen Negative Crossmatch See Detail 05/05/18 05/05/18 05/05/18 05:15 05:15 06:30 WBC RBC Hgb Hct MCV MCH MCHC RDW Plt Count MPV Anticoagulation Therapy No Result Required. Puncture Site Right radial ABG pH 7.37 ABG pCO2 at Pt Temp 47.0 H ABG pO2 at Pt Temp 70.0 L ABG HCO3 26.3 H ABG O2 Sat (Measured) 93.4 ABG O2 Content 16.0 ABG Base Excess 1.0 Wei Test Positive O2 Delivery Device Bipap Oxygen Flow Rate 80% Vent Mode No Result Required. Vent Rate No Result Required. Mechanical Rate No Result Required. Pressure Support Vent No Result Required. Sodium 152 H Potassium 3.1 L Chloride 118 H Carbon Dioxide 30 Anion Gap 5 L BUN 7 Creatinine 1.0 Creat Clearance w eGFR 56.37 Random Glucose 95 Calcium 7.9 L Phosphorus 3.4 Magnesium 2.4 Total Bilirubin 0.3 AST 14 L ALT 6 L Alkaline Phosphatase 99 Total Protein 6.2 L Albumin 1.8 L Vancomycin Pre-Dose Valproic Acid 77.0 Blood Type Antibody Screen Crossmatch Microbiology 05/01/18 12:20 Blood - Peripheral Venous Blood Culture - Preliminary NO GROWTH OBTAINED AFTER 72 HOURS, INCUBATION TO CONTINUE FOR 2 DAYS. 05/02/18 00:30 Blood - Peripheral Venous Blood Culture - Preliminary NO GROWTH OBTAINED AFTER 72 HOURS, INCUBATION TO CONTINUE FOR 2 DAYS. 05/03/18 11:10 Nares - Mrsa Screen - Right MRSA Screen - Final NO MRSA ISOLATED 05/01/18 05:45 Urine - Urine - Catheterized Urine Culture - Final NO GROWTH OBTAINED Active Medications Acetylcysteine (Mucomyst 20 Oral / Inh Use Only*) 200 mg NEB RQID ANNA Albuterol Sulfate (Ventolin 0.083% Nebulizer Soln -) 1 amp NEB Q6H PRN PRN Reason: SHORT OF BREATH/WHEEZING Last Admin: 05/05/18 12:17 Dose: 1 amp Chlorhexidine Gluconate (Hibiclens For Decolonization -) 1 applic TP HS [facility] Last Admin: 05/04/18 21:43 Dose: 1 applic Enoxaparin Sodium (Lovenox -) 40 mg SQ DAILY ANNA Last Admin: 05/05/18 09:25 Dose: 40 mg Famotidine/Sodium Chloride (Pepcid 20 Mg Premixed Ivpb -) 20 mg in 50 mls @ 100 mls/hr IVPB BID ANNA Last Admin: 05/05/18 09:24 Dose: 100 mls/hr Norepinephrine Bitartrate 4, (000 mcg/ Dextrose) 500 mls @ 37.5 mls/hr IV TITR ANNA; Protocol Last Titration: 05/05/18 10:00 Dose: 4 mcg/min, 30 mls/hr Piperacillin Sod/Tazobactam (Sod 4.5 gm/ Dextrose) 100 mls @ 200 mls/hr IVPB Q8H-IV ANNA; Protocol Last Admin: 05/05/18 09:33 Dose: 200 mls/hr Dextrose/Sodium Chloride (D5-1/2ns+40 Meq Kcl -) 40 meq in 1,000 mls @ 75 mls/ hr IV ASDIR [facility] Last Admin: 05/05/18 14:00 Dose: 75 mls/hr Lacosamide (Vimpat Injection -) 100 mg IVPB BID [facility] Last Admin: 05/05/18 10:30 Dose: 100 mg Levothyroxine Sodium (Synthroid Injection -) 37.5 mcg IVPUSH DAILY [facility] Last Admin: 05/05/18 10:40 Dose: 37.5 mcg Lorazepam (Ativan Injection -) 2 mg IVPUSH Q1H PRN PRN Reason: not responding to 1mg ativan Last Admin: 05/05/18 08:47 Dose: 2 mg Mupirocin (Bactroban Ointment (For Decolonization) -) 1 applic NS BID [facility] Stop: 05/07/18 09:59 Last Admin: 05/05/18 10:40 Dose: 1 applic Valproate Sodium (Depacon Injection -) 1,000 mg IVPB BID [facility] Last Admin: 05/05/18 09:23 Dose: 1,000 mg ASSESSMENT/PLAN: 63 y/o F with PMHx of Epilepsy, HTN, Hypothyroidism, GERD, COPD (not on Home O2) , Frequent UTIs, Bipolar Disorder, Schizophrenia, Varicose Veins, who was recently discharged from [facility] (Treated for PNA, UTI with cefuroxime), was BIBEMS from [facility] s/p Convulsion, was intubated and Sedated in the ED and will be monitored in ICU. #Neuro Status Epilepticus Hx of Epiepsy, Bipolar Disorder, Schizophrenia -Unclear Etiology however will need to r/o Structural brain injury, Infection, Medication non-compliance, Metabolic abnormalities, Substance abuse -Valproic acid level 77 -Valproate 1000mg IV BID -Start Vimpat 100mg IV -Lorazepam PRN for breakthrough seizures -EEG Pending -Neurology (Dr. Kim) consulted; Appreciate Rec's -Neurochecks Q4H -Aspiration precautions -NPO -Low threshold for reintubation for airway protection -Will need outpatient follow up for tighter seizure control #Cardio Shock Tropinemia, Likely due to Demand Ischemia Hx of HTN -Continue Levophed, Monitor off pressors if MAP > 65 -Trop 0.6 --> 0.44 -EKG: RBBB, LAD, QTc 462 -Hold home dose Anti-HTN meds -Monitor I&Os, peterson in place #Pulm Acute Respiratory Failure, Now with Aspiration Pneumonitis Hx of COPD (not on Home O2) -Extubated on 05/02 -Albuterol Nebulizer -Acetylcysteine 200 mg NEB RQID -Bipap PRN -CXR: Since 05/04/2018 at 0907 hours there is now new opacification the left hemithorax with mediastinal shift to the left -Supplemental O2 PRN to maintain SpO2 > 88% -Continue Zosyn 3.375 (started on 05/02) -Chest PT, Bed Percussion -Position right side down -Aspiration precautions #GI Elevated Alk phos, Corrected Hx of GERD -Continue Famotidine #Renal -No active issues, continue to monitor #Endocrine Hx of Hypothyroidism -TSH 2.23 -Restart home dose Levothyroxine #Heme/Onc Anemia -Hgb 9.9 s/p 2 units pRBCs -B12 (04/27) 1521, Folate (04/26) 979 #ID Hx of Frequent UTIs -Recently discharged from [facility] (Treated for PNA, UTI with cefuroxime) -No lactic acidosis -UA: 1+ protein, 2+ Blood -Blood and Urine Cx noted above -Prior Urine Cx grew E. Coli -ID (Dr. Montgomery) Consulted -Continue Zosyn 3.375 (started on 05/02) -Vanco D/C'ed #FEN -D5-1/2ns+40 Meq Kcl @ 75 mls/hr -Replete Lytes PRN -NPO #PPx -DVT: Lovenox -GI: Famotidine #LTD -R IJ on 05/01 -Peterson placed on 05/01 Code Status: Full Code; Spoke with Sister, Aileen, who would like to rescind the MOLST form Dispo: Continue to monitor in ICU Visit type - Emergency Visit Emergency Visit: Yes ED Registration Date: 05/02/18 Care time: The patient presented to the Emergency Department on the above date and was hospitalized for further evaluation of their emergent condition. - New Patient This patient is new to me today: No - Critical Care Critical Care patient: Yes Total Critical Care Time (in minutes): 36 Critical Care Statement: The care of this patient involved high complexity decision making to prevent further life threatening deterioration of the patient 's condition and/or to evaluate & treat vital organ system(s) failure or risk of failure.
[2018-05-05] MEDS: ACETYLCYSTEINE 20% 200MG/ML 4 ML VIAL *FOR ORAL / INH USE ONLY NEB SCH ×2 (16:10→21:00)
[2018-05-05] MEDS ORDERED: NOREPINEPHRINE BITARTRATE 4 MG/4 ML ML IV ONE (19:38)
[2018-05-05] MEDS: NOREPINEPHRINE BITARTRATE 4,000 MCG in DEXTROSE 5%-WATER - 496 ML IV SCH (20:59)
[2018-05-05] MEDS: CHLORHEXIDINE GLUCONATE 4% CLEANSER FOR DECOLONIZATION TP SCH (22:13)
[2018-05-06] MEDS ORDERED: PIPERACILLIN/TAZOBACTAM 4.5 GM VIAL IVPB ONE ×3 (01:18→18:12)
[2018-05-06] MEDS ORDERED: DEXTROSE 5%-WATER 100 ML IVPB ONE ×3 (01:18→18:13)
[2018-05-06] MEDS: PIPERACILLIN/TAZOB 4.5 GM 4.5 GM in DEXTROSE 5%-WATER 100 ML IVPB SCH ×3 (01:20→18:16)
[2018-05-06 05:45] LABS: ARTERIAL BLD GAS O2 SATURATION 93.9 % (90-98.9); ARTERIAL BLOOD GAS BASE EXCESS 1.8 meq/l (-2-2); ARTERIAL BLOOD GAS PO2 67.4 mmHg (80-100); ARTERIAL BLOOD GAS pH 7.39 (7.35-7.45)
[2018-05-06 05:46] LABS: ALLENS TEST POSITIVE
[2018-05-06 06:25] LABS: BASO % 1.5 % (0-2.0); EOS % 5.4 % (0-4.5); HEMATOCRIT 24.5 % (32.4-45.2); HEMOGLOBIN 8.4 GM/dL (10.7-15.3); LYMPH % 37.7 % (8-40); MCHC 34.4 g/dl (32.0-36.0); MEAN PLT VOLUME 6.8 fl (7.5-11.1); MONO % 6.2 % (3.8-10.2); NEUT % 49.2 % (42.8-82.8); PLATELET COUNT 210 K/MM3 (134-434); RBC 2.63 M/mm3 (3.60-5.2); RDW 18.7 % (11.6-15.6); WHITE BLOOD COUNT 4.1 K/mm3 (4.0-10.0)
[2018-05-06 06:42] LABS: ALBUMIN 1.4 g/dl (3.4-5.0); ALK PHOS 83 U/L (45-117); ANION GAP 4 MMOL/L (8-16); BILIRUBIN,TOTAL 0.3 mg/dL (0.2-1); BLOOD UREA NITROGEN 5 mg/dL (7-18); CALCIUM 7.6 mg/dL (8.5-10.1); CHLORIDE 122 mmol/L (98-107); CO2 30 mmol/L (21-32); CREATININE 0.9 mg/dL (0.55-1.3); GLUCOSE,RANDOM 80 mg/dL (74-106); MAGNESIUM 2.2 mg/dL (1.8-2.4); PHOSPHOROUS 2.8 mg/dL (2.5-4.9); POTASSIUM 3.5 mmol/L (3.5-5.1); SGOT/AST 11 U/L (15-37); SGPT/ALT < 6 U/L (13-61); SODIUM 156 mmol/L (136-145); TOT PROT 5.2 g/dl (6.4-8.2)
[2018-05-06] MEDS ORDERED: PT OWN MED DRAWER 7, Y5N ONE ×3 (06:54→22:58)
[2018-05-06] MEDS: ACETYLCYSTEINE 20% 200MG/ML 4 ML VIAL *FOR ORAL / INH USE ONLY NEB SCH ×4 (07:35→21:00)
[2018-05-06] MEDS: ALBUTEROL SO4 0.083% IH SOL 2.5 MG/3 ML VIAL.NEB. NEB PRN ×4 (07:35→21:00)
[2018-05-06] MEDS: D5-1/2NS+40 MEQ KCL - 40 MEQ/1,000 ML INFUS.BAG IV SCH (07:48)
[2018-05-06] MEDS ORDERED: POTASSIUM CHLORIDE 40 MEQ in DEXTROSE 5%-WATER - 1,000 ML IVPB SCH (08:15)
[2018-05-06] MEDS ORDERED: DEXTROSE 5%-WATER - 1,000 ML with POTASSIUM CHLORIDE 40 MEQ IVPB SCH (08:15)
[2018-05-06] MEDS: VALPROATE SODIUM 500 MG/5 ML VIAL IVPB SCH (09:06)
[2018-05-06] MEDS: ENOXAPARIN NA (PORCINE) 40 MG/0.4 ML DISP.SYRIN SQ SCH (09:07)
[2018-05-06] MEDS: FAMOTIDINE 20 MG/50 ML IVPB 20 MG/50 ML MG IVPB SCH ×2 (09:08→23:38)
[2018-05-06] MEDS: Lacosamide 200 MG/20 ML VIAL IVPB SCH ×2 (09:09→23:11)
[2018-05-06] MEDS: LEVOTHYROXINE SODIUM 100 MCG VIAL IVPUSH SCH (09:09)
[2018-05-06] MEDS: MUPIROCIN 2% TOPICAL OINTMENT FOR DECOLONIZATION NS SCH (09:32)
[2018-05-06] MEDS: NOREPINEPHRINE BITARTRATE 4,000 MCG in DEXTROSE 5%-WATER - 496 ML IV SCH (09:38)
--- NOTE | 2018-05-06 10:24 | PN ---
Progress Note (short form) - Note Progress Note: Events noted awake no seizures overnight still NPO Vital Signs - 24 hr 05/05/18 05/05/18 05/05/18 11:00 11:25 12:00 Temperature 98 F 98 F Pulse Rate 86 86 Respiratory 29 H 24 H Rate Blood Pressure 128/38 L 139/48 L O2 Sat by Pulse 95 Oximetry (%) 05/05/18 05/05/18 05/05/18 13:00 14:00 14:32 Temperature 98.1 F Pulse Rate 92 H 92 H Respiratory 25 H 25 H Rate Blood Pressure 125/48 L 132/50 L O2 Sat by Pulse 96 Oximetry (%) 05/05/18 05/05/18 05/05/18 15:00 16:00 17:00 Temperature 96.8 F L Pulse Rate 94 H 103 H 80 Respiratory 27 H 28 H 23 H Rate Blood Pressure 133/45 L 105/49 L 108/50 L O2 Sat by Pulse Oximetry (%) 05/05/18 05/05/18 05/05/18 17:30 17:46 19:10 Temperature 97.1 F L Pulse Rate 89 Respiratory 23 H Rate Blood Pressure 149/51 L O2 Sat by Pulse 95 96 Oximetry (%) 05/05/18 05/05/18 05/06/18 19:32 20:59 00:00 Temperature Pulse Rate 82 85 Respiratory 23 H 24 H Rate Blood Pressure 142/49 L 128/50 L O2 Sat by Pulse 96 Oximetry (%) 05/06/18 05/06/18 05/06/18 02:00 04:00 06:00 Temperature 97.2 F L 97.8 F Pulse Rate 90 90 91 H Respiratory 25 H 23 H 21 H Rate Blood Pressure 133/47 L 146/56 L 143/59 L O2 Sat by Pulse Oximetry (%) 05/06/18 05/06/18 05/06/18 06:43 07:00 08:00 Temperature 98.1 F 98.1 F Pulse Rate 90 91 H Respiratory 21 H 21 H Rate Blood Pressure 128/56 L 138/58 L O2 Sat by Pulse 95 Oximetry (%) 05/06/18 05/06/18 08:25 09:38 Temperature Pulse Rate 90 Respiratory Rate Blood Pressure 128/56 L O2 Sat by Pulse 96 Oximetry (%) Current Medications Generic Name Dose Route Start Last Admin Trade Name Freq PRN Reason Stop Dose Admin Acetylcysteine 200 mg 05/05/18 12:20 05/06/18 07:35 Mucomyst 20 Oral / Inh Use Only* NEB 200 mg RQID ANNA Administration Albuterol Sulfate 1 amp 05/05/18 11:30 05/06/18 07:35 Ventolin 0.083% Nebulizer Soln - NEB 1 amp Q6H PRN Administration SHORT OF BREATH/WHEEZING Chlorhexidine Gluconate 1 applic 05/02/18 22:00 05/05/18 22:13 Hibiclens For Decolonization - TP 1 applic HS ANNA Administration Enoxaparin Sodium 40 mg 05/02/18 10:00 05/06/18 09:07 Lovenox - SQ 40 mg DAILY ANNA Administration Famotidine/Sodium Chloride 20 mg in 50 mls @ 100 mls/hr 05/02/18 10:00 09:08 Pepcid 20 Mg Premixed Ivpb - IVPB 100 mls/hr BID ANNA Administration Norepinephrine Bitartrate 4, 500 mls @ 37.5 mls/hr 05/02/18 07:30 05/06/18 09 :38 000 mcg/ Dextrose IV Not Given TITR ANNA Protocol 5 MCG/MIN Piperacillin Sod/Tazobactam 100 mls @ 200 mls/hr 05/03/18 10:00 05/06/18 09: 09 Sod 4.5 gm/ Dextrose IVPB 200 mls/hr Q8H-IV ANNA Administration Protocol Potassium Chloride 40 meq/ 1,020 mls @ 100 mls/hr 05/06/18 08:15 05/06/18 08: 15 Dextrose IVPB 100 mls/hr .Q10H ANNA Administration Lacosamide 100 mg 05/05/18 10:00 05/06/18 09:09 Vimpat Injection - IVPB 100 mg BID ANNA Administration Levothyroxine Sodium 37.5 mcg 05/04/18 11:00 05/06/18 09:09 Synthroid Injection - IVPUSH 37.5 mcg DAILY ANNA Administration Lorazepam 2 mg 05/04/18 08:00 05/05/18 08:47 Ativan Injection - IVPUSH 2 mg Q1H PRN Administration not responding to 1mg ativan Mupirocin 1 applic 05/02/18 10:00 05/06/18 09:32 Bactroban Ointment (For Decolonization) - NS 05/07/18 09:59 1 applic BID ANNA Administration Valproate Sodium 1,000 mg 05/04/18 22:00 05/06/18 09:06 Depacon Injection - IVPB 1,000 mg BID ANNA Administration Laboratory Results - last 24 hr 05/02/18 05/06/18 05/06/18 00:30 05:30 05:30 WBC 4.1 RBC 2.63 L Hgb 8.4 L Hct 24.5 L MCV 93.0 MCH 32.0 MCHC 34.4 RDW 18.7 H Plt Count 210 D MPV 6.8 L Absolute Neuts (auto) 2.0 Neutrophils % 49.2 D Lymphocytes % 37.7 D Monocytes % 6.2 Eosinophils % 5.4 H D Basophils % 1.5 Nucleated RBC % 0 Puncture Site ABG pH ABG pCO2 at Pt Temp ABG pO2 at Pt Temp ABG HCO3 ABG O2 Sat (Measured) ABG O2 Content ABG Base Excess Wei Test O2 Delivery Device Oxygen Flow Rate Vent Mode Vent Rate PEEP Pressure Support Vent Sodium 156 H Potassium 3.5 Chloride 122 H Carbon Dioxide 30 Anion Gap 4 L BUN 5 L Creatinine 0.9 Creat Clearance w eGFR > 60 Random Glucose 80 Calcium 7.6 L Phosphorus 2.8 Magnesium 2.2 Total Bilirubin 0.3 AST 11 L ALT < 6 L Alkaline Phosphatase 83 Total Protein 5.2 L Albumin 1.4 L Blood Type O POSITIVE Antibody Screen Negative Crossmatch See Detail 05/06/18 05:30 WBC RBC Hgb Hct MCV MCH MCHC RDW Plt Count MPV Absolute Neuts (auto) Neutrophils % Lymphocytes % Monocytes % Eosinophils % Basophils % Nucleated RBC % Puncture Site Right radial ABG pH 7.39 ABG pCO2 at Pt Temp 45.0 ABG pO2 at Pt Temp 67.4 L ABG HCO3 26.5 H ABG O2 Sat (Measured) 93.9 ABG O2 Content 11.6 L ABG Base Excess 1.8 Wei Test Positive O2 Delivery Device Bipap Oxygen Flow Rate 40% Vent Mode S/t Vent Rate 18 PEEP 0.0 Pressure Support Vent 14/7 Sodium Potassium Chloride Carbon Dioxide Anion Gap BUN Creatinine Creat Clearance w eGFR Random Glucose Calcium Phosphorus Magnesium Total Bilirubin AST ALT Alkaline Phosphatase Total Protein Albumin Blood Type Antibody Screen Crossmatch NGT+ Off pressors S1 S2 RRR Lungs decreased breath sounds on left Abd- soft, obese, NT trace edema PLAN IV antibiotics Chest PT repeat CXR off pressors seizure control with Valproate, Lacosamide swallow eval Problem List - Problems (1) Status epilepticus Code(s): G40.901 - EPILEPSY, UNSP, NOT INTRACTABLE, WITH STATUS EPILEPTICUS (2) Acute and chronic respiratory failure with hypercapnia Code(s): J96.22 - ACUTE AND CHRONIC RESPIRATORY FAILURE WITH HYPERCAPNIA (3) Bipolar disorder Code(s): F31.9 - BIPOLAR DISORDER, UNSPECIFIED (4) HTN (hypertension) Code(s): I10 - ESSENTIAL (PRIMARY) HYPERTENSION (5) Pneumonia Code(s): J18.9 - PNEUMONIA, UNSPECIFIED ORGANISM (6) Schizophrenia Code(s): F20.9 - SCHIZOPHRENIA, UNSPECIFIED
--- NOTE | 2018-05-06 12:03 | PN ---
Teaching Attending Note Name of Resident: Dolores Chavez ATTENDING PHYSICIAN STATEMENT I saw and evaluated the patient. I reviewed the resident's note and discussed the case with the resident. I agree with the resident's findings and plan as documented. SUBJECTIVE: Pt seen and examined in the ICU. More alert, awake today. Now on ventimask 40%. OBJECTIVE: Vital Signs Period Temp Pulse Resp BP Sys/Meyers Pulse Ox Last 24 Hr 96.8 F-98.1 F 72-103 21-28 105-149/36-59 95-96 Intake & Output 05/03/18 05/04/18 05/05/18 05/06/18 23:59 23:59 23:59 23:59 Intake Total 2088 1821 1875 605 Output Total 1650 2525 1300 600 Balance 438 -704 575 5 Weight 99.79 kg 96.5 kg Gen: more awake, alert Heart: RRR Lung: decreased breath sounds left Abd: soft, nontender Ext: no edema CBC, BMP 05/06/18 05:30 05/06/18 05:30 Active Medications Acetylcysteine (Mucomyst 20 Oral / Inh Use Only*) 200 mg NEB RQID [facility] Last Admin: 05/06/18 11:20 Dose: 200 mg Albuterol Sulfate (Ventolin 0.083% Nebulizer Soln -) 1 amp NEB Q6H PRN PRN Reason: SHORT OF BREATH/WHEEZING Last Admin: 05/06/18 11:20 Dose: 1 amp Chlorhexidine Gluconate (Hibiclens For Decolonization -) 1 applic TP HS [facility] Last Admin: 05/05/18 22:13 Dose: 1 applic Enoxaparin Sodium (Lovenox -) 40 mg SQ DAILY [facility] Last Admin: 05/06/18 09:07 Dose: 40 mg Famotidine/Sodium Chloride (Pepcid 20 Mg Premixed Ivpb -) 20 mg in 50 mls @ 100 mls/hr IVPB BID [facility] Last Admin: 05/06/18 09:08 Dose: 100 mls/hr Norepinephrine Bitartrate 4, (000 mcg/ Dextrose) 500 mls @ 37.5 mls/hr IV TITR ANNA; Protocol Last Admin: 05/06/18 09:38 Dose: Not Given Piperacillin Sod/Tazobactam (Sod 4.5 gm/ Dextrose) 100 mls @ 200 mls/hr IVPB Q8H-IV ANNA; Protocol Last Admin: 05/06/18 09:09 Dose: 200 mls/hr Potassium Chloride 40 meq/ (Dextrose) 1,020 mls @ 100 mls/hr IVPB .Q10H [facility] Last Admin: 05/06/18 08:15 Dose: 100 mls/hr Lacosamide (Vimpat Injection -) 100 mg IVPB BID [facility] Last Admin: 05/06/18 09:09 Dose: 100 mg Levothyroxine Sodium (Synthroid Injection -) 37.5 mcg IVPUSH DAILY [facility] Last Admin: 05/06/18 09:09 Dose: 37.5 mcg Lorazepam (Ativan Injection -) 2 mg IVPUSH Q1H PRN PRN Reason: not responding to 1mg ativan Last Admin: 05/05/18 08:47 Dose: 2 mg Mupirocin (Bactroban Ointment (For Decolonization) -) 1 applic NS BID [facility] Stop: 05/07/18 09:59 Last Admin: 05/06/18 09:32 Dose: 1 applic Valproate Sodium (Depacon Injection -) 1,000 mg IVPB BID [facility] Last Admin: 05/06/18 09:06 Dose: 1,000 mg ASSESSMENT AND PLAN: Acute Hypoxic Respiratory Failure Pneumonia Left Atelectasis Septic Shock resolving s/p Status Epilepticus HTN Hypothyroidism GERD COPD Bipolar Disorder Schizophrenia - continue antibiotics - aspiration precautions - taper FiO2 to keep Spo2 >90% - BiPAP as needed to assist in work of breathing - monitor off pressors, maintain MAP >65 - inhaled bronchodilators - increase free water - continue mucomyst - position right side down - chest PT/bed percussion - monitor CXR - DVT prophylaxis - can monitor on floor critical care time spent in reviewing chart, evaluating patient and formulating plan 35 min
--- NOTE | 2018-05-06 12:10 | PN ---
Physical Exam: SUBJECTIVE: Patient seen and examined this morning in ICU. Nursing staff reports rhythmic jerking of upper extremities did not occur overnight. Patient transitioned to Ventimask this AM, Levophed D/c'ed. OBJECTIVE: Vital Signs Period Temp Pulse Resp BP Sys/Meyers Pulse Ox Last 24 Hr 96.8 F-98.1 F 72-103 21-28 105-149/36-59 95-96 GENERAL: Awake, Alert, On Ventimask this AM HEAD: NCAT EYES: PERRL, EOMI ENT: Moist mucous membranes NECK: Supple LUNGS: Diminished breath sounds at the bases, no wheezes, no crackles HEART: Regular rate and rhythm, S1, S2 without murmur ABDOMEN: Obese, Soft, nontender, nondistended, + bowel sounds, no guarding EXTREMITIES: Trace edema NEUROLOGICAL: More alert and responsive this Am SKIN: Warm, dry. Lower extremity skin discoloration Laboratory Results - last 24 hr 05/02/18 05/06/18 05/06/18 00:30 05:30 05:30 WBC 4.1 RBC 2.63 L Hgb 8.4 L Hct 24.5 L MCV 93.0 MCH 32.0 MCHC 34.4 RDW 18.7 H Plt Count 210 D MPV 6.8 L Absolute Neuts (auto) 2.0 Neutrophils % 49.2 D Lymphocytes % 37.7 D Monocytes % 6.2 Eosinophils % 5.4 H D Basophils % 1.5 Nucleated RBC % 0 Puncture Site ABG pH ABG pCO2 at Pt Temp ABG pO2 at Pt Temp ABG HCO3 ABG O2 Sat (Measured) ABG O2 Content ABG Base Excess Wei Test O2 Delivery Device Oxygen Flow Rate Vent Mode Vent Rate PEEP Pressure Support Vent Sodium 156 H Potassium 3.5 Chloride 122 H Carbon Dioxide 30 Anion Gap 4 L BUN 5 L Creatinine 0.9 Creat Clearance w eGFR > 60 Random Glucose 80 Calcium 7.6 L Phosphorus 2.8 Magnesium 2.2 Total Bilirubin 0.3 AST 11 L ALT < 6 L Alkaline Phosphatase 83 Total Protein 5.2 L Albumin 1.4 L Blood Type O POSITIVE Antibody Screen Negative Crossmatch See Detail 05/06/18 05:30 WBC RBC Hgb Hct MCV MCH MCHC RDW Plt Count MPV Absolute Neuts (auto) Neutrophils % Lymphocytes % Monocytes % Eosinophils % Basophils % Nucleated RBC % Puncture Site Right radial ABG pH 7.39 ABG pCO2 at Pt Temp 45.0 ABG pO2 at Pt Temp 67.4 L ABG HCO3 26.5 H ABG O2 Sat (Measured) 93.9 ABG O2 Content 11.6 L ABG Base Excess 1.8 Wei Test Positive O2 Delivery Device Bipap Oxygen Flow Rate 40% Vent Mode S/t Vent Rate 18 PEEP 0.0 Pressure Support Vent 14/7 Sodium Potassium Chloride Carbon Dioxide Anion Gap BUN Creatinine Creat Clearance w eGFR Random Glucose Calcium Phosphorus Magnesium Total Bilirubin AST ALT Alkaline Phosphatase Total Protein Albumin Blood Type Antibody Screen Crossmatch Microbiology 05/02/18 00:30 Blood - Peripheral Venous Blood Culture - Preliminary NO GROWTH OBTAINED AFTER 96 HOURS, INCUBATION TO CONTINUE FOR 1 DAYS. 05/01/18 12:20 Blood - Peripheral Venous Blood Culture - Preliminary NO GROWTH OBTAINED AFTER 72 HOURS, INCUBATION TO CONTINUE FOR 2 DAYS. 05/03/18 11:10 Nares - Mrsa Screen - Right MRSA Screen - Final NO MRSA ISOLATED 05/01/18 05:45 Urine - Urine - Catheterized Urine Culture - Final NO GROWTH OBTAINED Active Medications Acetylcysteine (Mucomyst 20 Oral / Inh Use Only*) 200 mg NEB RQID [facility] Last Admin: 05/06/18 07:35 Dose: 200 mg Albuterol Sulfate (Ventolin 0.083% Nebulizer Soln -) 1 amp NEB Q6H PRN PRN Reason: SHORT OF BREATH/WHEEZING Last Admin: 05/06/18 07:35 Dose: 1 amp Chlorhexidine Gluconate (Hibiclens For Decolonization -) 1 applic TP HS [facility] Last Admin: 05/05/18 22:13 Dose: 1 applic Enoxaparin Sodium (Lovenox -) 40 mg SQ DAILY [facility] Last Admin: 05/06/18 09:07 Dose: 40 mg Famotidine/Sodium Chloride (Pepcid 20 Mg Premixed Ivpb -) 20 mg in 50 mls @ 100 mls/hr IVPB BID [facility] Last Admin: 05/06/18 09:08 Dose: 100 mls/hr Norepinephrine Bitartrate 4, (000 mcg/ Dextrose) 500 mls @ 37.5 mls/hr IV TITR ANNA; Protocol Last Admin: 05/06/18 09:38 Dose: Not Given Piperacillin Sod/Tazobactam (Sod 4.5 gm/ Dextrose) 100 mls @ 200 mls/hr IVPB Q8H-IV ANNA; Protocol Last Admin: 05/06/18 09:09 Dose: 200 mls/hr Potassium Chloride 40 meq/ (Dextrose) 1,020 mls @ 100 mls/hr IVPB .Q10H [facility] Last Admin: 05/06/18 08:15 Dose: 100 mls/hr Lacosamide (Vimpat Injection -) 100 mg IVPB BID [facility] Last Admin: 05/06/18 09:09 Dose: 100 mg Levothyroxine Sodium (Synthroid Injection -) 37.5 mcg IVPUSH DAILY [facility] Last Admin: 05/06/18 09:09 Dose: 37.5 mcg Lorazepam (Ativan Injection -) 2 mg IVPUSH Q1H PRN PRN Reason: not responding to 1mg ativan Last Admin: 05/05/18 08:47 Dose: 2 mg Mupirocin (Bactroban Ointment (For Decolonization) -) 1 applic NS BID [facility] Stop: 05/07/18 09:59 Last Admin: 05/06/18 09:32 Dose: 1 applic Valproate Sodium (Depacon Injection -) 1,000 mg IVPB BID [facility] Last Admin: 05/06/18 09:06 Dose: 1,000 mg ASSESSMENT/PLAN: 63 y/o F with PMHx of Epilepsy, HTN, Hypothyroidism, GERD, COPD (not on Home O2) , Frequent UTIs, Bipolar Disorder, Schizophrenia, Varicose Veins, who was recently discharged from [facility] (Treated for PNA, UTI with cefuroxime), was BIBEMS from [facility] s/p Convulsion, was intubated and Sedated in the ED and will be monitored in ICU. #Neuro Status Epilepticus Hx of Epiepsy, Bipolar Disorder, Schizophrenia -Valproate 1000mg IV BID -Lacosamide 100mg IV BID -Lorazepam PRN for breakthrough seizures -EEG Pending -Neurology (Dr. Kim) consulted; Appreciate Rec's -Neurochecks Q4H -Aspiration precautions -NPO -Low threshold for reintubation for airway protection -Will need outpatient follow up for tighter seizure control #Cardio Shock Tropinemia, Likely due to Demand Ischemia Hx of HTN -Levophed d/c'ed this AM -Monitor for MAP > 65 -EKG: RBBB, LAD, QTc 462 -Hold home dose Anti-HTN meds -Monitor I&Os, peterson in place #Pulm Acute Respiratory Failure, Now with Aspiration Pneumonitis Hx of COPD (not on Home O2) -Extubated on 05/02 -Maintianing O2 sats on 40% Ventimask this AM; Will transition to Nasal canulla -Albuterol Nebulizer -Acetylcysteine 200 mg NEB RQID -Continue Zosyn 3.375 (started on 05/02) -Bipap PRN -Supplemental O2 PRN to maintain SpO2 > 88% -Chest PT -Aspiration precautions #GI Elevated Alk phos, Corrected Hx of GERD -Continue Famotidine -Will need reevaluation by Speech and Swallow; NPO until further rec's #Renal Hypokalemia -D5w + 40 mEq KCl @ 100 mls/hr #Endocrine Hx of Hypothyroidism -TSH 2.23 -Levothyroxine #Heme/Onc Anemia -Stable s/p 2 units pRBCs #ID Aspiration Pneumonitis Hx of Frequent UTIs -Blood and Urine Cx noted above -Prior Urine Cx grew E. Coli -ID (Dr. Montgomery) Consulted -Continue Zosyn 3.375 (started on 05/02) #FEN -D5w + 40 mEq KCl @ 100 mls/hr -Replete Lytes PRN -NPO pending speech and swallow #PPx -DVT: Lovenox -GI: Famotidine #LTD -R IJ on 05/01 -Peterson placed on 05/01 Code Status: Full Code; Spoke with Sister, Aileen, who would like to rescind the MOLST form Dispo: Transfer to Med-surg Visit type - Emergency Visit Emergency Visit: Yes ED Registration Date: 05/02/18 Care time: The patient presented to the Emergency Department on the above date and was hospitalized for further evaluation of their emergent condition. - New Patient This patient is new to me today: No - Critical Care Critical Care patient: Yes Total Critical Care Time (in minutes): 36 Critical Care Statement: The care of this patient involved high complexity decision making to prevent further life threatening deterioration of the patient 's condition and/or to evaluate & treat vital organ system(s) failure or risk of failure.
[2018-05-06 12:57] VITALS: BMI 33.2
--- NOTE | 2018-05-06 13:49 | PN ---
Progress Note, LINOTYPIST - Note Progress Note: Pt alert, verbal, some intelligible, some neologisms/rambles. With much encouragement pt accepted 1 tsp applesauce with delayed but brisk swallow. No longer having seizures. Refusing most PO trials. Pt may not accept enough by mouth. Keep NGT in place for now. Consider trial of Dys puree/nectar thick liquid/ MAgic cup/ 2 chandrakant HN. Remind pt to swallow with each tsp. Monitor for cough, throat clearing, congestion, fever
--- NOTE | 2018-05-06 15:02 | CON.GI ---
Consult Consult Specialty:: GI Referred by:: Dr. Jamila Chavez Reason for Consultation:: Anemia - History of Present Illness Chief Complaint: Patient has been having seizures History of Present Illness: 63F admitted from [place] secondary to seizures. Was intubated, recently extubated. Prior to this, she was admitted to [facility] secondary to altered mental status and possible PEG placement. PEG was deferred as patient's cognition improved with adjustment of medications. Asked to evaluate anemia. She had a macrocytic anemia with normal B12 and folate levels on her last visit and received 2 U PRBC this admission. Seizure medications are being adjusted. There has been no overt bleeding. Her prior endoscopy history is uncertain. There is no clear family history of colon cancer. There has been no overt bleeding, melena. She currently states being hungry. - History Source History Provided By: Patient, Medical Record Limitations to Obtaining History: Poor Historian - Past Medical History TECHNOLOGY ARCHITECT: Yes: Seizure Cardio/Vascular: Yes: HTN Pulmonary: Yes: COPD Gastrointestinal: Yes: GERD Endocrine: Yes: Hypothyroidism - Alcohol/Substance Use Hx Alcohol Use: No - Smoking History Smoking history: Unknown if ever smoked Have you smoked in the past 12 months: No - Social History ADL: Support Services History of Recent Travel: No Home Medications - Allergies Allergies/Adverse Reactions: Allergies Allergy/AdvReac Type Severity Reaction Status Date / Time haloperidol Allergy Unknown Verified 05/01/18 21:27 sulfacetamide sodium Allergy Unknown Verified 05/01/18 21:27 [From Sulfamide] - Home Medications Home Medications: Ambulatory Orders Acetaminophen [Non-Aspirin Pain Relief] 650 mg PO Q6H PRN 01/14/15 Albuterol 0.083% Nebulizer Renuka [Ventolin 0.083% Nebulizer Soln -] 1 neb NEB Q6H PRN 01/14/15 Lamotrigine 200 mg PO BID 01/14/15 Levetiracetam [Keppra] 1,000 mg PO BID 01/14/15 Levothyroxine [Synthroid -] 75 mcg PO DAILY 01/14/15 Metoprolol Tartrate 25 mg PO BID 01/14/15 Acidoph/L.bulg/Bif.b/S.thermop [Bacid Caplet] 1 each PO BID #30 tablet 04/29/18 Cefuroxime Axetil [Ceftin -] 500 mg PO Q12H #10 tablet 04/29/18 Heparin - 5,000 unit SQ BID vial 04/29/18 Aspirin [ASA -] 81 mg PO DAILY 05/02/18 Carbidopa/Levodopa 25/100 [Sinemet 25/100 -] 1 each PO BID 05/02/18 Family Disease History - Family Disease History Family History: Unable to Obtain Review of Systems - Review of Systems Gastrointestinal: denies: Abdominal Pain, Constipation, Diarrhea, Melena, Rectal Bleeding, Vomiting, Vomiting Blood Physical Exam-GI Vital Signs: Vital Signs Temperature 98.1 F 05/06/18 14:00 Pulse Rate 98 H 05/06/18 14:00 Respiratory Rate 24 H 05/06/18 14:00 Blood Pressure 112/46 L 05/06/18 14:00 O2 Sat by Pulse Oximetry (%) 94 L 05/06/18 09:00 Constitutional: Yes: Calm Eyes: No: Sclera Icterus Cardiovascular: Yes: Regular Rate and Rhythm. No: Murmur Respiratory: Yes: Diminished (at bases bilaterally with poor insp effort) Gastrointestinal Inspection: No: Distention ...Auscultate: Yes: Normoactive Bowel Sounds ...Palpate: Yes: Soft. No: Hepatomegaly, Splenomegaly, Tenderness ...Percussion: No: Tympanitic ...Rectal Exam: Yes: Other (Performance Engineer present: no external lesions, no masses, light heredia stool, guaiac negative) Edema: LLE: 1+, RLE: 1+ Neurological: Yes: Alert Labs: CBC, BMP 05/06/18 05:30 05/06/18 05:30 INR, PTT INR 1.16 (0.83-1.09) H 05/02/18 05:30 Hepatic Panel Total Bilirubin 0.3 mg/dL (0.2-1) 05/06/18 05:30 Direct Bilirubin 0.1 mg/dL (0.0-0.2) 05/03/18 05:15 AST 11 U/L (15-37) L 05/06/18 05:30 ALT < 6 U/L (13-61) L 05/06/18 05:30 Alkaline Phosphatase 83 U/L (45-117) 05/06/18 05:30 Albumin 1.4 g/dl (3.4-5.0) L 05/06/18 05:30 Problem List - Problems (1) Anemia Assessment/Plan: Previously macrocytic. Patient received PRBC transfusion ? med induced / chronic disease / alternate etiology Consider heme evaluation, iron indices When acute issues are resolved and if it is the wish of the patient's sister / HCP, endoscopic evaluation can be pursued. This can be arranged in an outpatient setting. Recall as needed Code(s): D64.9 - ANEMIA, UNSPECIFIED Qualifiers: Anemia type: unspecified type Qualified Code(s): D64.9 - Anemia, unspecified
[2018-05-06] MEDS ORDERED: LORazepam 2 MG/ML SDV VIAL IVPUSH PRN (16:25)
[2018-05-06] MEDS ORDERED: PNEUMOC 13-VAL CONJ-DIP CRM/PF 0.5 ML DISP.SYRIN IM ONE (17:16)
[2018-05-06] MEDS ORDERED: PNEUMOCOCCAL 23 VACCINE 0.5 ML VIAL IM ONE (18:30)
[2018-05-06] MEDS: POTASSIUM CHLORIDE 40 MEQ in DEXTROSE 5%-WATER - 1,000 ML IVPB SCH ×2 (18:32→23:11)
[2018-05-06] MEDS ORDERED: CHLORHEXIDINE GLUCONATE 4% CLEANSER FOR DECOLONIZATION TP SCH (22:00)
[2018-05-06] MEDS ORDERED: MUPIROCIN 2% TOPICAL OINTMENT FOR DECOLONIZATION NS SCH (22:00)
[2018-05-07] MEDS: VALPROATE SODIUM 500 MG/5 ML VIAL IVPB SCH ×2 (01:15→12:34)
[2018-05-07] MEDS ORDERED: DEXTROSE 5%-WATER 100 ML IVPB ONE ×3 (02:04→17:34)
[2018-05-07] MEDS ORDERED: PIPERACILLIN/TAZOBACTAM 4.5 GM VIAL IVPB ONE ×3 (02:04→17:34)
[2018-05-07] MEDS: PIPERACILLIN/TAZOB 4.5 GM 4.5 GM in DEXTROSE 5%-WATER 100 ML IVPB SCH ×3 (02:39→17:50)
[2018-05-07] MEDS: POTASSIUM CHLORIDE 40 MEQ in DEXTROSE 5%-WATER - 1,000 ML IVPB SCH ×3 (06:19→22:38)
[2018-05-07 06:25] LABS: ARTERIAL BLD GAS O2 SATURATION 80.4 % (90-98.9); ARTERIAL BLOOD GAS BASE EXCESS 0.6 meq/l (-2-2); ARTERIAL BLOOD GAS PCO2 46.9 mmHg (35-45); ARTERIAL BLOOD GAS pH 7.36 (7.35-7.45)
[2018-05-07 06:26] LABS: ALLENS TEST POSITIVE
[2018-05-07 07:55] LABS: EOS % 5.4 % (0-4.5); HEMATOCRIT 28.6 % (32.4-45.2); HEMOGLOBIN 9.8 GM/dL (10.7-15.3); LYMPH % 36.6 % (8-40); MCH 32.7 pg (25.7-33.7); MCHC 34.2 g/dl (32.0-36.0); MEAN CELL VOLUME 95.5 fl (80-96); MONO % 6.4 % (3.8-10.2); NEUT % 50.6 % (42.8-82.8); PLATELET COUNT 198 K/MM3 (134-434); RBC 2.99 M/mm3 (3.60-5.2); RDW 18.8 % (11.6-15.6); WHITE BLOOD COUNT 5.1 K/mm3 (4.0-10.0)
[2018-05-07] MEDS: ACETYLCYSTEINE 20% 200MG/ML 4 ML VIAL *FOR ORAL / INH USE ONLY NEB SCH ×4 (08:10→20:44)
[2018-05-07] MEDS: ALBUTEROL SO4 0.083% IH SOL 2.5 MG/3 ML VIAL.NEB. NEB PRN ×4 (08:10→20:44)
[2018-05-07 09:40] LABS: ALBUMIN 1.7 g/dl (3.4-5.0); ALK PHOS 90 U/L (45-117); ANION GAP 8 MMOL/L (8-16); BILIRUBIN,TOTAL 0.3 mg/dL (0.2-1); BLOOD UREA NITROGEN 4 mg/dL (7-18); CALCIUM 8.2 mg/dL (8.5-10.1); CHLORIDE 117 mmol/L (98-107); CO2 25 mmol/L (21-32); GLUCOSE,RANDOM 74 mg/dL (74-106); MAGNESIUM 2.3 mg/dL (1.8-2.4); PHOSPHOROUS 2.2 mg/dL (2.5-4.9); POTASSIUM 4.1 mmol/L (3.5-5.1); SGOT/AST 12 U/L (15-37); SGPT/ALT < 6 U/L (13-61); SODIUM 150 mmol/L (136-145); TOT PROT 6.1 g/dl (6.4-8.2)
[2018-05-07] MEDS ORDERED: LEVOTHYROXINE SODIUM 100 MCG VIAL IVPUSH SCH (10:00)
[2018-05-07 10:36] LABS: ARTERIAL BLD GAS O2 SATURATION 95.9 % (90-98.9); ARTERIAL BLOOD GAS BASE EXCESS -0.6 meq/l (-2-2); ARTERIAL BLOOD GAS PCO2 44.7 mmHg (35-45); ARTERIAL BLOOD GAS PO2 81.2 mmHg (80-100); ARTERIAL BLOOD GAS pH 7.36 (7.35-7.45)
[2018-05-07 10:42] LABS: ALLENS TEST POSITIVE
[2018-05-07] MEDS: Lacosamide 200 MG/20 ML VIAL IVPB SCH (10:50)
[2018-05-07] MEDS: ENOXAPARIN NA (PORCINE) 40 MG/0.4 ML DISP.SYRIN SQ SCH (11:06)
--- NOTE | 2018-05-07 12:22 | PN ---
Progress Note (short form) - Note Progress Note: Events noted awake no seizures overnight eating about 50 % of her meals talkative Vital Signs - 24 hr 05/06/18 05/06/18 05/06/18 13:00 14:00 15:00 Temperature 97.8 F 98.1 F 97.8 F Pulse Rate 100 H 98 H 93 H Respiratory 18 24 H 20 Rate Blood Pressure 129/49 L 112/46 L 113/50 L O2 Sat by Pulse Oximetry (%) 05/06/18 05/06/18 05/06/18 15:10 15:57 18:00 Temperature 98.1 F Pulse Rate 103 H Respiratory 18 Rate Blood Pressure 127/55 L O2 Sat by Pulse 92 L 95 Oximetry (%) 05/06/18 05/06/18 05/07/18 21:00 22:27 02:00 Temperature 97.8 F 98.0 F Pulse Rate 98 H 94 H Respiratory 18 18 Rate Blood Pressure 127/56 L 136/66 O2 Sat by Pulse 92 L Oximetry (%) 05/07/18 05/07/18 06:00 09:38 Temperature 97.9 F 98.4 F Pulse Rate 91 H 84 Respiratory 18 18 Rate Blood Pressure 146/64 133/95 O2 Sat by Pulse Oximetry (%) Current Medications Generic Name Dose Route Start Last Admin Trade Name Freq PRN Reason Stop Dose Admin Acetylcysteine 200 mg 05/06/18 20:00 05/06/18 21:00 Mucomyst 20 Oral / Inh Use Only* NEB 200 mg RQID ANNA Administration Albuterol Sulfate 1 amp 05/06/18 16:25 05/06/18 21:00 Ventolin 0.083% Nebulizer Soln - NEB 1 amp Q6H PRN Administration SHORT OF BREATH/WHEEZING Enoxaparin Sodium 40 mg 05/07/18 10:00 05/07/18 11:06 Lovenox - SQ 40 mg DAILY ANNA Administration Famotidine/Sodium Chloride 20 mg in 50 mls @ 100 mls/hr 05/06/18 22:00 23:38 Pepcid 20 Mg Premixed Ivpb - IVPB 100 mls/hr BID ANNA Administration Potassium Chloride 40 meq/ 1,020 mls @ 100 mls/hr 05/06/18 16:25 05/07/18 06: 19 Dextrose IVPB Not Given Q10H ANNA Piperacillin Sod/Tazobactam 100 mls @ 200 mls/hr 05/06/18 18:00 05/07/18 09: 36 Sod 4.5 gm/ Dextrose IVPB 200 mls/hr Q8H-IV ANNA Administration Protocol Lacosamide 100 mg 05/06/18 22:00 05/07/18 10:50 Vimpat Injection - IVPB 100 mg BID ANNA Administration Levothyroxine Sodium 37.5 mcg 05/07/18 10:00 Synthroid Injection - IVPUSH DAILY ANNA Lorazepam 2 mg 05/06/18 16:25 Ativan Injection - IVPUSH Q1H PRN not responding to 1mg ativan Valproate Sodium 1,000 mg 05/06/18 22:00 05/07/18 01:15 Depacon Injection - IVPB 1,000 mg BID ANNA Administration Laboratory Results - last 24 hr 05/02/18 05/07/18 05/07/18 18:40 06:15 06:40 WBC 5.1 RBC 2.99 L Hgb 9.8 L Hct 28.6 L D MCV 95.5 MCH 32.7 MCHC 34.2 RDW 18.8 H Plt Count 198 MPV 7.0 L Absolute Neuts (auto) 2.6 Neutrophils % 50.6 Lymphocytes % 36.6 Monocytes % 6.4 Eosinophils % 5.4 H Basophils % 1.0 Nucleated RBC % 0 Anticoagulation Therapy No Result Required. Puncture Site Right radial ABG pH 7.36 ABG pCO2 at Pt Temp 46.9 H ABG pO2 at Pt Temp 45.0 L* D ABG HCO3 25.6 ABG O2 Sat (Measured) 80.4 L ABG O2 Content 8.8 L* ABG Base Excess 0.6 Wei Test Positive O2 Delivery Device N/c Oxygen Flow Rate 4 Vent Mode No Result Required. Vent Rate No Result Required. Mechanical Rate No Result Required. Pressure Support Vent No Result Required. Sodium Potassium Chloride Carbon Dioxide Anion Gap BUN Creatinine Creat Clearance w eGFR Random Glucose Calcium Phosphorus Magnesium Total Bilirubin AST ALT Alkaline Phosphatase Total Protein Albumin Lamotrigine 13.6 05/07/18 05/07/18 06:40 08:00 WBC RBC Hgb Hct MCV MCH MCHC RDW Plt Count MPV Absolute Neuts (auto) Neutrophils % Lymphocytes % Monocytes % Eosinophils % Basophils % Nucleated RBC % Anticoagulation Therapy Puncture Site Right radial ABG pH 7.36 ABG pCO2 at Pt Temp 44.7 ABG pO2 at Pt Temp 81.2 D ABG HCO3 24.3 ABG O2 Sat (Measured) 95.9 ABG O2 Content 10.4 L ABG Base Excess -0.6 Wei Test Positive O2 Delivery Device Oxygen Flow Rate Yes Vent Mode Vent Rate Mechanical Rate Pressure Support Vent Sodium 150 H Potassium 4.1 Chloride 117 H Carbon Dioxide 25 Anion Gap 8 BUN 4 L Creatinine 1.0 Creat Clearance w eGFR 56.37 Random Glucose 74 Calcium 8.2 L Phosphorus 2.2 L Magnesium 2.3 Total Bilirubin 0.3 AST 12 L ALT < 6 L Alkaline Phosphatase 90 Total Protein 6.1 L Albumin 1.7 L Lamotrigine S1 S2 RRR Lungs decreased breath sounds on left Abd- soft, obese, NT trace edema PLAN IV antibiotics Chest PT change seizure meds to po swallow eval noted repeat CXR seizure control with Valproate, Lacosamide spoke with sister today-- would like to hold off peg tube placements as pt is eating, she would like to hold off endoscopic interventions as well monitor H/HCT Problem List - Problems (1) Status epilepticus Code(s): G40.901 - EPILEPSY, UNSP, NOT INTRACTABLE, WITH STATUS EPILEPTICUS (2) Acute and chronic respiratory failure with hypercapnia Code(s): J96.22 - ACUTE AND CHRONIC RESPIRATORY FAILURE WITH HYPERCAPNIA (3) Bipolar disorder Code(s): F31.9 - BIPOLAR DISORDER, UNSPECIFIED (4) HTN (hypertension) Code(s): I10 - ESSENTIAL (PRIMARY) HYPERTENSION (5) Pneumonia Code(s): J18.9 - PNEUMONIA, UNSPECIFIED ORGANISM (6) Schizophrenia Code(s): F20.9 - SCHIZOPHRENIA, UNSPECIFIED
--- NOTE | 2018-05-07 12:25 | PN ---
Progress Note, Physician History of Present Illness: PULMONARY COMFORTABLE ON VM O2 SATS 95% - Current Medication List Current Medications: Active Medications Acetylcysteine (Mucomyst 20 Oral / Inh Use Only*) 200 mg NEB RQID [facility] Last Admin: 05/06/18 21:00 Dose: 200 mg Albuterol Sulfate (Ventolin 0.083% Nebulizer Soln -) 1 amp NEB Q6H PRN PRN Reason: SHORT OF BREATH/WHEEZING Last Admin: 05/06/18 21:00 Dose: 1 amp Enoxaparin Sodium (Lovenox -) 40 mg SQ DAILY [facility] Last Admin: 05/07/18 11:06 Dose: 40 mg Famotidine/Sodium Chloride (Pepcid 20 Mg Premixed Ivpb -) 20 mg in 50 mls @ 100 mls/hr IVPB BID [facility] Last Admin: 05/06/18 23:38 Dose: 100 mls/hr Potassium Chloride 40 meq/ (Dextrose) 1,020 mls @ 100 mls/hr IVPB Q10H [facility] Last Admin: 05/07/18 06:19 Dose: Not Given Piperacillin Sod/Tazobactam (Sod 4.5 gm/ Dextrose) 100 mls @ 200 mls/hr IVPB Q8H-IV ANNA; Protocol Last Admin: 05/07/18 09:36 Dose: 200 mls/hr Lacosamide (Vimpat Injection -) 100 mg IVPB BID [facility] Last Admin: 05/07/18 10:50 Dose: 100 mg Levothyroxine Sodium (Synthroid Injection -) 37.5 mcg IVPUSH DAILY [facility] Lorazepam (Ativan Injection -) 2 mg IVPUSH Q1H PRN PRN Reason: not responding to 1mg ativan Valproate Sodium (Depacon Injection -) 1,000 mg IVPB BID [facility] Last Admin: 05/07/18 01:15 Dose: 1,000 mg - Objective Vital Signs: Vital Signs Temperature 98.4 F 05/07/18 09:38 Pulse Rate 84 05/07/18 09:38 Respiratory Rate 18 05/07/18 09:38 Blood Pressure 133/95 05/07/18 09:38 O2 Sat by Pulse Oximetry (%) 92 L 05/06/18 21:00 Constitutional: Yes: Calm, Obese Eyes: Yes: WNL HENT: Yes: WNL Neck: Yes: WNL Cardiovascular: Yes: Regular Rate and Rhythm, S1, S2 Respiratory: Yes: Other (IMPROVED BS BILTERALLY) Gastrointestinal: Yes: Normal Bowel Sounds, Soft Extremities: Yes: WNL Edema: No Labs: CBC, BMP 05/07/18 06:40 05/07/18 06:40 INR, PTT INR 1.16 (0.83-1.09) H 05/02/18 05:30 Laboratory Tests 05/07/18 06:15 ABG pH 7.36 ABG pCO2 at Pt Temp 46.9 H ABG pO2 at Pt Temp 45.0 L* D ABG HCO3 25.6 ABG O2 Sat (Measured) 80.4 L ABG O2 Content 8.8 L* O2 Delivery Device N/c Oxygen Flow Rate 4 Assessment/Plan ASSESSMENT AND PLAN: Acute Hypoxic Respiratory Failure Pneumonia Left Atelectasis Septic Shock resolving s/p Status Epilepticus HTN Hypothyroidism GERD COPD Bipolar Disorder Schizophrenia - antibiotics - aspiration precautions - FiO2 to keep Spo2 >90% - BiPAP as needed to assist in work of breathing - inhaled bronchodilators - increase free water - continue mucomyst - position right side down - chest PT/bed percussion - CXR - DVT prophylaxis DR TEIXEIRA
--- NOTE | 2018-05-07 12:38 | PN ---
Progress Note, [facility] [employer] - Note Progress Note: Selected Entries 05/06/18 05/06/18 05/06/18 02:00 06:00 07:00 Breakfast Temperature 97.2 F L 97.8 F 98.1 F 05/06/18 05/06/18 05/06/18 08:00 10:00 11:00 Breakfast Temperature 98.1 F 97.9 F 98 F 05/06/18 05/06/18 05/06/18 12:00 13:00 14:00 Breakfast Temperature 98 F 97.8 F 98.1 F 05/06/18 05/06/18 05/06/18 15:00 18:00 22:27 Breakfast Temperature 97.8 F 98.1 F 97.8 F 05/07/18 05/07/18 05/07/18 02:00 06:00 09:38 Breakfast Temperature 98.0 F 97.9 F 98.4 F 05/07/18 09:57 Breakfast 50% Temperature Laboratory Tests 05/07/18 06:40 WBC 5.1 Looking better. Overtly tolerating puree/nectar. Swallow reassessed with overtly good tolerance of sips of pepsi. I suspect recent aspiration sec seizures, now under control. Rec: trial of Dys ground and sips of thin liquid.
[2018-05-07 13:04] LABS: PLATELET ESTIMATE NORMAL
[2018-05-07] MEDS: FAMOTIDINE 20 MG/50 ML IVPB 20 MG/50 ML MG IVPB SCH ×2 (13:51→13:57)
--- NOTE | 2018-05-07 17:03 | PN ---
Progress Note (short form) - Note Progress Note: quite alert and conversant no complaints Vital Signs Period Temp Pulse Resp BP Sys/Meyers Pulse Ox Last 24 Hr 97.8 F-98.4 F 84-103 18-24 121-146/47-95 92 cor-rrr lungs clear abd soft,nt ext no edema CBC, BMP 05/07/18 06:40 05/07/18 06:40 Microbiology 05/01/18 12:20 Blood - Peripheral Venous Blood Culture - Final NO GROWTH AFTER 5 DAYS INCUBATION 05/02/18 00:30 Blood - Peripheral Venous Blood Culture - Final NO GROWTH AFTER 5 DAYS INCUBATION 05/03/18 11:10 Nares - Mrsa Screen - Right MRSA Screen - Final NO MRSA ISOLATED 05/01/18 05:45 Urine - Urine - Catheterized Urine Culture - Final NO GROWTH OBTAINED cxray with left lung whiteout a/p probable aspiration pneumonia/atelectasis right lung- chest PT s/p seizure day #5 zosyn cxray no improvement
[2018-05-07] MEDS ORDERED: PNEUMOC 13-VAL CONJ-DIP CRM/PF 0.5 ML DISP.SYRIN IM ONE (17:59)
[2018-05-07] MEDS ORDERED: FLU VACCINE QUAD 60 MCG/0.5 ML (MDV 18-19) IM ONE (18:01)
[2018-05-07] MEDS ORDERED: PNEUMOCOCCAL 23 VACCINE 0.5 ML VIAL IM ONE (19:45)
[2018-05-07] MEDS: DIVALPROEX SODIUM 500 MG TABLET E.C. PO SCH (22:27)
[2018-05-07] MEDS: LACOSAMIDE 50 MG TABLET PO SCH (22:27)
[2018-05-08] MEDS ORDERED: PIPERACILLIN/TAZOBACTAM 4.5 GM VIAL IVPB ONE ×4 (00:40→23:45)
[2018-05-08] MEDS ORDERED: DEXTROSE 5%-WATER 100 ML IVPB ONE ×4 (00:41→23:46)
[2018-05-08] MEDS: PIPERACILLIN/TAZOB 4.5 GM 4.5 GM in DEXTROSE 5%-WATER 100 ML IVPB SCH ×3 (01:30→17:50)
[2018-05-08] MEDS: POTASSIUM CHLORIDE 40 MEQ in DEXTROSE 5%-WATER - 1,000 ML IVPB SCH ×4 (02:06→22:57)
[2018-05-08] MEDS: LEVOTHYROXINE NA 75 MCG TABLET (FP) PO SCH (06:24)
[2018-05-08] MEDS: ACETYLCYSTEINE 20% 200MG/ML 4 ML VIAL *FOR ORAL / INH USE ONLY NEB SCH ×4 (07:35→20:51)
[2018-05-08] MEDS: ALBUTEROL SO4 0.083% IH SOL 2.5 MG/3 ML VIAL.NEB. NEB PRN ×2 (07:35→11:35)
[2018-05-08] MEDS: ENOXAPARIN NA (PORCINE) 40 MG/0.4 ML DISP.SYRIN SQ SCH (10:15)
[2018-05-08] MEDS: RANITIDINE HCL 150 MG/10 ML UNIT-DOSE PO SCH (10:15)
[2018-05-08 11:55] LABS: HEMATOCRIT 27.6 % (32.4-45.2); HEMOGLOBIN 9.2 GM/dL (10.7-15.3); MCH 31.5 pg (25.7-33.7); MCHC 33.3 g/dl (32.0-36.0); MEAN CELL VOLUME 94.8 fl (80-96); PLATELET COUNT 193 K/MM3 (134-434); RBC 2.91 M/mm3 (3.60-5.2); RDW 18.3 % (11.6-15.6); WHITE BLOOD COUNT 4.7 K/mm3 (4.0-10.0)
[2018-05-08] MEDS: LACOSAMIDE 50 MG TABLET PO SCH ×2 (11:55→22:54)
--- NOTE | 2018-05-08 12:05 | PN ---
Progress Note (short form) - Note Progress Note: Events noted awake no seizures overnight eating better tries to remove the ventimask Vital Signs - 24 hr 05/07/18 05/07/18 05/07/18 14:06 17:55 21:00 Temperature 98.3 F 98.6 F 98.6 F Pulse Rate 100 H 88 90 Respiratory 24 H 20 22 H Rate Blood Pressure 121/47 L 133/52 L 141/74 O2 Sat by Pulse 93 L Oximetry (%) 05/08/18 05:48 Temperature 98.0 F Pulse Rate 94 H Respiratory 20 Rate Blood Pressure 131/74 O2 Sat by Pulse Oximetry (%) Current Medications Generic Name Dose Route Start Last Admin Trade Name Freq PRN Reason Stop Dose Admin Acetylcysteine 200 mg 05/06/18 20:00 05/08/18 11:35 Mucomyst 20 Oral / Inh Use Only* NEB 200 mg RQID ANNA Administration Albuterol Sulfate 1 amp 05/06/18 16:25 05/08/18 11:35 Ventolin 0.083% Nebulizer Soln - NEB 1 amp Q6H PRN Administration SHORT OF BREATH/WHEEZING Divalproex Sodium 1,000 mg 05/07/18 22:00 05/07/18 22:27 Depakote - PO 1,000 mg BID ANNA Administration Enoxaparin Sodium 40 mg 05/07/18 10:00 05/08/18 10:15 Lovenox - SQ 40 mg DAILY ANNA Administration Potassium Chloride 40 meq/ 1,020 mls @ 100 mls/hr 05/06/18 16:25 05/08/18 02: 06 Dextrose IVPB 100 mls/hr Q10H ANNA Administration Piperacillin Sod/Tazobactam 100 mls @ 200 mls/hr 05/06/18 18:00 05/08/18 10: 00 Sod 4.5 gm/ Dextrose IVPB 200 mls/hr Q8H-IV ANNA Administration Protocol Lacosamide 100 mg 05/07/18 22:00 05/08/18 11:55 Vimpat - PO 100 mg BID ANNA Administration Levothyroxine Sodium 75 mcg 05/08/18 07:00 05/08/18 06:24 Synthroid - PO 75 mcg DAILY@0700 ANNA Administration Lorazepam 2 mg 05/06/18 16:25 Ativan Injection - IVPUSH Q1H PRN not responding to 1mg ativan Ranitidine HCl 150 mg 05/08/18 10:00 05/08/18 10:15 Zantac Oral Solution - PO 150 mg DAILY ANNA Administration Laboratory Results - last 24 hr 05/07/18 05/08/18 06:40 11:30 WBC 4.7 RBC 2.91 L Hgb 9.2 L Hct 27.6 L MCV 94.8 MCH 31.5 MCHC 33.3 RDW 18.3 H Plt Count 193 MPV 7.0 L Total Counted 100 Neutrophils % (Manual) 51.0 Lymphocytes % (Manual) 40.0 Monocytes % (Manual) 4 Eosinophils % (Manual) 5.0 H Hypochromia 1+ Platelet Estimate Normal Platelet Comment No clumping noted Polychromasia 1+ S1 S2 RRR Lungs decreased breath sounds on left Abd- soft, obese, NT trace edema PLAN IV antibiotics Chest PT repeat CXR seizure control with Valproate, Lacosamide spoke with sister today-- would like to hold off peg tube placements as pt is eating, she would like to hold off endoscopic interventions as well monitor H/HCT Problem List - Problems (1) Status epilepticus Code(s): G40.901 - EPILEPSY, UNSP, NOT INTRACTABLE, WITH STATUS EPILEPTICUS (2) Acute and chronic respiratory failure with hypercapnia Code(s): J96.22 - ACUTE AND CHRONIC RESPIRATORY FAILURE WITH HYPERCAPNIA (3) Bipolar disorder Code(s): F31.9 - BIPOLAR DISORDER, UNSPECIFIED (4) HTN (hypertension) Code(s): I10 - ESSENTIAL (PRIMARY) HYPERTENSION (5) Pneumonia Code(s): J18.9 - PNEUMONIA, UNSPECIFIED ORGANISM (6) Schizophrenia Code(s): F20.9 - SCHIZOPHRENIA, UNSPECIFIED
--- NOTE | 2018-05-08 12:12 | PN ---
Progress Note (short form) - Note Progress Note: NAD on VM O2, taking off frequently according to RN. NC O2 at 5 liters with meals. No acute events overnight. Intake & Output 05/05/18 05/06/18 05/07/18 05/08/18 23:59 23:59 23:59 23:59 Intake Total 1875 1730 2345 750 Output Total 1300 1650 Balance 363 95 7769 750 Weight 212 lb 11.937 oz Last Vital Signs Temp Pulse Resp BP Pulse Ox 98.0 F 94 H 20 131/74 93 L 05/08/18 05:48 05/08/18 05:48 05/08/18 05:48 05/08/18 05:48 05/07/18 21:00 Active Medications Acetylcysteine (Mucomyst 20 Oral / Inh Use Only*) 200 mg NEB RQID [facility] Last Admin: 05/08/18 11:35 Dose: 200 mg Albuterol Sulfate (Ventolin 0.083% Nebulizer Soln -) 1 amp NEB Q6H PRN PRN Reason: SHORT OF BREATH/WHEEZING Last Admin: 05/08/18 11:35 Dose: 1 amp Divalproex Sodium (Depakote Sprinkle Caps -) 1,000 mg PO BID [facility] Enoxaparin Sodium (Lovenox -) 40 mg SQ DAILY [facility] Last Admin: 05/08/18 10:15 Dose: 40 mg Potassium Chloride 40 meq/ (Dextrose) 1,020 mls @ 100 mls/hr IVPB Q10H [facility] Last Admin: 05/08/18 02:06 Dose: 100 mls/hr Piperacillin Sod/Tazobactam (Sod 4.5 gm/ Dextrose) 100 mls @ 200 mls/hr IVPB Q8H-IV ANNA; Protocol Last Admin: 05/08/18 10:00 Dose: 200 mls/hr Lacosamide (Vimpat -) 100 mg PO BID [facility] Last Admin: 05/08/18 11:55 Dose: 100 mg Levothyroxine Sodium (Synthroid -) 75 mcg PO DAILY@0700 [facility] Last Admin: 05/08/18 06:24 Dose: 75 mcg Lorazepam (Ativan Injection -) 2 mg IVPUSH Q1H PRN PRN Reason: not responding to 1mg ativan Ranitidine HCl (Zantac Oral Solution -) 150 mg PO DAILY [facility] Last Admin: 05/08/18 10:15 Dose: 150 mg Constitutional: Yes: NAD Eyes: Yes: WNL HENT: Yes: WNL Neck: Yes: WNL Cardiovascular: Yes: Regular Rate and Rhythm, S1, S2 Respiratory: Yes: Bilateral rhonchi, no wheeze Gastrointestinal: Yes: Normal Bowel Sounds, Soft Extremities: Yes: WNL Edema: No Labs: Laboratory Results - last 24 hr 05/07/18 05/08/18 06:40 11:30 WBC 4.7 RBC 2.91 L Hgb 9.2 L Hct 27.6 L MCV 94.8 MCH 31.5 MCHC 33.3 RDW 18.3 H Plt Count 193 MPV 7.0 L Total Counted 100 Neutrophils % (Manual) 51.0 Lymphocytes % (Manual) 40.0 Monocytes % (Manual) 4 Eosinophils % (Manual) 5.0 H Hypochromia 1+ Platelet Estimate Normal Platelet Comment No clumping noted Polychromasia 1+ Assessment/Plan Acute Hypoxic Respiratory Failure Pneumonia Left Atelectasis Septic Shock resolving s/p Status Epilepticus HTN Hypothyroidism GERD COPD Bipolar Disorder Schizophrenia - ABX per ID - aspiration precautions - O2 to keep Saturation 88% to 92% - inhaled bronchodilators - chest PT/bed percussion - DVT prophylaxis Dr Mcdonald
[2018-05-08 12:32] LABS: ANION GAP 5 MMOL/L (8-16); CALCIUM 8.2 mg/dL (8.5-10.1); CHLORIDE 114 mmol/L (98-107); CO2 28 mmol/L (21-32); CREATININE 0.9 mg/dL (0.55-1.3); GLUCOSE,RANDOM 81 mg/dL (74-106); POTASSIUM 4.3 mmol/L (3.5-5.1); SODIUM 147 mmol/L (136-145)
[2018-05-08] MEDS: DIVALPROEX SODIUM 500 MG TABLET E.C. PO SCH (12:45)
[2018-05-08] MEDS ORDERED: PT OWN MED DRAWER 7, Y5N ONE ×3 (13:41→23:24)
[2018-05-08] MEDS ORDERED: DIVALPROEX SODIUM 125 MG SPRINKLE CAPS PO SCH ×2 (13:45→22:00)
[2018-05-08 15:19] LABS: BLOOD UREA NITROGEN 2 mg/dL (7-18)
[2018-05-08] MEDS: ACETAMINOPHEN 500 MG TABLET (FP) PO PRN (22:53)
[2018-05-08] MEDS: DIVALPROEX SODIUM 125 MG SPRINKLE CAPS PO SCH (22:55)
[2018-05-09] MEDS: PIPERACILLIN/TAZOB 4.5 GM 4.5 GM in DEXTROSE 5%-WATER 100 ML IVPB SCH ×2 (01:21→11:45)
[2018-05-09] MEDS: LEVOTHYROXINE NA 75 MCG TABLET (FP) PO SCH ×2 (06:56→11:44)
[2018-05-09] MEDS: ACETAMINOPHEN 500 MG TABLET (FP) PO PRN (06:56)
[2018-05-09] MEDS: ACETYLCYSTEINE 20% 200MG/ML 4 ML VIAL *FOR ORAL / INH USE ONLY NEB SCH ×4 (08:05→20:38)
[2018-05-09] MEDS: ALBUTEROL SO4 0.083% IH SOL 2.5 MG/3 ML VIAL.NEB. NEB PRN ×3 (08:06→16:40)
[2018-05-09 10:24] LABS: BASO % 0.9 % (0-2.0); EOS % 4.3 % (0-4.5); HEMATOCRIT 27.5 % (32.4-45.2); HEMOGLOBIN 9.1 GM/dL (10.7-15.3); LYMPH % 33.9 % (8-40); MCH 31.4 pg (25.7-33.7); MCHC 33.1 g/dl (32.0-36.0); MEAN CELL VOLUME 94.7 fl (80-96); MEAN PLT VOLUME 7.4 fl (7.5-11.1); MONO % 5.4 % (3.8-10.2); NEUT % 55.5 % (42.8-82.8); PLATELET COUNT 187 K/MM3 (134-434); RBC 2.91 M/mm3 (3.60-5.2); RDW 18.1 % (11.6-15.6); WHITE BLOOD COUNT 4.4 K/mm3 (4.0-10.0)
[2018-05-09] MEDS ORDERED: D5-1/2NS+10 MEQ KCL - 10 MEQ/1,000 ML INFUS.BAG IV SCH (11:00)
--- NOTE | 2018-05-09 11:03 | PN ---
Progress Note (short form) - Note Progress Note: pt seen/ examined chart reviewed awake/ comfortable no distress afebrile Vital Signs Temp 98.2 F 05/09/18 09:18 Pulse 802 H 05/09/18 09:18 Resp 20 05/09/18 09:18 BP 144/64 05/09/18 09:18 Pulse Ox 93 L 05/08/18 09:00 Intake & Output 05/08/18 05/08/18 05/09/18 11:59 23:59 11:59 Intake Total 750 1580 Balance 750 1580 Intake: IV 700 1000 d5w+ kcl 40 meq at 100 cc 700 600 /hr kcl 40 meq in d5w @ 70 cc 400 /hr IVPB 50 200 Oral 380 Other: Voiding Method Incontinent Incontinent Incontinent # Unmeasured Voids Void 2 2 2 Bowel Movement Yes Yes: small Yes # Bowel Movements 1 Active Medications Acetaminophen (Tylenol -) 500 mg PO Q6H PRN PRN Reason: PAIN LEVEL 6-10 Last Admin: 05/08/18 22:53 Dose: 500 mg Acetylcysteine (Mucomyst 20 Oral / Inh Use Only*) 200 mg NEB RQID [facility] Last Admin: 05/09/18 08:05 Dose: 200 mg Albuterol Sulfate (Ventolin 0.083% Nebulizer Soln -) 1 amp NEB Q6H PRN PRN Reason: SHORT OF BREATH/WHEEZING Last Admin: 05/09/18 08:06 Dose: 1 amp Divalproex Sodium (Depakote Sprinkle Caps -) 1,000 mg PO BID [facility] Last Admin: 05/08/18 22:55 Dose: 1,000 mg Enoxaparin Sodium (Lovenox -) 40 mg SQ DAILY [facility] Last Admin: 05/08/18 10:15 Dose: 40 mg Piperacillin Sod/Tazobactam (Sod 4.5 gm/ Dextrose) 100 mls @ 200 mls/hr IVPB Q8H-IV ANNA; Protocol Last Admin: 05/09/18 01:21 Dose: 200 mls/hr Potassium Chloride/Dextrose/Sod Cl (D5-1/2ns+10 Meq Kcl -) 10 meq in 1,000 mls @ 100 mls/hr IV ASDIR ANNA Lacosamide (Vimpat -) 100 mg PO BID [facility] Last Admin: 05/08/18 22:54 Dose: 100 mg Levothyroxine Sodium (Synthroid -) 75 mcg PO DAILY@0700 [facility] Last Admin: 05/08/18 06:24 Dose: 75 mcg Lorazepam (Ativan Injection -) 2 mg IVPUSH Q1H PRN PRN Reason: not responding to 1mg ativan Ranitidine HCl (Zantac Oral Solution -) 150 mg PO DAILY [facility] Last Admin: 05/08/18 10:15 Dose: 150 mg CBC, BMP 05/09/18 09:32 cmp-- Pending. Physical Exam S1 S2 RRR Lungs clear Oral - moist Abd-- soft, bs + No edema alert/ awake PLAN Better Change fluids monitor lytes abx per i/d oob - chair physical therapy will follow discussed with nursing staff also. Problem List - Problems (1) Status epilepticus Code(s): G40.901 - EPILEPSY, UNSP, NOT INTRACTABLE, WITH STATUS EPILEPTICUS (2) Bipolar disorder Code(s): F31.9 - BIPOLAR DISORDER, UNSPECIFIED (3) COPD (chronic obstructive pulmonary disease) Code(s): J44.9 - CHRONIC OBSTRUCTIVE PULMONARY DISEASE, UNSPECIFIED (4) UTI (urinary tract infection) Code(s): N39.0 - URINARY TRACT INFECTION, SITE NOT SPECIFIED Qualifiers: Urinary tract infection type: site unspecified Hematuria presence: without hematuria Qualified Code(s): N39.0 - Urinary tract infection, site not specified
[2018-05-09 11:24] LABS: ALBUMIN 1.8 g/dl (3.4-5.0); ALK PHOS 97 U/L (45-117); ANION GAP 7 MMOL/L (8-16); BILIRUBIN,TOTAL 0.2 mg/dL (0.2-1); BLOOD UREA NITROGEN 3 mg/dL (7-18); CALCIUM 8.3 mg/dL (8.5-10.1); CHLORIDE 113 mmol/L (98-107); CO2 25 mmol/L (21-32); CREATININE 0.9 mg/dL (0.55-1.3); GLUCOSE,RANDOM 79 mg/dL (74-106); POTASSIUM 4.6 mmol/L (3.5-5.1); SGOT/AST 12 U/L (15-37); SGPT/ALT 6 U/L (13-61); SODIUM 145 mmol/L (136-145); TOT PROT 6.3 g/dl (6.4-8.2)
--- NOTE | 2018-05-09 11:35 | PN ---
Progress Note, LEAD RECREATION ASSISTANT - Note Progress Note: Selected Entries 05/08/18 05/08/18 05/08/18 05:48 09:00 15:55 Breakfast Supper Temperature 98.0 F 98 F 98.5 F 05/08/18 05/08/18 05/08/18 18:00 21:00 22:00 Breakfast Supper 25% Temperature 97.8 F 98.2 F 98.0 F 05/09/18 05/09/18 05/09/18 02:00 09:18 10:53 Breakfast 0 Supper Temperature 98.8 F 98.2 F Laboratory Tests 05/09/18 09:32 WBC 4.4 On dys ground/thin liquid. Verbal, happy, sister present Refused breakfast today
[2018-05-09] MEDS ORDERED: DEXTROSE 5%-WATER 100 ML IVPB ONE (11:37)
[2018-05-09] MEDS ORDERED: PIPERACILLIN/TAZOBACTAM 4.5 GM VIAL IVPB ONE (11:37)
[2018-05-09] MEDS: RANITIDINE HCL 150 MG/10 ML UNIT-DOSE PO SCH (11:44)
[2018-05-09] MEDS: LACOSAMIDE 50 MG TABLET PO SCH ×2 (11:44→21:34)
[2018-05-09] MEDS: ENOXAPARIN NA (PORCINE) 40 MG/0.4 ML DISP.SYRIN SQ SCH (11:44)
[2018-05-09] MEDS: DIVALPROEX SODIUM 125 MG SPRINKLE CAPS PO SCH ×2 (11:48→21:34)
[2018-05-09] MEDS: POTASSIUM CHLORIDE 40 MEQ in DEXTROSE 5%-WATER - 1,000 ML IVPB SCH (12:13)
--- NOTE | 2018-05-09 12:40 | PN ---
Progress Note, Physician History of Present Illness: PULMONARY ALERT,ON NASAL O2 ,-RESP DISTRESS - Current Medication List Current Medications: Active Medications Acetaminophen (Tylenol -) 500 mg PO Q6H PRN PRN Reason: PAIN LEVEL 6-10 Last Admin: 05/08/18 22:53 Dose: 500 mg Acetylcysteine (Mucomyst 20 Oral / Inh Use Only*) 200 mg NEB RQID [facility] Last Admin: 05/09/18 12:00 Dose: 200 mg Albuterol Sulfate (Ventolin 0.083% Nebulizer Soln -) 1 amp NEB Q6H PRN PRN Reason: SHORT OF BREATH/WHEEZING Last Admin: 05/09/18 12:01 Dose: 1 amp Divalproex Sodium (Depakote Sprinkle Caps -) 1,000 mg PO BID [facility] Last Admin: 05/09/18 11:48 Dose: 1,000 mg Enoxaparin Sodium (Lovenox -) 40 mg SQ DAILY [facility] Last Admin: 05/09/18 11:44 Dose: 40 mg Piperacillin Sod/Tazobactam (Sod 4.5 gm/ Dextrose) 100 mls @ 200 mls/hr IVPB Q8H-IV ANNA; Protocol Last Admin: 05/09/18 11:45 Dose: 200 mls/hr Potassium Chloride/Dextrose/Sod Cl (D5-1/2ns+10 Meq Kcl -) 10 meq in 1,000 mls @ 100 mls/hr IV ASDIR [facility] Last Admin: 05/09/18 11:46 Dose: 100 mls/hr Lacosamide (Vimpat -) 100 mg PO BID [facility] Last Admin: 05/09/18 11:44 Dose: 100 mg Levothyroxine Sodium (Synthroid -) 75 mcg PO DAILY@0700 [facility] Last Admin: 05/09/18 11:44 Dose: 75 mcg Lorazepam (Ativan Injection -) 2 mg IVPUSH Q1H PRN PRN Reason: not responding to 1mg ativan Ranitidine HCl (Zantac Oral Solution -) 150 mg PO DAILY [facility] Last Admin: 05/09/18 11:44 Dose: 150 mg - Objective Vital Signs: Vital Signs Temperature 98.2 F 05/09/18 09:18 Pulse Rate 802 H 05/09/18 09:18 Respiratory Rate 20 05/09/18 09:18 Blood Pressure 144/64 05/09/18 09:18 O2 Sat by Pulse Oximetry (%) 93 L 05/08/18 09:00 Constitutional: Yes: Well Nourished, Calm Eyes: Yes: WNL HENT: Yes: WNL Neck: Yes: WNL Cardiovascular: Yes: Regular Rate and Rhythm, S1, S2 Respiratory: Yes: Diminished Gastrointestinal: Yes: Normal Bowel Sounds, Soft Extremities: Yes: WNL Edema: No Labs: CBC, BMP 05/09/18 09:32 05/09/18 09:32 INR, PTT INR 1.16 (0.83-1.09) H 05/02/18 05:30 Problem List - Problems (1) Atelectasis Code(s): J98.11 - ATELECTASIS (2) Anemia Code(s): D64.9 - ANEMIA, UNSPECIFIED Qualifiers: Anemia type: unspecified type Qualified Code(s): D64.9 - Anemia, unspecified (3) Acute respiratory failure with hypoxia Code(s): J96.01 - ACUTE RESPIRATORY FAILURE WITH HYPOXIA (4) Bipolar disorder Code(s): F31.9 - BIPOLAR DISORDER, UNSPECIFIED (5) COPD (chronic obstructive pulmonary disease) Code(s): J44.9 - CHRONIC OBSTRUCTIVE PULMONARY DISEASE, UNSPECIFIED (6) HTN (hypertension) Code(s): I10 - ESSENTIAL (PRIMARY) HYPERTENSION (7) Pneumonia Code(s): J18.9 - PNEUMONIA, UNSPECIFIED ORGANISM (8) Schizophrenia Code(s): F20.9 - SCHIZOPHRENIA, UNSPECIFIED Assessment/Plan ASSESSMENT AND PLAN: Acute Hypoxic Respiratory Failure Pneumonia Left Atelectasis Septic Shock resolving s/p Status Epilepticus HTN Hypothyroidism GERD COPD Bipolar Disorder Schizophrenia - antibiotics - aspiration precautions - FiO2 to keep Spo2 >90% - BiPAP as needed to assist in work of breathing - inhaled bronchodilators - increase free water - continue mucomyst - position right side down - chest PT/bed percussion - CXR - DVT prophylaxis DR TEIXEIRA
[2018-05-09 13:15] LABS: ANISOCYTOSIS 1+; MACROCYTOSIS 1+; PLATELET ESTIMATE NORMAL
--- NOTE | 2018-05-09 13:43 | PN ---
Progress Note (short form) - Note Progress Note: quite alert and conversant no complaints has been on antibiotics since admission Vital Signs Period Temp Pulse Resp BP Sys/Meyers Pulse Ox Last 24 Hr 97.8 F-98.8 F 88-802 20-22 132-158/57-77 cor-rrr lungs decreased bs at bses abd soft,nt ext no edema CBC, BMP 05/09/18 09:32 05/09/18 09:32 Microbiology 05/01/18 12:20 Blood - Peripheral Venous Blood Culture - Final NO GROWTH AFTER 5 DAYS INCUBATION 05/02/18 00:30 Blood - Peripheral Venous Blood Culture - Final NO GROWTH AFTER 5 DAYS INCUBATION 05/03/18 11:10 Nares - Mrsa Screen - Right MRSA Screen - Final NO MRSA ISOLATED 05/01/18 05:45 Urine - Urine - Catheterized Urine Culture - Final NO GROWTH OBTAINED cxray with left lung whiteout a/p no fevers clinically looks well d/w dr sonia patterson d/c antiibioitcs called respiratory to make sure she is getting chest PT s/p seizure
[2018-05-10] MEDS: LEVOTHYROXINE NA 75 MCG TABLET (FP) PO SCH (06:35)
[2018-05-10] MEDS: ACETYLCYSTEINE 20% 200MG/ML 4 ML VIAL *FOR ORAL / INH USE ONLY NEB SCH ×4 (07:20→20:13)
[2018-05-10] MEDS ORDERED: PT OWN MED DRAWER 7, Y5N ONE (09:11)
[2018-05-10] MEDS: RANITIDINE HCL 150 MG/10 ML UNIT-DOSE PO SCH (09:13)
[2018-05-10] MEDS: LACOSAMIDE 50 MG TABLET PO SCH ×2 (09:13→22:04)
[2018-05-10] MEDS: ENOXAPARIN NA (PORCINE) 40 MG/0.4 ML DISP.SYRIN SQ SCH (09:13)
--- NOTE | 2018-05-10 12:22 | DS ---
Physical Examination Vital Signs: Vital Signs Temperature 99.0 F 05/10/18 02:00 Pulse Rate 94 H 05/10/18 02:00 Respiratory Rate 20 05/10/18 02:00 Blood Pressure 141/65 05/10/18 02:00 O2 Sat by Pulse Oximetry (%) 94 L 05/09/18 10:00 Constitutional: Yes: No Distress, Calm Cardiovascular: Yes: Regular Rate and Rhythm Respiratory: Yes: Diminished Gastrointestinal: Yes: Normal Bowel Sounds, Soft, Abdomen, Obese. No: Tenderness Edema: No Labs: CBC, BMP 05/09/18 09:32 05/09/18 09:32 Discharge Summary Reason For Visit: Seizure Current Active Problems Anemia (Acute) Atelectasis (Acute) Status epilepticus (Acute) Hospital Course: Admitted for status epilepticus Was initially admitted in ICU seen by Neurology, was on iv seizure meds seizures controlled she was later transferred to medical floor after being stabilized Pt also had pneumonia, atelectasis due to aspiration from seizures Seen by ID-- was on iv antibiotics-- completed yesterday She is afebrile she is eating diet needs to be encouraged evaluated by swallow therapist stable for dc to [place] Condition: Improved - Instructions Referrals: Julio César Pereira MD [Primary Care Provider] - Disposition: [facility] - Home Medications Comprehensive Discharge Medication List: Ambulatory Orders Acetaminophen [Non-Aspirin Pain Relief] 650 mg PO Q6H PRN 01/14/15 Albuterol 0.083% Nebulizer Renuka [Ventolin 0.083% Nebulizer Soln -] 1 neb NEB Q6H PRN 01/14/15 Lamotrigine 200 mg PO BID 01/14/15 Levetiracetam [Keppra] 1,000 mg PO BID 01/14/15 Levothyroxine [Synthroid -] 75 mcg PO DAILY 01/14/15 Metoprolol Tartrate 25 mg PO BID 01/14/15 Acidoph/L.bulg/Bif.b/S.thermop [Bacid Caplet] 1 each PO BID #30 tablet 04/29/18 Cefuroxime Axetil [Ceftin -] 500 mg PO Q12H #10 tablet 04/29/18 Heparin - 5,000 unit SQ BID vial 04/29/18 Aspirin [ASA -] 81 mg PO DAILY 05/02/18 Carbidopa/Levodopa 25/100 [Sinemet 25/100 -] 1 each PO BID 05/02/18
[2018-05-10] MEDS: DIVALPROEX SODIUM 125 MG SPRINKLE CAPS PO SCH ×2 (13:08→22:04)
--- NOTE | 2018-05-10 13:36 | PN ---
Progress Note, Physician History of Present Illness: PULMONARY AWAKE NO DISTRESS,SOB - Current Medication List Current Medications: Active Medications Acetaminophen (Tylenol -) 500 mg PO Q6H PRN PRN Reason: PAIN LEVEL 6-10 Last Admin: 05/08/18 22:53 Dose: 500 mg Acetylcysteine (Mucomyst 20 Oral / Inh Use Only*) 200 mg NEB RQID [facility] Last Admin: 05/10/18 11:28 Dose: Not Given Albuterol Sulfate (Ventolin 0.083% Nebulizer Soln -) 1 amp NEB Q6H PRN PRN Reason: SHORT OF BREATH/WHEEZING Last Admin: 05/09/18 16:40 Dose: 1 amp Divalproex Sodium (Depakote Sprinkle Caps -) 1,000 mg PO BID [facility] Last Admin: 05/10/18 13:08 Dose: 1,000 mg Enoxaparin Sodium (Lovenox -) 40 mg SQ DAILY [facility] Last Admin: 05/10/18 09:13 Dose: 40 mg Potassium Chloride/Dextrose/Sod Cl (D5-1/2ns+10 Meq Kcl -) 10 meq in 1,000 mls @ 100 mls/hr IV ASDIR [facility] Last Admin: 05/09/18 11:46 Dose: 100 mls/hr Lacosamide (Vimpat -) 100 mg PO BID [facility] Last Admin: 05/10/18 09:13 Dose: 100 mg Levothyroxine Sodium (Synthroid -) 75 mcg PO DAILY@0700 [facility] Last Admin: 05/10/18 06:35 Dose: Not Given Ranitidine HCl (Zantac Oral Solution -) 150 mg PO DAILY [facility] Last Admin: 05/10/18 09:13 Dose: 150 mg - Objective Vital Signs: Vital Signs Temperature 99.0 F 05/10/18 02:00 Pulse Rate 94 H 05/10/18 02:00 Respiratory Rate 20 05/10/18 02:00 Blood Pressure 141/65 05/10/18 02:00 O2 Sat by Pulse Oximetry (%) 94 L 05/09/18 10:00 Constitutional: Yes: Well Nourished, Calm Eyes: Yes: WNL HENT: Yes: WNL Neck: Yes: WNL Cardiovascular: Yes: Regular Rate and Rhythm, S1, S2 Respiratory: Yes: Rhonchi (FEW RHONCHI) Gastrointestinal: Yes: Normal Bowel Sounds, Soft Extremities: Yes: WNL Edema: No Labs: CBC, BMP 05/09/18 09:32 05/09/18 09:32 INR, PTT INR 1.16 (0.83-1.09) H 05/02/18 05:30 - ....Imaging Chest X-ray: Report Reviewed, Image Reviewed (improving left lung atelectasis) Problem List - Problems (1) Atelectasis Code(s): J98.11 - ATELECTASIS (2) Anemia Code(s): D64.9 - ANEMIA, UNSPECIFIED Qualifiers: Anemia type: unspecified type Qualified Code(s): D64.9 - Anemia, unspecified (3) Acute respiratory failure with hypoxia Code(s): J96.01 - ACUTE RESPIRATORY FAILURE WITH HYPOXIA (4) Bipolar disorder Code(s): F31.9 - BIPOLAR DISORDER, UNSPECIFIED (5) COPD (chronic obstructive pulmonary disease) Code(s): J44.9 - CHRONIC OBSTRUCTIVE PULMONARY DISEASE, UNSPECIFIED (6) HTN (hypertension) Code(s): I10 - ESSENTIAL (PRIMARY) HYPERTENSION (7) Pneumonia Code(s): J18.9 - PNEUMONIA, UNSPECIFIED ORGANISM (8) Schizophrenia Code(s): F20.9 - SCHIZOPHRENIA, UNSPECIFIED Assessment/Plan ASSESSMENT AND PLAN: Acute Hypoxic Respiratory Failure improved Pneumonia clinically improved Left Atelectasis improving Septic Shock resolving s/p Status Epilepticus HTN Hypothyroidism GERD COPD Bipolar Disorder Schizophrenia - aspiration precautions - FiO2 to keep Spo2 >90% - BiPAP as needed to assist in work of breathing - inhaled bronchodilators - mucomyst - position right side down - chest PT/bed percussion - DVT prophylaxis DR TEIXEIRA
[2018-05-11] MEDS: LEVOTHYROXINE NA 75 MCG TABLET (FP) PO SCH (06:03)
[2018-05-11] MEDS: ACETYLCYSTEINE 20% 200MG/ML 4 ML VIAL *FOR ORAL / INH USE ONLY NEB SCH ×4 (07:50→21:32)
--- NOTE | 2018-05-11 10:10 | PN ---
Progress Note (short form) - Note Progress Note: no complaints she is eating no seizures Vital Signs - 24 hr 05/10/18 05/10/18 05/10/18 18:00 21:00 23:00 Temperature 97.8 F Pulse Rate 122 H 97 H Respiratory 19 20 20 Rate Blood Pressure 151/81 155/68 O2 Sat by Pulse 90 L Oximetry (%) 05/11/18 05/11/18 05/11/18 06:00 09:00 10:00 Temperature 98.2 F 98.8 F Pulse Rate 91 H 91 H Respiratory 18 18 20 Rate Blood Pressure 161/64 154/76 O2 Sat by Pulse 90 L Oximetry (%) 05/11/18 15:27 Temperature 99.3 F Pulse Rate 91 H Respiratory 18 Rate Blood Pressure 128/62 O2 Sat by Pulse Oximetry (%) Current Medications Generic Name Dose Route Start Last Admin Trade Name Freq PRN Reason Stop Dose Admin Acetaminophen 500 mg 05/08/18 21:43 05/08/18 22:53 Tylenol - PO 500 mg Q6H PRN Administration PAIN LEVEL 6-10 Acetylcysteine 200 mg 05/06/18 20:00 05/11/18 15:33 Mucomyst 20 Oral / Inh Use Only* NEB Not Given RQID ANNA Albuterol Sulfate 1 amp 05/06/18 16:25 05/09/18 16:40 Ventolin 0.083% Nebulizer Soln - NEB 1 amp Q6H PRN Administration SHORT OF BREATH/WHEEZING Divalproex Sodium 1,000 mg 05/08/18 22:00 05/11/18 11:25 Depakote Sprinkle Caps - PO 1,000 mg BID ANNA Administration Enoxaparin Sodium 40 mg 05/07/18 10:00 05/11/18 10:39 Lovenox - SQ 40 mg DAILY ANNA Administration Lacosamide 100 mg 05/07/18 22:00 05/11/18 10:37 Vimpat - PO 100 mg BID ANNA Administration Levothyroxine Sodium 75 mcg 05/08/18 07:00 05/11/18 06:03 Synthroid - PO Not Given DAILY@0700 ANNA Ranitidine HCl 150 mg 05/08/18 10:00 05/11/18 10:37 Zantac Oral Solution - PO 150 mg DAILY ANNA Administration S1 S2 RRR Lungs decreased breath sounds on left Abd- soft, obese, NT trace edema PLAN Chest PT to continue repeat CXR improved seizure control with Valproate, Lacosamide sister appealed discharge pt is medically ready for dc to [place] Problem List - Problems (1) Status epilepticus Code(s): G40.901 - EPILEPSY, UNSP, NOT INTRACTABLE, WITH STATUS EPILEPTICUS (2) Acute and chronic respiratory failure with hypercapnia Code(s): J96.22 - ACUTE AND CHRONIC RESPIRATORY FAILURE WITH HYPERCAPNIA (3) Bipolar disorder Code(s): F31.9 - BIPOLAR DISORDER, UNSPECIFIED (4) HTN (hypertension) Code(s): I10 - ESSENTIAL (PRIMARY) HYPERTENSION (5) Pneumonia Code(s): J18.9 - PNEUMONIA, UNSPECIFIED ORGANISM (6) Schizophrenia Code(s): F20.9 - SCHIZOPHRENIA, UNSPECIFIED
[2018-05-11] MEDS: LACOSAMIDE 50 MG TABLET PO SCH ×2 (10:37→21:30)
[2018-05-11] MEDS: RANITIDINE HCL 150 MG/10 ML UNIT-DOSE PO SCH (10:37)
[2018-05-11] MEDS: ENOXAPARIN NA (PORCINE) 40 MG/0.4 ML DISP.SYRIN SQ SCH (10:39)
[2018-05-11] MEDS: DIVALPROEX SODIUM 125 MG SPRINKLE CAPS PO SCH ×2 (11:25→21:30)
--- NOTE | 2018-05-11 13:46 | PN ---
Progress Note, Physician History of Present Illness: PULMONARY ALERT,COMFORTABLE,-SOB - Current Medication List Current Medications: Active Medications Acetaminophen (Tylenol -) 500 mg PO Q6H PRN PRN Reason: PAIN LEVEL 6-10 Last Admin: 05/08/18 22:53 Dose: 500 mg Acetylcysteine (Mucomyst 20 Oral / Inh Use Only*) 200 mg NEB RQID [facility] Last Admin: 05/11/18 11:33 Dose: Not Given Albuterol Sulfate (Ventolin 0.083% Nebulizer Soln -) 1 amp NEB Q6H PRN PRN Reason: SHORT OF BREATH/WHEEZING Last Admin: 05/09/18 16:40 Dose: 1 amp Divalproex Sodium (Depakote Sprinkle Caps -) 1,000 mg PO BID [facility] Last Admin: 05/11/18 11:25 Dose: 1,000 mg Enoxaparin Sodium (Lovenox -) 40 mg SQ DAILY [facility] Last Admin: 05/11/18 10:39 Dose: 40 mg Lacosamide (Vimpat -) 100 mg PO BID [facility] Last Admin: 05/11/18 10:37 Dose: 100 mg Levothyroxine Sodium (Synthroid -) 75 mcg PO DAILY@0700 [facility] Last Admin: 05/11/18 06:03 Dose: Not Given Ranitidine HCl (Zantac Oral Solution -) 150 mg PO DAILY [facility] Last Admin: 05/11/18 10:37 Dose: 150 mg - Objective Vital Signs: Vital Signs Temperature 98.8 F 05/11/18 10:00 Pulse Rate 91 H 05/11/18 10:00 Respiratory Rate 20 05/11/18 10:00 Blood Pressure 154/76 05/11/18 10:00 O2 Sat by Pulse Oximetry (%) 90 L 05/10/18 21:00 Constitutional: Yes: Well Nourished, Calm Eyes: Yes: WNL HENT: Yes: WNL Neck: Yes: WNL Cardiovascular: Yes: Regular Rate and Rhythm, S1, S2 Respiratory: Yes: Rales (FEW SCATTERED JIM RHONCHI) Gastrointestinal: Yes: Normal Bowel Sounds, Soft Extremities: Yes: WNL Edema: Yes Labs: CBC, BMP Problem List - Problems (1) Atelectasis Code(s): J98.11 - ATELECTASIS (2) Anemia Code(s): D64.9 - ANEMIA, UNSPECIFIED Qualifiers: Anemia type: unspecified type Qualified Code(s): D64.9 - Anemia, unspecified (3) Acute respiratory failure with hypoxia Code(s): J96.01 - ACUTE RESPIRATORY FAILURE WITH HYPOXIA (4) Bipolar disorder Code(s): F31.9 - BIPOLAR DISORDER, UNSPECIFIED (5) COPD (chronic obstructive pulmonary disease) Code(s): J44.9 - CHRONIC OBSTRUCTIVE PULMONARY DISEASE, UNSPECIFIED (6) HTN (hypertension) Code(s): I10 - ESSENTIAL (PRIMARY) HYPERTENSION (7) Pneumonia Code(s): J18.9 - PNEUMONIA, UNSPECIFIED ORGANISM (8) Schizophrenia Code(s): F20.9 - SCHIZOPHRENIA, UNSPECIFIED Assessment/Plan ASSESSMENT AND PLAN: Acute Hypoxic Respiratory Failure improved Pneumonia clinically improved Left Atelectasis improving Septic Shock resolving s/p Status Epilepticus HTN Hypothyroidism GERD COPD Bipolar Disorder Schizophrenia - aspiration precautions - FiO2 to keep Spo2 >90% - BiPAP as needed to assist in work of breathing - inhaled bronchodilators - mucomyst - position right side down - chest PT/bed percussion - DVT prophylaxis DR TEIXEIRA
[2018-05-12] MEDS: LEVOTHYROXINE NA 75 MCG TABLET (FP) PO SCH (06:04)
[2018-05-12] MEDS: ACETYLCYSTEINE 20% 200MG/ML 4 ML VIAL *FOR ORAL / INH USE ONLY NEB SCH ×3 (07:15→15:37)
[2018-05-12] MEDS ORDERED: PT OWN MED DRAWER 7, Y5N ONE (09:52)
[2018-05-12] MEDS: ENOXAPARIN NA (PORCINE) 40 MG/0.4 ML DISP.SYRIN SQ SCH (10:43)
[2018-05-12] MEDS: LACOSAMIDE 50 MG TABLET PO SCH (10:43)
[2018-05-12] MEDS: RANITIDINE HCL 150 MG/10 ML UNIT-DOSE PO SCH (10:43)
--- NOTE | 2018-05-12 11:32 | PN ---
Progress Note (short form) - Note Progress Note: pt seen/ examined awake/ comfortable Vital Signs Temp 98.6 F 05/12/18 10:00 Pulse 101 H 05/12/18 10:00 Resp 19 05/12/18 10:00 BP 122/50 L 05/12/18 10:00 Pulse Ox 90 L 05/11/18 21:00 Intake & Output 05/11/18 05/11/18 05/12/18 11:59 23:59 11:59 Intake Total 520 460 100 Balance 520 460 100 Intake: Oral 400 460 100 Oral Supplement 120 Other: Voiding Method Incontinent Incontinent # Unmeasured Voids Void 1 1 Bowel Movement Yes No Active Medications Acetaminophen (Tylenol -) 500 mg PO Q6H PRN PRN Reason: PAIN LEVEL 6-10 Last Admin: 05/08/18 22:53 Dose: 500 mg Acetylcysteine (Mucomyst 20 Oral / Inh Use Only*) 200 mg NEB RQID [facility] Last Admin: 05/12/18 11:05 Dose: Not Given Divalproex Sodium (Depakote Sprinkle Caps -) 1,000 mg PO BID [facility] Last Admin: 05/11/18 21:30 Dose: 1,000 mg Enoxaparin Sodium (Lovenox -) 40 mg SQ DAILY [facility] Last Admin: 05/12/18 10:43 Dose: 40 mg Lacosamide (Vimpat -) 100 mg PO BID [facility] Last Admin: 05/12/18 10:43 Dose: 100 mg Levothyroxine Sodium (Synthroid -) 75 mcg PO DAILY@0700 [facility] Last Admin: 05/12/18 06:04 Dose: Not Given Ranitidine HCl (Zantac Oral Solution -) 150 mg PO DAILY [facility] Last Admin: 05/12/18 10:43 Dose: 150 mg CBC, BMP 05/09/18 09:32 05/09/18 09:32 Physical Exam awake/ comfortabe S1 S2 RRR Lungs decreased breath sounds- on bases Abd- soft, obese, NT trace edema PLAN stable pt is medically stable for dc to [place] Anemia work up as out pt-- as pt/ pts sister wishes -- see detailed discharge summary F/u cxr in 4 weeks -- to document clearing of pneumonia Discussed with nursing staff/ returned case inspector also. Problem List - Problems (1) Status epilepticus Code(s): G40.901 - EPILEPSY, UNSP, NOT INTRACTABLE, WITH STATUS EPILEPTICUS (2) Bipolar disorder Code(s): F31.9 - BIPOLAR DISORDER, UNSPECIFIED (3) COPD (chronic obstructive pulmonary disease) Code(s): J44.9 - CHRONIC OBSTRUCTIVE PULMONARY DISEASE, UNSPECIFIED (4) UTI (urinary tract infection) Code(s): N39.0 - URINARY TRACT INFECTION, SITE NOT SPECIFIED Qualifiers: Urinary tract infection type: site unspecified Hematuria presence: without hematuria Qualified Code(s): N39.0 - Urinary tract infection, site not specified
--- NOTE | 2018-05-12 12:31 | PN ---
Progress Note, Physician History of Present Illness: pulmonary alert,no distress,-sob - Current Medication List Current Medications: Active Medications Acetaminophen (Tylenol -) 500 mg PO Q6H PRN PRN Reason: PAIN LEVEL 6-10 Last Admin: 05/08/18 22:53 Dose: 500 mg Acetylcysteine (Mucomyst 20 Oral / Inh Use Only*) 200 mg NEB RQID [facility] Last Admin: 05/12/18 11:05 Dose: Not Given Divalproex Sodium (Depakote Sprinkle Caps -) 1,000 mg PO BID [facility] Last Admin: 05/11/18 21:30 Dose: 1,000 mg Enoxaparin Sodium (Lovenox -) 40 mg SQ DAILY [facility] Last Admin: 05/12/18 10:43 Dose: 40 mg Lacosamide (Vimpat -) 100 mg PO BID [facility] Last Admin: 05/12/18 10:43 Dose: 100 mg Levothyroxine Sodium (Synthroid -) 75 mcg PO DAILY@0700 [facility] Last Admin: 05/12/18 06:04 Dose: Not Given Ranitidine HCl (Zantac Oral Solution -) 150 mg PO DAILY [facility] Last Admin: 05/12/18 10:43 Dose: 150 mg - Objective Vital Signs: Vital Signs Temperature 98.6 F 05/12/18 10:00 Pulse Rate 101 H 05/12/18 10:00 Respiratory Rate 05/12/18 10:00 Blood Pressure 122/50 L 05/12/18 10:00 O2 Sat by Pulse Oximetry (%) 90 L 05/11/18 21:00 Constitutional: Yes: Well Nourished, Calm Eyes: Yes: WNL HENT: Yes: WNL Neck: Yes: WNL Cardiovascular: Yes: Regular Rate and Rhythm, S1, S2 Respiratory: Yes: Rhonchi (few rhonchi) Gastrointestinal: Yes: Normal Bowel Sounds, Soft Extremities: Yes: WNL Edema: Yes Labs: CBC, BMP Problem List - Problems (1) Atelectasis Code(s): J98.11 - ATELECTASIS (2) Anemia Code(s): D64.9 - ANEMIA, UNSPECIFIED Qualifiers: Anemia type: unspecified type Qualified Code(s): D64.9 - Anemia, unspecified (3) Acute respiratory failure with hypoxia Code(s): J96.01 - ACUTE RESPIRATORY FAILURE WITH HYPOXIA (4) Bipolar disorder Code(s): F31.9 - BIPOLAR DISORDER, UNSPECIFIED (5) COPD (chronic obstructive pulmonary disease) Code(s): J44.9 - CHRONIC OBSTRUCTIVE PULMONARY DISEASE, UNSPECIFIED (6) HTN (hypertension) Code(s): I10 - ESSENTIAL (PRIMARY) HYPERTENSION (7) Pneumonia Code(s): J18.9 - PNEUMONIA, UNSPECIFIED ORGANISM (8) Schizophrenia Code(s): F20.9 - SCHIZOPHRENIA, UNSPECIFIED Assessment/Plan ASSESSMENT AND PLAN: Acute Hypoxic Respiratory Failure improved Pneumonia clinically improved Left Atelectasis improving Septic Shock resolving s/p Status Epilepticus HTN Hypothyroidism GERD COPD Bipolar Disorder Schizophrenia - aspiration precautions - FiO2 to keep Spo2 >90% - BiPAP as needed to assist in work of breathing - inhaled bronchodilators - mucomyst - position right side down - chest PT/bed percussion - DVT prophylaxis - chest x-ray today DR TEIXEIRA
[2018-05-12] MEDS: DIVALPROEX SODIUM 125 MG SPRINKLE CAPS PO SCH (12:53)
[2018-05-12 15:22] VITALS: BP 152/78; PULSE 93; TEMP 98.2
== END 2018-05-12 16:24 | DRG 720 ==
LOC: JER 20:51 → JERBED 05-02 02:02 → JICU 05-02 05:26 → J5S 05-06 16:44
PROVIDERS: ADMIT Internal Medicine; ATTEND Internal Medicine
PROC: 5A1935Z Respiratory Ventilation, Less than 24 Consecutive Hours (ICD-10-PCS; principal; 2018-05-01)
PROC: 0BH17EZ Insertion of Endotracheal Airway into Trachea, Via Natural or Artificial Opening (ICD-10-PCS; 2018-05-01)
PROC: 5A09457 Assistance with Respiratory Ventilation, 24-96 Consecutive Hours, Continuous Positive Airway Pressure (ICD-10-PCS; 2018-05-02)
PROC: 30233N1 Transfusion of Nonautologous Red Blood Cells into Peripheral Vein, Percutaneous Approach (ICD-10-PCS; 2018-05-02)
DX: A41.89 Other specified sepsis (principal); J98.11 Atelectasis; D64.9 Anemia, unspecified; F31.9 Bipolar disorder, unspecified; I10 Essential (primary) hypertension; F20.9 Schizophrenia, unspecified; E03.9 Hypothyroidism, unspecified; K21.9 Gastro-esophageal reflux disease without esophagitis; E66.9 Obesity, unspecified; J44.9 Chronic obstructive pulmonary disease, unspecified; J96.01 Acute respiratory failure with hypoxia; E46 Unspecified protein-calorie malnutrition; E88.09 Other disorders of plasma-protein metabolism, not elsewhere classified; I24.8 Other forms of acute ischemic heart disease; G40.911 Epilepsy, unspecified, intractable, with status epilepticus; J69.0 Pneumonitis due to inhalation of food and vomit; Z68.33 Body mass index [BMI] 33.0-33.9, adult; E87.6 Hypokalemia; I95.9 Hypotension, unspecified
CPT/HCPCS: 36415; 36430; 36511; 36600; 70450-TC; 71045-TC-FY; 80048; 80053; 80076; 80164; 80175; 80177; 80307; 81003; 81015; 82375; 82550; 82803; 82962; 83050; 83605; 83735; 84100; 84146; 84443; 84484; 85025; 85027; 85610; 85730; 86850; 86900; 86901; 86922; 87040; 87081; 87086; 90688; 90732; 93005; 93010; 94640; 94660; 95816; 97161-GP; 99283-25; G0008; G0009; G0480; J0131; J7030; P9038; P9058